=== PATIENT | female | born 1935 | race Caucasian/White ===

== ENCOUNTER 2016-03-16 13:30 | Inpatient (IN) | payer OTHER ==
[~2016-03-16] VITALS: Ht 160 cm; Wt 73.2 kg
[~2016-03-16 13:30] MED LIST: ACET-1256 PO; ASPI81TA28 PO; CMD2 PO; CRDCD240 PO; FLV1 PO; ISOS60TA25 PO; LPT/40 PO; LSN40 PO; METO25TA3 PO; NTRGSL/4 UT; POTA-327 PO; PRT40 PO
[2016-03-16] MEDS ORDERED: SODIUM CHLORIDE 0.9% 1000ML 1,000 ML IV STA (14:03)
--- NOTE | 2016-03-16 14:21 | EMERGENCY ROOM VISIT NOTE ---
History Report prepared by [place]: Balaji Pereyra Under the Supervision of: Dr. Tapan Licona M.D. First contact with patient: 14:02 Chief Complaint: SYNCOPE (NEAR SYNCOPE) Stated Complaint: SYNCOPE Nursing Triage Summary: Eating dinner and was getting out of chair and got very light headed. Family states she passed out was assisted to chair by family. Patient states she had a little bit of chest pain described as sharp but is getting better now. History of Present Illness The patient is a 80 year old female who presents to the Emergency Room with complaints of a sudden syncopal episode beginning just prior to arrival. She currently rates her discomfort as a 5/10 in severity. The patient states she was eating, and she became lightheaded while she was sitting at the dinner table. As per family, the patient passed out as they were helping her to a chair in the living room. The patient states she experienced sharp chest pain during the event, but it has resolved. As per daughter, the patient does not remember the family assisting her to the living room. The patient associates fatigue, dizziness, and a headache with today's symptoms. She states she recently had a cold with a cough and a runny nose. The patient notes an episode of diarrhea yesterday. As per daughter, the patient has been taking cold medicine that she usually does not use. The patient states she has a history of atrial fibrillation, but she has not had recent heart problems or stents placed. She notes her chest pain lasted 15-20 minutes, and it resolved on the way to the ED. Pt denies fevers, chills, diaphoresis, visual changes, neck pain , breathing difficulties, nausea, vomiting, abdominal pain, back pain, melena, hematochezia, urinary symptoms, numbness, weakness, lymphadenopathy, rash, or other complaints. Source of History: patient Onset: just prior to arrival Position: other (global) Quality: other (syncope) Timing: other (sudden) Associated Symptoms: + chest pain (resolved), + fatigue, + headache Note: Associated symptoms: dizziness. Review of Systems See HPI for pertinent positives and negatives. A total of ten systems were reviewed and were otherwise negative. Past Medical & Surgical Medical Problems: (1) Atrial fibrillation (2) Coronary artery disease (3) Dyslipidemia (4) Essential hypertension Surgical Problems: (1) H/O mastectomy (2) S/P cholecystectomy Family History Diabetes mellitus FH: cancer FH: coronary artery disease FATHER MOTHER FH: heart disease Hypertension Stroke MOTHER Social History Smoking Status: Never Smoker Alcohol Use: none Drug Use: none Marital Status: Housing Status: lives alone Occupation Status: retired Current/Historical Medications Scheduled Acetaminophen (Tylenol), 500-1,000 MG PO Q4-6HR PRN Aspirin (Aspirin Ec), 81 MG PO DAILY Atorvastatin (Lipitor), 40 MG PO Q2D Diltiazem Hcl Cd (Cardizem Cd *), 240 MG PO DAILY Folic Acid (Folvite *), 1 MG PO DAILY Isosorbide Mononitrate Ext Rel (Imdur Ext Rel), 60 MG PO QAM Lisinopril (Lisinopril), 40 MG PO DAILY Metoprolol Succ (Toprol Xl) (Toprol-Xl), 25 MG PO DAILY Nitroglycerin (Nitrostat), 0.4 MG UT PRN Sxahyhxunitiq-Atjoozmbie-Asvtg (Diane-[place] Plus Day/Nig), 1 TAB PO DAILY Potassium Ext Rel (Klor-Con), 10 MEQ PO BID Warfarin Sod (Jantoven), 2.5 MG PO DAILY Allergies Coded Allergies: No Known Allergies (Verified , 03/16/16) Physical Exam Vital Signs Date Time Temp Pulse Resp B/P Pulse Ox O2 Delivery O2 Flow Rate FiO2 03/16/16 17:27 77 18 124/70 99 03/16/16 15:40 85 16 154/84 98 Room Air 03/16/16 14:23 91 147/81 81 141/90 137 154/84 03/16/16 14:21 85 03/16/16 14:21 98 Room Air 03/16/16 14:21 98 Room Air 03/16/16 13:40 36.9 83 23 163/88 95 Room Air Physical Exam GENERAL: Awake, alert, tired-appearing, in no distress HENT: Normocephalic, atraumatic. Oropharynx unremarkable. EYES: Normal conjunctiva. Sclera non-icteric. NECK: Supple. No nuchal rigidity. FROM. No JVD. RESPIRATORY: Clear to auscultation. CARDIAC: Regular rate, normal rhythm. Extremities warm and well perfused. Pulses equal. ABDOMEN: Soft, non-distended. No tenderness to palpation. No rebound or guarding. No masses. RECTAL: Deferred. MUSCULOSKELETAL: Chest examination reveals no tenderness. The back is symmetrical on inspection without obvious abnormality. There is no CVA tenderness to palpation. No joint edema. LOWER EXTREMITIES: Calves are equal size bilaterally and non-tender. No edema. No discoloration. NEURO: Normal sensorium. No sensory or motor deficits noted. SKIN: No rash or jaundice noted. Medical Decision & Procedures ER Provider Diagnostic Interpretation: X ray results as stated below per my interpretation and radiologist interpretation. Other radiology results as stated below per my review and radiologist interpretation SINGLE VIEW CHEST CLINICAL HISTORY: Atypical chest pain. FINDINGS: An AP, portable, upright chest radiograph is compared to study dated 06/14/2015 and correlated with chest CT dated 06/15/2015. The examination is degraded by portable technique and apical lordotic positioning. The heart is top normal for projection. There is atherosclerotic calcification of the thoracic aorta. The pulmonary vasculature is noncongested. Bibasilar atelectasis is observed. The lungs and pleural spaces are otherwise clear. Tiny calcified granulomas at the left apex are unchanged. No pneumothorax is seen. The skeletal structures are osteopenic. The bony thorax is grossly intact. IMPRESSION: No acute cardiopulmonary abnormality. Electronically signed by: Junior Gonzalez M.D. 03/16/2016 2:[address] SCAN OF THE BRAIN WITHOUT IV CONTRAST CLINICAL HISTORY: Syncope. COMPARISON STUDY: CT of the brain dated 12/04/2009. TECHNIQUE: Unenhanced axial CT scan of the brain is performed from the vertex to the skull base. CT DOSE: 601.98 mGy.cm FINDINGS: Brain parenchyma: There are age-related involutional changes noting moderate confluent subcortical and periventricular microangiopathic change. There is no hemorrhage, mass effect, or evidence of acute territorial ischemia by CT criteria. Murphy-white matter is preserved. No extra-axial fluid collection is seen. Ventricles, sulci, cisterns: Prominent secondary to involutional change. Intracranial vasculature: There is atherosclerotic calcification of the cavernous carotid arteries. Calvarium: The skeletal structures are osteopenic. There is no depressed calvarial fracture. Sinuses and mastoids: Trace mucosal thickening is seen in the ethmoid sinuses. The remaining visualized paranasal sinuses are clear. The mastoid air cells are well pneumatized. Orbits: The bony orbits are grossly intact. There is a right ocular lens implant. IMPRESSION: Senescent changes as above with no hemorrhage, mass effect, or evidence of acute territorial ischemia by CT criteria. Electronically signed by: Junior Gonzalez M.D. 03/16/2016 3:16 PM Laboratory Results 03/16/16 14:43 Red Blood Count 5.19, Mean Corpuscular Volume 92.1, Mean Corpuscular Hemoglobin 32.2, Mean Corpuscular Hemoglobin Concent 34.9, Mean Platelet Volume 9.4, Neutrophils (%) (Auto) 70.9, Lymphocytes (%) (Auto) 18.8, Monocytes (%) (Auto) 9.5, Eosinophils (%) (Auto) 0.3, Basophils (%) (Auto) 0.2, Neutrophils # (Auto) 6.65, Lymphocytes # (Auto) 1.77, Monocytes # (Auto) 0.89, Eosinophils # (Auto) 0.03, Basophils # (Auto) 0.02 03/16/16 14:43 Test 03/16/16 14:43 White Blood Count 9.39 K/uL (4.8-10.8) Red Blood Count 5.19 M/uL (4.2-5.4) Hemoglobin 16.7 g/dL (12.0-16.0) Hematocrit 47.8 % (37-47) Mean Corpuscular Volume 92.1 fL (80-100) Mean Corpuscular Hemoglobin 32.2 pg (25-34) Mean Corpuscular Hemoglobin Concent 34.9 g/dl (32-36) Platelet Count 199 K/uL (130-400) Mean Platelet Volume 9.4 fL (7.4-10.4) Neutrophils (%) (Auto) 70.9 % Lymphocytes (%) (Auto) 18.8 % Monocytes (%) (Auto) 9.5 % Eosinophils (%) (Auto) 0.3 % Basophils (%) (Auto) 0.2 % Neutrophils # (Auto) 6.65 K/uL (1.4-6.5) Lymphocytes # (Auto) 1.77 K/uL (1.2-3.4) Monocytes # (Auto) 0.89 K/uL (0.11-0.59) Eosinophils # (Auto) 0.03 K/uL (0-0.5) Basophils # (Auto) 0.02 K/uL (0-0.2) RDW Standard Deviation 45.5 fL (36.4-46.3) RDW Coefficient of Variation 13.4 % (11.5-14.5) Immature Granulocyte % (Auto) 0.3 % Immature Granulocyte # (Auto) 0.03 K/uL (0.00-0.02) Prothrombin Time 25.2 SECONDS (9.0-12.0) Prothromb Time International Ratio 2.3 (0.9-1.1) Activated Partial Thromboplast Time 35.2 SECONDS (21.0-31.0) Partial Thromboplastin Ratio 1.4 Anion Gap 7.0 mmol/L (3-11) Est Creatinine Clear Calc Drug Dose 34.6 ml/min Estimated GFR () 45.2 Estimated GFR (Non- 39.0 BUN/Creatinine Ratio 12.2 (10-20) Calcium Level 8.8 mg/dl (8.5-10.1) Total Bilirubin 0.5 mg/dl (0.2-1) Direct Bilirubin 0.1 mg/dl (0-0.2) Aspartate Amino Transf (AST/SGOT) 23 U/L (15-37) Alanine Aminotransferase (ALT/SGPT) 41 U/L (12-78) Alkaline Phosphatase 91 U/L (45-117) Troponin I < 0.015 ng/ml (0-0.045) Total Protein 6.8 gm/dl (6.4-8.2) Albumin 3.6 gm/dl (3.4-5.0) Lipase 224 U/L (73-393) Laboratory results reviewed by me Medications Administered Medications (Trade) Dose Ordered Sig/Sakina Route Start Time Stop Time Status Last Admin Dose Admin Sodium Chloride 1,000 ml @ 125 mls/hr Q8H STAT IV 03/16/16 14:03 03/16/16 20:23 DC 03/16/16 14:31 125 MLS/HR Sodium Chloride (Nss 500ml) 500 ml @ 999 mls/hr Q31M STAT IV 03/16/16 16:17 03/16/16 16:50 DC 03/16/16 16:17 999 MLS/HR Acetaminophen (Tylenol Tab) 1,000 mg NOW STAT PO 03/16/16 16:17 03/16/16 16:18 DC 03/16/16 16:17 1,000 MG ECG Indication: syncope Rate (beats per minute): 79 Rhythm: normal sinus Findings: no acute ischemic change, no ectopy, other (low voltage QRS) ED Course 1406: The patient was evaluated in room B12B. A complete history and physical exam was performed. 1403: Ordered Sodium Chloride 1,000 ml @ 125 mls/hr IV. 1617: Ordered Tylenol Tab 1,000 mg PO, Sodium Chloride 500 ml @ 999 mls/hr IV. 1625: I spoke to RUY Jordan (Hospitalist) about the patient's case, and he will follow the patient for further evaluation. Medical Decision Triage Nursing notes reviewed. The patient's presentation and history were concerning for syncope. Etiologies such as vasovagal event, infection, hypoglycemia, electrolyte abnormalities, cardiac sources, intracerebral event, toxicologic, neurologic, as well as others were entertained. The patient was evaluated. Blood work, imaging, and ECG were obtained. The patient had an unremarkable CBC and chemistry panel. Orthostatic testing was done and the patient was very positive. Urinalysis was pending. The patient was hydrated with normal saline. Imaging was unremarkable. She was without complaints however there was concern by her orthostasis and the sudden onset of symptoms while she was seated. She does have a history of dysrhythmia. I discussed further evaluation and management in the hospital. The patient and family were in agreement. Consultation was made with internal medicine for further treatment. The chart was completed utilizing [employer] Speech voice recognition software. Grammatical errors, random word insertions, pronoun errors, and incomplete sentences are an occasional consequence of this system due to software limitations, ambient noise, and hardware issues. Any formal questions or concerns about the content, text, or information contained within the body of this dictation should be directly addressed to the physician for clarification. Consults Time Called: 1622 Consulting Physician: RUY Jordan (Hospitalist) Returned Call: 1625 I spoke to RUY Jordan (Hospitalist) about the patient's case, and he will follow the patient for further evaluation. Impression Primary Impression: Syncope Additional Impression: Orthostasis Scribe Attestation The scribe's documentation has been prepared under my direction and personally reviewed by me in its entirety. I confirm that the note above accurately reflects all work, treatment, procedures, and medical decision making performed by me. Departure Information Dispostion Being Evaluated By Hospitalist (Dr. Nugent, [facility] [place] Referrals No Doctor, Assigned (PCP)
[2016-03-16 14:50] LABS: BASO % 0.2 %; BASO ABS # 0.02 K/uL (0-0.2); COMPLETE YES; EOS % 0.3 %; HEMATOCRIT 47.8 % (37-47); IG% 0.3 %; LYMPH % 18.8 %; LYMPH ABS # 1.77 K/uL (1.2-3.4); MEAN CELL VOLUME 92.1 fL (80-100); MEAN CORPUSCULAR HEMOGLOBIN 32.2 pg (25-34); MEAN CORPUSCULAR HGB CONC 34.9 g/dl (32-36); MEAN PLATELET VOLUME 9.4 fL (7.4-10.4); MONO % 9.5 %; NEUT % 70.9 %; PLATELET COUNT 199 K/uL (130-400); RED BLOOD COUNT 5.19 M/uL (4.2-5.4); WHITE BLOOD COUNT 9.39 K/uL (4.8-10.8)
--- NOTE | 2016-03-16 14:53 | DIAGNOSTIC IMAGING REPORT ---
SINGLE VIEW CHEST CLINICAL HISTORY: Atypical chest pain. FINDINGS: An AP, portable, upright chest radiograph is compared to study dated 06/14/2015 and correlated with chest CT dated 06/15/2015. The examination is degraded by portable technique and apical lordotic positioning. The heart is top normal for projection. There is atherosclerotic calcification of the thoracic aorta. The pulmonary vasculature is noncongested. Bibasilar atelectasis is observed. The lungs and pleural spaces are otherwise clear. Tiny calcified granulomas at the left apex are unchanged. No pneumothorax is seen. The skeletal structures are osteopenic. The bony thorax is grossly intact. IMPRESSION: No acute cardiopulmonary abnormality. Electronically signed by: Junior Gonzalez M.D. 03/16/2016 2:51 PM
[2016-03-16 15:01] LABS: INR 2.3 (0.9-1.1); PARTIAL THROMBOPLASTIN RATIO 1.4; PROTHROMBIN TIME (PATIENT) 25.2 SECONDS (9.0-12.0)
[2016-03-16] MEDS ORDERED: PHEN1MIS PO (15:05)
[2016-03-16 15:07] LABS: ALT/SGPT 41 U/L (12-78); BLOOD UREA NITROGEN 16 mg/dl (7-18); BUN/CREATININE RATIO 12.2 (10-20); CALCIUM 8.8 mg/dl (8.5-10.1); CARBON DIOXIDE 26 mmol/L (21-32); CHLORIDE 109 mmol/L (98-107); GLUCOSE 142 mg/dl (70-99); POTASSIUM 4.7 mmol/L (3.5-5.1); SODIUM 142 mmol/L (136-145)
[2016-03-16] MEDS ORDERED: WARF5TAB7 PO (15:12)
[2016-03-16 15:16] LABS: ALKALINE PHOSPHATASE 91 U/L (45-117); AST/SGOT 23 U/L (15-37)
--- NOTE | 2016-03-16 15:17 | DIAGNOSTIC IMAGING REPORT ---
CT SCAN OF THE BRAIN WITHOUT IV CONTRAST CLINICAL HISTORY: Syncope. COMPARISON STUDY: CT of the brain dated 12/04/2009. TECHNIQUE: Unenhanced axial CT scan of the brain is performed from the vertex to the skull base. CT DOSE: 601.98 mGy.cm FINDINGS: Brain parenchyma: There are age-related involutional changes noting moderate confluent subcortical and periventricular microangiopathic change. There is no hemorrhage, mass effect, or evidence of acute territorial ischemia by CT criteria. Murphy-white matter is preserved. No extra-axial fluid collection is seen. Ventricles, sulci, cisterns: Prominent secondary to involutional change. Intracranial vasculature: There is atherosclerotic calcification of the cavernous carotid arteries. Calvarium: The skeletal structures are osteopenic. There is no depressed calvarial fracture. Sinuses and mastoids: Trace mucosal thickening is seen in the ethmoid sinuses. The remaining visualized paranasal sinuses are clear. The mastoid air cells are well pneumatized. Orbits: The bony orbits are grossly intact. There is a right ocular lens implant. IMPRESSION: Senescent changes as above with no hemorrhage, mass effect, or evidence of acute territorial ischemia by CT criteria. Electronically signed by: Junior Gonzalez M.D. 03/16/2016 3:16 PM
[2016-03-16] MEDS ORDERED: ACETAMINOPHEN 500 MG TAB PO STA (16:17)
[2016-03-16] MEDS ORDERED: SODIUM CHLORIDE 0.9% 500ML 500 ML IV STA (16:17)
[2016-03-16] MEDS ORDERED: NITROGLYCERIN 0.4 MG SL PER TAB CHARGE SL PRN (17:45)
[2016-03-16 18:54] LABS: URINE APPEARANCE CLOUDY (CLEAR); URINE BILIRUBIN NEG (NEG); URINE COLOR YELLOW; URINE EPITHELIAL CELL AUTO >30 /lpf (0-5); URINE NITRITE NEG (NEG); UROBILINOGEN NEG (NEG); ZZUR CULT IF INDIC CLEAN CATCH YES
[2016-03-16 18:55] LABS: MANUAL MICROSCOPIC REQUIRED? NO; REVIEW REQ? YES
[2016-03-16 19:48] VITALS: BP 124/75; PULSE 80; TEMP 36.7; O2SAT 95; Ht 160 cm; Wt 73.2 kg
[2016-03-16 20:00] VITALS: O2SAT 95
[2016-03-16] MEDS ORDERED: IV FLUIDS COMPLETED PRN (20:45)
[2016-03-16] MEDS ORDERED: POTASSIUM CHLORIDE 10 MEQ TABCR PO SCH (21:00)
[2016-03-16] MEDS ORDERED: WARFARIN SOD 2.5 MG TAB PO SCH (21:00)
[2016-03-16] MEDS: ACETAMINOPHEN 325 MG TAB PO PRN (21:55)
--- NOTE | 2016-03-16 22:38 | History and Physical ---
History & Physical H&P dictated. #[id number]. Added Ceftriaxone due to U/A signs of UTI. Urine culture is pending.
[2016-03-16] MEDS: CEFTRIAXONE SOD INJ 1 GM in DEXTROSE 5% ADD-VANTAGE 50ML 50 ML IV SCH (23:00)
[2016-03-16 23:24] VITALS: BP 130/76; PULSE 70; TEMP 36.7; O2SAT 94
--- NOTE | 2016-03-16 23:33 | HISTORY & PHYSICAL EXAMINATION ---
DATE OF ADMISSION: 03/16/2016 CHIEF COMPLAINT: Syncope. HISTORY OF PRESENT ILLNESS: This 80-year-old female patient was sitting in a chair at the dinner table with her family, when she suddenly described that she was feeling lightheaded and as though she was going to pass out. The family attempted to assist her and moving her into the living room, which the patient subsequently had a short episode of unconsciousness. The family witnessed this. There were no signs of seizure disorder. No shaking. She knew where she was and who she was when she came to, but then had a short episode of left-sided chest pain, it was nonradiating without diaphoresis or shortness of breath and resolved even prior to coming to the Emergency Department. She does have a history of atrial fibrillation, but does not recall ever losing consciousness in the past. PAST MEDICAL HISTORY: Significant for coronary artery disease, atrial fibrillation, dyslipidemia and hypertension. PAST SURGICAL HISTORY: Include; mastectomy and cholecystectomy. FAMILY HISTORY: Significant for diabetes, coronary artery disease in both her mother and father, cerebrovascular disease in her mother and hypertension. SOCIAL HISTORY: She is , lives alone and is retired. She never smoked. Does not use alcohol. No illicit substances. CURRENT HOME MEDICATIONS: Include; Tylenol on a p.r.n. basis, aspirin 81 mg daily, Lipitor 40 mg every other day, Cardizem-CD 240 mg daily, folic acid 1 mg daily, Imdur 60 mg in the morning, Toprol-XL 25 mg daily, nitroglycerin sublingual p.r.n., potassium 10 mEq b.i.d., warfarin 2.5 mg daily. She had been taking 2 days of [place] Plus for cold symptoms. ALLERGIES: She has no known drug allergies. REVIEW OF SYSTEMS: A complete 10-system review was performed and was negative other than those things I placed in the HPI. PHYSICAL EXAMINATION: VITAL SIGNS: Temperature 36.9; heart rate of 83; blood pressure 163/88; her orthostatic blood pressure was 147/81 lying, sitting 141/90 and standing 154/84; pulse ox 98% on room air. GENERAL: The patient is awake, alert and oriented x3, not in acute distress. HEENT: TMs intact. No inflammation. Extraocular muscles are intact. Pupils are equal, round, reactive to light and accommodation. Mucous membranes were moist. Throat was clear. NECK: No JVD or lymphadenopathy. LUNGS: Essentially clear bilaterally. No rales, rhonchi or wheezes. HEART: Regular, normal S1, S2, no murmur. ABDOMEN: Soft, nontender, nondistended, positive bowel sounds. EXTREMITIES: No clubbing, cyanosis or edema. NEUROLOGIC: Cranial nerves II-XII are grossly intact and nonfocal. SKIN: Warm and dry without rash. No diaphoresis. PSYCHIATRIC: The patient was pleasant and cooperative. No signs of significant anxiety. LABORATORY DATA: White count 9.39, hemoglobin 16.7, hematocrit 47.8, platelet count 199,000. Sodium 142, potassium 4.7, chloride 109, CO2 26, BUN 16, creatinine 1.3. AST of 23, ALT of 41, lipase of 224, troponin less than 0.015. Her INR was 2.3 which was therapeutic. Urinalysis showed large leukocyte esterase and 2+ bacteria. Culture is pending at this time. CT of the head; senescent changes as above with no hemorrhage, mass effect or evidence of acute territorial ischemia by CT criteria. Chest x-ray; no acute cardiopulmonary abnormalities. ASSESSMENT: 1. Brief syncopal episode. 2. Transient chest pain. 3. Appearance of urinary tract infection, culture is pending. 4. Paroxysmal atrial fibrillation, therapeutic, on warfarin. 5. History of costochondritis. PLAN: The patient will have serial cardiac isoenzymes. I see she had an echocardiogram in 06/2015. I will consult cardiology and defer further cardiac testing to their expertise. DVT prophylaxis will be covered by her therapeutic warfarin. She will be placed on telemetry and is made on observation. Appropriate home medications are continued and I will repeat the orthostatics in the morning.
[2016-03-17] VITALS (9 sets, daily range): BP systolic 110–149; BP diastolic 63–82; PULSE 69–81; TEMP 36.6–37.2; O2SAT 91–97
[2016-03-17] MEDS ORDERED: NURSING VERBAL MED ORDER ONE ×2 (00:45→06:00)
[2016-03-17 06:14] LABS: BASO % 0.5 %; BASO ABS # 0.04 K/uL (0-0.2); COMPLETE YES; EOS % 0.9 %; HEMATOCRIT 47.2 % (37-47); IG% 0.5 %; LYMPH ABS # 3.43 K/uL (1.2-3.4); MEAN CELL VOLUME 91.3 fL (80-100); MEAN CORPUSCULAR HEMOGLOBIN 31.5 pg (25-34); MEAN CORPUSCULAR HGB CONC 34.5 g/dl (32-36); MEAN PLATELET VOLUME 9.6 fL (7.4-10.4); MONO % 9.8 %; NEUT % 49.3 %; PLATELET COUNT 204 K/uL (130-400); RED BLOOD COUNT 5.17 M/uL (4.2-5.4); WHITE BLOOD COUNT 8.79 K/uL (4.8-10.8)
[2016-03-17] MEDS ORDERED: COUGH DROP (SUGAR FREE) LOZ 24 LOZ/1 BOX PO PRN (06:15)
[2016-03-17 06:24] LABS: INR 1.9 (0.9-1.1); PROTHROMBIN TIME (PATIENT) 21.3 SECONDS (9.0-12.0)
[2016-03-17 06:47] LABS: BLOOD UREA NITROGEN 16 mg/dl (7-18); BUN/CREATININE RATIO 17.3 (10-20); CALCIUM 8.5 mg/dl (8.5-10.1); CARBON DIOXIDE 23 mmol/L (21-32); CHLORIDE 110 mmol/L (98-107); CREATININE 0.92 mg/dl (0.60-1.20); GLUCOSE 100 mg/dl (70-99); POTASSIUM 4.1 mmol/L (3.5-5.1); SODIUM 144 mmol/L (136-145)
[2016-03-17] MEDS ORDERED: ATORVASTATIN 20 MG TAB PO SCH (09:00)
[2016-03-17] MEDS: ASPIRIN 81 MG ECTAB PO SCH (09:03)
[2016-03-17] MEDS: ISOSORBIDE MONONITRATE 60 MG TABCR PO SCH (09:04)
[2016-03-17] MEDS: DILTIAZEM HCL 240 MG CAPCR PO SCH (09:04)
[2016-03-17] MEDS: METOPROLOL SUCC 25MG EXT REL TAB PO SCH (09:05)
[2016-03-17] MEDS: LISINOPRIL 40 MG TAB PO SCH (09:05)
[2016-03-17] MEDS: ACETAMINOPHEN 325 MG TAB PO PRN (09:05)
--- NOTE | 2016-03-17 09:53 | CONSULTATION REPORT ---
DATE OF CONSULTATION: 03/17/2016 REASON FOR CONSULTATION: Syncope/near syncope. HISTORY OF PRESENT ILLNESS: Mrs. Godfrey is a pleasant 80-year-old white female with a history of nonocclusive/nonobstructive CAD (60% mid LAD stenosis on cardiac catheterization 2009), paroxysmal atrial fibrillation (initially diagnosed in 2008), hypertension, dyslipidemia, and who is on chronic anticoagulation who was admitted acutely to [facility] yesterday following a syncopal episode. She has had a recent cold and has been coughing, although she did not have any coughing spells at the time of her syncopal episode. She did take Diane-[place] Cold medication yesterday, but she did not note any side effects with it. She was sitting at her daughter's house eating lunch. She got up to walk to the other room, and noted that she had a headache and felt quite lightheaded. She apparently had a syncopal episode or a profound near syncopal episode, which she does not recall. She was assisted to a chair by her family members, and according to her son, she was only unresponsive for a second or two. Following her syncopal episode she developed a feeling of being "warm all over", and feeling "wiped out." She did note a sharp left-sided chest pain following the syncopal episode, which lasted for minutes and then resolved. She denies any post-syncopal nausea, vomiting, or diaphoresis. She was subsequently admitted to the telemetry unit for further evaluation. Thus far, her telemetry monitoring is negative for any dysrhythmias, bradyarrhythmias or tachyarrhythmias. Her cardiac enzymes are negative x 3. CT scan of the head showed no acute changes. Chest x-ray showed no acute processes. Orthostatic vital signs have been within normal limits. She has been lying in bed most of her hospital stay so far, but has sat up at the bedside a couple of times. She feels mildly lightheaded when she initially sits up, which is not normal for her. The patient offers no other complaints. She denies any recent fevers, chills, or change in dietary intake. She has not had any diarrhea or focal signs or symptoms of infection other than a "cold." MEDICATIONS: 1. Warfarin 2.5 mg daily. 2. Aspirin 81 mg daily. 3. Lipitor 40 mg every other day. 4. Diltiazem CD 240 mg daily. 5. Folic acid 1 mg daily. 6. Imdur 60 mg daily. 7. Lisinopril 40 mg daily. 8. Toprol-XL 25 mg daily. 9. Menthol lozenges as needed. 10. Ceftriaxone 1 gram IV q. 24 hours. 11. Sublingual nitroglycerin p.r.n. 12. Acetaminophen 650 mg p.o. q. 4 hours p.r.n. for pain or fever. ALLERGIES: NKDA. PAST MEDICAL HISTORY: 1. Nonocclusive/nonobstructive CAD on cardiac catheterization 2009. 2. Negative Lexiscan Cardiolite June 2013. 3. Negative dobutamine stress echo 06/02/2014. 4. Trace MR. 5. Trace TR. 6. Normal LV systolic function. 7. Paroxysmal atrial fibrillation, initially diagnosed 2008, on chronic Coumadin anticoagulation. 8. Hypertension. 9. Dyslipidemia. 10. History of dizziness. 11. Chronic kidney disease. 12. History of atypical chest pain. 13. Osteoarthritis. 14. History of benign polycythemia. 15. Status post mastectomy. 16. History of cholecystectomy. SOCIAL HISTORY: The patient is . She does not use alcohol or tobacco. She is here in the hospital with her son at bedside. FAMILY HISTORY: Significant for CAD in her father. PHYSICAL EXAMINATION: VITAL SIGNS: Temperature is 36.7 degrees Celsius, pulse 75 and regular, respiratory rate 16 and unlabored, blood pressure is 130/82. SPO2 is 93% on room air. I's and O's -110 mL total. Body weight 73.6 kilograms. GENERAL: The patient is in no acute distress. HEENT: Head is atraumatic, normocephalic. EOMs intact. Sclerae are anicteric. Facies symmetric. No perioral cyanosis. Mucous membranes moist. NECK: Without thyromegaly, adenopathy or JVD. Carotid upstrokes +2 bilaterally without bruits. CHEST AND LUNGS: Clear to auscultation throughout all lung sales, no wheezes, rales or rhonchi. CARDIOVASCULAR: S1 and S2 are regular with a grade 1/6 apical holosystolic murmur. No diastolic murmurs appreciated. No gallops or rubs. PMI is nondisplaced. No lifts, heaves, or thrills. No abdominal, aortic or renal bruits noted. ABDOMEN: Bowel sounds present. No masses, organomegaly or tenderness. EXTREMITIES: No clubbing, cyanosis, or edema. Some pigmentation changes of bilateral legs are consistent with chronic venous insufficiency. NEUROLOGIC: The patient is awake, alert and oriented. Pleasant and cooperative. Answers questions appropriately. Speech is clear. Normal movement in bilateral upper and lower extremities. LABORATORIES: White blood cell count is 8.79. Hemoglobin 16.3 grams, hematocrit 47.2%, platelet count 204,000. Sodium is 144 mmol/L, potassium 4.1 mmol/L. BUN 16 mg/dL, creatinine 0.92 mg/dL. Random glucose 100 mg per deciliter. Troponin I is less than 0.015 ng/mL x3. LFTs are unremarkable. INR is 1.9 today. Urinalysis shows a large amount of leukocyte esterase and urine white blood cells. Specimen appears contaminated as there are greater than 30 urinary epithelial cells present. +2 urine bacteria present. Urine culture is pending. Chest x-ray shows no acute processes. CT scan of the head shows age-related involutional changes, but no acute processes noted. Telemetry monitoring shows normal sinus rhythm to sinus tachycardia throughout. ASSESSMENT: 1. Syncope -- Uncertain etiology - ? cough syncope. She has never experienced this before. 2. Nonocclusive/nonobstructive CAD. 3. History of PAF (no recent recurrences per patient, although she is not always symptomatic). 4. Chronic Coumadin anticoagulation. 5. Hypertension. 6. Negative orthostatic vital signs. 7. Dyslipidemia. 8. Sharp left-sided chest pain, atypical and negative cardiac enzymes. 9. No angina pectoris or anginal equivalent symptoms. 10. No signs or symptoms of congestive heart failure. 11. No evidence of dysrhythmia. PLAN: 1. The patient had an echocardiogram performed on 06/15/2015 which showed normal biventricular systolic function, mild concentric LVH. Trace MR, trace TR. Aortic valve sclerosis without stenosis. LVEF 65-70%. Class I diastolic dysfunction. 2. Reassurance that her cardiac workup is negative thus far, including negative cardiac enzymes, normal telemetry monitoring, and she has not had any recurrent symptoms. 3. Consider echocardiogram. However, this will likely not yield any significant new findings. 4. Continue telemetry monitoring for now. As the patient has been stable since being hospitalized, it would be reasonable to send her home -- but would recommend at least a 48-hour Holter monitor versus 30-day event monitor to further evaluate for any dysrhythmias following discharge. 5. Avoid Diane-[place] Cold medication for the time being. 6. We will continue following along while hospitalized and we will follow up with her soon after she is discharged from the hospital. Thank you for asking us to see this patient in consultation. The patient was seen and examined by me today in conjunction with Mr. Lino. History as above. The patient had a brief syncopal event after sitting. This occurred approximately 5 hours after taking her antihypertensive medications. Cannot exclude low blood pressure from her medications causing the brief syncope. On monitoring thus far no arrhythmia is noted. She was not experiencing any of her typical symptoms of atrial fibrillation. Vague chest discomfort after regaining consciousness. Cardiac enzymes negative for myocardial injury. Physical exam as above. The patient was also examined by me. No additional findings noted by me. Is planned for the patient to remain in hospital until tomorrow. Continue monitoring in telemetry. Monitor for any significant arrhythmias. At this time would continue her usual cardiac medications. No additional cardiac workup at this time. Thank you. Yelena Sorensen MD [facility]
[2016-03-17] MEDS ORDERED: HYDROCODONE/ACETAMOPHEN 5/325MG TAB PO PRN (12:00)
[2016-03-17] MEDS ORDERED: ONDANSETRON INJ 2 MG/ML 2 ML VIAL IV PRN (12:00)
[2016-03-17] MEDS ORDERED: LORAZEPAM 2 MG/ML 1 ML VIAL IV PRN (12:15)
[2016-03-17] MEDS: HYDROCODONE/ACETAMOPHEN 5/325MG TAB PO PRN ×2 (12:46→20:41)
--- NOTE | 2016-03-17 14:32 | Hospitalist Progress Note ---
Hospitalist Progress Note Date of Service Mar 17, 2016. Subjective Pt evaluation today including: conversation w/ patient, physical exam, chart review, lab review, review of studies, review of inpatient medication list Patient appears anxious today. Apparently earlier in the day her roommate had coded. She also is complaining of a frontal headache that has not improved with the use of Tylenol. The CT scan of the head did reveal some inflammatory changes in the ethmoid sinuses (she thought she had a sinusitis). None the less , Rocephin should cover that. She does not feel that she is strong enough to go how today. Additional Comments: A 10 system review was performed and all were negative. Positives were placed in the subjective section. Objective Vital Signs Date Time Temp Pulse Resp B/P Pulse Ox O2 Delivery O2 Flow Rate FiO2 03/17/16 12:00 Room Air 03/17/16 11:57 37.2 81 16 149/80 94 Room Air 03/17/16 11:55 37.2 81 16 149/80 94 Room Air 03/17/16 08:00 Room Air 03/17/16 07:25 36.7 75 16 133/82 93 Room Air 03/17/16 04:44 36.6 69 20 121/69 97 Room Air 03/17/16 04:00 97 Room Air 03/17/16 00:01 94 Room Air 03/16/16 23:24 36.7 70 20 130/76 94 Room Air 03/16/16 20:00 95 Room Air 03/16/16 19:48 36.7 80 14 124/75 95 Room Air 03/16/16 19:18 72 16 135/67 96 Room Air 03/16/16 17:27 77 18 124/70 99 03/16/16 15:40 85 16 154/84 98 Room Air 03/16/16 14:23 91 147/81 81 141/90 137 154/84 03/16/16 14:21 85 03/16/16 14:21 98 Room Air 03/16/16 14:21 98 Room Air Physical Exam Notes: GEN: Awake, alert, and oriented x 3. Not in acute distress HEENT: Tm's intact, no inflammation, EOMI, PERRLA, MMM Neck: Soft, supple Lungs: CTA b/l, no r/r/w Heart: REG, nrl S1S2 without murmurs, rubs or gallops Abdomen: Soft, NT, ND, + BS EXT: No C/C/E NEURO: CN's II-XII grossly intact, non-focal Skin: warm, dry, no rashes PSYCH: pleasant, cooperative, but does appear anxious to me. Laboratory Results Last 24 Hours Test 03/16/16 14:43 03/16/16 18:15 03/16/16 23:10 03/17/16 05:40 White Blood Count 9.39 K/uL 8.79 K/uL Red Blood Count 5.19 M/uL 5.17 M/uL Hemoglobin 16.7 g/dL 16.3 g/dL Hematocrit 47.8 % 47.2 % Mean Corpuscular Volume 92.1 fL 91.3 fL Mean Corpuscular Hemoglobin 32.2 pg 31.5 pg Mean Corpuscular Hemoglobin Concent 34.9 g/dl 34.5 g/dl Platelet Count 199 K/uL 204 K/uL Mean Platelet Volume 9.4 fL 9.6 fL Neutrophils (%) (Auto) 70.9 % 49.3 % Lymphocytes (%) (Auto) 18.8 % 39.0 % Monocytes (%) (Auto) 9.5 % 9.8 % Eosinophils (%) (Auto) 0.3 % 0.9 % Basophils (%) (Auto) 0.2 % 0.5 % Neutrophils # (Auto) 6.65 K/uL 4.34 K/uL Lymphocytes # (Auto) 1.77 K/uL 3.43 K/uL Monocytes # (Auto) 0.89 K/uL 0.86 K/uL Eosinophils # (Auto) 0.03 K/uL 0.08 K/uL Basophils # (Auto) 0.02 K/uL 0.04 K/uL RDW Standard Deviation 45.5 fL 44.9 fL RDW Coefficient of Variation 13.4 % 13.4 % Immature Granulocyte % (Auto) 0.3 % 0.5 % Immature Granulocyte # (Auto) 0.03 K/uL 0.04 K/uL Prothrombin Time 25.2 SECONDS 21.3 SECONDS Prothromb Time International Ratio 2.3 1.9 Activated Partial Thromboplast Time 35.2 SECONDS Partial Thromboplastin Ratio 1.4 Sodium Level 142 mmol/L 144 mmol/L Potassium Level 4.7 mmol/L 4.1 mmol/L Chloride Level 109 mmol/L 110 mmol/L Carbon Dioxide Level 26 mmol/L 23 mmol/L Anion Gap 7.0 mmol/L 11.0 mmol/L Blood Urea Nitrogen 16 mg/dl 16 mg/dl Creatinine 1.30 mg/dl 0.92 mg/dl Est Creatinine Clear Calc Drug Dose 34.6 ml/min 48.8 ml/min Estimated GFR () 45.2 68.6 Estimated GFR (Non- 39.0 59.2 BUN/Creatinine Ratio 12.2 17.3 Random Glucose 142 mg/dl 100 mg/dl Calcium Level 8.8 mg/dl 8.5 mg/dl Total Bilirubin 0.5 mg/dl Direct Bilirubin 0.1 mg/dl Aspartate Amino Transf (AST/SGOT) 23 U/L Alanine Aminotransferase (ALT/SGPT) 41 U/L Alkaline Phosphatase 91 U/L Troponin I < 0.015 ng/ml < 0.015 ng/ml < 0.015 ng/ml Total Protein 6.8 gm/dl Albumin 3.6 gm/dl Lipase 224 U/L Urine Color YELLOW Urine Appearance CLOUDY Urine pH 5.0 Urine Specific [place] 1.020 Urine Protein NEG Urine Glucose (UA) NEG Urine Ketones NEG Urine Occult Blood NEG Urine Nitrite NEG Urine Bilirubin NEG Urine Urobilinogen NEG Urine Leukocyte Esterase LARGE Urine WBC (Auto) 10-30 /hpf Urine RBC (Auto) 0-4 /hpf Urine Hyaline Casts (Auto) 5-10 /lpf Urine Epithelial Cells (Auto) >30 /lpf Urine Bacteria (Auto) 2+ Assessment and Plan 1) Syncope - no further episodes. Remain on tele while in house. 2) Frontal Headache - will treat pain for aggressively than with Tylenol. 3) UTI - IV Rocephin 4) ? Ethmoid sinusitis - Rocephin should cover that 5) Chest pain - resolved no further symptoms, KS was ruled out. 6) Atrial fibrillation - therapeutic on warfarin and rate is controlled. 7) DVT prophylaxis - TEDS, SCDs, warfarin use already.
[2016-03-17] MEDS ORDERED: WARFARIN SOD 2.5 MG TAB PO SCH (16:00)
[2016-03-17] MEDS: CEFTRIAXONE SOD INJ 1 GM in DEXTROSE 5% ADD-VANTAGE 50ML 50 ML IV SCH (23:08)
[2016-03-18] VITALS: BP 121/75; PULSE 72; TEMP 36.7; O2SAT 93
[2016-03-18 00:01] VITALS: O2SAT 93
[2016-03-18 04:00] VITALS: BP 124/70; PULSE 64; TEMP 36.6; O2SAT 93
[2016-03-18 07:12] LABS: INR 2.2 (0.9-1.1); PROTHROMBIN TIME (PATIENT) 24.1 SECONDS (9.0-12.0)
[2016-03-18 07:34] LABS: BUN/CREATININE RATIO 20.2 (10-20); CALCIUM 8.7 mg/dl (8.5-10.1); CREATININE 0.88 mg/dl (0.60-1.20); POTASSIUM 4.6 mmol/L (3.5-5.1)
[2016-03-18 08:00] VITALS: O2SAT 94
[2016-03-18 08:02] VITALS: BP 143/82; PULSE 76; TEMP 36.8; O2SAT 94
--- NOTE | 2016-03-18 08:15 | Clinical Documentation Query ---
CLINICAL DOCUMENTATION QUERY Dr. ARNETT, In your clinical opinion is this patient being managed for: ( ) Acute kidney injury ( ) Other explanation of clinical findings (Please Explain) ( ) Unable to determine (Please Define) ( ) Need to Discuss ( ) Not Agree The medical record reflects the following clinical findings, treatment, and risk factors. Clinical Indicators: 80 yo female presenting with Cr of 1.30 which has trended down to 0.88. Baseline range in EMR 0.71-0.92. Treatment: ER provided 500 cc NSS bolus then 1L at 125 cc/hr, monitor PRP Risk Factors: age, HTN, A fib Please clarify and document your clinical opinion in the progress notes and discharge summary. Terms such as "probable", "suspected", "likely", "questionable", "possible", or "still to be ruled out" are acceptable. IF IN AGREEMENT, YOU MUST DOCUMENT ABOVE DIAGNOSTIC STATEMENT IN DAILY PROGRESS NOTES AND DISCHARGE SUMMARY. This document is not part of the patient's record. Thank You, Sonia Hopper RN [phone]
[2016-03-18] MEDS: ISOSORBIDE MONONITRATE 60 MG TABCR PO SCH (08:54)
[2016-03-18] MEDS: ASPIRIN 81 MG ECTAB PO SCH (08:54)
[2016-03-18] MEDS: METOPROLOL SUCC 25MG EXT REL TAB PO SCH (08:54)
[2016-03-18] MEDS: DILTIAZEM HCL 240 MG CAPCR PO SCH (08:55)
[2016-03-18] MEDS: LISINOPRIL 40 MG TAB PO SCH (08:55)
--- NOTE | 2016-03-18 09:08 | CARDIOLOGY PROGRESS NOTE ---
DATE: 03/18/2016 DATE: 03/18/2016. HISTORY OF PRESENT ILLNESS: Mrs. Godfrey is a 80-year-old white female with nonocclusive/nonobstructive CAD, paroxysmal atrial fibrillation, hypertension and dyslipidemia who was admitted acutely on 03/17/2015 following a syncopal episode. She was admitted for further evaluation on telemetry monitoring. Thus far her cardiac workup has been completely negative. Her cardiac enzymes are negative, and telemetry monitoring shows normal sinus rhythm throughout. She has not had any further syncope, nor has she had any lightheaded spells, dizzy spells, or weak spells. She further denies any chest pain, heaviness, tightness, or pressure. No neck, jaw, back, or arm pain. No shortness of breath, orthopnea or PND. No palpitations or tachypalpitations. PHYSICAL EXAMINATION: VITAL SIGNS: Temperature is 36.8?C, pulse is 72 and regular, respiratory rate is 16 and unlabored, blood pressure is 142/82. SPO2 is 94% on room air. GENERAL: The patient is in no acute distress. HEAD, EYES, EARS, NOSE, AND THROAT: Head is atraumatic, normocephalic. EOMs intact. Sclerae are anicteric. Face asymmetric. No perioral cyanosis. NECK: Without thyromegaly, adenopathy or JVD. Carotid upstrokes +2 bilaterally without bruits. CHEST AND LUNGS: Clear to auscultation throughout all lung sales, no wheezes, rales or rhonchi. CARDIOVASCULAR: S1 and S2 are regular with a grade 1/6 apical holosystolic murmur. No diastolic murmurs appreciated. No gallops or rubs. PMI is nondisplaced. No lifts, heaves, or thrills. ABDOMINAL EXAMINATION: Bowel sounds present. No masses, organomegaly or tenderness. EXTREMITIES: Are without clubbing, cyanosis or edema. NEUROLOGIC EXAMINATION: The patient is awake, alert and oriented. Pleasant and cooperative. Answers questions appropriately. Speech is clear. Normal movement of bilateral upper and lower extremities. Telemetry monitoring shows normal sinus rhythm throughout, occasional PVCs. There have been no pauses, bradyarrhythmias, nor have there been any tachyarrhythmias. LABORATORY DATA: Sodium is 142 mmol/L, potassium 4.6 mmol/L. BUN 18 mg/dL, creatinine 0.88 mg/dL. Random glucose 96 mg/dL. INR is 2.2. ASSESSMENT: 1. Syncope, uncertain etiology, possibly cough syncope. 2. Probable ethmoid sinusitis. 3. Nonocclusive coronary artery disease on cardiac catheterization in 2009. 4. Negative dobutamine stress echo is 06/02/2014. 5. Trace mitral regurgitation. 6. Trace tricuspid regurgitation. 7. Paroxysmal atrial fibrillation, on chronic Coumadin anticoagulation. 8. Hypertension, controlled. 9. Dyslipidemia. PLAN: 1. The patient remains stable from a cardiac standpoint. 2. Continue diet as tolerated. 3. Continue usual medications, avoid [id number] cold medications. 4. The patient is stable from a cardiac standpoint for discharge to home. Consider a 48-hour Holter monitor to further evaluate for any dysrhythmias if the patient has any recurrent symptoms. Patient seen and examined by me in conjunction with Mr. Lino. She feel's much better today. No cardiac complaints. Monitoring of rhythm unremarkable. Exam unchanged. Recommend no further cardiac work up at this time. Continue usual cardiac medications. Discharge home. Yelena Sorensen MD [facility]
[2016-03-18 09:40] VITALS: BP 124/70; PULSE 64; TEMP 36.6; O2SAT 93
[2016-03-18] MEDS ORDERED: POTA10CA28 PO (09:56)
--- NOTE | 2016-03-18 10:05 | Discharge Instructions ---
Discharge Instructions Admission Reason for Admission: Chest Pain, Syncope (passing out spell) Discharge Discharge Diagnosis / Problem: 1. chest pain - no evidence of heart attack. 2. passing out spell Discharge Goals Goal(s): Learn about illness, Diagnostic testing, Therapeutic intervention Activity Recommendations Activity Limitations: resume your previous activity Lifting Limitations: none Exercise/Sports Limitations: as tolerated Shower/Bathe: no limitations Driving or Machine Use: no limitations . Instructions / Follow-Up Instructions / Follow-Up From Dr. Jeffers - 1. Your passing out spell was likely a "vasovagal" episode. This is the most common cause of fainting. We did not find any evidence of abnormal heart rhythm on the heart monitor, heart attack, stroke, etc. You were mildly dehydrated when you arrived which often precipitates passing out spells. Drink some extra fluids over the next 2-3 days. If you ever feel faint the best thing to do is immediately lie down on the cough , bed, etc and put your feet up on pillows. This often wards off the spell. If you continue to have episodes like this Dr. Sorensen may recommend an outpatient heart monitor. 2. Please lower your potassium supplement to ONCE DAILY. At the time of your follow-up appointment please have your family doctor repeat your potassium level; you may not need the potassium supplement at all. 3. For your cold/cough - * discontinue any product containing decongestants (sudafed, etc) * may use mucinex for cough * may use suzan, claritin, or zyrtec for runny nose/congestion * saline spray works great, too 4. If you develop fever over 100.5, worsening cough/congestion, difficulty breathing, recurrent episodes of passing out, etc please return to [facility] for evaluation. 5. For many years your red cells (blood counts) have been running higher than normal. Please speak with your family doctor about this. Current Hospital Diet Patient's current hospital diet: AHA Diet (Heart Healthy) Discharge Diet Recommended Diet: AHA Diet (Heart Healthy) Procedures Procedures Performed: CAT scan of the brain - normal; no evidence of bleeding or stroke. Chest x-ray - no evidence of pneumonia. Pending Studies Studies pending at discharge: no Medical Emergencies . Who to Call and When: Medical Emergencies: If at any time you feel your situation is an emergency, please call 911 immediately. . Non-Emergent Contact Non-Emergency issues call your: Primary Care Provider, Hinging Machine Operator Call Non-Emergent contact if: temperature is above 100.5, you have any medication questions . . "Provider Documentation" section prepared by Emmanuel Jeffers. VTE Core Measure Inpt VTE Proph given/why not?: Warfarin (Coumadin)
--- NOTE | 2016-03-24 15:19 | Discharge Summary ---
Discharge Summary Admission Date: Mar 17, 2016 at 12:05 Discharge Date: Mar 18, 2016 Discharge Disposition: Home Principal Diagnosis: syncope, likely vasovagal etiology Problems/Secondary Diagnoses: 1. acute kidney injury likely 2nd to dehydration - resolved 2. CAD 3. atrial fibrillation - paroxysmal 4. HTN 5. hyperlipidemia 6. polycythemia - appears chronic for 10+ years Immunizations: Have You Had Influenza Vaccine: Unknown History of Tetanus Vaccine?: Unknown History of Pneumococcal: Unknown History of Hepatitis B Vaccine: Unknown Procedures: CT head negative for acute ICH/stroke Consultations: cardiology - CATRINA Masters PT, OT Medication Reconciliation New Medications: Potassium Chloride (Micro-K Ext Rel) 10 Meq Capcr 10 MEQ PO DAILY, #30 CAP 0 Refills Continued Medications: Acetaminophen (Tylenol) 500 Mg Tab 500-1000 MG PO Q4-6HR PRN, TAB Aspirin (Aspirin Ec) 81 Mg Tab 81 MG PO DAILY Atorvastatin (Lipitor) 40 Mg Tab 40 MG PO Q2D, TAB Diltiazem Hcl Cd (Cardizem Cd *) 240 Mg Capcr 240 MG PO DAILY, 0 Refills Folic Acid (Folvite *) 1 Mg Tab 1 MG PO DAILY, 0 Refills Isosorbide Mononitrate Ext Rel (Imdur Ext Rel) 60 Mg Ertab 60 MG PO QAM, TAB Lisinopril (Lisinopril) 40 Mg Tab 40 MG PO DAILY, #30 TAB Metoprolol Succ (Toprol Xl) (Toprol-Xl) 25 Mg Tabcr 25 MG PO DAILY, #30 TAB Nitroglycerin (Nitrostat) 0.4 Mg Tab 0.4 MG UT PRN, 0 Refills Warfarin Sod (Jantoven) 5 Mg Tab 2.5 MG PO DAILY, TAB Discontinued Medications: Soqsscjgfmlka-Nunkrbtbkw-Owtnk (Diane-[place] Plus Day/Nig) 1 Mis Mis 1 TAB PO DAILY Potassium Ext Rel (Klor-Con) 10 Meq Tabcr 10 MEQ PO BID, TAB Discharge Exam Physical Exam: General Appearance: no apparent distress ENT: pharynx normal Neck: no JVD Respiratory/Chest: lungs clear, no respiratory distress, no accessory muscle use Cardiovascular: regular rate, rhythm, no gallop, no murmur, normal peripheral pulses Abdomen / GI: normal bowel sounds, non tender, soft, no organomegaly Extremities: no pedal edema Neurologic/Psychiatric: no motor/sensory deficits, alert, oriented x 3 Hospital Course HISTORY OF PRESENT ILLNESS: This 80-year-old female patient was sitting in a chair at the dinner table with her family, when she suddenly described that she was feeling lightheaded and as though she was going to pass out. The family attempted to assist her and moving her into the living room, which the patient subsequently had a short episode of unconsciousness. The family witnessed this. There were no signs of seizure activity. No shaking. She knew where she was and who she was when she came to, but then had a short episode of left-sided chest pain, it was nonradiating without diaphoresis or shortness of breath and resolved even prior to coming to the Emergency Department. HOSPITAL COURSE: The patient's brief stay was marked by stability in her vital signs and no recurrence of near-syncope or syncope. She was noted to have mild acute kidney injury and received IV hydration with normalization of her creatinine from 1.3 to 0.8. Serial cardiac enzymes, chest x-ray, CT head, telemetry, and EKG were all within normal limits. She was seen by cardiology in consult and in light of her prodromal symptoms along with short-lived nature of the event it was felt that her syncopal episode was neurocardiogenic/vasovagal in etiology. I suspect that mild dehydration (as evidenced by her HANY) provoked this event. The patient's potassium level was top-normal during her stay and it was suggested she cut her potassium supplement back to once daily. She may not even need the supplement as she is no longer taking a diuretic on a regular basis. It was noted that she has mild polycythemia. A review of the EMR shows that this issue has been present for 10+ years. This would argue for a benign etiology but [id number] I suggested follow-up with her PCP and/or specialist for it. Lastly, INR at time of discharge was 2.2. No changes in her coumadin were recommended. Total Time Spent: Greater than 30 minutes This includes examination of the patient, discharge planning, medication reconciliation, and communication with other providers. Discharge Instructions Please refer to the electronic Patient Visit Report (Discharge Instructions) for additional information. Follow-Up see MATEO Pritchard, within 1 week Additional Copies To Rachael Menendez, C.R.N.P.; Yovani Sorensen M.D.
[2017-01-09] MEDS ORDERED: FOLIC ACID PO (11:41)
[2017-01-09] MEDS ORDERED: DILT-115 PO (11:41)
[2017-01-09] MEDS ORDERED: LISI40TA PO (11:41)
== END 2016-03-18 10:47 | disposition home or self-care (01) | DRG 312 ==
LOC: ENRESERVTM → ENRESERVDT → EDBD 13:30 → C.EDB 13:30 → C.2T 17:33 → OBSVTOIN 03-17 12:05
PROVIDERS: ADMIT Hospitalist; ATTEND Internal Medicine
DX: R55 Syncope and collapse (principal); N39.0 Urinary tract infection, site not specified; R07.9 Chest pain, unspecified; I48.0 Paroxysmal atrial fibrillation; E78.5 Hyperlipidemia, unspecified; D45 Polycythemia vera; I25.10 Atherosclerotic heart disease of native coronary artery without angina pectoris; N18.9 Chronic kidney disease, unspecified; I12.9 Hypertensive chronic kidney disease with stage 1 through stage 4 chronic kidney disease, or unspecified chronic kidney disease; J32.2 Chronic ethmoidal sinusitis; M19.90 Unspecified osteoarthritis, unspecified site; I08.1 Rheumatic disorders of both mitral and tricuspid valves; G44.89 Other headache syndrome; Z79.82 Long term (current) use of aspirin; Z79.01 Long term (current) use of anticoagulants; Z79.899 Other long term (current) drug therapy

== ENCOUNTER → 2016-04-14 | Outpatient (CLI) | payer OTHER ==
[~2016-04-14] MED LIST changes: -CMD2 PO; +HYDR-5688 PO; -POTA-327 PO; +POTA10CA28 PO; -PRT40 PO; +WARF5TAB7 PO
[2016-04-14 13:23] LABS: BLOOD UREA NITROGEN 14 mg/dl (7-18); BUN/CREATININE RATIO 14.1 (10-20); CALCIUM 9.1 mg/dl (8.5-10.1); CARBON DIOXIDE 20 mmol/L (21-32); CHLORIDE 110 mmol/L (98-107); CREATININE 0.99 mg/dl (0.60-1.20); GLUCOSE 104 mg/dl (70-99); POTASSIUM 4.8 mmol/L (3.5-5.1); SODIUM 141 mmol/L (136-145)
--- NOTE | 2016-04-17 12:15 | CODING QUERY NO DIAGNOSIS ---
TREATMENT RENDERED WITHOUT A DIAGNOSIS To promote full compliance with coding requirements relating to patient care, physician participation is requested in all cases of knowledge analyst uncertainty. Please assist us with providing a diagnosis/symptom for the test(s) below: A diagnosis/symptom was not documented on your Order. A valid diagnosis/symptom is required to bill all insurances. Please remember that we are unable to code a diagnosis of rule out, probable, possible, questionable, or suspected. Tests that require a diagnosis: * PAPRTIAL RENAL PROFILE DOS: 04/14/16 DIAGNOSIS: Provider Signature: Date: Thank you Nadine Mckeon [employer] Once completed, please kindly fax back to [phone] For questions please call [phone]
== END | disposition home or self-care (01) ==
LOC: C.LABBFT 09:56
PROVIDERS: ATTEND Nurse Practitioner
DX: N18.9 Chronic kidney disease, unspecified (principal); I10 Essential (primary) hypertension; R73.01 Impaired fasting glucose; I48.0 Paroxysmal atrial fibrillation

== ENCOUNTER → 2016-05-26 | Outpatient (CLI) | payer OTHER ==
[2016-05-26 12:52] LABS: HEMATOCRIT 48.2 % (37-47); MEAN CELL VOLUME 91.6 fL (80-100); MEAN CORPUSCULAR HEMOGLOBIN 31.4 pg (25-34); MEAN CORPUSCULAR HGB CONC 34.2 g/dl (32-36); MEAN PLATELET VOLUME 10.3 fL (7.4-10.4); PLATELET COUNT 234 K/uL (130-400); RED BLOOD COUNT 5.26 M/uL (4.2-5.4); WHITE BLOOD COUNT 8.16 K/uL (4.8-10.8)
[2016-05-26 13:20] LABS: ALT/SGPT 43 U/L (12-78); BLOOD UREA NITROGEN 14 mg/dl (7-18); BUN/CREATININE RATIO 14.4 (10-20); CALCIUM 8.9 mg/dl (8.5-10.1); CARBON DIOXIDE 23 mmol/L (21-32); CHLORIDE 111 mmol/L (98-107); GLUCOSE 107 mg/dl (70-99); POTASSIUM 4.4 mmol/L (3.5-5.1); SODIUM 143 mmol/L (136-145)
[2016-05-26 13:30] LABS: ESTIMATED AVERAGE GLUCOSE 114 mg/dl; HA1C FLAG Normal (Normal)
[2016-05-26 13:31] LABS: ALB/GLOB RATIO 1.3 (0.9-2); ALKALINE PHOSPHATASE 83 U/L (45-117); AST/SGOT 23 U/L (15-37); CHOLESTEROL 133 mg/dl (0-200); CHOLESTEROL/HDL RATIO 3.2; HDL CHOLESTEROL 42 mg/dl; LDL CHOLESTEROL CALCULATED 53 mg/dl; TRIGLYCERIDES 192 mg/dl (0-150); VERY LOW DENSITY LIPOPROT CALC 38 mg/dl
== END | disposition home or self-care (01) ==
LOC: C.LABBFT 09:37
PROVIDERS: ATTEND Nurse Practitioner
DX: R73.01 Impaired fasting glucose (principal); E78.5 Hyperlipidemia, unspecified; D75.1 Secondary polycythemia; I48.0 Paroxysmal atrial fibrillation

== ENCOUNTER → 2016-05-29 | Outpatient (CLI) | payer OTHER ==
[2016-05-29 18:43] LABS: RATIO 8.2 mcg/mg (0-30.0)
== END | disposition home or self-care (01) ==
LOC: C.LABSPEC 17:45
PROVIDERS: ATTEND Nurse Practitioner
DX: R73.01 Impaired fasting glucose (principal)

== ENCOUNTER 2016-08-12 14:38 | Emergency (ER) | payer OTHER ==
[~2016-08-12] VITALS: Ht 162.6 cm; Wt 73.0 kg
[~2016-08-12 14:38] MED LIST changes: -HYDR-5688 PO
[2016-08-12 14:50] VITALS: TEMP 36.4; Ht 162.6 cm; Wt 73.0 kg
[2016-08-12] MEDS ORDERED: HYDROCODONE/ACETAMOPHEN 5/325MG TAB PO ONE (15:45)
--- NOTE | 2016-08-12 16:23 | DIAGNOSTIC IMAGING REPORT ---
LEFT PELVIS/UNILATERAL HIP 2-3VIEWS CLINICAL HISTORY: Left leg pain. No recent trauma. COMPARISON: None FINDINGS: The sacroiliac joints and symphysis pubis are intact. There is no acute fracture within the pelvis or the hips. There is minimal arthritis of both hips. There is no evidence for avascular necrosis. IMPRESSION: 1. No acute fracture within the pelvis or hips. 2. Minimal left hip osteoarthritis. Electronically signed by: Dougie Vaughn M.D. 08/12/2016 4:22 PM Dictated Date/Time: 08/12/2016 4:21 PM
--- NOTE | 2016-08-12 16:31 | DIAGNOSTIC IMAGING REPORT ---
LEFT KNEE 3 VIEWS CLINICAL HISTORY: Left knee pain. No recent trauma. COMPARISON: Left tibia and fibula radiographs December 04, 2009. FINDINGS: Alignment of the left knee is in anatomic. There is chondrocalcinosis within the menisci. There is marked narrowing of the lateral patellofemoral joint space with osteophytosis. There is no joint effusion or suspicious lesion. IMPRESSION: 1. No acute fracture or joint effusion. 2. Severe osteoarthritis of the patellofemoral compartment. 3. Chondrocalcinosis within the menisci. Electronically signed by: Dougie Vaughn M.D. 08/12/2016 4:30 PM Dictated Date/Time: 08/12/2016 4:22 PM
--- NOTE | 2016-08-12 16:51 | DIAGNOSTIC IMAGING REPORT ---
ULTRASOUND LEFT LOWER EXTREMITY VENOUS CLINICAL HISTORY: Left leg pain. COMPARISON STUDY: No priors. TECHNIQUE: Real-time, grayscale, and color Doppler sonography of the deep veins of the left lower extremity was performed from the inguinal crease to the calf. Compression and augmentation were utilized. FINDINGS: There is no sonographic evidence of deep venous thrombosis identified in the left lower extremity. The common femoral, superficial femoral, and popliteal veins are patent and normally compressible. The greater saphenous vein and the profunda femoris vein at the junction with the common femoral vein are clear. The visualized calf veins are patent. IMPRESSION: There is no sonographic evidence of deep venous thrombosis identified in the left lower extremity. Electronically signed by: Junior Gonzalez M.D. 08/12/2016 4:49 PM Dictated Date/Time: 08/12/2016 4:49 PM
[2016-08-12] MEDS ORDERED: HYDR-5688 PO (17:20)
[2016-08-12 18:05] VITALS: BP 160/89; PULSE 82; O2SAT 95
--- NOTE | 2016-08-12 21:30 | EMERGENCY ROOM VISIT NOTE ---
History First contact with patient: 15:38 Chief Complaint: LEG PAIN,LEG INJURY Stated Complaint: CAN'T PUT WEIGHT ON LEFT LEG History of Present Illness The patient is a 81 year old female who presents to the Emergency Room with complaints of left knee pain for the past one day. The patient has been following with [facility], and evidently had cortisone injections performed 9 days ago in both knees. The patient had been doing well after the procedure, but states last night she had a worsening ache in the knee. Today she has pain with weightbearing. She does not report new injury or trauma. No fever or chills. She is not taking anything [id number]-gvvwydb. Her discomfort worsens with standing and flexion. She does not report alleviating symptoms other than rest. The patient has not had recent travel history. She is on warfarin for A. fib. She rates her discomfort a 7/10. Review of Systems More than 10 systems were reviewed and otherwise negative with the exception of history of present illness. Past Medical/Surgical History Medical Problems: (1) Atrial fibrillation (2) Coronary artery disease (3) Dyslipidemia (4) Essential hypertension (5) UTI (urinary tract infection) Surgical Problems: (1) H/O mastectomy (2) S/P cholecystectomy Family History Diabetes mellitus FH: cancer FH: coronary artery disease FATHER MOTHER FH: heart disease Hypertension Stroke MOTHER Social History Smoking Status: Never Smoker Alcohol Use: none Drug Use: none Marital Status: Housing Status: lives alone Occupation Status: retired Current/Historical Medications Scheduled Acetaminophen (Tylenol), 500-1,000 MG PO Q4-6HR PRN Aspirin (Aspirin Ec), 81 MG PO DAILY Atorvastatin (Lipitor), 40 MG PO DAILY Diltiazem Hcl Cd (Cardizem Cd *), 240 MG PO DAILY Isosorbide Mononitrate Ext Rel (Imdur Ext Rel), 60 MG PO QAM Lisinopril (Lisinopril), 40 MG PO DAILY Metoprolol Succ (Toprol Xl) (Toprol-Xl), 25 MG PO DAILY Nitroglycerin (Nitrostat), 0.4 MG UT PRN Warfarin Sod (Jantoven), 2.5 MG PO DAILY Scheduled PRN Hydrocodone/Acetaminophen 5MG/325MG ([place] 5MG/325MG), 1-2 TABLET PO Q6 PRN for Pain Allergies Coded Allergies: No Known Allergies (Verified , 08/12/16) Physical Exam Vital Signs Date Time Temp Pulse Resp B/P Pulse Ox O2 Delivery O2 Flow Rate FiO2 08/12/16 18:05 82 18 160/89 95 Room Air 08/12/16 17:11 91 16 154/93 92 08/12/16 14:50 36.4 90 18 154/86 97 Room Air Physical Exam VITALS: Vitals are noted on the nurse's note and reviewed by myself. Vital signs stable. GENERAL: Well-developed, well-nourished, white female, who is in no acute distress and resting comfortably. Patient is cooperative with the examination. HEAD: Normocephalic atraumatic. MUSCULOSKELETAL: There is tenderness diffusely along the left knee and into the left hip. No significant erythema or edema. The patient has tenderness with flexion and extension, but is able to perform these maneuvers. There is some tenderness of the posterior knee into the proximal calf without palpable cord. There is mild palpable tenderness of the left hip laterally. Patient is able to internally and externally rotate. Negative anterior/posterior drawer. No laxity with varus valgus maneuvers. NEURO: Patient was alert and oriented to person place and time. CN II through XII grossly intact. Medical Decision & Procedures ER Provider Diagnostic Interpretation: LEFT PELVIS/UNILATERAL HIP 2-3VIEWS CLINICAL HISTORY: Left leg pain. No recent trauma. COMPARISON: None FINDINGS: The sacroiliac joints and symphysis pubis are intact. There is no acute fracture within the pelvis or the hips. There is minimal arthritis of both hips. There is no evidence for avascular necrosis. IMPRESSION: 1. No acute fracture within the pelvis or hips. 2. Minimal left hip osteoarthritis. LEFT KNEE 3 VIEWS CLINICAL HISTORY: Left knee pain. No recent trauma. COMPARISON: Left tibia and fibula radiographs December 04, 2009. FINDINGS: Alignment of the left knee is in anatomic. There is chondrocalcinosis within the menisci. There is marked narrowing of the lateral patellofemoral joint space with osteophytosis. There is no joint effusion or suspicious lesion. IMPRESSION: 1. No acute fracture or joint effusion. 2. Severe osteoarthritis of the patellofemoral compartment. 3. Chondrocalcinosis within the menisci. ULTRASOUND LEFT LOWER EXTREMITY VENOUS CLINICAL HISTORY: Left leg pain. COMPARISON STUDY: No priors. TECHNIQUE: Real-time, grayscale, and color Doppler sonography of the deep veins of the left lower extremity was performed from the inguinal crease to the calf. Compression and augmentation were utilized. FINDINGS: There is no sonographic evidence of deep venous thrombosis identified in the left lower extremity. The common femoral, superficial femoral, and popliteal veins are patent and normally compressible. The greater saphenous vein and the profunda femoris vein at the junction with the common femoral vein are clear. The visualized calf veins are patent. IMPRESSION: There is no sonographic evidence of deep venous thrombosis identified in the left lower extremity. Medications Administered Medications (Trade) Dose Ordered Sig/Sakina Route Start Time Stop Time Status Last Admin Dose Admin Acetaminophen/ Hydrocodone Bitart ([place] 5/325 Tab) 1 tab NOW ONCE PO 08/12/16 15:45 08/12/16 15:46 DC 08/12/16 16:00 1 TAB ED Course Physical exam and history were performed. Nursing notes and EMR were reviewed. Patient appears to have pain of her left knee that started worsening over the past one day. She has a history of chronic knee pain and is following closely with orthopedics for this. On examination she does not have signs of infection or dislocation. X-rays of the left knee and left hip were performed, and are without significant acute findings. Ultrasound was also performed and does not show evidence of DVT. Clinically I suspect the patient's symptoms are acute on chronic. The patient will be given a short course of pain medication and placed in a knee immobilizer. She does have a walker at home that she is comfortable using. The patient should call her orthopedist in the morning to help arrange a short interval follow-up. The patient was pleased with this and voiced understanding. She was otherwise invited back to the ER with any new, worsening, or concerning symptoms. The chart was completed utilizing [employer] Speech Voice Recognition Software. Grammatical errors, random word insertions, pronoun errors, and incomplete sentences are an occasional consequence of this system due to software limitations, ambient noise, and hardware issues. Any formal questions or concerns about the content, text, or information contained within the body of this dictation should be directly addressed to the provider for clarification. . Medical Decision Differential diagnosis includes, but is not limited to: Sprain, strain, fracture , dislocation, subluxation, contusion, infection, and others Impression Primary Impression: Leg pain, left Departure Information Prescriptions Hydrocodone/Acetaminophen 5MG/325MG ([place] 5MG/325MG) Tab 1-2 TABLET PO Q6 Y for Pain, #15 TAB For Initial Treatment Prov: Orion Becerra PA-C 08/12/16 Referrals No Doctor, Assigned (PCP) Patient Instructions [facility]
[2017-01-09] MEDS ORDERED: LISI40TA PO (11:41)
[2017-01-09] MEDS ORDERED: FOLIC ACID PO (11:41)
[2017-01-09] MEDS ORDERED: DILT-115 PO (11:41)
== END 2016-08-12 18:00 | disposition home or self-care (01) ==
LOC: C.EDB 14:40 → C.EDD 18:00
DX: M25.562 Pain in left knee (principal); G89.29 Other chronic pain; I48.91 Unspecified atrial fibrillation; I25.10 Atherosclerotic heart disease of native coronary artery without angina pectoris; I10 Essential (primary) hypertension; E78.5 Hyperlipidemia, unspecified; Z87.440 Personal history of urinary (tract) infections; Z90.49 Acquired absence of other specified parts of digestive tract; Z90.10 Acquired absence of unspecified breast and nipple; Z79.82 Long term (current) use of aspirin; Z79.01 Long term (current) use of anticoagulants; Z79.899 Other long term (current) drug therapy; Z83.3 Family history of diabetes mellitus; Z80.9 Family history of malignant neoplasm, unspecified; Z82.49 Family history of ischemic heart disease and other diseases of the circulatory system; Z82.3 Family history of stroke

== ENCOUNTER → 2016-08-22 | Outpatient (CLI) | payer OTHER ==
[~2016-08-22] MED LIST changes: +ACET-24 PO; +CLB200 PO; +DILT-115 PO; -FLV1 PO; +FOLIC ACID PO; +HYDR-5688 PO; +LISI40TA PO; +ONDA8TAB12 PO; -POTA10CA28 PO; +RXC5 PO
[2016-08-22 12:11] LABS: INR 2.7 (0.9-1.1); PROTHROMBIN TIME (PATIENT) 30.1 SECONDS (9.0-12.0)
== END | disposition home or self-care (01) ==
LOC: C.LABBFT 08:25
PROVIDERS: ATTEND Internal Medicine Cardiovascular Disease
DX: I48.0 Paroxysmal atrial fibrillation (principal)

== ENCOUNTER → 2016-09-22 | Outpatient (CLI) | payer OTHER ==
[~2016-09-22] MED LIST changes: -ACET-24 PO; -CLB200 PO; -DILT-115 PO; -FOLIC ACID PO; -LISI40TA PO; -ONDA8TAB12 PO; -RXC5 PO
[2016-09-22 17:56] LABS: URINE APPEARANCE CLEAR (CLEAR); URINE BILIRUBIN NEG (NEG); URINE COLOR YELLOW; URINE NITRITE NEG (NEG); URINE PH 8.5 (4.5-7.5); URINE SPECIFIC GRAVITY 1.014 (1.000-1.030); UROBILINOGEN NEG (NEG)
[2016-09-22 18:00] LABS: MANUAL MICROSCOPIC REQUIRED? NO; REVIEW REQ? NO
== END | disposition home or self-care (01) ==
LOC: C.LABBFT 15:28
PROVIDERS: ATTEND Physician Assistant Medical
DX: R30.0 Dysuria (principal)

== ENCOUNTER → 2016-11-21 | Outpatient (CLI) | payer OTHER ==
[2016-11-21 12:15] LABS: HEMATOCRIT 52.8 % (37-47); MEAN CELL VOLUME 95.5 fL (80-100); MEAN CORPUSCULAR HEMOGLOBIN 31.5 pg (25-34); MEAN PLATELET VOLUME 10.5 fL (7.4-10.4); PLATELET COUNT 207 K/uL (130-400); RED BLOOD COUNT 5.53 M/uL (4.2-5.4); WHITE BLOOD COUNT 11.46 K/uL (4.8-10.8)
[2016-11-21 12:55] LABS: ALT/SGPT 61 U/L (12-78); BLOOD UREA NITROGEN 22 mg/dl (7-18); BUN/CREATININE RATIO 22.6 (10-20); CALCIUM 9.5 mg/dl (8.5-10.1); CARBON DIOXIDE 24 mmol/L (21-32); CHLORIDE 107 mmol/L (98-107); CHOLESTEROL 122 mg/dl (0-200); CREATININE 0.95 mg/dl (0.60-1.20); GLUCOSE 114 mg/dl (70-99); POTASSIUM 4.1 mmol/L (3.5-5.1); SODIUM 139 mmol/L (136-145)
[2016-11-21 12:58] LABS: ALB/GLOB RATIO 1.1 (0.9-2); ALKALINE PHOSPHATASE 91 U/L (45-117); AST/SGOT 31 U/L (15-37); HDL CHOLESTEROL 41 mg/dl; LDL CHOLESTEROL CALCULATED 47 mg/dl; TRIGLYCERIDES 168 mg/dl (0-150); VERY LOW DENSITY LIPOPROT CALC 34 mg/dl
== END | disposition home or self-care (01) ==
LOC: C.LABBFT 09:32
PROVIDERS: ATTEND Nurse Practitioner
DX: E78.5 Hyperlipidemia, unspecified (principal); D75.1 Secondary polycythemia

== ENCOUNTER 2017-01-26 05:43 | Inpatient (IN) | payer OTHER ==
--- NOTE | 2017-01-09 12:21 | PAT Medication Instructions ---
Service Date Jan 09, 2017. Current Home Medication List Aspirin (Aspirin Ec), 81 MG PO QAM Atorvastatin (Lipitor), 40 MG PO Q2D Diltiazem Hcl Ext Rel (Tiazac), 240 MG PO QAM Isosorbide Mononitrate Ext Rel (Imdur Ext Rel), 60 MG PO QAM Lisinopril (Zestril), 40 MG PO QAM Metoprolol Succ (Toprol Xl) (Toprol-Xl), 25 MG PO QAM Nitroglycerin (Nitrostat), 0.4 MG UT PRN Warfarin Sod (Jantoven), 2.5 MG PO HS [Folic Acid], Unknown Dose PO QAM Medication Instructions For Your Scheduled Surgery - Hold the following medications per your prescriber's instructions: Warfarin Sod (Jantoven), 2.5 MG PO HS - Continue as directed: Nitroglycerin (Nitrostat), 0.4 MG UT PRN - Hold the following medications the morning of surgery: [Folic Acid], Unknown Dose PO QAM Lisinopril (Zestril), 40 MG PO QAM - Take the following medications the morning of surgery with a sip of water: Aspirin (Aspirin Ec), 81 MG PO QAM Metoprolol Succ (Toprol Xl) (Toprol-Xl), 25 MG PO QAM Diltiazem Hcl Ext Rel (Tiazac), 240 MG PO QAM Isosorbide Mononitrate Ext Rel (Imdur Ext Rel), 60 MG PO QAM - Take the following medications as scheduled the night before surgery: Atorvastatin (Lipitor), 40 MG PO Q2D If you have any questions please call us at [phone] or [phone] or [phone]
[2017-01-09 13:05] LABS: BASO % 0.4 %; BASO ABS # 0.04 K/uL (0-0.2); COMPLETE YES; EOS % 0.6 %; HEMATOCRIT 51.4 % (37-47); IG% 0.5 %; LYMPH ABS # 2.88 K/uL (1.2-3.4); MEAN CELL VOLUME 93.5 fL (80-100); MEAN CORPUSCULAR HEMOGLOBIN 32.2 pg (25-34); MEAN CORPUSCULAR HGB CONC 34.4 g/dl (32-36); MEAN PLATELET VOLUME 9.8 fL (7.4-10.4); MONO % 8.4 %; NEUT % 60.1 %; PLATELET COUNT 201 K/uL (130-400); WHITE BLOOD COUNT 9.61 K/uL (4.8-10.8)
[2017-01-09 13:14] LABS: URINE APPEARANCE CLEAR (CLEAR); URINE BILIRUBIN NEG (NEG); URINE COLOR YELLOW; URINE NITRITE NEG (NEG); UROBILINOGEN NEG (NEG)
[2017-01-09 13:16] LABS: MANUAL MICROSCOPIC REQUIRED? NO; REVIEW REQ? NO
[2017-01-09 13:17] LABS: INR 2.9 (0.9-1.1); PARTIAL THROMBOPLASTIN RATIO 1.5; PROTHROMBIN TIME (PATIENT) 32.2 SECONDS (9.0-12.0)
[2017-01-09 13:24] LABS: BUN/CREATININE RATIO 15.6 (10-20); CALCIUM 9.4 mg/dl (8.5-10.1); CREATININE 0.88 mg/dl (0.60-1.20); POTASSIUM 4.5 mmol/L (3.5-5.1)
[2017-01-09 13:29] LABS: ESTIMATED AVERAGE GLUCOSE 117 mg/dl; HA1C FLAG Normal (Normal)
--- NOTE | 2017-01-14 13:33 | HISTORY & PHYSICAL EXAMINATION ---
DATE OF ADMISSION: 01/26/2017 CHIEF COMPLAINT: Left knee pain. HISTORY OF PRESENT ILLNESS: Ms. Godfrey is an 81-year-old female with a multiple year history of left knee pain. The patient rates her pain a 10/10. She has pain with her daily activities. She has limited standing and walking tolerance. Pain is worse with weightbearing. The patient has failed injections, home exercise program and bracing. She is unable to take NSAIDs. She does have chronic Coumadin use. She has failed conservative treatment and is scheduled for left knee replacement. PAST MEDICAL HISTORY: Hypertension, hypercholesterolemia, atrial fibrillation. She denies heart disease, diabetes or DVT. PAST SURGICAL HISTORY: Hysterectomy, cholecystectomy, mastectomy and appendectomy. SOCIAL HISTORY: The patient denies alcohol or tobacco use. She lives in a single story home. She lives alone and is retired. FAMILY HISTORY: Negative for DVT. MEDICATIONS: Diltiazem 240 mg daily, folic acid, isosorbide mononitrate 60 mg, Lipitor 40 mg, lisinopril 10 mg, metoprolol 25 mg, Nitrostat 0.4 mg, potassium chloride 10 mEq, acetaminophen 500 mg, aspirin 81 mg, and Coumadin 2.5 mg. ALLERGIES: None. REVIEW OF SYSTEMS: See HPI. Ten other systems reviewed, all negative. PHYSICAL EXAMINATION: VITAL SIGNS: Height 5 foot 2 inches, weight 166 pounds. BMI 30. GENERAL: This is a well-developed, well-nourished female who is alert and oriented x3. Mood and affect are appropriate. HEAD, EYES, EARS, NOSE, AND THROAT: Normocephalic, atraumatic. Mucous membranes are moist and intact. NECK: Supple without lymphadenopathy. HEART: Regular rate and rhythm without murmurs, rubs or gallops. LUNGS: Clear to auscultation without wheezes or rhonchi. ABDOMEN: Soft and nontender. Bowel sounds are equal and active. EXTREMITIES: No ecchymosis, redness or warmth. She has varus deformity. She has venous stasis changes distally with edema. She is neurovascularly intact. Range of motion is from 5-110 degrees. X-RAY EXAMINATION: AP and lateral views show joint space narrowing and osteophyte formation. IMPRESSION: Degenerative joint disease, left knee. PLAN: The patient will be admitted for a left total knee arthroplasty. We will resume her Coumadin postoperatively for DVT prophylaxis. This is managed by Dr. Sorensen at [facility]. [facility].
--- NOTE | 2017-01-23 10:17 | HISTORY & PHYSICAL EXAMINATION ---
DATE OF ADMISSION: 01/26/2017 CHIEF COMPLAINT: Left knee pain. HISTORY OF PRESENT ILLNESS: The patient is an 81-year-old female with known osteoarthritis about her bilateral knees. She has had previous corticosteroid as well as viscosupplementation injections. She is unable to take anti-inflammatory medications due to Coumadin use. Due to ongoing pain and disability, she now desires to proceed with left total knee arthroplasty. PAST MEDICAL HISTORY: Coronary artery disease, atrial fibrillation, hypertension, hyperlipidemia, and osteoarthritis. PAST SURGICAL HISTORY: Breast mastectomy, cholecystectomy, and hysterectomy. MEDICATIONS: Tylenol 500-1000 mg q. 4 hours p.r.n. pain, aspirin 81 mg daily, atorvastatin calcium 40 mg daily, diltiazem XR 240 mg daily, isosorbide mononitrate ER 60 mg daily, lisinopril 40 mg daily, metoprolol succinate ER 25 mg daily, Nitrostat 0.4 mg sublingual p.r.n. chest pain, and warfarin 2.5 mg daily. ALLERGIES: No known drug allergies. SOCIAL HISTORY AND REVIEW OF SYSTEMS: Noncontributory. PHYSICAL EXAMINATION: GENERAL: Well-nourished and well-developed elderly female, who appears her stated age. HEENT: Normocephalic and atraumatic. Extraocular movements intact. Oropharynx is pink and moist. NECK: Supple without adenopathy. LUNGS: Clear to auscultation bilaterally. HEART: Regular rate and rhythm. ABDOMEN: Soft, nontender, nondistended, and obese. EXTREMITIES: The upper extremities are within normal limits. The left knee is neutrally aligned. Her range of motion is approximately 0-120 degrees. X-RAYS: X-rays were reviewed. She has mild degenerative change about the tibiofemoral joint, but severe osteoarthritis about her patellofemoral joint with complete loss of the joint space. There is [id number] articulation of the patellofemoral joint. There is osteophyte formation about the patella. ASSESSMENT: Left knee degenerative joint disease. PLAN: Risks versus benefits were discussed. Consent was obtained. The patient has been seen and evaluated by [facility]. We will proceed with left total knee arthroplasty as indicated.
[~2017-01-26] VITALS: Ht 157.5 cm; Wt 79.6 kg
[2017-01-26] VITALS (10 sets, daily range): BP systolic 112–161; BP diastolic 71–97; PULSE 69–91; TEMP 36.5–37.3; O2SAT 96–98; Ht 157.5 cm; Wt 79.6 kg
[~2017-01-26 05:43] MED LIST changes: -ACET-1256 PO; -CRDCD240 PO; +DILT-115 PO; +FOLIC ACID PO; -HYDR-5688 PO; +LISI40TA PO; -LSN40 PO
[2017-01-26] MEDS ORDERED: GABAPENTIN 300 MG CAP PO SCH (06:00)
[2017-01-26] MEDS ORDERED: ROPIVACAINE 5MG/ML 30 ML 150 MG, BUPIVACAINE 0.5% MPF INJ 30 ML, EpINEphrine HCL INJ 0.... INFIL SCH ×8 (06:00)
[2017-01-26] MEDS ORDERED: CeleBREX 200 MG CAP PO SCH (06:00)
[2017-01-26] MEDS ORDERED: LACTATED RINGER'S 1000ML IV SCH (06:00)
[2017-01-26] MEDS ORDERED: FAMOTIDINE 20 MG TAB PO SCH (06:00)
[2017-01-26] MEDS ORDERED: CEFAZOLIN 1000MG IV PUSH 5 ML IV SCH (06:00)
[2017-01-26] MEDS ORDERED: ACETAMINOPHEN 500 MG TAB PO SCH (06:00)
[2017-01-26] MEDS ORDERED: LACTATED RINGER'S 1000ML 1,000 ML IV SCH (06:00)
[2017-01-26] MEDS ORDERED: LACTATED RINGER'S 1000ML 500 ML IV ONE (06:00)
[2017-01-26] MEDS ORDERED: METOCLOPRAMIDE HCL 10 MG TAB PO SCH (06:00)
[2017-01-26] MEDS ORDERED: DEXAMETHASONE 4 MG TAB PO SCH (06:00)
[2017-01-26] MEDS: TRANEXAMIC ACID INJ 1,000 MG in SYRINGE 0 ML IV SCH ×2 (06:30→07:40)
[2017-01-26] MEDS ORDERED: ACET-1256 PO (06:36)
[2017-01-26] MEDS ORDERED: MIDAZOLAM HCL 1 MG/ML 2ML VIAL ONE (06:54)
--- NOTE | 2017-01-26 07:02 | History & Physical Bridge Note ---
H&P Re-Evaluation Bridge Note: I have examined the patient, reviewed the History & Physical and in the interval since the performance of the History & Physical I have noted the following changes of clinical significance: No changes noted
[2017-01-26] MEDS ORDERED: ORTHO JOINT ANESTHETIC ONE (07:15)
[2017-01-26] MEDS ORDERED: BACITRACIN 50000 UNIT VIAL ONE (07:15)
[2017-01-26] MEDS ORDERED: POVIDONE-IODINE OP SOLN 30 ML BTL ONE (07:15)
[2017-01-26 07:23] LABS: INR 1.1 (0.9-1.1); PARTIAL THROMBOPLASTIN RATIO 1.1; PROTHROMBIN TIME (PATIENT) 12.3 SECONDS (9.0-12.0)
[2017-01-26] MEDS ORDERED: ONDANSETRON INJ 2 MG/ML 2 ML VIAL IV PRN (07:45)
[2017-01-26] MEDS ORDERED: EpHEDrine SULFATE INJ 50 MG/ML AMP IV PRN (07:45)
[2017-01-26] MEDS ORDERED: ATROPINE SULFATE 0.1 MG/ML 5ML SYR IV PRN (07:45)
[2017-01-26] MEDS ORDERED: BUPIVACAINE 0.5 % 5 MG/1 ML PF 10ML VIAL ONE (08:11)
[2017-01-26] MEDS ORDERED: BUPIVACAINE 0.25% 30 ML VIAL ONE (08:11)
[2017-01-26] MEDS ORDERED: EpINEphrine INJ 1MG/ML AMP 1 MG/ML AMP ONE (08:12)
[2017-01-26] MEDS ORDERED: DEXAMETHASONE SOD INJ 4 MG/ML VIAL ONE (08:12)
[2017-01-26] MEDS ORDERED: LIDOCAINE HCL 2% 2 ML VIAL (20MG/ML) ONE (08:24)
[2017-01-26] MEDS ORDERED: PROPOFOL IV EMULSION 10 MG/ML 20 ML VIAL IV ONE (08:24)
[2017-01-26] MEDS ORDERED: PHENYLEPHRINE 100MCG/ML 5ML SYR ONE (08:35)
--- NOTE | 2017-01-26 08:50 | [facility] Post Operative Brief Note ---
Immediate Operative Summary Operative Date Jan 26, 2017. Pre-Operative Diagnosis Left Knee Degenerative Joint Disease Post-Operative Diagnosis Left Knee Degenerative Joint Disease Procedure(s) Performed Left Total Knee Arthroplasty Surgeon Dr. Cardona Doctor Of Pharmacy Surgeon(s) CATRINA Núñez Estimated Blood Loss 10cc Findings pf oa Specimens A. Left Knee Bone and Tissue Complication(s) None Disposition Recovery Room / PACU
--- NOTE | 2017-01-26 09:07 | OPERATIVE REPORT ---
DATE OF OPERATION: 01/26/2017 PREOPERATIVE DIAGNOSIS: Osteoarthritis, left knee. POSTOPERATIVE DIAGNOSIS: Osteoarthritis, left knee. PROCEDURE: Left total knee arthroplasty. SURGEON: Dr. Cardona. PHOTOENGRAVING PROOFER APPRENTICE: CATRINA Núñez ANESTHESIA: Spinal. COMPLICATIONS: None. OPERATION AND FINDINGS: Following induction of spinal anesthesia, the patient's left leg was prepped and draped in the usual sterile manner. Limb was exsanguinated with an Esmarch bandage and tourniquet was inflated to 350 mmHg. A longitudinal incision was made anteriorly. Subcutaneous tissue was sharply dissected. Electrocautery was used for hemostasis. Prepatellar bursa was incised and median parapatellar incision was performed. Patella was everted and the knee was flexed. Fat pad was removed to aid in visualization and the anterior and posterior cruciate ligaments were removed. The medial face of the tibia was cleared of soft tissue first with a Bovie and a Fournier elevator. This tissue was retracted posteriorly using a blunt Hohmann. A Keen retractor was used to expose the synovium above on the anterior aspect of the femur and this was removed down to bone. The PSI guide was placed on the distal femur and two pins were placed anteriorly and kept in position and two additional pins were placed distally and removed. The distal femoral cutting block was placed in position and the distal femoral cut was used in the +0 setting. Next, the cutting block was removed and the size 2 femoral block was placed in the distal end of the femur. Care was taken to ensure appropriate external rotation and feeler gauge was used to ensure no notching would occur. The femoral block was centered on the distal femur and in the medial and lateral direction and was fixed using two bone screws. The gold pins were then removed. The oscillating saw was used to create the bone cuts and the distal femoral cutting block was removed and the reciprocating saw was used to further trim the femoral cuts as well as a deep in the area for the trochlear groove. Next, posterior condyle remnants were removed. Following this, a meniscal clamp and knife were utilized to remove the anterior portion of both medial and lateral meniscus. The proximal tibia PSI guide was placed into position and the proximal tibial cutting guide was screwed into position. The extra medullary alignment guide was utilized to ensure appropriate alignment. The proximal tibia was cut and the proximal tibial cutting block was removed and this bone fragment was removed. The appropriate guide was used to perform the notch cut on the distal femur and a lamina doctor of pharmacy and a cochlear knife were utilized to finish both medial and lateral meniscectomies to remove any remnants of the posterior or anterior cruciate ligaments. Following this, the distal femoral component was impacted into position and blunt Rodrigo was used to sublux the tibia anteriorly. The proximal tibia was sized and a size 2 tibial tray was chosen as the size to be used. This was put into position and appropriate external rotation and a double check with extramedullary alignment guide was performed. The canal for the tibial stem was prepared first with a 17 mm drill and then the punch and a mallet and the trial tibial poly was placed. A size 9 was chosen the size to be used. It was brought to extension and the patella was prepared with the patellar reamer. A size 31 component was chosen the size to be used. The trial component was placed and knee was taken through a full range of motion and there was found to be no lateral subluxation of the tibia. No lateral release was required. The trials were all removed. The final components were obtained and assembled. Cement was mixed. The knee was thoroughly irrigated and the ortho mix was injected about the knee joint. The final components were cemented into position. After thoroughly suctioning and drying the bone ends, all excess cement was removed. The knee was held in extension while the cement hardened. The wound was irrigated and closed over a Hemovac drain. A #1 Vicryl was used to close the extensor mechanism. Subcutaneous tissues closed using 0 Dexon. Skin was closed with kendra. Sterile dressing of Adaptic, 4 x 4's, sterile Webril, and Juan was applied. The patient tolerated the procedure well. Due to the complex nature of the procedure, the entire surgery was performed with the operational assistance of CATRINA Núñez. The bilingual legal assistant, under direct supervision, was involved in the actual performance of all aspects of the surgical procedure including hemostasis, tissue retraction and incision, instrument management, patient positioning, and wound closure. DISPOSITION: Recovery room, stable. I attest to the content of the Intraoperative Record and any orders documented therein. Any exception s are noted below.
[2017-01-26] MEDS ORDERED: SOD PHOSPHATE/SOD BIPHOSPHATE ENEMA 132 ML BTL PR PRN (09:45)
[2017-01-26] MEDS ORDERED: MoRPHine SULFATE 2 MG/ML CARP IV PRN (09:45)
[2017-01-26] MEDS ORDERED: BISACODYL 10 MG SUPP PR PRN (09:45)
[2017-01-26] MEDS ORDERED: ZOLPIDEM TARTRATE 5 MG TAB PO PRN (09:45)
[2017-01-26] MEDS ORDERED: NITROGLYCERIN 0.4 MG SL PER TAB CHARGE UT PRN (09:45)
[2017-01-26] MEDS ORDERED: ALUMINUM/MAGNESIUM/SIMETH (MAALOX MAX) 30 ML UDC PO PRN (09:45)
[2017-01-26] MEDS ORDERED: MAGNESIUM HYDROXIDE SUSP 30 ML UDC PO PRN (09:45)
--- NOTE | 2017-01-26 10:23 | DIAGNOSTIC IMAGING REPORT ---
LEFT KNEE 2 VIEWS CLINICAL HISTORY: Osteoarthritis. Postop study COMPARISON: 08/12/2016 DISCUSSION: There are postsurgical changes of a total left knee arthroplasty and patellar resurfacing. Screw tract lucencies are visualized within the proximal tibia. There are overlying surgical drains. There is air within the soft tissues consistent with recent surgery. IMPRESSION: Postsurgical changes of a total left knee arthroplasty. Electronically signed by: Orville Adams M.D. 01/26/2017 10:21 AM Dictated Date/Time: 01/26/2017 10:15 AM
--- NOTE | 2017-01-26 10:27 | Anesthesiology Progress Note ---
Anesthesia Post Op Note Date & Time Jan 26, 2017 at 10:27 Vital Signs Pain Intensity: 0 Vital Signs Past 12 Hours Date Time Temp Pulse Resp B/P (MAP) Pulse Ox O2 Delivery O2 Flow Rate FiO2 01/26/17 10:15 36.9 77 19 115/63 94 Nasal Cannula 2 01/26/17 10:05 79 19 123/62 93 Nasal Cannula 2 01/26/17 09:55 75 19 115/58 94 Nasal Cannula 2 01/26/17 09:45 80 17 121/60 94 Nasal Cannula 2 01/26/17 09:35 83 17 117/64 97 Oxymask 4 01/26/17 09:26 36.6 79 18 116/56 95 Oxymask 4 01/26/17 06:43 36.7 91 20 161/97 96 Room Air Notes Mental Status: alert / awake / arousable, participated in evaluation Pt Amnestic to Procedure: Yes Nausea / Vomiting: adequately controlled Pain: adequately controlled Airway Patency, RR, SpO2: stable & adequate BP & HR: stable & adequate Hydration State: stable & adequate Neuraxial Anesthesia: was administered, sensory block is resolving Anesthetic Complications: no major complications apparent
[2017-01-26] MEDS: D5W AND 1/2NSS + 20MEQ KCL 1,000 ML IV SCH ×2 (11:22→20:57)
[2017-01-26] MEDS: KETOROLAC TROMETHAMINE 15 MG/ML VIAL IV. SCH ×3 (12:02→23:46)
[2017-01-26] MEDS ORDERED: ACETAMINOPHEN 500 MG TAB PO ONE (14:20)
[2017-01-26] MEDS: ACETAMINOPHEN 500 MG TAB PO SCH ×2 (14:22→20:57)
[2017-01-26] MEDS: TRAMADOL HCL 50 MG TAB PO PRN ×2 (14:26→18:51)
[2017-01-26] MEDS: CEFAZOLIN IV 1,000 MG in SYRINGE 0 ML IV SCH ×2 (15:27→23:46)
[2017-01-26] MEDS: SENNA 8.6 MG TAB PO SCH (20:57)
[2017-01-27] VITALS (12 sets, daily range): BP systolic 104–171; BP diastolic 57–96; PULSE 61–102; TEMP 36.4–37; O2SAT 94–99
[2017-01-27] MEDS: TRAMADOL HCL 50 MG TAB PO PRN ×4 (01:57→17:56)
[2017-01-27] MEDS: KETOROLAC TROMETHAMINE 15 MG/ML VIAL IV. SCH (05:44)
[2017-01-27] MEDS: ACETAMINOPHEN 500 MG TAB PO SCH ×3 (05:44→21:40)
[2017-01-27] MEDS: D5W AND 1/2NSS + 20MEQ KCL 1,000 ML IV SCH (05:46)
[2017-01-27] MEDS ORDERED: DEXAMETHASONE 4 MG TAB PO SCH (07:30)
[2017-01-27 07:49] LABS: INR 1.1 (0.9-1.1); PROTHROMBIN TIME (PATIENT) 11.8 SECONDS (9.0-12.0)
[2017-01-27 07:53] LABS: HEMATOCRIT 43.4 % (37-47); MEAN CELL VOLUME 92.5 fL (80-100); MEAN CORPUSCULAR HGB CONC 34.6 g/dl (32-36); MEAN PLATELET VOLUME 9.5 fL (7.4-10.4); PLATELET COUNT 185 K/uL (130-400); RED BLOOD COUNT 4.69 M/uL (4.2-5.4); WHITE BLOOD COUNT 32.07 K/uL (4.8-10.8)
[2017-01-27 07:55] LABS: BUN/CREATININE RATIO 15.9 (10-20); CALCIUM 8.4 mg/dl (8.5-10.1); CREATININE 1.11 mg/dl (0.60-1.20); POTASSIUM 4.9 mmol/L (3.5-5.1)
--- NOTE | 2017-01-27 08:02 | Anesthesiology Progress Note ---
Anesthesia Post Op Note Date & Time Jan 27, 2017 at 08:02 Vital Signs Pain Intensity: 7.0 Vital Signs Past 12 Hours Date Time Temp Pulse Resp B/P (MAP) Pulse Ox O2 Delivery O2 Flow Rate FiO2 01/27/17 07:02 36.4 71 16 144/87 (106) 96 Room Air 01/27/17 03:06 37.0 76 16 157/89 (111) 98 Room Air 01/26/17 23:58 Room Air 01/26/17 22:54 36.6 73 18 118/72 (87) 98 Room Air Notes Mental Status: alert / awake / arousable, participated in evaluation Pt Amnestic to Procedure: Yes Nausea / Vomiting: adequately controlled Pain: adequately controlled Airway Patency, RR, SpO2: stable & adequate BP & HR: stable & adequate Hydration State: stable & adequate Neuraxial Anesthesia: sensory block resolved Anesthetic Complications: no major complications apparent
--- NOTE | 2017-01-27 08:41 | Clinical Documentation Query ---
CLINICAL DOCUMENTATION QUERY 81-year-old female with a multiple year history of left knee pain. In your clinical opinion is this patient being managed for: ( x) Urinary tract infection ( ) Not Agree ( ) Other explanation of clinical findings (Please Explain) ( ) Unable to determine (Please Define) ( ) Need to Discuss The medical record reflects the following clinical findings, treatment, and risk factors. Clinical Indicators: UA + e coli Treatment: IV hydration, urine culture Risk Factors: Age, female, limited mobility Please clarify and document your clinical opinion in the progress notes and discharge summary. Terms such as "probable", "suspected", "likely", "questionable", "possible", or "still to be ruled out" are acceptable. IF IN AGREEMENT, YOU MUST DOCUMENT ABOVE DIAGNOSTIC STATEMENT IN DAILY PROGRESS NOTES AND DISCHARGE SUMMARY. This document is not part of the patient's record. Thank You, Tania Valenzuela RN [phone]
[2017-01-27] MEDS: ASPIRIN 81 MG ECTAB PO SCH (08:58)
[2017-01-27] MEDS: MULTIVITAMIN TAB PO SCH (08:58)
[2017-01-27] MEDS: LISINOPRIL 40 MG TAB PO SCH (08:59)
[2017-01-27] MEDS: METOPROLOL SUCC 25MG EXT REL TAB PO SCH (08:59)
[2017-01-27] MEDS: ISOSORBIDE MONONITRATE 60 MG TABCR PO SCH (08:59)
[2017-01-27] MEDS: DILTIAZEM HCL 120 MG EXT REL CAP PO SCH (09:00)
[2017-01-27 11:30] LABS: CKMB/CK RATIO 1.4 (0-3.0)
--- NOTE | 2017-01-27 13:03 | Orthopedic Progress Note ---
Orthopedic Progress Note Date of Service Jan 27, 2017. Subjective Post OP Day: 1 Reports: feeling well, chest pain, Denies: SOB, nausea / vomiting, light headedness, calf pain Additional Notes: EPISODE OF CHEST PAIN AND LIGHT HEADEDNESS THIS AM. FEELING BETTER NOW, CURRENTLY SITTING IN BED EATING LUNCH. Objective calves soft nontender, N/V intact (+FOOT DROP LLE), capillary refill less than 2 sec., dressing C/D/I, A&O x3, toes mobile, hemovac drainage (130/150CC PER SHIFT) Date Time Temp Pulse Resp B/P (MAP) Pulse Ox O2 Delivery O2 Flow Rate FiO2 01/27/17 10:55 77 18 148/85 (106) 98 Room Air 01/27/17 10:10 102 154/96 (115) 96 Nasal Cannula 2.0 01/27/17 10:04 101 171/95 (120) 99 Nasal Cannula 2.0 01/27/17 09:47 95 18 164/92 (116) 97 Room Air 01/27/17 08:55 166/75 (105) 01/27/17 07:02 36.4 71 16 144/87 (106) 96 Room Air 01/27/17 03:06 37.0 76 16 157/89 (111) 98 Room Air 01/26/17 23:58 Room Air 01/26/17 22:54 36.6 73 18 118/72 (87) 98 Room Air 01/26/17 18:56 36.5 81 18 137/80 (99) 96 Room Air 01/26/17 15:30 97 Room Air 01/26/17 15:03 36.6 69 18 128/79 (95) 97 Nasal Cannula 2.0 01/26/17 13:35 36.7 72 14 137/80 (99) 97 Nasal Cannula 2.0 Laboratory Results 24 Hours: Test 01/27/17 07:11 Hematocrit 43.4 % Hemoglobin 15.0 g/dL Prothromb Time International Ratio 1.1 Prothrombin Time 11.8 SECONDS Assessment & Plan Assessment: POD#1 SP LEFT TKA LEFT FOOT DROP- LIKELY FROM LOCAL ANESTHESIA, WILL MONITOR CHEST PAIN- MEDICINE CONSULTED. TRANSFER TO TELE FOR MONITORING. Plan: PT/OT DVT PROPH- COUMADIN PAIN MANAGEMENT MEDICAL MANAGEMENT DC PLANNING- REQUESTING REFERRAL TO [place].
[2017-01-27 13:31] LABS: HEMATOCRIT 41.6 % (37-47); MEAN CELL VOLUME 91.8 fL (80-100); MEAN CORPUSCULAR HEMOGLOBIN 31.8 pg (25-34); MEAN CORPUSCULAR HGB CONC 34.6 g/dl (32-36); MEAN PLATELET VOLUME 9.6 fL (7.4-10.4); PLATELET COUNT 194 K/uL (130-400); RED BLOOD COUNT 4.53 M/uL (4.2-5.4); WHITE BLOOD COUNT 32.13 K/uL (4.8-10.8)
[2017-01-27 13:42] LABS: BASO % 0.1 %; BASO ABS # 0.02 K/uL (0-0.2); COMPLETE YES; IG% 0.5 %; LYMPH % 4.9 %; LYMPH ABS # 1.56 K/uL (1.2-3.4); MONO % 4.5 %
--- NOTE | 2017-01-27 13:56 | Medical Consult ---
Consultation Date of Consultation: Jan 27, 2017. Attending Physician: Jc Cardona M.D. Reason for Consultation: Chest Pain History of Present Illness Ms. Godfrey is an 81 y/o female with PMHx of CAD with LAD Stenosis, Paroxysmal Atrial Fibrillation, HTN, HLD, and Mild Polycythemia who is S/P L TKA on 01/26. Patient reports having chronic atypical chest pain due to her known CAD. She has had heart catheterization in 2009 without the need for stent placement or referral for CABG. She had a dobutamine stress test in 2014 that was negative for ischemic changes. She follows with Dr. Sorensen had was seen in office for pre- operative clearance. She reports that she commonly has exertional chest pain and pain that starts when she lifts her arms up above her head. She states the pain has not been an issue over the past few weeks due to decreased activity related to her knee. Today, she was sitting in the chair eating breakfast when she developed acute dizziness/lightheadedness. She states she did not have chest pain at that point. She then proceeded to participate in PT/OT and reports the chest pain was gradually intensifying. Chest pain in L-sided and radiated up into the L shoulder and down her L arm. She states this is the common pattern of her anginal pain. She denies lightheadedness/dizziness, N/V, or diaphoresis at that time. She was given NTG SL and reports resolving chest pain but not complete eradication but states she feels that she is just more fatigued. EKG was obtained that was NSR without findings of ischemia. Initial cardiac enzymes negative. She does have a history of paroxysmal atrial fibrillation and reports she doesn't know when she is in A Fib. Daughter states that the activity today was more than she has done in weeks and suspects this exertion triggered her anginal symptoms. Past Medical/Surgical History 1. CAD with LAD Stenosis 2. Atypical Chest Pain 3. Paroxysmal Atrial Fibrillation 4. HTN 5. HLD 6. Mild Polycythemia 7. 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 S/P Hysterectomy 9. S/P Cholecystectomy 10. S/P Appendectomy Family History Diabetes mellitus FH: cancer FH: coronary artery disease FATHER MOTHER FH: heart disease Hypertension Stroke MOTHER Social History Smoking Status: Never Smoker Smokeless Tobacco Use: No Alcohol Use: none Drug Use: none Marital Status: Housing Status: lives alone Occupation Status: retired Allergies Coded Allergies: Latex1 -Allergic Contact Dermititis (Verified Allergy, Unknown, ITCHINESS , 01/26/17) Current Inpatient Medications Current Inpatient Medications Medications (Trade) Dose Ordered Sig/Sakina Route Start Time Stop Time Status Last Admin Dose Admin Celecoxib (CeleBREX CAP) 200 mg BID PO 01/27/17 21:00 02/26/17 20:59 Oxycodone HCl (Roxicodone Immediate Rel Tab) 1 TABLET FOR PAIN RATING... Q4H PRN PO 01/26/17 09:45 02/09/17 09:44 Morphine Sulfate (MoRPHine SULFATE INJ) 2 mg Q4H PRN IV 01/26/17 09:45 02/09/17 09:44 Acetaminophen (Tylenol Tab) 1,000 mg Q8H PO 01/26/17 14:00 02/25/17 09:44 01/27/17 05:44 1,000 MG Magnesium Hydroxide (Milk Of Magnesia Susp) 30 ml Q6H PRN PO 01/26/17 09:45 02/25/17 09:44 Bisacodyl (Dulcolax Supp) 10 mg DAILY PRN AL 01/26/17 09:45 02/25/17 09:44 Sodium Biphosphate/ Sodium Phosphate (Fleet Enema) 132 ml DAILY PRN AL 01/26/17 09:45 02/25/17 09:44 Senna (Senokot Tab) 17.2 mg HS PO 01/26/17 21:00 02/25/17 20:59 01/26/17 20:57 17.2 MG Diphenhydramine HCl (Benadryl Cap) 25 mg Q8H PRN PO 01/26/17 09:45 02/25/17 09:44 Al Hydrox/Mg Hydrox/Simethicone (Maalox Max Susp) 15 ml Q4H PRN PO 01/26/17 09:45 02/25/17 09:44 Zolpidem Tartrate (Ambien Tab) 5 mg HSZ PRN PO 01/26/17 09:45 02/25/17 09:44 Multivitamins (Multivitamin Tab) 1 tab QAM PO 01/27/17 09:00 02/26/17 08:59 01/27/17 08:58 1 TAB Ondansetron HCl (Zofran Inj) 4 mg Q6H PRN IV 01/26/17 09:45 02/25/17 09:44 Tramadol HCl (Ultram Tab) 1 tablet for pain rating... Q4H PRN PO 01/26/17 09:45 02/25/17 09:44 01/27/17 07:24 50 MG Aspirin (Ecotrin Tab) 81 mg QAM PO 01/27/17 09:00 02/26/17 08:59 01/27/17 08:58 81 MG Atorvastatin Calcium (Lipitor Tab) 40 mg Q2D@2100 PO 01/27/17 21:00 02/26/17 20:59 Diltiazem HCl (TIAzac CAP) 240 mg QAM PO 01/27/17 09:00 02/26/17 08:59 01/27/17 09:00 240 MG Isosorbide Mononitrate (Imdur Ext Rel Tab) 60 mg QAM PO 01/27/17 09:00 02/26/17 08:59 01/27/17 08:59 60 MG Lisinopril (Zestril Tab) 40 mg QAM PO 01/27/17 09:00 02/26/17 08:59 01/27/17 08:59 40 MG Metoprolol Succinate (Toprol Xl Tab) 25 mg QAM PO 01/27/17 09:00 02/26/17 08:59 01/27/17 08:59 25 MG Nitroglycerin (Nitrostat Tab) 0.4 mg UD PRN UT 01/26/17 09:45 02/25/17 09:44 01/27/17 10:04 0.4 MG Warfarin Sodium (Coumadin Tab) 2.5 mg DAILY@1600 PO 01/27/17 16:00 02/26/17 15:59 Review of Systems Constitutional: + fatigue, No fever, No chills, No sweats ENT: No nasal symptoms, No sore throat, No trouble swallowing Respiratory: No cough, No wheezing, No dyspnea on exertion, No dyspnea at rest Cardiovascular: + chest pain (L-sided), No orthopnea, No edema, No palpitations Abdomen: No pain, No nausea, No vomiting, No diarrhea, No constipation Musculoskeletal: No joint pain, No swelling, No calf pain Genitourinary - Female: No dysuria Neurologic: + numbness/tingling (LLE with numbness - spinal anesthesia) Hematologic / Lymphatic: No abnormal bleeding/bruising, No clotting problems Integumentary: No rash Physical Exam Date Time Temp Pulse Resp B/P (MAP) Pulse Ox O2 Delivery O2 Flow Rate FiO2 01/27/17 13:30 36.7 75 16 134/69 (90) 95 Nasal Cannula 2.0 01/27/17 13:07 36.4 77 18 98 01/27/17 10:55 77 18 148/85 (106) 98 Room Air 01/27/17 10:10 102 154/96 (115) 96 Nasal Cannula 2.0 01/27/17 10:04 101 171/95 (120) 99 Nasal Cannula 2.0 01/27/17 09:47 95 18 164/92 (116) 97 Room Air 01/27/17 08:55 166/75 (105) 01/27/17 07:14 Room Air 01/27/17 07:02 36.4 71 16 144/87 (106) 96 Room Air 01/27/17 03:06 37.0 76 16 157/89 (111) 98 Room Air 01/26/17 23:58 Room Air 01/26/17 22:54 36.6 73 18 118/72 (87) 98 Room Air 01/26/17 18:56 36.5 81 18 137/80 (99) 96 Room Air 01/26/17 15:30 97 Room Air 01/26/17 15:03 36.6 69 18 128/79 (95) 97 Nasal Cannula 2.0 General Appearance: WD/WN, no apparent distress Head: normocephalic, atraumatic Eyes: sclerae normal ENT: hearing grossly normal Neck: supple, no JVD, trachea midline Respiratory/Chest: lungs clear, normal breath sounds, no respiratory distress, no accessory muscle use Cardiovascular: regular rate, rhythm, no gallop, no murmur Abdomen/GI: normal bowel sounds, non tender, soft Extremities/Musculoskelatal: no calf tenderness, no pedal edema, + pertinent finding (LLE with ISIAH wrap C/D/I with drain) Neurologic/Psych: alert, oriented x 3 Skin: normal color, warm/dry Laboratory Results Last 24 Hours Test 01/27/17 07:11 01/27/17 10:43 01/27/17 13:09 White Blood Count 32.07 K/uL 32.13 K/uL Red Blood Count 4.69 M/uL 4.53 M/uL Hemoglobin 15.0 g/dL 14.4 g/dL Hematocrit 43.4 % 41.6 % Mean Corpuscular Volume 92.5 fL 91.8 fL Mean Corpuscular Hemoglobin 32.0 pg 31.8 pg Mean Corpuscular Hemoglobin Concent 34.6 g/dl 34.6 g/dl RDW Standard Deviation 43.8 fL 43.2 fL RDW Coefficient of Variation 13.0 % 12.9 % Platelet Count 185 K/uL 194 K/uL Mean Platelet Volume 9.5 fL 9.6 fL Prothrombin Time 11.8 SECONDS Prothromb Time International Ratio 1.1 Sodium Level 136 mmol/L Potassium Level 4.9 mmol/L Chloride Level 106 mmol/L Carbon Dioxide Level 19 mmol/L Anion Gap 11.0 mmol/L Blood Urea Nitrogen 18 mg/dl Creatinine 1.11 mg/dl Est Creatinine Clear Calc Drug Dose 38.6 ml/min Estimated GFR () 54.3 Estimated GFR (Non- 46.9 BUN/Creatinine Ratio 15.9 Random Glucose 175 mg/dl Calcium Level 8.4 mg/dl Total Creatine Kinase 134 U/L Creatine Kinase MB 1.9 ng/ml Creatine Kinase MB Ratio 1.4 Troponin I < 0.015 ng/ml Neutrophils (%) (Auto) 90.0 % Lymphocytes (%) (Auto) 4.9 % Monocytes (%) (Auto) 4.5 % Eosinophils (%) (Auto) 0.0 % Basophils (%) (Auto) 0.1 % Neutrophils # (Auto) 28.93 K/uL Lymphocytes # (Auto) 1.56 K/uL Monocytes # (Auto) 1.45 K/uL Eosinophils # (Auto) 0.00 K/uL Basophils # (Auto) 0.02 K/uL Immature Granulocyte % (Auto) 0.5 % Immature Granulocyte # (Auto) 0.17 K/uL Assessment & Plan Ms. Godfrey is an 81 y/o female with PMHx of CAD with LAD Stenosis, Paroxysmal Atrial Fibrillation, HTN, HLD, and Mild Polycythemia who is S/P L TKA on 01/26 Chest Pain: Anginal vs ACS - Patient reporting chest pain reflects her common atypical chest pain but did report lightheadedness/dizziness preceding the chest pain - given her history and the fact that she does not know when she goes into atrial fibrillation, would be best to monitor overnight on tele -- Pending no events on monitor overnight can likely return to Med/Surg tomorrow - Continue rhythm monitoring and trend cardiac enzymes - Continue Imdur 60 mg daily and NTG SL PRN -- Can consider Imdur 30 mg x 1 dose if CP continues Lightheadedness/Dizziness: - Possibly multifactorial given pain medication/mild dehydration/A Fib? - Patient doesn't know when she goes into A Fib and will monitor for any rhythm conversions Leukocytosis: Suspect Reactive - Continue to trend. No chronic elevation and largely neutrophilic CAD with LAD Stenosis: - ASA 81 mg daily and Atorvastatin 40 mg every other day (today should be dosed with Atorvastatin) Paroxysmal Atrial Fibrillation: NSR Currently - Diltiazem 240 mg daily, Toprol XL 25 mg daily, and Warfarin - trend INR HTN: - Lisinopril 40 mg daily Mild Polycythemia: - Previously seen my business process expert - remains stable DVT Prophylaxis: Warfarin Disposition: Per primary team - patient stating she plans on rehab - If not events on monitor can move back to Med/Surg tomorrow Attending Consult Note & Attestation: Pt seen/examined, chart reviewed, care plan d/w CATRINA Waldrop. I agree w/ the sidhu components of her documentation. 81yo female with known CAD (50-60% mid-LAD lesion on cath in 2009 along with 20 % RCA/20% circumflex lesions) and PAF who underwent left TKR yesterday. This AM after participating with PT she developed substernal chest pain that radiated into the left arm and back. Symptoms lasted about 30 minutes but ultimately resolved after 1 SL nitro. She had no nausea/emesis/dyspnea/ diaphoresis. Symptoms similar to past episodes of angina. During my assessment she was feeling back to baseline. PMH, PSH, allergies, meds, sochx, famhx, ros - reviewed VSS BP/HR mildly high, however gen - nad neck - no JVD heart - RRR lungs - CTA b/l abd - soft chest - no reproducible chest wall tenderness ext - mild edema left ankle, none on right; left knee in large dressing A/P: chest pain in the setting of known CAD. pain was quite typical for angina and resolved with SL nitro. would recommend Tx to telemetry and serial cardiac enzymes. fortunately EKG does not show any ischemic changes. doubt PAF could have caused her symptoms this AM but it is possible; thus, I agree w/ Ms. Waldrop that transfer to tele is appropriate to monitor for PAF episodes. daughter at bedside and understands plan of care. Suzanne ARNETT MD
[2017-01-27] MEDS: WARFARIN SOD 2.5 MG TAB PO SCH (16:16)
[2017-01-27] MEDS ORDERED: ATORVASTATIN 20 MG TAB PO SCH (21:00)
[2017-01-27] MEDS: CeleBREX 200 MG CAP PO SCH (21:42)
[2017-01-27] MEDS: SENNA 8.6 MG TAB PO SCH (21:42)
[2017-01-27 23:00] LABS: CKMB/CK RATIO 1.9 (0-3.0)
[2017-01-28 00:35] VITALS: BP 145/71; PULSE 78; TEMP 36.5; O2SAT 95
[2017-01-28 04:25] VITALS: BP 131/65; PULSE 67; TEMP 36.8; O2SAT 97
[2017-01-28] MEDS: ACETAMINOPHEN 500 MG TAB PO SCH ×3 (06:25→21:58)
[2017-01-28 06:51] LABS: HEMATOCRIT 38.9 % (37-47); MEAN CELL VOLUME 92.8 fL (80-100); MEAN CORPUSCULAR HEMOGLOBIN 31.7 pg (25-34); MEAN CORPUSCULAR HGB CONC 34.2 g/dl (32-36); PLATELET COUNT 195 K/uL (130-400); RED BLOOD COUNT 4.19 M/uL (4.2-5.4); WHITE BLOOD COUNT 27.42 K/uL (4.8-10.8)
[2017-01-28 06:56] LABS: INR 1.1 (0.9-1.1); PROTHROMBIN TIME (PATIENT) 11.8 SECONDS (9.0-12.0)
[2017-01-28 07:29] VITALS: BP 147/90; PULSE 71; TEMP 36.6; O2SAT 95
[2017-01-28 07:32] LABS: BLOOD UREA NITROGEN 27 mg/dl (7-18); BUN/CREATININE RATIO 24.8 (10-20); CALCIUM 8.4 mg/dl (8.5-10.1); CARBON DIOXIDE 20 mmol/L (21-32); CHLORIDE 106 mmol/L (98-107); CREATININE 1.08 mg/dl (0.60-1.20); GLUCOSE 165 mg/dl (70-99); POTASSIUM 4.9 mmol/L (3.5-5.1); SODIUM 135 mmol/L (136-145)
[2017-01-28 07:37] LABS: CKMB/CK RATIO 1.8 (0-3.0)
[2017-01-28] MEDS: ONDANSETRON INJ 2 MG/ML 2 ML VIAL IV PRN ×3 (07:39→20:36)
[2017-01-28] MEDS: CeleBREX 200 MG CAP PO SCH ×2 (08:24→21:58)
[2017-01-28] MEDS: ISOSORBIDE MONONITRATE 60 MG TABCR PO SCH (08:24)
[2017-01-28] MEDS: METOPROLOL SUCC 25MG EXT REL TAB PO SCH (08:25)
[2017-01-28] MEDS: MULTIVITAMIN TAB PO SCH (08:25)
[2017-01-28] MEDS: ASPIRIN 81 MG ECTAB PO SCH (08:25)
[2017-01-28] MEDS: DILTIAZEM HCL 120 MG EXT REL CAP PO SCH (08:25)
[2017-01-28] MEDS: LISINOPRIL 40 MG TAB PO SCH (08:28)
[2017-01-28] MEDS ORDERED: PANTOprazole SOD 40 MG TAB PO ONE (09:08)
[2017-01-28] MEDS ORDERED: ALUMINUM/MAGNESIUM SUSP 30 ML UDC PO STA (09:08)
--- NOTE | 2017-01-28 09:21 | Hospitalist Progress Note ---
Hospitalist Progress Note Date of Service Jan 28, 2017. (Ya Waldrop PA-C) Subjective Pt evaluation today including: conversation w/ patient, physical exam, chart review, lab review, review of studies, review of inpatient medication list Patient seen and evaluated. No acute events overnight. Remained in NSR in 60- 70s overnight without issue. Reporting pain is well controlled in L knee and numbness in L leg improvement and movement of lower extremity improving. She reports some nausea this morning that is relieved with Zofran. She states she does have some chest discomfort that is minimal in the L chest that was not like her anginal pain. She also associated burping with the onset of this discomfort. She doesn't think she has issues with GERD but reports this may have a slight burning quality. Will treat with Maalox and start Protonix. However, will obtain EKG given pain is current to evaluate any ischemic changes. Constitutional: No fever, No chills Respiratory: No cough, No shortness of breath Cardiovascular: + chest pain (L sided - lower chest), No palpitations Abdomen: + nausea, + problem reported (burping), No pain, No vomiting, No diarrhea, No constipation Musculoskeletal: No joint pain Female : No dysuria Neurologic: + numbness/tingling (resolving) Heme: No abnormal bleeding/bruising (Ya Waldrop, KENNETHC) Medications Current Inpatient Medications Medications (Trade) Dose Ordered Sig/Sakina Route Start Time Stop Time Status Last Admin Dose Admin Celecoxib (CeleBREX CAP) 200 mg BID PO 01/27/17 21:00 02/26/17 20:59 01/28/17 08:24 200 MG Oxycodone HCl (Roxicodone Immediate Rel Tab) 1 TABLET FOR PAIN RATING... Q4H PRN PO 01/26/17 09:45 02/09/17 09:44 Morphine Sulfate (MoRPHine SULFATE INJ) 2 mg Q4H PRN IV 01/26/17 09:45 02/09/17 09:44 Acetaminophen (Tylenol Tab) 1,000 mg Q8H PO 01/26/17 14:00 02/25/17 09:44 01/28/17 06:25 1,000 MG Magnesium Hydroxide (Milk Of Magnesia Susp) 30 ml Q6H PRN PO 01/26/17 09:45 02/25/17 09:44 Bisacodyl (Dulcolax Supp) 10 mg DAILY PRN CA 01/26/17 09:45 02/25/17 09:44 Sodium Biphosphate/ Sodium Phosphate (Fleet Enema) 132 ml DAILY PRN CA 01/26/17 09:45 02/25/17 09:44 Senna (Senokot Tab) 17.2 mg HS PO 01/26/17 21:00 02/25/17 20:59 01/27/17 21:42 17.2 MG Diphenhydramine HCl (Benadryl Cap) 25 mg Q8H PRN PO 01/26/17 09:45 02/25/17 09:44 Al Hydrox/Mg Hydrox/Simethicone (Maalox Max Susp) 15 ml Q4H PRN PO 01/26/17 09:45 02/25/17 09:44 Zolpidem Tartrate (Ambien Tab) 5 mg HSZ PRN PO 01/26/17 09:45 02/25/17 09:44 Multivitamins (Multivitamin Tab) 1 tab QAM PO 01/27/17 09:00 02/26/17 08:59 01/28/17 08:25 1 TAB Ondansetron HCl (Zofran Inj) 4 mg Q6H PRN IV 01/26/17 09:45 02/25/17 09:44 01/28/17 07:39 4 MG Tramadol HCl (Ultram Tab) 1 tablet for pain rating... Q4H PRN PO 01/26/17 09:45 02/25/17 09:44 01/27/17 17:56 50 MG Aspirin (Ecotrin Tab) 81 mg QAM PO 01/27/17 09:00 02/26/17 08:59 01/28/17 08:25 81 MG Atorvastatin Calcium (Lipitor Tab) 40 mg Q2D@2100 PO 01/27/17 21:00 02/26/17 20:59 01/27/17 21:41 40 MG Diltiazem HCl (TIAzac CAP) 240 mg QAM PO 01/27/17 09:00 02/26/17 08:59 01/28/17 08:25 240 MG Isosorbide Mononitrate (Imdur Ext Rel Tab) 60 mg QAM PO 01/27/17 09:00 02/26/17 08:59 01/28/17 08:24 60 MG Lisinopril (Zestril Tab) 40 mg QAM PO 01/27/17 09:00 02/26/17 08:59 01/28/17 08:28 40 MG Metoprolol Succinate (Toprol Xl Tab) 25 mg QAM PO 01/27/17 09:00 02/26/17 08:59 01/28/17 08:25 25 MG Nitroglycerin (Nitrostat Tab) 0.4 mg UD PRN UT 01/26/17 09:45 02/25/17 09:44 01/27/17 10:04 0.4 MG Warfarin Sodium (Coumadin Tab) 2.5 mg DAILY@1600 PO 01/27/17 16:00 02/26/17 15:59 01/27/17 16:16 2.5 MG (Ya Waldrop, VIANEY) Objective Vital Signs Date Time Temp Pulse Resp B/P (MAP) Pulse Ox O2 Delivery O2 Flow Rate FiO2 01/28/17 07:29 36.6 71 20 147/90 (109) 95 Room Air 01/28/17 04:25 36.8 67 18 131/65 (87) 97 Room Air 01/28/17 04:00 Room Air 01/28/17 00:35 36.5 78 19 145/71 (95) 95 Room Air 01/27/17 23:59 Room Air 01/27/17 19:56 36.4 61 18 104/57 (73) 95 Room Air 01/27/17 16:03 36.5 73 16 126/71 (89) 94 Room Air 01/27/17 16:00 94 Room Air 01/27/17 15:27 83 94 01/27/17 13:30 36.7 75 16 134/69 (90) 95 Nasal Cannula 2.0 01/27/17 13:07 36.4 77 18 98 01/27/17 10:55 77 18 148/85 (106) 98 Room Air 01/27/17 10:10 102 154/96 (115) 96 Nasal Cannula 2.0 01/27/17 10:04 101 171/95 (120) 99 Nasal Cannula 2.0 01/27/17 09:47 95 18 164/92 (116) 97 Room Air (Ya Waldrop PA-C) Physical Exam General Appearance: WD/WN, no apparent distress ENT: hearing grossly normal Neck: supple, no JVD, trachea midline Respiratory/Chest: lungs clear, normal breath sounds, no respiratory distress, no accessory muscle use Cardiovascular: regular rate, rhythm, no gallop, no murmur Abdomen: normal bowel sounds, non tender, soft Extremities: no calf tenderness, normal capillary refill, + pertinent finding ( L dressing C/D/I without evidence of erythema or drainage around site) Neurologic/Psychiatric: alert, oriented x 3 Skin: normal color, warm/dry (Ya Waldrop PA-C) Laboratory Results Last 24 Hours Test 01/27/17 10:43 01/27/17 13:09 01/27/17 21:56 01/28/17 06:13 Total Creatine Kinase 134 U/L 139 U/L 106 U/L Creatine Kinase MB 1.9 ng/ml 2.6 ng/ml 1.9 ng/ml Creatine Kinase MB Ratio 1.4 1.9 1.8 Troponin I < 0.015 ng/ml < 0.015 ng/ml < 0.015 ng/ml White Blood Count 32.13 K/uL 27.42 K/uL Red Blood Count 4.53 M/uL 4.19 M/uL Hemoglobin 14.4 g/dL 13.3 g/dL Hematocrit 41.6 % 38.9 % Mean Corpuscular Volume 91.8 fL 92.8 fL Mean Corpuscular Hemoglobin 31.8 pg 31.7 pg Mean Corpuscular Hemoglobin Concent 34.6 g/dl 34.2 g/dl Platelet Count 194 K/uL 195 K/uL Mean Platelet Volume 9.6 fL 10.0 fL Neutrophils (%) (Auto) 90.0 % Lymphocytes (%) (Auto) 4.9 % Monocytes (%) (Auto) 4.5 % Eosinophils (%) (Auto) 0.0 % Basophils (%) (Auto) 0.1 % Neutrophils # (Auto) 28.93 K/uL Lymphocytes # (Auto) 1.56 K/uL Monocytes # (Auto) 1.45 K/uL Eosinophils # (Auto) 0.00 K/uL Basophils # (Auto) 0.02 K/uL RDW Standard Deviation 43.2 fL 44.7 fL RDW Coefficient of Variation 12.9 % 13.2 % Immature Granulocyte % (Auto) 0.5 % Immature Granulocyte # (Auto) 0.17 K/uL Prothrombin Time 11.8 SECONDS Prothromb Time International Ratio 1.1 Sodium Level 135 mmol/L Potassium Level 4.9 mmol/L Chloride Level 106 mmol/L Carbon Dioxide Level 20 mmol/L Anion Gap 9.0 mmol/L Blood Urea Nitrogen 27 mg/dl Creatinine 1.08 mg/dl Est Creatinine Clear Calc Drug Dose 40.6 ml/min Estimated GFR () 56.1 Estimated GFR (Non- 48.4 BUN/Creatinine Ratio 24.8 Random Glucose 165 mg/dl Calcium Level 8.4 mg/dl (Ya Waldrop PA-C) Assessment and Plan Ms. Godfrey is an 81 y/o female with PMHx of CAD with LAD Stenosis, Paroxysmal Atrial Fibrillation, HTN, HLD, and Mild Polycythemia who is S/P L TKA on 01/26 Chest Pain: Anginal vs ACS - Initial chest pain on 01/27 reflected her normal atypical chest pain and was brought on after activity and subsided with NTG. Troponins are negative and telemetry unremarkable overnight. - Reporting CP this AM that followed nausea this AM- pain is in the L lower chest and notices she is belching more. Possible GI component as she says it is not like her anginal pain - Will obtain EKG now as pain currently present and assess for ischemic changes - Maalox x 1 dose and start PPI - Continue Imdur 60 mg daily and NTG SL PRN Lightheadedness/Dizziness: RESOLVED - Possibly multifactorial given pain medication/mild dehydration - no further issue Leukocytosis: Suspect Reactive: IMPROVING CAD with LAD Stenosis: - ASA 81 mg daily and Atorvastatin 40 mg every other day Paroxysmal Atrial Fibrillation: NSR Currently - Diltiazem 240 mg daily, Toprol XL 25 mg daily, and Warfarin - trend INR HTN: - Lisinopril 40 mg daily Mild Polycythemia: - Previously seen my manager study - remains stable DVT Prophylaxis: Warfarin Disposition: Per primary team - patient stating she plans on rehab - Medically suitable for D/C to [facility] when approved Continued [facility] stay due to: ambulation difficulties Discharge planning: rehab hospital (Ya Waldrop PA-C) i personally examined pt and verified all sidhu points w A Benjie PAC feeling better vitals noted nad breathign unlabored EKG NSR no ischemia suspect chest pain was GI related. medically stable for rehab (Shiva Wong D.O.)
[2017-01-28] MEDS: TRAMADOL HCL 50 MG TAB PO PRN (09:49)
[2017-01-28 12:15] VITALS: BP 159/85; PULSE 78; TEMP 36.9; O2SAT 95
--- NOTE | 2017-01-28 14:13 | Orthopedic Progress Note ---
Orthopedic Progress Note Date of Service Jan 28, 2017. Subjective Post OP Day: 2 Additional Notes: Feeling better after having an enema. Not having the bowel discomfort since. Very tired today due to increased activity and bowel issues. Would like to go to [facility] tomorrow if possible. No new complaints. Objective calves soft nontender, N/V intact, dressing C/D/I (silverlon intact), A&O x3, toes mobile Date Time Temp Pulse Resp B/P (MAP) Pulse Ox O2 Delivery O2 Flow Rate FiO2 01/28/17 12:15 36.9 78 18 159/85 (109) 95 Room Air 01/28/17 12:00 Room Air 01/28/17 08:00 Room Air 01/28/17 07:29 36.6 71 20 147/90 (109) 95 Room Air 01/28/17 04:25 36.8 67 18 131/65 (87) 97 Room Air 01/28/17 04:00 Room Air 01/28/17 00:35 36.5 78 19 145/71 (95) 95 Room Air 01/27/17 23:59 Room Air 01/27/17 19:56 36.4 61 18 104/57 (73) 95 Room Air 01/27/17 16:03 36.5 73 16 126/71 (89) 94 Room Air 01/27/17 16:00 94 Room Air 01/27/17 15:27 83 94 Laboratory Results 24 Hours: Test 01/28/17 06:13 Hematocrit 38.9 % Hemoglobin 13.3 g/dL Prothromb Time International Ratio 1.1 Prothrombin Time 11.8 SECONDS Assessment & Plan Assessment: POD#2 SP LEFT TKA LEFT FOOT DROP- Resolved CHEST PAIN Plan: PT/OT DVT PROPH- COUMADIN PAIN MANAGEMENT MEDICAL MANAGEMENT DC PLANNING - APPROVED FOR [facility]; PLAN FOR DC TOMORROW IF OK WITH MED SERVICE Inhouse Planning Pain Management: Celebrex, Morphine, PO Tylenol, Oxy IR DVT Prophylaxis: TEDs, SCDs, ASA Discharge Planning Discharge Planning: rehab hospital (N)
[2017-01-28] MEDS ORDERED: NURSING VERBAL MED ORDER ONE (16:15)
[2017-01-28 16:30] VITALS: O2SAT 95
[2017-01-28] MEDS: PROMETHAZINE HCL INJ 12.5 MG in SODIUM CHLORIDE 0.9% 50ML 50 ML IV PRN (16:39)
[2017-01-28] MEDS: SENNA 8.6 MG TAB PO SCH (21:00)
[2017-01-28] MEDS: SODIUM CHLORIDE 0.9% 1000ML 1,000 ML IV SCH (21:53)
[2017-01-28] MEDS: WARFARIN SOD 2.5 MG TAB PO SCH (21:57)
[2017-01-28 22:53] VITALS: BP 150/84; PULSE 70; TEMP 37; O2SAT 96
[2017-01-29] MEDS: PROMETHAZINE HCL INJ 12.5 MG in SODIUM CHLORIDE 0.9% 50ML 50 ML IV PRN (00:25)
[2017-01-29] MEDS: ONDANSETRON INJ 2 MG/ML 2 ML VIAL IV PRN (02:33)
[2017-01-29] MEDS: SODIUM CHLORIDE 0.9% 1000ML 1,000 ML IV SCH (05:25)
[2017-01-29] MEDS: ACETAMINOPHEN 500 MG TAB PO SCH ×2 (05:26→13:32)
[2017-01-29 07:31] VITALS: BP 128/78; PULSE 65; TEMP 36.8; O2SAT 94
[2017-01-29 07:53] LABS: INR 1.1 (0.9-1.1); PROTHROMBIN TIME (PATIENT) 12.3 SECONDS (9.0-12.0)
--- NOTE | 2017-01-29 08:54 | Orthopedic Progress Note ---
Orthopedic Progress Note Date of Service Jan 29, 2017. Subjective Post OP Day: 3 Reports: feeling well Objective calves soft nontender, N/V intact, dressing C/D/I, toes mobile Date Time Temp Pulse Resp B/P (MAP) Pulse Ox O2 Delivery O2 Flow Rate FiO2 01/29/17 07:31 36.8 65 18 128/78 (95) 94 Room Air 01/29/17 07:30 Room Air 01/28/17 23:55 Room Air 01/28/17 22:53 37.0 70 16 150/84 (106) 96 Room Air 01/28/17 16:30 95 Room Air 01/28/17 16:12 36.9 78 18 95 2.0 01/28/17 12:15 36.9 78 18 159/85 (109) 95 Room Air 01/28/17 12:00 Room Air Laboratory Results 24 Hours: Test 01/29/17 07:29 01/29/17 08:49 Prothromb Time International Ratio 1.1 Prothrombin Time 12.3 SECONDS Assessment & Plan Assessment: POD#3 SP LEFT TKA, pt feeling better overall Plan: PT/OT DVT PROPH- COUMADIN PAIN MANAGEMENT MEDICAL MANAGEMENT DC PLANNING - APPROVED FOR [facility]; PLAN FOR DC Inhouse Planning Pain Management: Celebrex, Morphine, PO Tylenol, Oxy IR DVT Prophylaxis: TEDs, SCDs, ASA Discharge Planning Discharge Planning: rehab hospital ([facility])
[2017-01-29] MEDS ORDERED: CLB200 PO (08:57)
[2017-01-29] MEDS ORDERED: RXC5 PO (08:57)
[2017-01-29] MEDS ORDERED: ACET-24 PO (08:57)
[2017-01-29] MEDS ORDERED: ONDA8TAB12 PO (08:57)
--- NOTE | 2017-01-29 08:59 | Discharge Instructions ---
Discharge Instructions Date of Service Jan 29, 2017. Admission Reason for Admission: Left Knee Osteoarthritis Discharge Discharge Diagnosis / Problem: Left knee arthritis Discharge Goals Goal(s): Decrease discomfort, Improve function Activity Recommendations Activity Limitations: as noted below Weightbearing Status: Left weightbearing (as tolerated) . Instructions / Follow-Up Instructions / Follow-Up ACTIVITY RECOMMENDATIONS: SELF CARE INSTRUCTIONS AFTER TOTAL KNEE REPLACEMENT A. You may need to continue a physical therapy program after discharge from the hospital. There are several options available to you. Your doctor will assist you in selecting the best one for you. 1. An out-patient facility 2 to 3 times a week for therapy or home therapy. 2. Continue working on all exercises taught to you in the hospital. Your goals should be to increase bending of your knee to 90 degrees and beyond and to fully straighten your knee. B. You may progress at your own pace from walking with a walker or crutches to a cane; then to no assistive devices. C. Make walking a part of your daily routine. Be up as much as comfortable with rest periods throughout the day. Rest with leg elevation is very important. Use the ice wrap frequently for the first 3-4 weeks. D. There are no restrictions on activities. You may ride in a car, shop, participate in sports book board attendant and all social activities. E. Wear the long elastic stockings (ANA hose) 20 hours a day for 2 weeks after surgery. They can be removed several times a day for laundering and for a bath. F. You may shower, no tub baths until cleared by your doctor. SPECIAL CARE INSTRUCTIONS: VERY IMPORTANT TO READ AND REVIEW A. There are a few signs you need to watch for after you are home. Call [facility] if you notice any of the followin. Increased severe knee pain. Some pain is expected especially when you exercise. 2. Increased swelling in your leg or knee; pain or swelling of the calf muscle in either lower leg. 3. Any fluid drainage from the incision. 4. Shortness of breath or chest pain. B. Please call [facility] at if you have any concerns or questions about your operation or recovery. The doctor or his nurse will return your call promptly. C. You must take antibiotics before dental work, bladder, bowel or other surgery. Your doctor will provide you with a permanent care to carry describing this precaution. IMPORTANT: * REMEMBER TO TAKE ASPIRIN, 81 MG, TWICE DAILY FOR 4 WEEKS UNLESS OTHERWISE DIRECTED. THIS IS YOUR BLOOD THINNER. * HIGH RISK PATIENTS MAY BE PRESCRIBED A STRONGER BLOOD THINNER. THIS WILL BE PROVIDED AT DISCHARGE. * CALL IF INCREASED PAIN, REDNESS, DRAINAGE OR FEVER GREATER THAT 101. * WEAR ANA HOSE 20 HOURS PER DAY FOR 2 WEEKS. Silverlon- This is a large adhesive bandage that contains silver ions. This helps your incision heal by fighting off bacteria and protecting it from the outside environment. You are permitted to shower with this dressing. This will remain on your incision for 7 days and then should be removed. Some visible blood or drainage through the dressing window is normal. If there is significant drainage or leaking noted before the 7 days notify your doctor's office immediately. Once removed, keep incision clean and dry. If there is any drainage or redness noted, please call your surgeon. Leave underlying zipline closure in place until follow-up with MD FOLLOW UP VISIT: If appointment is not already scheduled: Please call [facility] to make a follow-up appointment for 2 weeks after your surgery at . Current Hospital Diet Patient's current hospital diet: Regular Diet Discharge Diet Recommended Diet: Regular Diet Procedures Procedures Performed: Left Total Knee Arthroplasty Pending Studies Studies pending at discharge: no Laboratory Results Hemoglobin A1c Test 01/09/17 12:40 Range/Units Estimated Average Glucose 117 mg/dl Hemoglobin A1c 5.7 H 4.5-5.6 % Lipid Panel Test 11/21/16 10:05 Range/Units Triglycerides Level 168 H 0-150 mg/dl Cholesterol Level 122 0-200 mg/dl HDL Cholesterol 41 mg/dl Cholesterol/HDL Ratio 3.0 LDL Cholesterol, Calculated 47 mg/dl Medical Emergencies . Who to Call and When: Medical Emergencies: If at any time you feel your situation is an emergency, please call 911 immediately. . Non-Emergent Contact Non-Emergency issues call your: Surgeon Call Non-Emergent contact if: temperature is above 101.5, your pain is not controlled, wound has increased drainage, wound has increased redness . "Provider Documentation" section prepared by Keenan Leyva PA-C. . VTE Core Measure Inpt VTE Proph given/why not?: Warfarin (Coumadin), T.E.D. Stockings, SCD's [place] Drug Monitoring Program Search Results: patient reviewed within database, no issues identified
[2017-01-29] MEDS ORDERED: PANTOprazole SOD 40 MG TAB PO SCH (09:00)
[2017-01-29 09:11] LABS: HEMATOCRIT 38.9 % (37-47); MEAN CELL VOLUME 92.2 fL (80-100); MEAN CORPUSCULAR HGB CONC 33.7 g/dl (32-36); MEAN PLATELET VOLUME 9.7 fL (7.4-10.4); PLATELET COUNT 181 K/uL (130-400); RED BLOOD COUNT 4.22 M/uL (4.2-5.4); WHITE BLOOD COUNT 22.76 K/uL (4.8-10.8)
[2017-01-29] MEDS: DILTIAZEM HCL 120 MG EXT REL CAP PO SCH (09:16)
[2017-01-29] MEDS: LISINOPRIL 40 MG TAB PO SCH (09:17)
[2017-01-29] MEDS: CeleBREX 200 MG CAP PO SCH (09:17)
[2017-01-29] MEDS: ISOSORBIDE MONONITRATE 60 MG TABCR PO SCH (09:17)
[2017-01-29] MEDS: METOPROLOL SUCC 25MG EXT REL TAB PO SCH (09:17)
[2017-01-29] MEDS: MULTIVITAMIN TAB PO SCH (09:17)
[2017-01-29] MEDS: ASPIRIN 81 MG ECTAB PO SCH (09:17)
[2017-01-29 09:36] LABS: BUN/CREATININE RATIO 22.6 (10-20); CALCIUM 7.9 mg/dl (8.5-10.1); CREATININE 0.99 mg/dl (0.60-1.20); POTASSIUM 4.6 mmol/L (3.5-5.1)
[2017-01-29] MEDS: OXYCODONE HCL IR 5 MG TAB (IMMEDIATE RELEASE) PO PRN ×2 (09:38→13:31)
[2017-01-29 11:02] VITALS: BP 128/78; PULSE 65; TEMP 36.8; O2SAT 94
--- NOTE | 2017-01-29 15:08 | Hospitalist Progress Note ---
Hospitalist Progress Note Date of Service Jan 29, 2017. (Ya Waldrop PA-C) Subjective Pt evaluation today including: conversation w/ patient, physical exam, chart review, lab review, review of studies, review of inpatient medication list Patient seen and evaluated. Nausea and abdominal cramping resolved. Reporting feeling at baseline. No chest pain or lightheadedness. No verbalized issues. Constitutional: No fever, No chills Respiratory: No cough, No shortness of breath Cardiovascular: No chest pain Abdomen: No pain, No nausea, No vomiting, No diarrhea, No constipation Female : No dysuria Neurologic: No numbness/tingling Heme: No abnormal bleeding/bruising Skin: No rash (Ya Waldrop PA-C) Objective Vital Signs Date Time Temp Pulse Resp B/P (MAP) Pulse Ox O2 Delivery O2 Flow Rate FiO2 01/29/17 11:02 36.8 65 18 94 Room Air 01/29/17 07:31 36.8 65 18 128/78 (95) 94 Room Air 01/29/17 07:30 Room Air 01/28/17 23:55 Room Air 01/28/17 22:53 37.0 70 16 150/84 (106) 96 Room Air 01/28/17 16:30 95 Room Air 01/28/17 16:12 36.9 78 18 95 2.0 (Ya Waldrop PA-C) Physical Exam General Appearance: WD/WN, no apparent distress Respiratory/Chest: lungs clear, normal breath sounds, no respiratory distress, no accessory muscle use Cardiovascular: regular rate, rhythm, no gallop, no murmur Abdomen: normal bowel sounds, non tender, soft Neurologic/Psychiatric: alert, oriented x 3 Skin: normal color, warm/dry (Ya Waldrpo PA-C) Laboratory Results Last 24 Hours Test 01/29/17 07:29 White Blood Count 22.76 K/uL Red Blood Count 4.22 M/uL Hemoglobin 13.1 g/dL Hematocrit 38.9 % Mean Corpuscular Volume 92.2 fL Mean Corpuscular Hemoglobin 31.0 pg Mean Corpuscular Hemoglobin Concent 33.7 g/dl RDW Standard Deviation 44.7 fL RDW Coefficient of Variation 13.4 % Platelet Count 181 K/uL Mean Platelet Volume 9.7 fL Prothrombin Time 12.3 SECONDS Prothromb Time International Ratio 1.1 Sodium Level 138 mmol/L Potassium Level 4.6 mmol/L Chloride Level 108 mmol/L Carbon Dioxide Level 24 mmol/L Anion Gap 6.0 mmol/L Blood Urea Nitrogen 22 mg/dl Creatinine 0.99 mg/dl Est Creatinine Clear Calc Drug Dose 44.3 ml/min Estimated GFR () 62.4 Estimated GFR (Non- 53.8 BUN/Creatinine Ratio 22.6 Random Glucose 120 mg/dl Calcium Level 7.9 mg/dl (Ya Waldrop PA-C) Assessment and Plan Ms. Godfrey is an 81 y/o female with PMHx of CAD with LAD Stenosis, Paroxysmal Atrial Fibrillation, HTN, HLD, and Mild Polycythemia who is S/P L TKA on 01/26 Chest Pain: RESOLVED - Initial chest pain on 01/27 reflected her normal atypical chest pain and was brought on after activity and subsided with NTG. Troponins are negative and telemetry unremarkable. - Reporting CP yesterday that followed nausea this AM- pain is in the L lower chest and notices she is belching more. Possible GI component as she says it is not like her anginal pain - Resolved with adequate bowel movements - Continue Imdur 60 mg daily and NTG SL PRN Lightheadedness/Dizziness: RESOLVED - Possibly multifactorial given pain medication/mild dehydration - no further issue Leukocytosis: Suspect Reactive: IMPROVING CAD with LAD Stenosis: - ASA 81 mg daily and Atorvastatin 40 mg every other day Paroxysmal Atrial Fibrillation: NSR Currently - Diltiazem 240 mg daily, Toprol XL 25 mg daily, and Warfarin - trend INR HTN: - Lisinopril 40 mg daily Mild Polycythemia: - Previously seen my supervisor [employer] - remains stable DVT Prophylaxis: Warfarin Disposition: Going to [facility] today (Ya Waldrop PA-C) pt seen, case dw A Benjie WINTERS pt feeling much better and ready to go to rehab no new issues chest pain - gi related, improved, stable for rehab, otherwise as abov (Shiva Wong D.O.)
== END 2017-01-29 14:08 | DRG 470 ==
LOC: C.ACU 05:43 → C.3E 06:50 → ENRESERV 10:11 → C.2E 01-27 13:18 → ENRESERV 01-28 15:22 → C.MSN 01-28 16:10
PROC: 0SRU0J9 Replacement of Left Knee Joint, Femoral Surface with Synthetic Substitute, Cemented, Open Approach (ICD-10-PCS; principal; 2017-01-26 08:00)
DX: M17.12 Unilateral primary osteoarthritis, left knee (principal); I10 Essential (primary) hypertension; E78.00 Pure hypercholesterolemia, unspecified; I48.0 Paroxysmal atrial fibrillation; Z90.710 Acquired absence of both cervix and uterus; Z90.49 Acquired absence of other specified parts of digestive tract

== ENCOUNTER 2017-02-23 12:25 | Observation (INO) | payer OTHER ==
[2017-02-23] VITALS (16 sets, daily range): BP systolic 105–172; BP diastolic 63–107; PULSE 67–87; TEMP 36.7–37.1; O2SAT 94–99; Ht 157.5 cm; Wt 74.3 kg
[~2017-02-23] VITALS: Ht 157.5 cm; Wt 74.3 kg
[~2017-02-23 12:25] MED LIST changes: +ACET-24 PO; +CLB200 PO; +RXC5 PO
--- NOTE | 2017-02-23 12:59 | EMERGENCY ROOM VISIT NOTE ---
History Report prepared by [place]: Valencia Baxter Under the Supervision of: Dr. Terry Alberto M.D. First contact with patient: 12:40 Chief Complaint: WEAKNESS Stated Complaint: AFIB Nursing Triage Summary: also c/o left sided chest pain History of Present Illness The patient is a 81 year old female who presents to the Emergency Room with complaints of worsening weakness beginning about a week ago. The patient had her left knee replaced by Dr. Cardona- Orthopedics on February 10 and was kept in the hospital. While in the hospital the patient went into atrial fibrillation and was sent home. Since being released from the hospital the patient has had increasing nausea. The patient followed up with Dr. Sierra- Cardiology who doubled Cardizem. The patient is on Coumadin for atrial fibrillation.The patient reports she doesn't usually stay in atrial fibrillations. She denies missing any doses of her Coumadin. The patient notes nausea, decreased appetite, and intermittent chest pain. She also notes some diarrhea which resided a couple days ago. Source of History: patient Onset: a week ago Position: other (global) Quality: other (weakness) Timing: worsening Associated Symptoms: + chest pain, + nausea, + diarrhea Review of Systems See HPI for pertinent positives & negatives. A total of 10 systems reviewed and were otherwise negative. Past Medical & Surgical Medical Problems: (1) Atrial fibrillation (2) Coronary artery disease (3) Dyslipidemia (4) Essential hypertension (5) Left knee DJD (6) UTI (urinary tract infection) Surgical Problems: (1) H/O mastectomy (2) S/P cholecystectomy Family History Diabetes mellitus FH: cancer FH: coronary artery disease FATHER MOTHER FH: heart disease Hypertension Stroke MOTHER Social History Smoking Status: Never Smoker Alcohol Use: none Drug Use: none Marital Status: Housing Status: lives alone Occupation Status: retired Current/Historical Medications Scheduled Acetaminophen (Sb Non-Aspirin Extra Stre), 1,000 MG PO Q8H Aspirin (Aspirin Ec), 81 MG PO QAM Atorvastatin (Lipitor), 40 MG PO Q2D Celecoxib (Celebrex), 200 MG PO BID Diltiazem Hcl Ext Rel (Tiazac), 240 MG PO QAM Isosorbide Mononitrate Ext Rel (Imdur Ext Rel), 60 MG PO QAM Lisinopril (Zestril), 40 MG PO QAM Metoprolol Succ (Toprol Xl) (Toprol-Xl), 25 MG PO QAM Nitroglycerin (Nitrostat), 0.4 MG UT PRN Warfarin Sod (Jantoven), 2.5 MG PO HS [Folic Acid], Unknown Dose PO QAM Scheduled PRN Oxycodone HCl (Oxycodone HCl), 5-10 MG PO Q4-6 PRN for Pain Allergies Coded Allergies: Latex1 -Allergic Contact Dermititis (Verified Allergy, Unknown, ITCHINESS , 01/26/17) Physical Exam Vital Signs Date Time Temp Pulse Resp B/P (MAP) Pulse Ox O2 Delivery O2 Flow Rate FiO2 02/23/17 16:10 72 9 142/74 93 02/23/17 16:10 72 16 142/74 95 Room Air 02/23/17 16:06 120/71 02/23/17 16:05 72 10 97 02/23/17 16:05 67 16 120/71 97 Room Air 02/23/17 16:01 133/77 02/23/17 16:00 82 17 98 02/23/17 16:00 73 16 133/77 98 Room Air 02/23/17 15:56 145/71 02/23/17 15:55 79 14 145/71 99 Room Air 02/23/17 15:55 82 23 99 02/23/17 15:50 82 22 145/80 100 02/23/17 15:50 78 16 145/80 99 Room Air 02/23/17 15:46 166/106 02/23/17 15:45 80 12 99 02/23/17 15:45 78 16 166/106 99 Nasal Cannula 2.0 02/23/17 15:43 82 02/23/17 15:41 172/96 02/23/17 15:40 86 9 99 02/23/17 15:40 87 20 172/96 99 Nasal Cannula 2.0 02/23/17 15:36 168/107 02/23/17 15:35 84 5 98 02/23/17 15:35 87 14 168/107 99 Nasal Cannula 2.0 02/23/17 15:32 80 16 159/79 99 Nasal Cannula 4.0 02/23/17 15:32 159/79 02/23/17 15:30 80 4 96 02/23/17 15:28 144/71 02/23/17 15:28 74 10 144/71 97 Room Air 02/23/17 15:25 82 21 96 02/23/17 15:20 77 13 97 02/23/17 15:19 36.8 79 16 138/78 96 Room Air 02/23/17 15:16 138/78 02/23/17 15:15 75 27 95 02/23/17 15:10 81 21 97 02/23/17 15:09 79 20 136/76 97 Room Air 02/23/17 15:08 136/76 02/23/17 15:05 73 22 02/23/17 15:00 70 23 96 02/23/17 14:55 66 21 95 02/23/17 14:50 64 18 89 02/23/17 14:45 68 19 95 02/23/17 14:40 64 17 94 02/23/17 14:35 67 20 94 02/23/17 14:30 62 21 94 02/23/17 14:25 61 18 94 02/23/17 14:20 66 19 93 02/23/17 14:15 64 20 93 02/23/17 14:10 62 21 95 02/23/17 14:05 59 18 93 02/23/17 14:00 63 16 93 02/23/17 13:55 71 16 96 02/23/17 13:50 64 28 94 02/23/17 13:49 94 Room Air 02/23/17 13:49 94 Room Air 02/23/17 13:49 59 20 128/66 94 Room Air 02/23/17 13:49 128/66 02/23/17 13:45 68 20 94 02/23/17 13:40 72 23 94 02/23/17 13:35 70 23 94 02/23/17 13:30 70 14 93 02/23/17 13:25 65 27 94 02/23/17 13:20 73 24 95 02/23/17 13:15 71 18 94 02/23/17 13:10 68 27 94 02/23/17 13:05 71 17 94 02/23/17 13:00 62 23 95 02/23/17 12:55 70 29 95 02/23/17 12:50 72 19 95 02/23/17 12:46 76 02/23/17 12:41 138/75 12/11/17 12:30 36.6 72 20 142/81 95 Room Air Physical Exam GENERAL: Patient is a healthy-appearing well-nourished female HEAD: Normocephalic atraumatic EYES: Ocular movements intact pupils equal and react to light OROPHARYNX mucous membranes are moist no exudates present no erythema or edema present NECK: Supple no nuchal rigidity CHEST: Good equal expansion LUNGS: Clear and equal to auscultation CARDIAC: Normal S1 and S2 ABDOMEN: Soft nontender no guarding BACK: No CVA tenderness EXTREMITIES: No pain upon palpation normal muscle strength in all groups no clubbing cyanosis or edema NEURO: Patient is following commands and answering questions appropriately. Alert and oriented x3 Cranial Nerves 2-12 grossly intact Medical Decision & Procedures ER Provider Diagnostic Interpretation: Radiology results as stated below per my review and radiologist interpretation: CHEST ONE VIEW PORTABLE FINDINGS: The bones soft tissues and hemidiaphragms are normal. The cardiomediastinal silhouette is normal. The lungs are clear. The pulmonary vasculature is normal. IMPRESSION: Negative chest. The above report was generated using voice recognition software. It may contain grammatical, syntax or spelling errors. Electronically signed by: Fred Rooney M.D. Laboratory Results 02/23/17 12:55 Red Blood Count 4.54, Mean Corpuscular Volume 96.5, Mean Corpuscular Hemoglobin 32.6, Mean Corpuscular Hemoglobin Concent 33.8, Mean Platelet Volume 9.1, Neutrophils (%) (Auto) 56.3, Lymphocytes (%) (Auto) 32.0, Monocytes (%) (Auto) 9.7, Eosinophils (%) (Auto) 1.3, Basophils (%) (Auto) 0.3, Neutrophils # (Auto) 5.01, Lymphocytes # (Auto) 2.85, Monocytes # (Auto) 0.86, Eosinophils # (Auto) 0.12, Basophils # (Auto) 0.03 02/23/17 12:55 Test 02/23/17 12:55 02/23/17 13:06 White Blood Count 8.91 K/uL (4.8-10.8) Red Blood Count 4.54 M/uL (4.2-5.4) Hemoglobin 14.8 g/dL (12.0-16.0) Hematocrit 43.8 % (37-47) Mean Corpuscular Volume 96.5 fL (80-100) Mean Corpuscular Hemoglobin 32.6 pg (25-34) Mean Corpuscular Hemoglobin Concent 33.8 g/dl (32-36) Platelet Count 330 K/uL (130-400) Mean Platelet Volume 9.1 fL (7.4-10.4) Neutrophils (%) (Auto) 56.3 % Lymphocytes (%) (Auto) 32.0 % Monocytes (%) (Auto) 9.7 % Eosinophils (%) (Auto) 1.3 % Basophils (%) (Auto) 0.3 % Neutrophils # (Auto) 5.01 K/uL (1.4-6.5) Lymphocytes # (Auto) 2.85 K/uL (1.2-3.4) Monocytes # (Auto) 0.86 K/uL (0.11-0.59) Eosinophils # (Auto) 0.12 K/uL (0-0.5) Basophils # (Auto) 0.03 K/uL (0-0.2) RDW Standard Deviation 49.9 fL (36.4-46.3) RDW Coefficient of Variation 14.1 % (11.5-14.5) Immature Granulocyte % (Auto) 0.4 % Immature Granulocyte # (Auto) 0.04 K/uL (0.00-0.02) Prothrombin Time 32.8 SECONDS (9.0-12.0) Prothromb Time International Ratio 3.2 (0.9-1.1) Activated Partial Thromboplast Time 35.6 SECONDS (21.0-31.0) Partial Thromboplastin Ratio 1.4 Estimated GFR () 70.9 Estimated GFR (Non- 61.2 BUN/Creatinine Ratio 17.6 (10-20) Calcium Level 9.1 mg/dl (8.5-10.1) Total Bilirubin 0.6 mg/dl (0.2-1) Direct Bilirubin mg/dl (0-0.2) Aspartate Amino Transf (AST/SGOT) 25 U/L (15-37) Alanine Aminotransferase (ALT/SGPT) 24 U/L (12-78) Alkaline Phosphatase 83 U/L (45-117) Total Creatine Kinase 45 U/L (26-192) Creatine Kinase MB 0.6 ng/ml (0.5-3.6) Creatine Kinase MB Ratio 1.3 (0-3.0) Troponin I < 0.015 ng/ml (0-0.045) Total Protein 6.6 gm/dl (6.4-8.2) Albumin 3.5 gm/dl (3.4-5.0) Lipase 78 U/L (73-393) Bedside Hemoglobin 14.6 g/dl (12.0-16.0) Bedside Hematocrit 43 % (37-47) Bedside Sodium 141 mEq/L (135-144) Bedside Potassium 4.0 mEq/L (3.3-5.0) Bedside Chloride 107 mEq/L (101-112) Bedside Total CO2 23 mEq/l (24-31) Anion Gap 16.0 mmol/L (16-25) Bedside Blood Urea Nitrogen 19 mg/dl (7-18) Bedside Creatinine 0.8 mg/dl (0.6-1.3) Bedside Glucose (other) 124 mg/dl (70-99) Bedside Ionized Calcium (Hema) 1.16 mmol/l (1.12-1.32) Labs reviewed by ED physician. Medications Administered Medications (Trade) Dose Ordered Sig/Sakina Route Start Time Stop Time Status Last Admin Dose Admin Sodium Chloride 500 ml @ 999 mls/hr Q31M STAT IV 02/23/17 13:39 02/23/17 14:09 DC 02/23/17 13:49 999 MLS/HR Ketamine HCl (Ketalar Steri-Vial Inj) 20 mg NOW STAT IV 02/23/17 14:52 02/23/17 14:54 DC 02/23/17 15:50 35 MG Propofol (Diprivan Iv Emulsion 20ml Vial) 20 mg NOW STAT IV 02/23/17 14:52 02/23/17 14:54 DC 02/23/17 15:51 20 MG Ondansetron HCl (Zofran Inj) 4 mg NOW STAT IV 02/23/17 14:52 02/23/17 14:54 DC 02/23/17 15:49 4 MG Procedure Indication: A fib Written consent was obtained after the risks and benefits were explained, including but not limited to pain, thermal burn, allergic reaction, aspiration, airway obstruction, laryngospasm, infection, hypotension, and cardiorespiratory arrest. At this time, the risks of the procedure are less than the risks of NOT performing the procedure. A time out was taken and the correct patient and procedure identified. The patient was on 100% via NRB and end tidal CO2 monitoring prior to the procedure. Suction, airway equipment, medications, respiratory equipment, ACLS cart, and appropriate personnel were prepared prior to the initiation of the procedure. Sedation was achieved utilizing 35 mg Ketamine and 35 mg Propofol. The biphasic defibrillator was set to 200 joules of energy and synched. After confirmation of sedation and "all clear" safety check the synchronized shock was delivered. This resulted in successful conversion of the dysrhythmia back into sinus rhythm. See nursing notes for dosages and times. There were no complications and the patient recovered uneventfully from the procedure. Procedural Sedation Indication afib. Total time: 20 minutes. Written consent was obtained after the risks and benefits were explained to the patient and daughter, including, but not limited to aspiration, allergic reaction, breathing difficulties, cardiac complications, vomiting, pain, event recall, bleeding, and/or infection. Pre-sedation examination and paperwork completed. The patient was on 100% oxygen via NRB prior to the procedure. Continous end tidal CO2 monitoring, pulse oximetry, and cardiac monitoring were utilized. Suction, airway equipment, medications, respiratory equipment, and appropriate personnel were prepared prior to the initiation of the procedure. A time out was taken. Sedation was achieved utilizing 35 mg of Propofol and Ketamine. After I observed the patient had reached the appropriate level of sedation the main procedure was performed without complication. Sedation was discontinued and the monitoring continued. The patient recovered quickly from the effects of the medication without complication or adverse event. ECG Indication: weakness Rate (beats per minute): 71 Rhythm: atrial fibrillation Findings: no acute ischemic change Comparison ECG Date: 01/27/17 Change: A fib has replaced normal sinus Repeat EKG: Normal sinus 86 bpm, no ectopy, no ischemia, Prolonged QT ED Course 1244: Past medical records reviewed. The patient was evaluated in room B4B. A complete history and physical examination was performed. 1339: Ordered Sodium Chloride 500 ml @ 999 mls/hr. 1445: I discussed the patient's case with Dr. Yu-Cardiology, He recommended cardioconverting the patient in the ED. 1452: Ordered Zofran Inj 4 mg IV, Propofol 20 mg IV, Ketamine HCl 20 mg IV. 1456: The patient is now in normal sinus rhythm. 1548: I discussed the patient's case with Dr. Cannon, he has agreed to evaluate the patient for further management and care. 1635: The patient is resting comfortably. Medical Decision Differential diagnosis: Etiologies such as metabolic, infection, hypo/hyperglycemia, electrolyte abnormalities, cardiac sources, intracerebral event, toxicologic, neurologic, as well as others were entertained. This is an 81-year-old feel who presents emergency department over generalized weakness at home. The patient and family are convinced that her atrial fibrillation are causing the patient's weakness. She has a normal white blood cell count normal red blood cell count normal renal profile normal liver profile. The patient's INR is 3.0. She last ate proximally 8 hours ago. Based on these findings I felt that the patient could be cardioverted. This was performed as above. I did discuss the case with the hospitalist to have the patient observed overnight. Patient family were in agreement with the treatment plan. Medication Reconcilliation Current Medication List: was personally reviewed by me Blood Pressure Screening Patient's blood pressure: Elevated blood pressure Blood pressure disposition: Referred to PCP (evaluated by hospitalist) Consults Time Called: 1443 Consulting Physician: Dr. Galarza Returned Call: 1440 I discussed the patient's case with Dr. Galarza, He recommended cardioconverting the patient in the ED. Additional Consults: Time Called: 1548 Consulted Physician: Dr. Cannon Returned Call: 1545 Additional Comments: I discussed the patient's case with Dr. Cannon, he has agreed to evaluate the patient for further management and care. Impression Primary Impression: Atrial fibrillation Additional Impression: Weakness Scribe Attestation The scribe's documentation has been prepared under my direction and personally reviewed by me in its entirety. I confirm that the note above accurately reflects all work, treatment, procedures, and medical decision making performed by me. Departure Information Dispostion Being Evaluated By Hospitalist Referrals Rachael Menendez, C.R.N.P. (PCP) Patient Instructions My [facility] Problem Qualifiers
[2017-02-23 13:18] LABS: BASO % 0.3 %; BASO ABS # 0.03 K/uL (0-0.2); COMPLETE YES; EOS % 1.3 %; HEMATOCRIT 43.8 % (37-47); IG% 0.4 %; LYMPH ABS # 2.85 K/uL (1.2-3.4); MEAN CELL VOLUME 96.5 fL (80-100); MEAN CORPUSCULAR HEMOGLOBIN 32.6 pg (25-34); MEAN CORPUSCULAR HGB CONC 33.8 g/dl (32-36); MEAN PLATELET VOLUME 9.1 fL (7.4-10.4); MONO % 9.7 %; NEUT % 56.3 %; PLATELET COUNT 330 K/uL (130-400); RED BLOOD COUNT 4.54 M/uL (4.2-5.4); WHITE BLOOD COUNT 8.91 K/uL (4.8-10.8)
[2017-02-23 13:21] LABS: ISTAT CREATININE 0.8 mg/dl (0.6-1.3); ISTAT HEMOGLOBIN 14.6 g/dl (12.0-16.0); ISTAT IONIZED CALCIUM 1.16 mmol/l (1.12-1.32)
[2017-02-23 13:27] LABS: INR 3.2 (0.9-1.1); PARTIAL THROMBOPLASTIN RATIO 1.4; PROTHROMBIN TIME (PATIENT) 32.8 SECONDS (9.0-12.0)
[2017-02-23] MEDS ORDERED: SODIUM CHLORIDE 0.9% 500ML 500 ML IV STA (13:39)
[2017-02-23 13:42] LABS: ALT/SGPT 24 U/L (12-78); BLOOD UREA NITROGEN 16 mg/dl (7-18); BUN/CREATININE RATIO 17.6 (10-20); CALCIUM 9.1 mg/dl (8.5-10.1); CARBON DIOXIDE 21 mmol/L (21-32); CHLORIDE 107 mmol/L (98-107); CREATININE 0.89 mg/dl (0.60-1.20); GLUCOSE 118 mg/dl (70-99); POTASSIUM 3.8 mmol/L (3.5-5.1); SODIUM 139 mmol/L (136-145)
[2017-02-23 13:47] LABS: ALKALINE PHOSPHATASE 83 U/L (45-117); AST/SGOT 25 U/L (15-37); CKMB/CK RATIO 1.3 (0-3.0)
--- NOTE | 2017-02-23 14:06 | DIAGNOSTIC IMAGING REPORT ---
CHEST ONE VIEW PORTABLE CLINICAL HISTORY: CHEST PAIN dyspnea COMPARISON STUDY: 03/16/2016 FINDINGS: The bones soft tissues and hemidiaphragms are normal. The cardiomediastinal silhouette is normal. The lungs are clear. The pulmonary vasculature is normal. IMPRESSION: Negative chest. The above report was generated using voice recognition software. It may contain grammatical, syntax or spelling errors. Electronically signed by: Fred Rooney M.D. 02/23/2017 2:05 PM Dictated Date/Time: 02/23/2017 2:05 PM
[2017-02-23] MEDS ORDERED: PROPOFOL IV EMULSION 10 MG/ML 20 ML VIAL IV STA (14:52)
[2017-02-23] MEDS ORDERED: KETAMINE HCL INJ 50 MG/ML 10 ML VIAL IV STA (14:52)
[2017-02-23] MEDS ORDERED: ONDANSETRON INJ 2 MG/ML 2 ML VIAL IV STA (14:52)
[2017-02-23] MEDS ORDERED: ONDANSETRON INJ 2 MG/ML 2 ML VIAL IV PRN (16:15)
[2017-02-23] MEDS ORDERED: OXYCODONE HCL IR 5 MG TAB (IMMEDIATE RELEASE) PO PRN (16:15)
[2017-02-23] MEDS ORDERED: NITROGLYCERIN 0.4 MG SL PER TAB CHARGE UT PRN (16:15)
[2017-02-23] MEDS ORDERED: IV FLUIDS COMPLETED PRN (16:30)
--- NOTE | 2017-02-23 16:36 | EMERGENCY ROOM VISIT NOTE ---
Post-Moderate Sedation Plan General Date of Moderate Sedation Feb 23, 2017. Vital Signs: Vital Signs Past 12 Hours Date Time Temp Pulse Resp B/P (MAP) Pulse Ox O2 Delivery O2 Flow Rate FiO2 02/23/17 16:18 36.8 67 16 136/67 95 Room Air 02/23/17 16:15 69 16 136/67 94 Room Air 02/23/17 16:10 72 16 142/74 95 Room Air 02/23/17 16:05 67 16 120/71 97 Room Air 02/23/17 16:00 73 16 133/77 98 Room Air 02/23/17 15:55 79 14 145/71 99 Room Air 02/23/17 15:50 78 16 145/80 99 Room Air 02/23/17 15:45 78 16 166/106 99 Nasal Cannula 2.0 02/23/17 15:43 82 02/23/17 15:40 87 20 172/96 99 Nasal Cannula 2.0 02/23/17 15:35 87 14 168/107 99 Nasal Cannula 2.0 02/23/17 15:32 80 16 159/79 99 Nasal Cannula 4.0 02/23/17 15:28 74 10 144/71 97 Room Air 02/23/17 15:19 36.8 79 16 138/78 96 Room Air 02/23/17 15:09 79 20 136/76 97 Room Air 02/23/17 13:49 94 Room Air 02/23/17 13:49 94 Room Air 02/23/17 13:49 59 20 128/66 94 Room Air 02/23/17 12:46 76 02/23/17 12:30 36.6 72 20 142/81 95 Room Air Review - Discharge Plan Post Moderate Sedation Plan: On clinical assessment, the patient appears to have tolerated the conscious sedation without complications. Patient is recovering as anticipated. Patient will continue to be monitored by nursing and may be discharged when conscious sedation discharge criteria are met.
--- NOTE | 2017-02-23 16:36 | EMERGENCY ROOM VISIT NOTE ---
Pre-Mod Sedation Assessment General Date of Moderate Sedation: Feb 23, 2017. Vital Signs: Vital Signs Past 12 Hours Date Time Temp Pulse Resp B/P (MAP) Pulse Ox O2 Delivery O2 Flow Rate FiO2 02/23/17 16:18 36.8 67 16 136/67 95 Room Air 02/23/17 16:15 69 16 136/67 94 Room Air 02/23/17 16:10 72 16 142/74 95 Room Air 02/23/17 16:05 67 16 120/71 97 Room Air 02/23/17 16:00 73 16 133/77 98 Room Air 02/23/17 15:55 79 14 145/71 99 Room Air 02/23/17 15:50 78 16 145/80 99 Room Air 02/23/17 15:45 78 16 166/106 99 Nasal Cannula 2.0 02/23/17 15:43 82 02/23/17 15:40 87 20 172/96 99 Nasal Cannula 2.0 02/23/17 15:35 87 14 168/107 99 Nasal Cannula 2.0 02/23/17 15:32 80 16 159/79 99 Nasal Cannula 4.0 02/23/17 15:28 74 10 144/71 97 Room Air 02/23/17 15:19 36.8 79 16 138/78 96 Room Air 02/23/17 15:09 79 20 136/76 97 Room Air 02/23/17 13:49 94 Room Air 02/23/17 13:49 94 Room Air 02/23/17 13:49 59 20 128/66 94 Room Air 02/23/17 12:46 76 02/23/17 12:30 36.6 72 20 142/81 95 Room Air Review Cardiovascular: regular rate, rhythm, no edema, no gallop, no JVD, no murmur, normal peripheral pulses Abdomen: normal bowel sounds, non tender, soft, no organomegaly, no pulsatile mass, normal rectal exam, occult blood negative Lungs: chest non-tender, lungs clear, normal breath sounds, no respiratory distress, no accessory muscle use Airway Class: I Pre-Sedation Airway Assessment Oral Cavity: WNL Short Thick Neck: Yes Hx of Sleep Apnea: No Smoking Status: Never Smoker Mallampati Classification: Class I (Sft palate,uvula,fauces,pillar) ASA Classification: Class I Procedure Planning Contraindications-for Mod Sed: None Yes Notes The planned sedation has been discussed with the patient and consent obtained. I have identified the patient, determined the appropriateness of sedation and have assessed the patient immediately prior to the procedure. All medicine(s) and interventions are by my order.
--- NOTE | 2017-02-23 17:00 | History and Physical ---
History & Physical Date & Time of Service: Feb 23, 2017 at 16:40 Chief Complaint: AFIB Primary Care Physician: Rachael Menendez, [employer] History of Present Illness Source: patient, family, hospital records 81 yo female with a h/o atrial fibrillation who underwent L TKA on 01/26/[address] Cardona and was subsequently sent to [facility] for acute rehab. While at rehab she did well and her strength was intact. She was eating and drinking well. However, she was found to be back in atrial fibrillation, she had a known history of this although it was always paroxysmal and her family said it would go back to sinus spontaneously. She followed up with Dr. Sorensen as well as Mathew Lino PAC with cardiology. The atrial fibrillation was management with Cardizem and Toprol and her HR was controlled. She was anticoagulated on Coumadin and her INR was therapeutic. Despite being rate controlled, she started to decline physically. She describes a general overall weakness and difficulty ambulating, she uses a rolling walker since the TKA. No dizziness or reported falls per both the patient and her daughter. Her appetite has been poor, sleeping is difficult and very fatigued. She has had some chills but no fevers, no night sweats. Weight has been stable. The patient and her family were thinking that the atrial fibrillation was the cause of her slow functional decline. Per notes from cardiology, they had plans to perform cardioversion if she did not feel better this week. She presented today to the ED with HR in the 80's, BP preserved. CBC and BMP were normal. Troponin and CK normal. She was cardioverted by the ED physician since that was the plan per cardiology. She returned to [facility] in the 70's. He discussed going home but family concerned she would not do well and the patient agreed. She lives alone in a shelter community in [place]. She has missed the last three physical therapy appointments due to weakness. Past Medical/Surgical History Medical Problems: (1) Atrial fibrillation Status: Chronic (2) Coronary artery disease Status: Chronic (3) Dyslipidemia Status: Chronic (4) Essential hypertension Status: Chronic Surgical Problems: (1) H/O mastectomy Status: Resolved (2) S/P cholecystectomy Status: Resolved Family History Diabetes mellitus FH: cancer FH: coronary artery disease FATHER MOTHER FH: heart disease Hypertension Stroke MOTHER Social History Smoking Status: Never Smoker Drug Use: none Marital Status: Housing status: lives with family Occupational Status: retired Immunizations History of Influenza Vaccine: Unknown History of Tetanus Vaccine?: Unknown History of Pneumococcal: Unknown History of Hepatitis B Vaccine: Unknown Multi-Drug Resistant Organisms History of MDRO: No Allergies Coded Allergies: Latex1 -Allergic Contact Dermititis (Verified Allergy, Unknown, ITCHINESS , 01/26/17) Home Medications Scheduled Acetaminophen (Sb Non-Aspirin Extra Stre), 1,000 MG PO Q8H Aspirin (Aspirin Ec), 81 MG PO QAM Atorvastatin (Lipitor), 40 MG PO Q2D Celecoxib (Celebrex), 200 MG PO BID Diltiazem Hcl Ext Rel (Tiazac), 240 MG PO QAM Isosorbide Mononitrate Ext Rel (Imdur Ext Rel), 60 MG PO QAM Lisinopril (Zestril), 40 MG PO QAM Metoprolol Succ (Toprol Xl) (Toprol-Xl), 25 MG PO QAM Nitroglycerin (Nitrostat), 0.4 MG UT PRN Warfarin Sod (Jantoven), 2.5 MG PO HS [Folic Acid], Unknown Dose PO QAM Scheduled PRN Oxycodone HCl (Oxycodone HCl), 5-10 MG PO Q4-6 PRN for Pain Review of Systems Constitutional: + chills, + weakness, + fatigue, No fever, No sweats, No weight loss, No problem reported Eyes: No worsening of vision, No eye pain, No redness, No discharge, No diplopia, No problem reported ENT: No hearing loss, No unusual epistaxis, No nasal symptoms, No sore throat, No tinnitus, No dental problems, No trouble swallowing, No problem reported Respiratory: No cough, No sputum, No wheezing, No shortness of breath, No dyspnea on exertion, No dyspnea at rest, No hemoptysis, No problem reported Cardiovascular: + palpitations, No chest pain, No orthopnea, No PND, No edema, No claudication, No problem reported Abdomen: + constipation (has some constipation after surgery but resolved), + problem reported (poor appetite), No pain, No nausea, No vomiting, No diarrhea, No GI bleeding Musculoskeletal: + swelling (mild left knee swelling), No joint pain, No muscle pain, No calf pain, No problem reported Genitourinary - Female: No dysuria, No urinary frequency, No urinary urgency, No urinary incontinence, No urinary retention, No hematuria Neurologic: No memory loss, No paralysis, No weakness, No numbness/tingling, No vertigo, No balance problems, No problem reported Psychiatric: No depression symptoms, No anhedonism, No anxiety, No insomnia, No substance abuse, No problem reported Endocrine: + fatigue, No excessive thirst, No excessive urination, No problem reported Hematologic / Lymphatic: No abnormal bleeding/bruising, No clotting problems, No swollen lymph nodes, No night sweats, No problem reported Integumentary: No rash, No itch, No new/changing skin lesions, No color change , No bleeding, No problem reported Allergic / Immunologic: No environmental allergies, No seasonal allergies, No pet sensitivities, No food allergies, No hives, No frequent infections, No poor healing, No prolonged convalescence, No problem reported Physical Exam Vital Signs Date Time Temp Pulse Resp B/P (MAP) Pulse Ox O2 Delivery O2 Flow Rate FiO2 02/23/17 16:18 36.8 67 16 136/67 95 Room Air 02/23/17 16:15 69 16 136/67 94 Room Air 02/23/17 16:10 72 16 142/74 95 Room Air 02/23/17 16:05 67 16 120/71 97 Room Air 02/23/17 16:00 73 16 133/77 98 Room Air 02/23/17 15:55 79 14 145/71 99 Room Air 02/23/17 15:50 78 16 145/80 99 Room Air 02/23/17 15:45 78 16 166/106 99 Nasal Cannula 2.0 02/23/17 15:43 82 02/23/17 15:40 87 20 172/96 99 Nasal Cannula 2.0 02/23/17 15:35 87 14 168/107 99 Nasal Cannula 2.0 02/23/17 15:32 80 16 159/79 99 Nasal Cannula 4.0 02/23/17 15:28 74 10 144/71 97 Room Air 02/23/17 15:19 36.8 79 16 138/78 96 Room Air 02/23/17 15:09 79 20 136/76 97 Room Air 02/23/17 13:49 94 Room Air 02/23/17 13:49 94 Room Air 02/23/17 13:49 59 20 128/66 94 Room Air 02/23/17 12:46 76 02/23/17 12:30 36.6 72 20 142/81 95 Room Air General Appearance: WD/WN, no apparent distress Head: normocephalic, atraumatic Eyes: normal inspection, EOMI, sclerae normal ENT: normal ENT inspection, hearing grossly normal, pharynx normal Neck: supple, no adenopathy, no JVD, trachea midline Respiratory/Chest: chest non-tender, lungs clear, normal breath sounds, no respiratory distress, no accessory muscle use Cardiovascular: regular rate, rhythm, no edema, no gallop, no JVD, no murmur, normal peripheral pulses Abdomen/GI: normal bowel sounds, non tender, soft, no organomegaly Back: normal inspection, no CVA tenderness, no muscle spasm, normal range of motion Extremities/Musculoskelatal: normal inspection, no calf tenderness, normal capillary refill, no pedal edema, normal range of motion, non-tender, pelvis stable 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, no motor/sensory deficits, alert, normal mood/affect, normal reflexes, oriented x 3 Skin: normal color, warm/dry, no rash Diagnostics Laboratory Results Results Past 24 Hours Test 02/23/17 12:55 02/23/17 13:06 Range/Units White Blood Count 8.91 4.8-10.8 K/uL Red Blood Count 4.54 4.2-5.4 M/uL Hemoglobin 14.8 12.0-16.0 g/dL Hematocrit 43.8 37-47 % Mean Corpuscular Volume 96.5 80-100 fL Mean Corpuscular Hemoglobin 32.6 25-34 pg Mean Corpuscular Hemoglobin Concent 33.8 32-36 g/dl Platelet Count 330 130-400 K/uL Mean Platelet Volume 9.1 7.4-10.4 fL Neutrophils (%) (Auto) 56.3 % Lymphocytes (%) (Auto) 32.0 % Monocytes (%) (Auto) 9.7 % Eosinophils (%) (Auto) 1.3 % Basophils (%) (Auto) 0.3 % Neutrophils # (Auto) 5.01 1.4-6.5 K/uL Lymphocytes # (Auto) 2.85 1.2-3.4 K/uL Monocytes # (Auto) 0.86 0.11-0.59 K/uL Eosinophils # (Auto) 0.12 0-0.5 K/uL Basophils # (Auto) 0.03 0-0.2 K/uL RDW Standard Deviation 49.9 36.4-46.3 fL RDW Coefficient of Variation 14.1 11.5-14.5 % Immature Granulocyte % (Auto) 0.4 % Immature Granulocyte # (Auto) 0.04 0.00-0.02 K/uL Prothrombin Time 32.8 9.0-12.0 SECONDS Prothromb Time International Ratio 3.2 0.9-1.1 Activated Partial Thromboplast Time 35.6 21.0-31.0 SECONDS Partial Thromboplastin Ratio 1.4 Sodium Level 139 136-145 mmol/L Potassium Level 3.8 3.5-5.1 mmol/L Chloride Level 107 98-107 mmol/L Carbon Dioxide Level 21 21-32 mmol/L Anion Gap 10.0 16.0 16-25 mmol/L Blood Urea Nitrogen 16 7-18 mg/dl Creatinine 0.89 0.60-1.20 mg/dl Estimated GFR () 70.9 Estimated GFR (Non- 61.2 BUN/Creatinine Ratio 17.6 10-20 Random Glucose 118 70-99 mg/dl Calcium Level 9.1 8.5-10.1 mg/dl Total Bilirubin 0.6 0.2-1 mg/dl Direct Bilirubin 0-0.2 mg/dl Aspartate Amino Transf (AST/SGOT) 25 15-37 U/L Alanine Aminotransferase (ALT/SGPT) 24 12-78 U/L Alkaline Phosphatase 83 45-117 U/L Total Creatine Kinase 45 26-192 U/L Creatine Kinase MB 0.6 0.5-3.6 ng/ml Creatine Kinase MB Ratio 1.3 0-3.0 Troponin I < 0.015 0-0.045 ng/ml Total Protein 6.6 6.4-8.2 gm/dl Albumin 3.5 3.4-5.0 gm/dl Lipase 78 73-393 U/L Bedside Hemoglobin 14.6 12.0-16.0 g/dl Bedside Hematocrit 43 37-47 % Bedside Sodium 141 135-144 mEq/L Bedside Potassium 4.0 3.3-5.0 mEq/L Bedside Chloride 107 101-112 mEq/L Bedside Total CO2 23 24-31 mEq/l Bedside Blood Urea Nitrogen 19 7-18 mg/dl Bedside Creatinine 0.8 0.6-1.3 mg/dl Bedside Glucose (other) 124 70-99 mg/dl Bedside Ionized Calcium (Hema) 1.16 1.12-1.32 mmol/l CXR normal EKG atrial fibrillation rates in the 70's Impression Assessment and Plan 81 yo female with atrial fibrillation and progressive weakness ever since left TKA in mid January (one month ago) - Weakness, deconditioning not sure this was due to atrial fibrillation since HR was controlled and no signs of heart failure now that she is in NSR we will see if her strength improves on exam, she really did not have a strength deficit will check TSH, Vitamin B12, Vitamin D check UA to rule out signs of UTI and send for culture Hb 14, normal WBC, normal renal function consult PT/OT discussed with patient and family that she may need to consider another rehab stay - Atrial fibrillation, was paroxysmal in the past but has been more persistent recently cardioverted in the ED, now in NSR continue Cardizem 360mg and Toprol 50mg continue Coumadin consult cardiology for their input going forward now that she is converted - CAD: no chest pain, troponin negative continue aspirin, Toprol - HTN: stable, continue Toprol, Imdur, Lisinopril DVT prophylaxis: on Coumadin Level of Care Telemetry Resuscitation Status FULL RESUSCITATION VTE Prophylaxis VTE Risk Assessment Done? Y/N: Yes Risk Level: High Given or contraindicated: Warfarin (Coumadin) Additional Copies To Mathew Lino,P.A.; Rachael Menendez, C.R.N.PTravis
[2017-02-23 17:11] LABS: URINE APPEARANCE CLEAR (CLEAR); URINE BILIRUBIN NEG (NEG); URINE COLOR YELLOW; URINE EPITHELIAL CELL AUTO 20-30 /lpf (0-5); URINE NITRITE POS (NEG); UROBILINOGEN NEG (NEG); ZZUR CULT IF INDIC CLEAN CATCH YES
[2017-02-23 17:12] LABS: MANUAL MICROSCOPIC REQUIRED? NO; REVIEW REQ? NO
[2017-02-23] MEDS: ACETAMINOPHEN 325 MG TAB PO PRN ×2 (18:12→23:57)
[2017-02-23] MEDS: WARFARIN SOD 2.5 MG TAB PO SCH (21:17)
[2017-02-23] MEDS: CeleBREX 200 MG CAP PO SCH (21:18)
[2017-02-24 03:55] VITALS: BP 116/72; PULSE 70; TEMP 37; O2SAT 94
[2017-02-24 07:11] LABS: BASO % 0.7 %; BASO ABS # 0.04 K/uL (0-0.2); COMPLETE YES; EOS % 2.2 %; IG% 0.3 %; LYMPH % 37.2 %; LYMPH ABS # 2.22 K/uL (1.2-3.4); MEAN CELL VOLUME 96.6 fL (80-100); MEAN CORPUSCULAR HEMOGLOBIN 31.9 pg (25-34); MEAN PLATELET VOLUME 9.1 fL (7.4-10.4); MONO % 10.2 %; NEUT % 49.4 %; PLATELET COUNT 254 K/uL (130-400); RED BLOOD COUNT 4.14 M/uL (4.2-5.4); WHITE BLOOD COUNT 5.96 K/uL (4.8-10.8)
[2017-02-24 07:16] LABS: INR 2.9 (0.9-1.1); PROTHROMBIN TIME (PATIENT) 30.3 SECONDS (9.0-12.0)
[2017-02-24 07:32] VITALS: BP 130/78; PULSE 78; TEMP 37.1; O2SAT 93
[2017-02-24 07:41] LABS: BUN/CREATININE RATIO 15.3 (10-20); CALCIUM 8.2 mg/dl (8.5-10.1); CREATININE 0.93 mg/dl (0.60-1.20); MAGNESIUM 1.9 mg/dl (1.8-2.4); POTASSIUM 3.8 mmol/L (3.5-5.1)
[2017-02-24 07:52] LABS: THYROID STIMULATING HORMONE 0.968 uIu/ml (0.300-4.500)
[2017-02-24] MEDS: CeleBREX 200 MG CAP PO SCH ×2 (08:19→20:27)
[2017-02-24] MEDS: ISOSORBIDE MONONITRATE 60 MG TABCR PO SCH (08:20)
[2017-02-24] MEDS: METOPROLOL SUCC 50MG EXT REL TAB PO SCH (08:20)
[2017-02-24] MEDS: DILTIAZEM HCL 120 MG EXT REL CAP PO SCH (08:20)
[2017-02-24] MEDS: ERGOCALCIFEROL 50,000 INTER.UNIT CAP PO SCH ×2 (08:21→14:35)
[2017-02-24] MEDS: LISINOPRIL 40 MG TAB PO SCH (08:21)
[2017-02-24] MEDS: ASPIRIN 81 MG ECTAB PO SCH (08:21)
[2017-02-24] MEDS: CEFTRIAXONE SOD INJ 1 GM in DEXTROSE 5% ADD-VANTAGE 50ML 50 ML IV SCH (09:00)
[2017-02-24] MEDS ORDERED: ATORVASTATIN 40 MG TAB PO SCH (09:00)
--- NOTE | 2017-02-24 09:22 | Cardiology Follow-Up ---
Subjective Date of Service: Feb 24, 2017. Pt evaluation today including: conversation w/ patient, physical exam, chart review, lab review, review of studies, conversation w/ attending History of Present Illness Mrs. Godfrey is an 81 year old female with a medical history significant for paroxysmal atrial fibrillation, nonobstructive CAD, hypertension and hyperlipidemia who was admitted to [facility] on 02/23/17. She underwent left knee arthroplasty in January. She was briefly in [facility] for rehabilitation and since has been participating in outpatient therapy. She complains of weakness since her knee replacement and was recently noted to be in atrial fibrillation. She was seen in our office by Mathew Lino PA-C who increased her diltiazem 360 mg daily in addition to her metoprolol succinate 50 mg daily. She was scheduled for elective electrical cardioversion this week. However, she presented to the emergency department yesterday with worsening weakness. She was noted to be in atrial fibrillation and underwent successful electrical cardioversion in the emergency department. She reports feeling significantly better today, her energy level has improved. She reports that she was having episodic chest discomfort, typically at rest, over the past several weeks but denies any chest pain since admission. She denies dyspnea, orthopnea, PND, peripheral edema, lightheadedness, presyncope or syncope. No abnormal bleeding including melena, hematochezia or hematuria. She is chronically anticoagulated with Coumadin. The remainder of her review of systems is unremarkable. Social History Smoking Status: Never Smoker History of Alcohol Use: No Objective Vital Signs Past 12 Hours Date Time Temp Pulse Resp B/P (MAP) Pulse Ox O2 Delivery O2 Flow Rate FiO2 02/24/17 08:00 Room Air 02/24/17 07:32 37.1 78 18 130/78 (95) 93 Room Air 02/24/17 04:00 Room Air 02/24/17 03:55 37.0 70 18 116/72 (87) 94 Room Air 02/23/17 23:59 Room Air 02/23/17 23:22 37.1 69 18 111/65 (80) 94 Room Air Last Recorded Weight-Kilograms: 75.700 Physical Exam General: No acute distress. Alert and oriented. HEENT: Head is normal. PERRLA. EOMI. Sclera anicteric. Ears, nose and throat unremarkable. Mucous membranes moist. Neck: No carotid bruit or thyromegaly. Lungs: Clear to auscultation bilaterally without rales, rhonchi or wheezes. Cardiac: Regular rate and rhythm. S1-S2 normal. Grade 1/6 systolic murmur left sternal border. No diastolic murmur, gallop or rub. Abdomen: Soft and nontender. Bowel sounds normal. No mass or organomegaly. No abdominal bruit. Extremities: Without cyanosis, clubbing or peripheral edema. Left knee with healing incision from recent TKA. Skin: No rash or abnormal lesions. Normal turgor. Neurologic: No lateralizing changes. Psychiatric: Affect appropriate. Data Laboratory Results: Last 24 Hours Test 02/23/17 12:55 02/23/17 13:06 02/23/17 16:58 02/24/17 06:48 White Blood Count 8.91 K/uL 5.96 K/uL Red Blood Count 4.54 M/uL 4.14 M/uL Hemoglobin 14.8 g/dL 13.2 g/dL Hematocrit 43.8 % 40.0 % Mean Corpuscular Volume 96.5 fL 96.6 fL Mean Corpuscular Hemoglobin 32.6 pg 31.9 pg Mean Corpuscular Hemoglobin Concent 33.8 g/dl 33.0 g/dl Platelet Count 330 K/uL 254 K/uL Mean Platelet Volume 9.1 fL 9.1 fL Neutrophils (%) (Auto) 56.3 % 49.4 % Lymphocytes (%) (Auto) 32.0 % 37.2 % Monocytes (%) (Auto) 9.7 % 10.2 % Eosinophils (%) (Auto) 1.3 % 2.2 % Basophils (%) (Auto) 0.3 % 0.7 % Neutrophils # (Auto) 5.01 K/uL 2.94 K/uL Lymphocytes # (Auto) 2.85 K/uL 2.22 K/uL Monocytes # (Auto) 0.86 K/uL 0.61 K/uL Eosinophils # (Auto) 0.12 K/uL 0.13 K/uL Basophils # (Auto) 0.03 K/uL 0.04 K/uL RDW Standard Deviation 49.9 fL 50.0 fL RDW Coefficient of Variation 14.1 % 14.0 % Immature Granulocyte % (Auto) 0.4 % 0.3 % Immature Granulocyte # (Auto) 0.04 K/uL 0.02 K/uL Prothrombin Time 32.8 SECONDS 30.3 SECONDS Prothromb Time International Ratio 3.2 2.9 Activated Partial Thromboplast Time 35.6 SECONDS Partial Thromboplastin Ratio 1.4 Sodium Level 139 mmol/L 138 mmol/L Potassium Level 3.8 mmol/L 3.8 mmol/L Chloride Level 107 mmol/L 108 mmol/L Carbon Dioxide Level 21 mmol/L 23 mmol/L Anion Gap 10.0 mmol/L 16.0 mmol/L 7.0 mmol/L Blood Urea Nitrogen 16 mg/dl 14 mg/dl Creatinine 0.89 mg/dl 0.93 mg/dl Estimated GFR () 70.9 67.3 Estimated GFR (Non- 61.2 58.0 BUN/Creatinine Ratio 17.6 15.3 Random Glucose 118 mg/dl 83 mg/dl Calcium Level 9.1 mg/dl 8.2 mg/dl Total Bilirubin 0.6 mg/dl Direct Bilirubin mg/dl Aspartate Amino Transf (AST/SGOT) 25 U/L Alanine Aminotransferase (ALT/SGPT) 24 U/L Alkaline Phosphatase 83 U/L Total Creatine Kinase 45 U/L Creatine Kinase MB 0.6 ng/ml Creatine Kinase MB Ratio 1.3 Troponin I < 0.015 ng/ml Total Protein 6.6 gm/dl Albumin 3.5 gm/dl Lipase 78 U/L Bedside Hemoglobin 14.6 g/dl Bedside Hematocrit 43 % Bedside Sodium 141 mEq/L Bedside Potassium 4.0 mEq/L Bedside Chloride 107 mEq/L Bedside Total CO2 23 mEq/l Bedside Blood Urea Nitrogen 19 mg/dl Bedside Creatinine 0.8 mg/dl Bedside Glucose (other) 124 mg/dl Bedside Ionized Calcium (Hema) 1.16 mmol/l Urine Color YELLOW Urine Appearance CLEAR Urine pH 5.0 Urine Specific [place] 1.020 Urine Protein NEG Urine Glucose (UA) NEG Urine Ketones 1+ Urine Occult Blood TRACE Urine Nitrite POS Urine Bilirubin NEG Urine Urobilinogen NEG Urine Leukocyte Esterase SMALL Urine WBC (Auto) 5-10 /hpf Urine RBC (Auto) 0-4 /hpf Urine Hyaline Casts (Auto) 0 /lpf Urine Epithelial Cells (Auto) 20-30 /lpf Urine Bacteria (Auto) 4+ Est Creatinine Clear Calc Drug Dose 46.0 ml/min Magnesium Level 1.9 mg/dl Vitamin B12 Level 1513 pg/mL 25-Hydroxy Vitamin D Total 11.0 ng/ml Thyroid Stimulating Hormone (TSH) 0.968 uIu/ml Electrocardiogram 02/23/17: Atrial fibrillation at 71 bpm Telemetry reviewed: Sinus rhythm with PACs since cardioversion. Assessment and Plan Discussed with Dr. Yu. 1. Paroxysmal atrial fibrillation: She remains in sinus rhythm since cardioversion in the emergency department on 02/23/17. Difficult to say if her vague symptoms of weakness were related to atrial fibrillation as her heart rate was well controlled but she reports feeling better today. Continue current doses of metoprolol succinate and diltiazem for rate control. Continue Coumadin for stroke risk reduction. She can be discharged from a cardiology standpoint. 2. Hypertension: Blood pressure adequately controlled on current regimen. 3. Nonobstructive CAD: No anginal type symptoms. Troponin negative upon admission and no ischemic changes on electrocardiogram. Continue medical management. 4. Hyperlipidemia: Continue statin therapy.
[2017-02-24 11:27] VITALS: BP 114/70; PULSE 71; TEMP 36.4; O2SAT 94
[2017-02-24] MEDS: ACETAMINOPHEN 325 MG TAB PO PRN ×2 (12:06→19:36)
[2017-02-24] MEDS: LACTOBACILLUS ACIDOPHILUS (FLORANEX) TAB PO SCH ×2 (12:33→17:24)
--- NOTE | 2017-02-24 15:08 | Hospitalist Progress Note ---
Hospitalist Progress Note Date of Service Feb 24, 2017. (Korin Worley ., PA-C) Subjective Pt evaluation today including: conversation w/ patient, physical exam, chart review, lab review, review of inpatient medication list Pain: none PO Intake: Tolerating PO diet Voiding: no voiding problems Patient reports feeling better. She still has some general weakness and fatigue but feels better overall. She denies any palpitations, chest pain, or SOB. She also denies any urinary symptoms. The patient denies fevers, chills, sweats, chest pain, palpitations, claudication, cough, wheezing, shortness of breath, nausea, vomiting, abdominal pain, dysuria, hematuria, urinary retention , urinary frequency, foul smelling urine, paralysis, motor weakness, numbness and tingling. Additional Comments: See HPI for pertinent positives and negatives. All other systems reviewed and negative. (Korin Worley ., PA-C) Objective Vital Signs Date Time Temp Pulse Resp B/P (MAP) Pulse Ox O2 Delivery O2 Flow Rate FiO2 02/24/17 12:00 Room Air 02/24/17 11:27 36.4 71 18 114/70 (85) 94 Room Air 02/24/17 08:00 Room Air 02/24/17 07:32 37.1 78 18 130/78 (95) 93 Room Air 02/24/17 04:00 Room Air 02/24/17 03:55 37.0 70 18 116/72 (87) 94 Room Air 02/23/17 23:59 Room Air 02/23/17 23:22 37.1 69 18 111/65 (80) 94 Room Air 02/23/17 20:32 36.7 67 18 105/63 (77) 96 Room Air 02/23/17 20:00 Room Air 02/23/17 18:17 36.7 70 18 126/70 97 Room Air 02/23/17 16:59 75 16 148/76 97 02/23/17 16:55 72 148/76 97 02/23/17 16:45 73 96 02/23/17 16:40 69 93 02/23/17 16:35 68 97 02/23/17 16:31 133/78 02/23/17 16:30 75 96 02/23/17 16:25 73 94 02/23/17 16:20 69 15 94 02/23/17 16:18 36.8 67 16 136/67 95 Room Air 02/23/17 16:16 136/67 02/23/17 16:15 72 7 93 02/23/17 16:15 69 16 136/67 94 Room Air 02/23/17 16:10 72 9 142/74 93 02/23/17 16:10 72 16 142/74 95 Room Air 02/23/17 16:06 120/71 02/23/17 16:05 72 10 97 02/23/17 16:05 67 16 120/71 97 Room Air 02/23/17 16:01 133/77 02/23/17 16:00 82 17 98 02/23/17 16:00 73 16 133/77 98 Room Air 02/23/17 15:56 145/71 02/23/17 15:55 79 14 145/71 99 Room Air 02/23/17 15:55 82 23 99 02/23/17 15:50 82 22 145/80 100 02/23/17 15:50 78 16 145/80 99 Room Air 02/23/17 15:46 166/106 02/23/17 15:45 80 12 99 02/23/17 15:45 78 16 166/106 99 Nasal Cannula 2.0 02/23/17 15:43 82 02/23/17 15:41 172/96 02/23/17 15:40 86 9 99 02/23/17 15:40 87 20 172/96 99 Nasal Cannula 2.0 02/23/17 15:36 168/107 02/23/17 15:35 84 5 98 02/23/17 15:35 87 14 168/107 99 Nasal Cannula 2.0 02/23/17 15:32 80 16 159/79 99 Nasal Cannula 4.0 02/23/17 15:32 159/79 02/23/17 15:30 80 4 96 02/23/17 15:28 144/71 02/23/17 15:28 74 10 144/71 97 Room Air 02/23/17 15:25 82 21 96 02/23/17 15:20 77 13 97 02/23/17 15:19 36.8 79 16 138/78 96 Room Air 02/23/17 15:16 138/78 02/23/17 15:15 75 27 95 02/23/17 15:10 81 21 97 02/23/17 15:09 79 20 136/76 97 Room Air 02/23/17 15:08 136/76 02/23/17 15:05 73 22 02/23/17 15:00 70 23 96 02/23/17 14:55 66 21 95 02/23/17 14:50 64 18 89 (Korin Worley ., PA-C) Physical Exam Notes: General appearance: +Obese. Well-developed, well-nourished, no apparent distress Head: Normocephalic, atraumatic Eyes: Normal inspection, PERRL, EOMI ENT: Normal ENT inspection, hearing grossly normal, pharynx normal Neck: Supple, no JVD, trachea midline Respiratory/Chest: Lungs clear to auscultation, normal breath sounds, no respiratory distress Cardiovascular: Regular rate & rhythm, no gallop, no murmur Abdomen/GI: Normal bowel sounds, non-tender, soft Extremities/Musculoskeletal: +Left knee s/p TKA. Incision healing. Chronic venous stasis changes. No calf tenderness, no pedal edema Neurological/Psych: Alert, normal mood/affect, oriented x 3 Skin: Normal color, warm/dry, no rash (Korin Worley ., PA-C) Laboratory Results Last 24 Hours Test 02/23/17 16:58 02/24/17 06:48 Urine Color YELLOW Urine Appearance CLEAR Urine pH 5.0 Urine Specific [place] 1.020 Urine Protein NEG Urine Glucose (UA) NEG Urine Ketones 1+ Urine Occult Blood TRACE Urine Nitrite POS Urine Bilirubin NEG Urine Urobilinogen NEG Urine Leukocyte Esterase SMALL Urine WBC (Auto) 5-10 /hpf Urine RBC (Auto) 0-4 /hpf Urine Hyaline Casts (Auto) 0 /lpf Urine Epithelial Cells (Auto) 20-30 /lpf Urine Bacteria (Auto) 4+ White Blood Count 5.96 K/uL Red Blood Count 4.14 M/uL Hemoglobin 13.2 g/dL Hematocrit 40.0 % Mean Corpuscular Volume 96.6 fL Mean Corpuscular Hemoglobin 31.9 pg Mean Corpuscular Hemoglobin Concent 33.0 g/dl Platelet Count 254 K/uL Mean Platelet Volume 9.1 fL Neutrophils (%) (Auto) 49.4 % Lymphocytes (%) (Auto) 37.2 % Monocytes (%) (Auto) 10.2 % Eosinophils (%) (Auto) 2.2 % Basophils (%) (Auto) 0.7 % Neutrophils # (Auto) 2.94 K/uL Lymphocytes # (Auto) 2.22 K/uL Monocytes # (Auto) 0.61 K/uL Eosinophils # (Auto) 0.13 K/uL Basophils # (Auto) 0.04 K/uL RDW Standard Deviation 50.0 fL RDW Coefficient of Variation 14.0 % Immature Granulocyte % (Auto) 0.3 % Immature Granulocyte # (Auto) 0.02 K/uL Prothrombin Time 30.3 SECONDS Prothromb Time International Ratio 2.9 Sodium Level 138 mmol/L Potassium Level 3.8 mmol/L Chloride Level 108 mmol/L Carbon Dioxide Level 23 mmol/L Anion Gap 7.0 mmol/L Blood Urea Nitrogen 14 mg/dl Creatinine 0.93 mg/dl Est Creatinine Clear Calc Drug Dose 46.0 ml/min Estimated GFR () 67.3 Estimated GFR (Non- 58.0 BUN/Creatinine Ratio 15.3 Random Glucose 83 mg/dl Calcium Level 8.2 mg/dl Magnesium Level 1.9 mg/dl Vitamin B12 Level 1513 pg/mL 25-Hydroxy Vitamin D Total 11.0 ng/ml Thyroid Stimulating Hormone (TSH) 0.968 uIu/ml (Korin Worley ., PA-C) Assessment and Plan 81 y/o female with a history of paroxysmal a-fib, CAD, angina, HTN, HLD, and CKD stage III who presents with weakness and fatigue. The patient has been in rate controlled a-fib following a recent left TKA one month ago. Pt cardioverted in ED. A-fib--stable, NSR, rate controlled -Admit to tele for obs. Pt in SR with HR 60s-80s -Cardiology consulted, appreciate recs: Continue Cardizem and Toprol for rate control as well as Coumadin. Stable for d/c from cardio standpoint. -Continue diltiazem 360 mg PO qd, metoprolol succinate 50 mg PO qd, and warfarin 2.5 mg PO qd -INR 2.9 on 02/24 UTI -UA positive -Urine culture positive for 2 different GNR, sensitivities pending -Rocephin 1 gm IV qd -Likely main cause of pt's recent weakness/fatigue Weakness, deconditioning -Unlikely due to a-fib as was rate controlled, although states she feels better after cardioversion -Likely due to UTI as above -Vitamin D low at 11 -Start ergocalciferol 50,000 IU PO 2x/week -TSH and B12 WNL -PT/OT evaluate and treat, return home with outpatient PT/OT CAD, HTN, HLD--stable -Continue ASA, Toprol as above, Imdur 60 mg PO qd, lisinopril 40 mg PO qd, and Lipitor 40 mg PO q2d CKD stage III--stable -Creatinine at baseline DVT prophylaxis -Warfarin therapeutic Code Status -Level I, FULL RESUSCITATION STATUS Dispo -Likely d/c home with services tomorrow (Korin Worley ., PA-C) Attending Attestation: Pt seen/examined, chart reviewed, care plan d/w CATRINA Worley. I agree w/ the sidhu components of her documentation. Pt feeling better today. Reports fatigue & anorexia were main complaints over last 3-4 days. Tele - NSR. VSS no fever gen - NAD heart - RRR lungs - CTA b/l abd - soft ext - no edema; left knee incision - well-healed, no effusion, no redness A/P: 1. a fib s/p cardioversion last pm (basically elective as she was rate- controlled) 2. fatigue, anorexia - suspect due to UTI - rocephin, follow cx anticipate d/c tomorrow once final cx results have returned daughter updated INR in ida ARNETT MD (Emmanuel Arnett MD)
[2017-02-24 15:29] VITALS: BP 105/64; PULSE 69; TEMP 37.1; O2SAT 91
[2017-02-24] MEDS: WARFARIN SOD 2.5 MG TAB PO SCH (17:24)
[2017-02-24 19:20] VITALS: BP 107/66; PULSE 78; TEMP 36.9; O2SAT 94
[2017-02-24 23:10] VITALS: BP 114/72; PULSE 75; TEMP 36.7; O2SAT 96
[2017-02-25 03:35] VITALS: BP 117/75; PULSE 74; TEMP 36.7; O2SAT 95
[2017-02-25] MEDS: ACETAMINOPHEN 325 MG TAB PO PRN (03:37)
[2017-02-25 07:28] LABS: INR 3.3 (0.9-1.1)
[2017-02-25 07:43] VITALS: BP 129/80; PULSE 76; TEMP 36.7; O2SAT 95
[2017-02-25 07:48] LABS: CALCIUM 8.2 mg/dl (8.5-10.1); CREATININE 0.98 mg/dl (0.60-1.20); POTASSIUM 4.1 mmol/L (3.5-5.1)
[2017-02-25] MEDS: LACTOBACILLUS ACIDOPHILUS (FLORANEX) TAB PO SCH (08:00)
[2017-02-25] MEDS: CEFTRIAXONE SOD INJ 1 GM in DEXTROSE 5% ADD-VANTAGE 50ML 50 ML IV SCH (08:00)
[2017-02-25] MEDS: LISINOPRIL 40 MG TAB PO SCH (08:01)
[2017-02-25] MEDS: ISOSORBIDE MONONITRATE 60 MG TABCR PO SCH (08:01)
[2017-02-25] MEDS: DILTIAZEM HCL 120 MG EXT REL CAP PO SCH (08:01)
[2017-02-25] MEDS: ASPIRIN 81 MG ECTAB PO SCH (08:01)
[2017-02-25] MEDS: CeleBREX 200 MG CAP PO SCH (08:02)
[2017-02-25] MEDS: METOPROLOL SUCC 50MG EXT REL TAB PO SCH (08:02)
[2017-02-25] MEDS ORDERED: ERGO500011 PO (10:01)
[2017-02-25] MEDS ORDERED: CEPH500C2 PO (10:01)
[2017-02-25] MEDS ORDERED: LCTX PO (10:01)
--- NOTE | 2017-02-25 10:14 | Discharge Instructions ---
Discharge Instructions Date of Service Feb 25, 2017. Admission Reason for Admission: Atrial Fibrillation, Weakness Discharge Discharge Diagnosis / Problem: Urinary tract infection, weakness, atrial fibrillation Discharge Goals Goal(s): Decrease discomfort, Improve function, Diagnostic testing, Therapeutic intervention Activity Recommendations Activity Limitations: resume your previous activity (as tolerated, per outpatient physical therapy) . Instructions / Follow-Up Instructions / Follow-Up You were admitted to the hospital after presenting with weakness, fatigue, and decreased appetite. You had converted back to atrial fibrillation prior to arrival, and although this was rate controlled, you were cardioverted back to sinus rhythm. You were found to have a urinary tract infection which was treated with antibiotics. Your infection is likely what was causing your recent weakness, fatigue and decrease in appetite. As the infection resolves, you should feel better. You still have several days of antibiotics left but you are medically stable for discharge. Medications: *Please take cephalexin (Keflex) 500 mg by mouth twice a day for 5 more days. This is an antibiotic for your urine infection. *You may also take a probiotic (lactobacillus acidophilus) with your meals for the next 5 days. This may help prevent GI upset/diarrhea from the antibiotic. *Please take ergocalciferol (vitamin D) 50,000 interunits by mouth twice a week for the next few weeks, as your vitamin D levels were low in the hospital which may also contribute to fatigue. You can follow up with your primary care provider to determine how long you should remain on this course. *Your INR was high at 3.3 at discharge. Please hold your warfarin dose tonight . It will be rechecked in a few days. *Continue your other home medications as prescribed. Follow up: *You will be scheduled to follow up with your primary care provider. *You will be given a lab order to have your INR checked in a few days. Antibiotics can affect your warfarin. These results will be forwarded to your primary care provider who can follow up and adjust your dose as necessary. Please seek medical attention if you experience fevers, chills, sweats, dizziness/lightheadedness, loss of consciousness, chest pain, shortness of breath, nausea, vomiting, numbness or tingling. Current Hospital Diet Patient's current hospital diet: AHA Diet (Heart Healthy) Discharge Diet Recommended Diet: AHA Diet (Heart Healthy) Procedures Procedures Performed: Cardioversion Pending Studies Studies pending at discharge: no Laboratory Results Hemoglobin A1c Test 01/09/17 12:40 Range/Units Estimated Average Glucose 117 mg/dl Hemoglobin A1c 5.7 H 4.5-5.6 % Medical Emergencies . Who to Call and When: Medical Emergencies: If at any time you feel your situation is an emergency, please call 911 immediately. . Non-Emergent Contact Non-Emergency issues call your: Primary Care Provider Call Non-Emergent contact if: you have a fever, your pain is not controlled, your pain is worsening, your pain is unusual for you, your pain is concerning you, wound has increased drainage, wound has increased redness, wound has increased pain, you have any medication questions . Past History Medical & Surgical History: (1) UTI (urinary tract infection) (2) Weakness (3) Atrial fibrillation . "Provider Documentation" section prepared by Korin Worley. . VTE Core Measure Inpt VTE Proph given/why not?: Warfarin (Coumadin)
--- NOTE | 2017-02-25 10:23 | Discharge Summary ---
Discharge Summary Date of Service Feb 25, 2017. Discharge Summary Admission Date: Feb 23, 2017 at 16:10 Discharge Date: Feb 25, 2017 Discharge Disposition: Home with services Principal Diagnosis: Urinary tract infection, weakness, atrial fibrillation Problems/Secondary Diagnoses: CAD Angina HTN HLD CKD stage III Immunizations: Have You Had Influenza Vaccine: Unknown History of Tetanus Vaccine?: Unknown History of Pneumococcal: Unknown History of Hepatitis B Vaccine: Unknown Procedures: Cardioversion: Procedure Indication: A fib Written consent was obtained after the risks and benefits were explained, including but not limited to pain, thermal burn, allergic reaction, aspiration, airway obstruction, laryngospasm, infection, hypotension, and cardiorespiratory arrest. At this time, the risks of the procedure are less than the risks of NOT performing the procedure. A time out was taken and the correct patient and procedure identified. The patient was on 100% via NRB and end tidal CO2 monitoring prior to the procedure. Suction, airway equipment, medications, respiratory equipment, ACLS cart, and appropriate personnel were prepared prior to the initiation of the procedure. Sedation was achieved utilizing 35 mg Ketamine and 35 mg Propofol. The biphasic defibrillator was set to 200 joules of energy and synched. After confirmation of sedation and "all clear" safety check the synchronized shock was delivered. This resulted in successful conversion of the dysrhythmia back into sinus rhythm. See nursing notes for dosages and times. There were no complications and the patient recovered uneventfully from the procedure. Procedural Sedation Indication afib. Total time: 20 minutes. Written consent was obtained after the risks and benefits were explained to the patient and daughter, including, but not limited to aspiration, allergic reaction, breathing difficulties, cardiac complications, vomiting, pain, event recall, bleeding, and/or infection. Pre-sedation examination and paperwork completed. The patient was on 100% oxygen via NRB prior to the procedure. Continuous end tidal CO2 monitoring, pulse oximetry, and cardiac monitoring were utilized. Suction, airway equipment, medications, respiratory equipment, and appropriate personnel were prepared prior to the initiation of the procedure. A time out was taken. Sedation was achieved utilizing 35 mg of Propofol and Ketamine. After I observed the patient had reached the appropriate level of sedation the main procedure was performed without complication. Sedation was discontinued and the monitoring continued. The patient recovered quickly from the effects of the medication without complication or adverse event. Consultations: Cardiology Medication Reconciliation New Medications: Cephalexin Monohydrate (Keflex) 500 Mg Cap 500 MG PO BID for 5 Days, #10 CAP Ergocalciferol (Vitamin D 25260 Unit) 50,000 Unit Cap 70577 INTERUNIT PO TuTh@0900 for 28 Days, #8 CAP Lactobacillus Acidophilus (Floranex) 1 Tab Tab 4 TAB PO TIDM for 5 Days, #60 TAB Continued Medications: Acetaminophen (Sb Non-Aspirin Extra Stre) 500 Mg Tab 1000 MG PO Q8H for 14 Days, TAB Aspirin (Aspirin Ec) 81 Mg Tab 81 MG PO QAM Atorvastatin (Lipitor) 40 Mg Tab 40 MG PO Q2D, TAB TAKES IN THE PM Celecoxib (Celebrex) 200 Mg Cap 200 MG PO BID, #60 CAP Diltiazem Hcl Ext Rel (Tiazac) 240 Mg Capcr 240 MG PO QAM, CAP Isosorbide Mononitrate Ext Rel (Imdur Ext Rel) 60 Mg Ertab 60 MG PO QAM, TAB Lisinopril (Zestril) 40 Mg Tab 40 MG PO QAM, TAB Metoprolol Succ (Toprol Xl) (Toprol-Xl) 25 Mg Tabcr 25 MG PO QAM, #30 TAB Nitroglycerin (Nitrostat) 0.4 Mg Tab 0.4 MG UT PRN, 0 Refills Oxycodone HCl (Oxycodone HCl) 5 Mg Tab 5-10 MG PO Q4-6 PRN for Pain, #60 TAB Warfarin Sod (Jantoven) 5 Mg Tab 2.5 MG PO HS, TAB [Folic Acid] () Unknown Strength Unknown Dose PO QAM PT MED LIST READS 2.2 PLU Discharge Exam The patient reports feeling well and states she is ready to go home. She states that her weakness and fatigue continue to improve. She denies any fevers , chills, sweats, or urinary symptoms. She reports eating well. The patient denies fevers, chills, sweats, chest pain, palpitations, claudication, cough, wheezing, shortness of breath, nausea, vomiting, abdominal pain, dysuria, hematuria, urinary retention, paralysis, weakness, numbness and tingling. Constitutional: No fever, No chills, No sweats Eyes: No worsening of vision, No eye pain, No diplopia ENT: No hearing loss, No nasal symptoms, No trouble swallowing Respiratory: No cough, No wheezing, No shortness of breath Cardiovascular: No chest pain, No claudication, No palpitations Abdomen: No pain, No nausea, No vomiting Musculoskeletal: No joint pain, No muscle pain, No swelling Genitourinary - Female: No dysuria, No urinary retention, No hematuria Neurologic: No paralysis, No weakness, No numbness/tingling Integumentary: No rash, No itch, No color change General appearance: +Obese. Well-developed, well-nourished, no apparent distress Head: Normocephalic, atraumatic Eyes: Normal inspection, PERRL, EOMI ENT: Normal ENT inspection, hearing grossly normal, pharynx normal Neck: Supple, no JVD, trachea midline Respiratory/Chest: Lungs clear to auscultation, normal breath sounds, no respiratory distress Cardiovascular: Regular rate & rhythm, no gallop, no murmur Abdomen/GI: Normal bowel sounds, non-tender, soft Extremities/Musculoskeletal: +Left knee s/p TKA. Incision healing. Chronic venous stasis changes. No calf tenderness, no pedal edema Neurological/Psych: Alert, normal mood/affect, oriented x 3 Skin: Normal color, warm/dry, no rash Hospital Course 81 y/o female with a history of paroxysmal a-fib, CAD, angina, HTN, HLD, and CKD stage III who presents with weakness and fatigue. The patient has been in rate controlled a-fib following a recent left TKA one month ago. Pt cardioverted in ED. A-fib--stable, NSR, rate controlled -Admit to tele for obs. Pt in SR with HR 60s-70s -S/p cardioversion in ED -Cardiology consulted, appreciate recs: Continue Cardizem and Toprol for rate control as well as Coumadin. Stable for d/c from cardio standpoint. -Continue diltiazem 360 mg PO qd, metoprolol succinate 50 mg PO qd, and warfarin 2.5 mg PO qd -INR 3.3 on 02/25. Pt will hold warfarin tonight. Recheck INR in 3 days, results will be forwarded to PCP UTI -UA positive -Urine culture positive for 2 pansensitive E. coli -Rocephin 1 gm IV qd. Receive 2 doses while inpt. D/C with Keflex x 5 days and probiotic -Likely main cause of pt's recent weakness/fatigue Weakness, deconditioning -Unlikely due to a-fib as was rate controlled, although states she feels better after cardioversion -Likely due to UTI as above -Vitamin D low at 11 -Start ergocalciferol 50,000 IU PO 2x/week -TSH and B12 WNL -PT/OT evaluate and treat, return home with outpatient PT CAD, HTN, HLD--stable -Continue ASA, Toprol as above, Imdur 60 mg PO qd, lisinopril 40 mg PO qd, and Lipitor 40 mg PO q2d CKD stage III--stable -Creatinine at baseline DVT prophylaxis -Warfarin therapeutic Code Status -Level I, FULL RESUSCITATION STATUS Attending Attestation: Pt seen/examined, chart reviewed, discharge care plan d/w CATRINA Worley. I agree w/ the sidhu components of her documentation. 81yo female with h/o a. fib and recent left TKR who presented with poor oral intake and extreme fatigue. This had worsened in the 3-4 days prior to presentation. She had seen [facility] recently and elective outpatient cardioversion for her a. fib was planned. She had attributed her symptoms to the a. fib; however, upon ER presentation, her ventricular rates were excellent. [id number] she underwent successful electrical cardioversion while awaiting admission in the ER. Ultimately it was discovered she had a UTI; this was the likely culprit for her anorexia/fatigue. Urine culture showed pansensitive e. coli. Received 2 doses of IV rocephin while here; will complete 5 more days of Rx after d/c. She will have repeat INR 48 hours after d/c due to INR of 3.3 on day of discharge (and concomitant antibiotic usage). All other medical problems remained stable while here. Following cardioversion she remained in NSR for the entire stay. Discharge exam - gen - nad neck - no JVD heart - RRR lungs - CTA b/l abd - soft ext - left knee incision from TKR clean, no erythema, no drainage, well-healed; no peripheral edema either leg Suzanne ARNETT MD Total Time Spent: Greater than 30 minutes This includes examination of the patient, discharge planning, medication reconciliation, and communication with other providers. Discharge Instructions Please refer to the electronic Patient Visit Report (Discharge Instructions) for additional information. Additional Copies To Rachael Menendez, Tiana
[2017-02-25 11:26] VITALS: BP 115/74; PULSE 71; TEMP 36.7; O2SAT 93
--- NOTE | 2017-02-25 12:05 | CARDIOLOGY PROGRESS NOTE ---
DATE: 02/25/2017 SUBJECTIVE: Mrs. Godfrey is resting comfortably in bed without complaints of chest pain, dyspnea, or palpitations. She is anxious for hospital discharge. OBJECTIVE: VITAL SIGNS: Blood pressure is 115/74 with a regular pulse of 70. Respiratory rate is 18. The patient is afebrile at 36.7 degrees Celsius. Saturation is 93% on room air. NECK: Supple with full carotid artery upstrokes. There are no carotid bruits. Jugular venous pressure is flat at 90 degrees. There is no thyromegaly. CARDIOVASCULAR: Exam reveals a regular rhythm with normal S1 and S2. A 1/6 basal systolic ejection murmur is noted. No S3. LUNGS: Clear without rales, rhonchi, or wheezes. ABDOMEN: Soft without bruits. EXTREMITIES: Reveal intact radial artery pulses bilaterally. Left knee incision is intact. There is no peripheral edema. DATA: Electrolytes note sodium of 138, potassium 4.1, chloride 108, bicarb 22, BUN 16, creatinine 0.98, and glucose 88. INR is 3.3. heater room helper showed sinus rhythm. IMPRESSION AND PLAN: 1. Paroxysmal atrial fibrillation - patient remains in sinus rhythm since cardioversion in the Emergency Room on February 23. Continue metoprolol and diltiazem for rate control. Coumadin now supratherapeutic. 2. Hypertension - controlled. 3. Nonobstructive coronary artery disease - medical management. 4. Hypercholesterolemia - continue statin. 5. Status post left total knee replacement - per Dr. Cardona.
== END 2017-02-25 11:49 | disposition home or self-care (01) ==
LOC: C.EDB 12:26 → C.2T 16:10 → ENRESERV 16:51 → CMPBEDREQ 18:09
PROVIDERS: ADMIT Internal Medicine; ATTEND Internal Medicine
DX: N39.0 Urinary tract infection, site not specified (principal); I48.91 Unspecified atrial fibrillation; I25.119 Atherosclerotic heart disease of native coronary artery with unspecified angina pectoris; I12.9 Hypertensive chronic kidney disease with stage 1 through stage 4 chronic kidney disease, or unspecified chronic kidney disease; E78.5 Hyperlipidemia, unspecified; N18.3 Chronic kidney disease, stage 3 (moderate); Z96.652 Presence of left artificial knee joint; Z79.01 Long term (current) use of anticoagulants; Z79.82 Long term (current) use of aspirin; Z79.899 Other long term (current) drug therapy

== ENCOUNTER → 2017-03-06 | Outpatient (CLI) | payer OTHER ==
[~2017-03-06] MED LIST changes: +DILT360C22 PO; +ERGO500011 PO; +FOLITAB2 PO; +LCTX PO; +TPRSR/50 PO; +TRAM-10 PO
--- NOTE | 2017-03-06 14:48 | DIAGNOSTIC IMAGING REPORT ---
LEFT LOWER EXTREMITY VENOUS DOPPLER HISTORY: LEFT LEG, PAIN/SWELLING, R/O DVT COMPARISON STUDY: None. FINDINGS: There is normal compressibility, flow, and augmentation within the left lower extremity deep venous system. IMPRESSION: No DVT within the left lower extremity. Electronically signed by: Fran Ruth M.D. 03/06/2017 2:47 PM Dictated Date/Time: 03/06/2017 2:46 PM
== END | disposition home or self-care (01) ==
LOC: C.ULTRBC 14:01
DX: Z96.652 Presence of left artificial knee joint (principal); M79.605 Pain in left leg; M79.89 Other specified soft tissue disorders

== ENCOUNTER 2017-03-07 15:22 | Emergency (ER) | payer OTHER ==
[~2017-03-07] VITALS: Ht 157.5 cm; Wt 73.0 kg
[~2017-03-07 15:22] MED LIST changes: -DILT360C22 PO; -FOLITAB2 PO; -TPRSR/50 PO; -TRAM-10 PO
[2017-03-07 15:31] VITALS: TEMP 36.4; Ht 157.5 cm; Wt 73.0 kg
[2017-03-07] MEDS ORDERED: TPRSR/50 PO (15:41)
[2017-03-07] MEDS ORDERED: DILT360C22 PO (15:41)
[2017-03-07] MEDS ORDERED: FOLITAB2 PO (15:41)
[2017-03-07] MEDS ORDERED: TRAMADOL HCL 50 MG TAB PO STA (17:06)
[2017-03-07] MEDS ORDERED: TRAM-10 PO (17:20)
[2017-03-07 17:24] LABS: BASO % 0.3 %; BASO ABS # 0.03 K/uL (0-0.2); COMPLETE YES; EOS % 0.4 %; HEMATOCRIT 44.7 % (37-47); IG% 0.5 %; LYMPH % 21.7 %; LYMPH ABS # 2.52 K/uL (1.2-3.4); MEAN CELL VOLUME 95.5 fL (80-100); MEAN CORPUSCULAR HEMOGLOBIN 32.3 pg (25-34); MEAN CORPUSCULAR HGB CONC 33.8 g/dl (32-36); MONO % 10.8 %; NEUT % 66.3 %; PLATELET COUNT 230 K/uL (130-400); RED BLOOD COUNT 4.68 M/uL (4.2-5.4); WHITE BLOOD COUNT 11.62 K/uL (4.8-10.8)
--- NOTE | 2017-03-07 17:25 | DIAGNOSTIC IMAGING REPORT ---
LEFT KNEE 3 VIEWS HISTORY: Left knee pain COMPARISON: Left knee 08/12/2016. FINDINGS: There is no fracture or dislocation. There is a left total knee arthroplasty. The hardware appears intact. Small to moderate joint effusion. Mild anterior soft tissue swelling. No abnormal periprosthetic lucency. IMPRESSION: 1. Small to moderate knee effusion and mild anterior soft tissue swelling. 2. Left total knee arthroplasty. The hardware appears intact. Electronically signed by: Fran Ruth M.D. 03/07/2017 5:24 PM Dictated Date/Time: 03/07/2017 5:22 PM
[2017-03-07 17:45] VITALS: BP 114/65; PULSE 80; O2SAT 95
--- NOTE | 2017-03-07 21:08 | EMERGENCY ROOM VISIT NOTE ---
History First contact with patient: 15:38 Chief Complaint: LEG PAIN,LEG INJURY Stated Complaint: CANT STAND ON LEG History of Present Illness The patient is a 81 year old white female who presents to the Emergency Room with complaints of left knee pain that has been worsening over the last 3-4 days. She has a history of previous left knee total knee arthroplasty [address] Cardona[address] She was at [facility] for a week and is now at home. She is attending outpatient PT at [facility]. She notes increasing pain in her knee both anterior and posterior. She points to the biceps femoris, the gastroc heads, and the lateral aspect of the knee as her areas of discomfort. She describes pain in the "whole leg". She did speak with her surgeon's office yesterday and had an ultrasound ordered to rule out DVT. It was negative. She is currently anticoagulated on Coumadin and states her INR is therapeutic. Her daughter accompanies her today. The patient did not do well with narcotic pain medication in the hospital and has only been using Tylenol since she has been home. Today she was unable to ambulate using her walker, secondary to pain. She was brought here for further management. Review of Systems REVIEW OF SYSTEM: HEENT: No dizziness, visual problems, hearing loss, or tinnitus. There is no difficulty swallowing and no oral lesions are present. PULMONARY: No cough, shortness of breath, sputum production or hemoptysis. CARDIOVASCULAR: No shortness of breath or peripheral edema. GASTROINTESTINAL: No diarrhea, constipation, nausea, vomiting, or abdominal pain. GENITOURINARY: No dysuria, frequency, urgency or nocturia. NEUROLOGIC: No weakness, muscle tenderness, epilepsy or history of neurological problems. MUSCULOSKELETAL: No history of joint tenderness/swelling. Positive history of arthritis and arthralgias. SKIN: No rashes or lesions. PSYCHIATRIC: No history of depression or mental illness. ENDOCRINE: No history of diabetes, thyroid disorders, or abnormal hair growth. Past Medical/Surgical History Medical Problems: (1) Atrial fibrillation (2) Coronary artery disease (3) Dyslipidemia (4) Essential hypertension (5) Left knee DJD (6) UTI (urinary tract infection) Surgical Problems: (1) H/O mastectomy (2) S/P cholecystectomy Family History Diabetes mellitus FH: cancer FH: coronary artery disease FATHER MOTHER FH: heart disease Hypertension Stroke MOTHER Social History Smoking Status: Never Smoker Smokeless Tobacco Use: No Alcohol Use: none Drug Use: none Marital Status: Housing Status: lives alone Occupation Status: retired Current/Historical Medications Scheduled Aspirin (Aspirin Ec), 81 MG PO QAM Atorvastatin (Lipitor), 40 MG PO Q2D Celecoxib (Celebrex), 200 MG PO BID Diltiazem Hcl Extended Release (Tiazac 360 Mg), 360 MG PO DAILY Ergocalciferol (Vitamin D 62383 Unit), 50,000 INTERUNIT PO TuTh@0900 Folic Acid-Vitamin B6-Vitamin (Folic Acid/Vitamin B-6/Vi), 1 TAB PO DAILY Isosorbide Mononitrate Ext Rel (Imdur Ext Rel), 60 MG PO QAM Lactobacillus Acidophilus (Floranex), 4 TAB PO TIDM Lisinopril (Zestril), 40 MG PO QAM Metoprolol Succinate (Metoprolol Succinate ER), 50 MG PO DAILY Nitroglycerin (Nitrostat), 0.4 MG UT PRN Warfarin Sod (Jantoven), 2.5 MG PO HS Scheduled PRN Tramadol (Ultram), 1-2 TAB PO Q6H PRN for Pain Physical Exam Vital Signs Date Time Temp Pulse Resp B/P (MAP) Pulse Ox O2 Delivery O2 Flow Rate FiO2 03/07/17 17:45 80 18 114/65 95 Room Air 03/07/17 15:31 36.4 62 18 104/66 94 Room Air Physical Exam Gen.: Well-developed, well-nourished, elderly white female, in no acute distress. Obvious discomfort. Laying on a bed. Alert and oriented. Skin:Warm and dry with good turgor. No rashes or lesions. No ecchymosis or erythema. Knee is warm with an intra-articular effusion. The patient is not diaphoretic. No abrasions. Venous stasis changes are present. Musculoskeletal: Expected postoperative intra-articular effusion. Mild warmth. No redness. Well-healed surgical scar. Full terminal extension. She is able to perform a straight leg raise. Flexion to around 90. Stable collateral ligaments. She has discomfort with palpation over the proximal gastroc heads both medially and laterally. There is also discomfort with palpation along her IT band, distal biceps femoris tendon, and tibialis anterior. No pain with palpation over her foot or ankle. Intact motor function to her ankle and toes. Neurologic: Gross sensation is intact across the left leg by soft touch. She describes decreased subjective sensation across the fourth and fifth toes, though sensation is clearly intact. Peripheral pulses are 2+. Medical Decision & Procedures ER Provider Diagnostic Interpretation: Radiographic imaging obtained today of the knee was read by radiology and reviewed by me. Normal-appearing total knee implants. No evidence for loosening or displacement. Laboratory Results 03/07/17 16:20 Red Blood Count 4.68, Mean Corpuscular Volume 95.5, Mean Corpuscular Hemoglobin 32.3, Mean Corpuscular Hemoglobin Concent 33.8, Neutrophils (%) (Auto) 66.3, Lymphocytes (%) (Auto) 21.7, Monocytes (%) (Auto) 10.8, Eosinophils (%) (Auto) 0.4, Basophils (%) (Auto) 0.3, Neutrophils # (Auto) 7.70, Lymphocytes # (Auto) 2.52, Monocytes # (Auto) 1.26, Eosinophils # (Auto) 0.05, Basophils # (Auto) 0.03 Test 03/07/17 16:20 White Blood Count 11.62 K/uL (4.8-10.8) Red Blood Count 4.68 M/uL (4.2-5.4) Hemoglobin 15.1 g/dL (12.0-16.0) Hematocrit 44.7 % (37-47) Mean Corpuscular Volume 95.5 fL (80-100) Mean Corpuscular Hemoglobin 32.3 pg (25-34) Mean Corpuscular Hemoglobin Concent 33.8 g/dl (32-36) Platelet Count 230 K/uL (130-400) Neutrophils (%) (Auto) 66.3 % Lymphocytes (%) (Auto) 21.7 % Monocytes (%) (Auto) 10.8 % Eosinophils (%) (Auto) 0.4 % Basophils (%) (Auto) 0.3 % Neutrophils # (Auto) 7.70 K/uL (1.4-6.5) Lymphocytes # (Auto) 2.52 K/uL (1.2-3.4) Monocytes # (Auto) 1.26 K/uL (0.11-0.59) Eosinophils # (Auto) 0.05 K/uL (0-0.5) Basophils # (Auto) 0.03 K/uL (0-0.2) Immature Granulocyte % (Auto) 0.5 % Immature Granulocyte # (Auto) 0.06 K/uL (0.00-0.02) CBC obtained today is unremarkable. Medications Administered Medications (Trade) Dose Ordered Sig/Sakina Route Start Time Stop Time Status Last Admin Dose Admin Tramadol HCl (Ultram Tab) 50 mg NOW STAT PO 03/07/17 17:06 03/07/17 17:07 DC 03/07/17 17:39 50 MG Ultram 50 mg by mouth ED Course Patient and her family were educated regarding today's findings. Conservative care measures were discussed. IV was established. CBC was obtained. Imaging studies were obtained. She was reassured that I find nothing wrong with her implant. Her knee does not appear to be infectious at this point. Warmth and discomfort are likely related to her inflammation. I did notice that she tends to sit with her hip externally rotated and her knee flexed. Her pain is worst when the knee is extended. I think she is fighting a flexion contracture due to her hip positioning. She was encouraged to avoid the external rotation and encouraged to keep her toes pointed towards the ceiling. Importance of rehabilitation was discussed. She may need a few days off to allow the leg to recover. Follow-up with Dr. Cardona as scheduled next week. I did speak with the on-call orthopedist for [facility] and he was in agreement with the treatment plan. Patient has only been using Tylenol home. She did not tolerate stronger narcotics. I would like her to try Ultram 50 mg every 6 hours as needed for discomfort. She may supplement with Tylenol. Hopefully this will improve her comfort and allow better function at home. Her family members are aware. She would need to have her INR checked more frequently due to the potential interaction with her Coumadin. Medical Decision Possibility of joint infection, inflammation, tendon rupture, ligament disruption, DVT, muscle tear, hemarthrosis, and implant disruption were considered among others. Impression Primary Impression: Knee effusion, left Additional Impression: Left knee pain Departure Information Dispostion Home / Self-Care Condition GOOD Prescriptions Tramadol (Ultram) 50 Mg Tab 1-2 TAB PO Q6H Y for Pain, #24 TAB For Initial Treatment Prov: Krystian Carrington,P.A. 03/07/17 Referrals Jc Cardona M.D. Forms HOME CARE DOCUMENTATION FORM, TYLENOL USE, IMPORTANT VISIT INFORMATION Patient Instructions My [facility] Additional Instructions Ice and elevate the knee frequently to reduce pain/swelling Ultram 1-2 pills every 6 hours as needed for pain control follow up with Dr. Cardona this week as scheduled return to the ED for any fevers/redness/streaking continue your range of motion exercises, and work on keeping your leg straight several times per day. Problem Qualifiers
== END 2017-03-07 17:57 | disposition home or self-care (01) ==
LOC: C.EDB 15:23
DX: M25.462 Effusion, left knee (principal); Z96.652 Presence of left artificial knee joint; M17.12 Unilateral primary osteoarthritis, left knee; I10 Essential (primary) hypertension; E78.5 Hyperlipidemia, unspecified; I48.91 Unspecified atrial fibrillation; Z79.01 Long term (current) use of anticoagulants; Z79.82 Long term (current) use of aspirin; Z83.3 Family history of diabetes mellitus; Z82.49 Family history of ischemic heart disease and other diseases of the circulatory system; Z82.3 Family history of stroke

== ENCOUNTER → 2017-03-23 | Outpatient (CLI) | payer OTHER ==
[~2017-03-23] MED LIST changes: -ACET-24 PO; -DILT-115 PO; +DILT360C22 PO; -FOLIC ACID PO; +FOLITAB2 PO; -METO25TA3 PO; -RXC5 PO; +TPRSR/50 PO; +TRAM-10 PO
== END | disposition home or self-care (01) ==
LOC: C.LABBFT 12:30
PROVIDERS: ATTEND Nurse Practitioner
DX: N39.0 Urinary tract infection, site not specified (principal); E55.9 Vitamin D deficiency, unspecified

== ENCOUNTER → 2017-05-01 | Outpatient (CLI) | payer OTHER ==
[2017-05-01 12:50] LABS: HEMATOCRIT 48.2 % (37-47); HEMOGLOBIN 16.1 g/dL (12.0-16.0); MEAN CORPUSCULAR HEMOGLOBIN 30.7 pg (25-34); MEAN CORPUSCULAR HGB CONC 33.4 g/dl (32-36); MEAN PLATELET VOLUME 9.7 fL (7.4-10.4); PLATELET COUNT 245 K/uL (130-400); RED CELL DISTRIBUTION WIDTH SD 46.8 fL (36.4-46.3); WHITE BLOOD COUNT 8.99 K/uL (4.8-10.8)
[2017-05-01 13:11] LABS: HEMOGLOBIN A1C 5.9 % (4.5-5.6)
[2017-05-01 13:13] LABS: ALBUMIN 3.5 gm/dl (3.4-5.0); ALT/SGPT 25 U/L (12-78); BLOOD UREA NITROGEN 15 mg/dl (7-18); CALCIUM 9.1 mg/dl (8.5-10.1); CARBON DIOXIDE 22 mmol/L (21-32); CHOLESTEROL 110 mg/dl (0-200); GLUCOSE 117 mg/dl (70-99); POTASSIUM 4.4 mmol/L (3.5-5.1); SODIUM 138 mmol/L (136-145)
[2017-05-01 13:16] LABS: ALKALINE PHOSPHATASE 79 U/L (45-117); AST/SGOT 20 U/L (15-37); LDL CHOLESTEROL CALCULATED 25 mg/dl; TOTAL PROTEIN 6.7 gm/dl (6.4-8.2)
== END | disposition home or self-care (01) ==
LOC: C.LABBFT 10:35
PROVIDERS: ATTEND Nurse Practitioner
DX: I25.10 Atherosclerotic heart disease of native coronary artery without angina pectoris (principal); D75.1 Secondary polycythemia; R73.01 Impaired fasting glucose

== ENCOUNTER 2017-06-18 16:52 | Inpatient (IN) | payer OTHER ==
[~2017-06-18] VITALS: Ht 157.5 cm; Wt 74.6 kg
[2017-06-18] MEDS ORDERED: SODIUM CHLORIDE 0.9% 1000ML 1,000 ML IV ONE (17:08)
[2017-06-18] MEDS ORDERED: ONDANSETRON INJ 2 MG/ML 2 ML VIAL IV STA ×2 (17:12→19:07)
--- NOTE | 2017-06-18 17:15 | EMERGENCY ROOM VISIT NOTE ---
History Report prepared by [place]: Saloni Estrella Under the Supervision of: Dr. Peter Valdes D.O. First contact with patient: 17:05 Chief Complaint: FLU LIKE SX Stated Complaint: FLU History of Present Illness The patient is a 82 year old female who presents to the Emergency Room with complaints of intermittent flu-like symptoms beginning 3 days ago. Per daughter , the patient had the stomach flu and was vomiting and had diarrhea 3 days ago but that it resolved. Per daughter, the patient started to vomit and have diarrhea again this afternoon. The patient reports having chest pain from throwing up so much. Per daughter, the patient is on Warfarin. Her daughter states that the patient has a history of atrial fibrillation, hypertension, hyperlipidemia, an appendectomy, a cholecystectomy, and a hysterectomy. The patient states that she has not been on antibiotics recently. Per daughter, the patient did not take her medications for 2 days because she was throwing up so much and could not drink water. The patient denies alcohol and tobacco use. The patient also denies ever having bleeding in her stomach. Source of History: patient, family Onset: 3 days ago Position: other (global) Quality: other (flu-like symptoms ) Timing: intermittent Associated Symptoms: + chest pain (from vomiting so much ), + vomiting, + diarrhea Review of Systems See HPI for pertinent positives & negatives. A total of 10 systems reviewed and were otherwise negative. Past Medical & Surgical Medical Problems: (1) Atrial fibrillation (2) Coronary artery disease (3) Dyslipidemia (4) Essential hypertension (5) Left knee DJD (6) UTI (urinary tract infection) Surgical Problems: (1) H/O mastectomy (2) H/O: hysterectomy (3) History of appendectomy (4) S/P cholecystectomy Family History Diabetes mellitus FH: cancer FH: coronary artery disease FATHER MOTHER FH: heart disease Hypertension Stroke MOTHER Social History Smoking Status: Never Smoker Alcohol Use: none Drug Use: none Marital Status: Housing Status: lives alone Occupation Status: retired Current/Historical Medications Scheduled Aspirin (Aspirin Ec), 81 MG PO QAM Atorvastatin (Lipitor), 40 MG PO Q2D Diltiazem Hcl Extended Release (Tiazac 360 Mg), 360 MG PO QAM Isosorbide Mononitrate (Isosorbide Mononitrate ER), 60 MG PO QAM Lisinopril (Lisinopril), 40 MG PO QAM Metoprolol Succinate (Metoprolol Succinate ER), 50 MG PO QAM Potassium (Potassium), 1 DOSE PO UD Warfarin Sodium (Warfarin Sodium), 2.5 MG PO HS Scheduled PRN Nitroglycerin (Nitrostat), 0.4 MG UT UD PRN for Chest Pain Allergies Coded Allergies: Latex1 -Allergic Contact Dermititis (Verified Allergy, Unknown, ITCHINESS , 03/07/17) Physical Exam Vital Signs Date Time Temp Pulse Resp B/P (MAP) Pulse Ox O2 Delivery O2 Flow Rate FiO2 06/18/17 20:00 52 18 100/50 94 Room Air 06/18/17 19:45 94 Room Air 06/18/17 19:31 36.5 37 18 92/50 94 Room Air 06/18/17 19:00 47 18 119/74 96 Room Air 06/18/17 18:26 45 20 102/58 97 Room Air 06/18/17 17:58 46 06/18/17 17:24 95 Room Air 06/18/17 17:00 36.3 47 20 83/52 94 Room Air Physical Exam GENERAL: Patient is awake, alert, and in no acute distress. Patient is resting comfortably and mildly anxious. EYES: The conjunctivae are clear. The pupils are round and reactive. EARS, NOSE, MOUTH AND THROAT: The nose is without any evidence of any deformity. Mucous membranes are dry. Tongue is midline NECK: The neck is nontender and supple. RESPIRATORY: Diminished in the right lung field, there is no evidence of wheezing rhonchi or rales CARDIOVASCULAR: Bradycardic, regular rhythm noted there no murmurs rubs or gallops normal S1 normal S2 GASTROINTESTINAL: The abdomen is soft. Bowel sounds are present in all quadrants. Abdomen is mildly distended and diffusely tender. No guarding or rigidity. MUSCULOSKELETAL/EXTREMITIES: There is no evidence of gross deformity full range of motion is noted in the hips and shoulders SKIN: There is no obvious evidence of any rash. There are no petechiae, pallor or cyanosis noted. Trace pedal edema bilaterally. Skin turgor was poor. NEUROLOGIC: Patient is awake alert and oriented x3 Medical Decision & Procedures ER Provider Diagnostic Interpretation: Radiology results as stated below per my review and radiologist interpretation: CHEST ONE VIEW PORTABLE CLINICAL HISTORY: 82 years-old Female presenting with Sepsis. TECHNIQUE: Portable upright AP view of the chest was obtained. COMPARISON: 02/23/2017. FINDINGS: Atherosclerosis of the aortic arch. Cardiac silhouette top normal in size. No focal opacity. No large effusion or pneumothorax. Osseous structures normal. Upper abdomen normal. IMPRESSION: 1. No acute cardiopulmonary disease. Electronically signed by: Ming Arthur M.D. 06/18/2017 5:45 PM Dictated Date/Time: 06/18/2017 5:45 PM KUB CLINICAL HISTORY: 82 years-old Female presenting with vomiting. TECHNIQUE: Single supine view of the abdomen was obtained. COMPARISON: None. FINDINGS: Mild gaseous distention of large bowel. No abnormal gaseous distention of bowel. Multiple radiopaque sutures project over the right abdomen. No gross pneumoperitoneum allowing for supine technique. Allowing for bowel gas and stool, punctate calcification noted in the left upper abdomen and projecting over the right mid abdomen. Few pelvic phleboliths noted. Degenerative changes of the spine. Bone island may be present in the right ilium subjacent to the right sacroiliac joint. IMPRESSION: 1. No evidence of bowel obstruction or gross free air. 2. Postsurgical changes of the right abdomen. 3. Possible bilateral nephrolithiasis. Electronically signed by: Ming Arthur M.D. 06/18/2017 5:44 PM Dictated Date/Time: 06/18/2017 5:43 PM Laboratory Results Test 06/18/17 17:15 06/18/17 17:23 06/18/17 17:35 06/18/17 18:10 Erythrocyte Sedimentation Rate 17 mm/hr (0-21) C-Reactive Protein 0.41 mg/dl (0-0.29) Pro-B-Type Natriuretic Peptide 728 pg/ml (0-1800) Globulin 3.8 gm/dl (2.5-4.0) Albumin/Globulin Ratio 1.0 (0.9-2) Free Thyroxine 1.73 ng/dl (0.80-1.60) Random Cortisol 42.03 mcg/dl Bedside Lactic Acid Venous 1.81 mmol/L (0.90-1.70) Urine Hyaline Casts 10-30 /lpf (0-5) Venous Blood pH 7.30 (7.36-7.41) Venous Blood Partial Pressure CO2 36 mmHg (38.0-50.0) Venous Blood Partial Pressure O2 33 mmHg Venous Blood HCO3 17 mmol/L Venous Blood Oxygen Saturation 60.6 % Venous Blood Base Excess -8.3 mEq/L Date/Time Source Procedure Growth Status 06/18/17 17:35 Urine,Catheterized Urine Culture - Final NO GROWTH - LESS THAN 1,000 COLONIES/ML Complete Laboratory results per my review. Medications Administered Medications (Trade) Dose Ordered Sig/Sakina Route Start Time Stop Time Status Last Admin Dose Admin Sodium Chloride 1,000 ml @ 999 mls/hr Q1H1M ONCE IV 06/18/17 17:08 06/18/17 18:08 DC 06/18/17 17:15 999 MLS/HR Ondansetron HCl (Zofran Inj) 4 mg NOW STAT IV 06/18/17 17:12 06/18/17 17:13 DC 06/18/17 17:40 4 MG Sodium Chloride 1,000 ml @ 999 mls/hr Q1H1M STAT IV 06/18/17 18:28 06/18/17 19:28 DC 06/18/17 18:34 999 MLS/HR Ondansetron HCl (Zofran Inj) 4 mg NOW STAT IV 06/18/17 19:07 06/18/17 19:09 DC 06/18/17 19:09 4 MG ECG Per My Interpretation Indication: weakness Rate (beats per minute): 48 Rhythm: atrial fibrillation Findings: other (no PVCs, no acute ST segments, low voltage ) Comparison ECG Date: afib has replaced normal sinus rhythm compared from ED Course 1707: The patient was evaluated in room A11B. A complete history and physical examination were performed. 1708: Ordered Sodium Chloride 1,000 ml @ 999 mls/hr IV. 171: Ordered Zofran Inj 4 mg IV. 1827: I checked on the patient. 1828: Ordered Sodium Chloride 1,000 ml @ 999 mls/hr IV. 1837: Upon reevaluation, the patient is resting. I discussed results and treatment plan with her. She verbalizes agreement and understanding. I spoke with Dr. Nguyen of the [facility]. The patient will be evaluated for further management and care. Medical Decision Differential diagnosis: Etiologies such as gastroenteritis, food borne illness, infections, appendicitis , diverticulitis, inflammatory bowel disease, obstruction, GI bleed, biliary pathology, as well as others were entertained. Nursing notes reviewed. Additional history is obtained from the patient's family. The patient is an 82-year-old female who presented to the emergency department for an evaluation of nausea vomiting. The patient had very significant nausea and vomiting it was found to be hypotensive initially. Her vital signs improved with IV fluids and IV antiemetics. I discussed the patient's laboratory and radiographic studies with her. The patient's x-rays did not reveal any acute abnormality. Because of her symptoms and abnormal vital signs I discussed her case with the on-call [facility] hospitalist group. They have agreed to evaluate the patient in the emergency department for further management and disposition. The patient did have a CT of the abdomen and pelvis once she was admitted. She was found to have some portal venous gas and this was felt to be possibly consistent with ischemic colitis or some other process. The [facility] group did consult the general surgeon. The patient maintained a nonsurgical examination on my reevaluation. Medication Reconcilliation Current Medication List: was personally reviewed by me Blood Pressure Screening Patient's blood pressure: Low blood pressure will be monitored by hospitalist Consults Time Called: 1829 Consulting Physician: Dr. Nguyen- NmTravis Hollis Returned Call: [phone] I discussed the patient's case with Dr. Cano. The patient will be evaluated for further management. Impression Primary Impression: Nausea vomiting and diarrhea Additional Impressions: Dehydration Acute kidney injury Hypotension Bradycardia Scribe Attestation The scribe's documentation has been prepared under my direction and personally reviewed by me in its entirety. I confirm that the note above accurately reflects all work, treatment, procedures, and medical decision making performed by me. Departure Information Dispostion Being Evaluated By Hospitalist Referrals No Doctor, Assigned (PCP) Patient Instructions My [facility] Problem Qualifiers Additional Impressions: Hypotension Hypotension type: unspecified hypotension type Qualified Codes: I95.9 - Hypotension, unspecified
[2017-06-18 17:31] LABS: BASO % 0.2 %; BASO ABS # 0.02 K/uL (0-0.2); EOS % 0.1 %; EOS ABS # 0.01 K/uL (0-0.5); HEMATOCRIT 51.7 % (37-47); HEMOGLOBIN 17.8 g/dL (12.0-16.0); IG# 0.03 K/uL (0.00-0.02); LYMPH % 26.5 %; LYMPH ABS # 2.13 K/uL (1.2-3.4); MEAN CELL VOLUME 88.2 fL (80-100); MEAN CORPUSCULAR HEMOGLOBIN 30.4 pg (25-34); MEAN CORPUSCULAR HGB CONC 34.4 g/dl (32-36); MEAN PLATELET VOLUME 9.6 fL (7.4-10.4); MONO % 15.9 %; MONO ABS # 1.28 K/uL (0.11-0.59); NEUT % 56.9 %; NEUT ABS # 4.56 K/uL (1.4-6.5); PLATELET COUNT 178 K/uL (130-400); RED CELL DISTRIBUTION WIDTH CV 14.6 % (11.5-14.5); RED CELL DISTRIBUTION WIDTH SD 46.9 fL (36.4-46.3); WHITE BLOOD COUNT 8.03 K/uL (4.8-10.8)
[2017-06-18 17:42] LABS: INR 1.9 (0.9-1.1); PTT PATIENT 37.4 SECONDS (21.0-31.0)
--- NOTE | 2017-06-18 17:46 | DIAGNOSTIC IMAGING REPORT ---
KUB CLINICAL HISTORY: 82 years-old Female presenting with vomiting. TECHNIQUE: Single supine view of the abdomen was obtained. COMPARISON: None. FINDINGS: Mild gaseous distention of large bowel. No abnormal gaseous distention of bowel. Multiple radiopaque sutures project over the right abdomen. No gross pneumoperitoneum allowing for supine technique. Allowing for bowel gas and stool, punctate calcification noted in the left upper abdomen and projecting over the right mid abdomen. Few pelvic phleboliths noted. Degenerative changes of the spine. Bone island may be present in the right ilium subjacent to the right sacroiliac joint. IMPRESSION: 1. No evidence of bowel obstruction or gross free air. 2. Postsurgical changes of the right abdomen. 3. Possible bilateral nephrolithiasis. Electronically signed by: Ming Arthur M.D. 06/18/2017 5:44 PM Dictated Date/Time: 06/18/2017 5:43 PM
--- NOTE | 2017-06-18 17:47 | DIAGNOSTIC IMAGING REPORT ---
CHEST ONE VIEW PORTABLE CLINICAL HISTORY: 82 years-old Female presenting with Sepsis. TECHNIQUE: Portable upright AP view of the chest was obtained. COMPARISON: 02/23/2017. FINDINGS: Atherosclerosis of the aortic arch. Cardiac silhouette top normal in size. No focal opacity. No large effusion or pneumothorax. Osseous structures normal. Upper abdomen normal. IMPRESSION: 1. No acute cardiopulmonary disease. Electronically signed by: Ming Arthur M.D. 06/18/2017 5:45 PM Dictated Date/Time: 06/18/2017 5:45 PM
[2017-06-18 17:49] LABS: ALBUMIN 3.9 gm/dl (3.4-5.0); ALT/SGPT 50 U/L (12-78); AST/SGOT 61 U/L (15-37); BLOOD UREA NITROGEN 38 mg/dl (7-18); CALCIUM 9.1 mg/dl (8.5-10.1); CARBON DIOXIDE 17 mmol/L (21-32); CREATININE 1.95 mg/dl (0.60-1.20); GLUCOSE 156 mg/dl (70-99); LIPASE 344 U/L (73-393); POTASSIUM 3.9 mmol/L (3.5-5.1); SODIUM 133 mmol/L (136-145)
[2017-06-18 17:52] LABS: ALKALINE PHOSPHATASE 104 U/L (45-117); CKMB 0.5 ng/ml (0.5-3.6); PHOSPHORUS 5.2 mg/dl (2.5-4.9); TOTAL PROTEIN 7.7 gm/dl (6.4-8.2)
[2017-06-18] MEDS ORDERED: SODIUM CHLORIDE 0.9% 1000ML 1,000 ML IV STA (18:28)
[2017-06-18] MEDS ORDERED: ISOS-10 PO (19:11)
[2017-06-18] MEDS ORDERED: LSN40 PO (19:11)
[2017-06-18] MEDS ORDERED: WARF-280 PO (19:11)
[2017-06-18] MEDS ORDERED: LPT40 PO (19:11)
[2017-06-18] MEDS ORDERED: POTA99TA PO (19:14)
[2017-06-18 19:45] VITALS: O2SAT 94; Ht 157.5 cm; Wt 74.6 kg
[2017-06-18] MEDS: HYOSCYAMINE SULFATE 0.125 MG SL TAB SL PRN (20:13)
[2017-06-18] MEDS ORDERED: ICU PROTOCOL FOR HYPERGLYCEMIA PRN (20:45)
[2017-06-18] MEDS ORDERED: VANCOMYCIN HCL 250 MG/5 ML SOLN PO SCH (21:00)
[2017-06-18] MEDS ORDERED: RASPBERRY SYRUP 5 ML UDP PO SCH (21:00)
--- NOTE | 2017-06-18 21:22 | DIAGNOSTIC IMAGING REPORT ---
ABD/PELVIS NO IV OR ORAL CONT CLINICAL HISTORY: 82 years-old Female presenting with acute renal failure. TECHNIQUE: Multidetector CT of the abdomen and pelvis was performed without the use of intravenous contrast. IV contrast: None. A dose lowering technique was used consistent with the principles of ALARA (as low as reasonably achievable). COMPARISON: None. CT DOSE (mGy.cm): The estimated cumulative dose is 1260.50 mGy.cm. FINDINGS: Cna Caregiver topogram: Unremarkable. Lung bases: Minimal basilar opacities, likely atelectasis. Top normal heart size. No pericardial or pleural effusion. Liver: Macronodular contour of the liver. Density consistent with hepatic steatosis. Focal linear and branching gas noted within the medial segment of the left hepatic lobe in a distribution most characteristic of portal venous gas. Biliary: Mild biliary ductal prominence likely a reservoir effect in the post cholecystectomy state. Gallbladder surgically absent. Pancreas: Moderate parenchymal atrophy. Spleen: Normal noncontrast appearance. Adrenal glands: Normal noncontrast appearance. Kidneys and ureters: Normal noncontrast appearance. No nephrolithiasis. No hydronephrosis. Normal ureters. Bladder: Normal. Pelvic organs: Uterus surgically absent. Normal noncontrast appearance of the ovaries. Bowel: Diverticulosis of the sigmoid colon. No pericolonic fat infiltration. Fluid noted in the colon suggesting a diarrheal state. No bowel obstruction. Peritoneal cavity: Evidence of mesenteric gas in the right lower quadrant in the mesentery of the cecum as well as in the small bowel mesentery. No pneumatosis. No free fluid. Lymph nodes: No gross lymphadenopathy allowing for noncontrast technique. Vasculature: Atherosclerosis of the normal caliber abdominal aorta. Abdominal wall: Normal. Musculoskeletal: Degenerative changes of the spine. IMPRESSION: 1. Mesenteric and intrahepatic portal venous gas. This is most suspicious for ischemic bowel, however, no pneumatosis or other evidence to suggest bowel pathology. Mesenteric gas is noted prominently in the right lower quadrant, which could suggest a cecal origin, though portal venous gas is also noted in the small bowel mesentery. Surgical consultation recommended. 2. Fluid in the colon suggests a diarrheal state. 3. No pneumoperitoneum. 4. Hepatic steatosis. The report will be called/faxed according to standard departmental protocol. Electronically signed by: Ming Arthur M.D. 06/18/2017 9:20 PM Dictated Date/Time: 06/18/2017 9:15 PM
--- NOTE | 2017-06-18 21:28 | DIAGNOSTIC IMAGING REPORT ---
HEAD WITHOUT CONTRAST (CT) CLINICAL HISTORY: 82 years-old Female presenting with carrillo, weak. TECHNIQUE: Multidetector CT imaging of the head was performed without the use of intravenous contrast. IV contrast: None. A dose lowering technique was used consistent with the principles of ALARA (as low as reasonably achievable). COMPARISON: 03/16/2016. CT DOSE (mGy.cm): The estimated cumulative dose is 1260.[address] abdomen and pelvis. 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 Proportional ventricular and sulcal prominence, likely age-related parenchymal volume loss. Periventricular and subcortical white matter hypoattenuation, nonspecific but likely indicative of chronic small vessel ischemic change. No mass effect or midline shift. No hemorrhage or acute territorial infarct. No extra-axial fluid collection. Paranasal sinuses and mastoid air cells clear. Calvarium intact. IMPRESSION: 1. Chronic small vessel ischemic change. No acute intracranial abnormality. Electronically signed by: Ming Arthur M.D. 06/18/2017 9:27 PM Dictated Date/Time: 06/18/2017 9:25 PM
[2017-06-18 21:30] VITALS: BP 101/55; PULSE 63; TEMP 36.5; O2SAT 98
[2017-06-18] MEDS ORDERED: VANCOMYCIN IV 1,500 MG in SODIUM CHLORIDE 0.9% 500ML 500 ML IV STA (21:39)
[2017-06-18] MEDS ORDERED: PIPERACILL/TAZOBAC IV 4.5 GM in DEXTROSE 5% 100ML 100 ML IV STA (21:40)
[2017-06-18] MEDS: SODIUM CHLORIDE 0.9% 1000ML 1,000 ML IV SCH (21:41)
[2017-06-18 21:45] VITALS: O2SAT 98
[2017-06-18] MEDS ORDERED: PIPERACILL/TAZOBAC CONSULT ACTIVE PRN (21:45)
[2017-06-18] MEDS ORDERED: VANCOMYCIN CONSULT ACTIVE PRN (21:45)
--- NOTE | 2017-06-18 21:45 | Critical Care Consultation ---
Critical Care Consultation Date of Consultation: Jun 18, 2017. Attending Physician: Jason Nguyen M.D. Reason for Consultation: 82-year-old female with a significant past medical history of A. fib, coronary artery disease, hyperlipidemia, and hypertension presenting with hypotension and bradycardia in the setting of possible sepsis versus hypovolemia from gastroenteritis versus HANY with beta lou/calcium channel lou administration. History of Present Illness Patient is an 82-year-old female with a significant past medical history of atrial fibrillation requiring metoprolol as well as Cardizem daily. She reports that she had been feeling well up until Thursday. She began to develop nausea, vomiting, and diarrhea. In addition, she described abdominal cramping which would wax and wane depending on need to have a bowel movement. She describes generalized weakness and fatigue. She was unable to tolerate p.o. food or fluids. She was unable to take her daily medications for the past 2 days. She did feel as though her symptoms have been somewhat improving on Thursday, however morning she had return of symptoms of nausea, vomiting, and diarrhea. At this point, she describes increasing lower abdominal discomfort described as a "cramping" pain which seems to resolve after bowel movement. She denies any blood in her vomit or stool. She does have a remote history of C. difficile infection, however she is uncertain if this feels similar. The patient had not taken her morning medications for the past few days secondary to inability to keep her medications down. This morning , however, she did report taking all of her medications as previously prescribed and she was able to keep all of them down. Throughout the day, she describes progressive generalized weakness and fatigue. She admittedly had a headache for the past several days which she describes as a total headache with diffuse discomfort. This is not the worst headache of her life. On evaluation, the patient is awake, alert, and oriented. She does appear ill and pale. At this point, her main complaint is some lower abdominal cramping which she does admit has improved with the administration of Levsin per hospitalist. She does describe some episodes of substernal chest discomfort which was only reported after multiple episodes of vomiting. She denies any radiation of the pain. She currently denies any fevers, chills, neck stiffness , palpitations, shortness of breath, pleuritic pain, hematemesis, hematochezia, melena, hematuria, or dysuria. She denies any recent long distance travel. No recent antibiotic use. No recent sick contacts. No consumption of raw/ undercooked foods. No drinking from poor water sources. Past Medical/Surgical History Medical Problems: (1) Atrial fibrillation (2) Coronary artery disease (3) Dyslipidemia (4) Essential hypertension (5) Left knee DJD (6) UTI (urinary tract infection) Surgical Problems: (1) H/O mastectomy (2) H/O: hysterectomy (3) History of appendectomy (4) S/P cholecystectomy Family History Diabetes mellitus FH: cancer FH: coronary artery disease FATHER MOTHER FH: heart disease Hypertension Stroke MOTHER noncontributory Social History Smoking Status: Never Smoker Smokeless Tobacco Use: No Alcohol Use: none Drug Use: none Marital Status: Housing Status: lives alone Occupation Status: retired Allergies Coded Allergies: Latex1 -Allergic Contact Dermititis (Verified Allergy, Unknown, ITCHINESS , 03/07/17) Home Medications Scheduled Aspirin (Aspirin Ec), 81 MG PO QAM Atorvastatin (Lipitor), 40 MG PO Q2D Diltiazem Hcl Extended Release (Tiazac 360 Mg), 360 MG PO QAM Isosorbide Mononitrate (Isosorbide Mononitrate ER), 60 MG PO QAM Lisinopril (Lisinopril), 40 MG PO QAM Metoprolol Succinate (Metoprolol Succinate ER), 50 MG PO QAM Potassium (Potassium), 1 DOSE PO UD Warfarin Sodium (Warfarin Sodium), 2.5 MG PO HS Scheduled PRN Nitroglycerin (Nitrostat), 0.4 MG UT UD PRN for Chest Pain Current Inpatient Medications Current Inpatient Medications Medications (Trade) Dose Ordered Sig/Sakina Route Start Time Stop Time Status Last Admin Dose Admin Sodium Chloride 1,000 ml @ 150 mls/hr Q6H40M IV 06/18/17 21:00 07/18/17 20:59 06/18/17 21:41 150 MLS/HR Hyoscyamine Sulfate (Levsin Tab) 0.125 mg Q4H PRN SL 06/18/17 20:15 07/18/17 20:14 06/18/17 20:13 0.125 MG Vancomycin HCl (Vancomycin Oral Soln) 250 mg QID PO 06/18/17 21:00 07/02/17 20:59 06/18/17 20:52 250 MG Raspberry (Raspberry Syrup 5ml Cup) 5 ml QID PO 06/18/17 21:00 07/02/17 20:59 06/18/17 20:52 5 ML Ondansetron HCl (Zofran Inj) 4 mg Q6H PRN IV 06/18/17 20:45 07/18/17 20:44 Pantoprazole Sodium 40 mg/ Syringe 10 ml @ 5 mls/min DAILY@1100 IV 06/19/17 11:00 07/19/17 10:59 Miscellaneous Information (Icu Protocol For Hyperglycemia) 1 ea PRN PRN N/A 06/18/17 20:45 06/20/17 20:44 Aspirin (Ecotrin Tab) 81 mg QAM PO 06/19/17 09:00 07/19/17 08:59 Atorvastatin Calcium (Lipitor Tab) 40 mg Q2D PO 06/19/17 09:00 07/19/17 08:59 Piperacillin Sod/ Tazobactam Sod 4.5 gm/Dextrose 120 ml @ 200 mls/hr NOW STAT IV 06/18/17 21:40 06/18/17 22:15 Miscellaneous Information (Consult) 1 ea UD PRN N/A 06/18/17 21:45 07/18/17 21:44 Miscellaneous Information (Consult) 1 ea UD PRN N/A 06/18/17 21:45 07/18/17 21:44 Vancomycin HCl 1500 mg/Sodium Chloride 530 ml @ 200 mls/hr NOW STAT IV 06/18/17 21:39 06/19/17 00:17 Review of Systems A complete 10-point Review of Systems was discussed with the patient, with pertinent positives and negatives listed in the History of Present Illness. All remaining Review of Systems questions can be considered negative unless otherwise specified. Physical Exam Date Time Temp Pulse Resp B/P (MAP) Pulse Ox O2 Delivery O2 Flow Rate FiO2 06/18/17 20:55 56 18 116/61 94 06/18/17 20:00 52 18 100/50 94 Room Air 06/18/17 19:45 94 Room Air 06/18/17 19:31 36.5 37 18 92/50 94 Room Air 06/18/17 19:00 47 18 119/74 96 Room Air 06/18/17 18:26 45 20 102/58 97 Room Air 06/18/17 17:58 46 06/18/17 17:24 95 Room Air 06/18/17 17:00 36.3 47 20 83/52 94 Room Air VITAL SIGNS - Vital signs and nursing notes were reviewed. GENERAL - 82-year-old female appearing her stated age who is in no acute distress, but does appear ill. Communicates well with provider and answers questions appropriately. HEAD - NC/AT. EYES - PERRL with EOMI bilaterally. Sclera anicteric. Palpebral conjunctiva pink and moist with no injection noted. EARS - No deformities of external structures noted on gross examination bilaterally. No pain elicited with palpation of the tragus bilaterally. External auditory canals without discharge or otorrhea. Tympanic membranes pearly camarena without retraction or bulging. NOSE - Midline and without cyanosis. No epistaxis or purulent drainage noted. Septum midline without deviation or septal hematoma noted. MOUTH/OROPHARYNX - Without perioral cyanosis. Buccal mucosa pink and moist and without leukoplakia. NECK - Neck with FROM. Supple to palpation. No nuchal rigidity. LUNGS - Chest wall symmetric without accessory muscle use, intercostals retractions, or central cyanosis. Normal vesicular breath sounds CTA B/L. No wheezes, rales, or rhonchi appreciated. CARDIAC - RRR with S1/S2. No murmur, rubs, or gallops appreciated. ABDOMEN - Abdominal contour flat and without pulsations or visible masses. Negative Victor M's or Tran Tello's Signs. BS hyperactive all four quadrants. Moderate tenderness to palpation appreciated in the BILATERAL lower quadrats. No guarding. No Rebound Tenderness. Negative Rovsing's. Negative Card's. No palpable masses, hepatosplenomegaly, or ascites noted. EXTREMITIES - No clubbing or peripheral cyanosis. No pretibial edema present. Hemosiderin staining of the lower extremities bilaterally. +3/5 radial and dorsalis pedis pulses palpated throughout. PSYCH - A&Ox3 and cooperates fully with examiner. Pt is very pleasant and interacts well with examiner. Laboratory Results Last 24 Hours Test 06/18/17 17:15 06/18/17 17:23 06/18/17 17:35 06/18/17 18:10 White Blood Count 8.03 K/uL Red Blood Count 5.86 M/uL Hemoglobin 17.8 g/dL Hematocrit 51.7 % Mean Corpuscular Volume 88.2 fL Mean Corpuscular Hemoglobin 30.4 pg Mean Corpuscular Hemoglobin Concent 34.4 g/dl Platelet Count 178 K/uL Mean Platelet Volume 9.6 fL Neutrophils (%) (Auto) 56.9 % Lymphocytes (%) (Auto) 26.5 % Monocytes (%) (Auto) 15.9 % Eosinophils (%) (Auto) 0.1 % Basophils (%) (Auto) 0.2 % Neutrophils # (Auto) 4.56 K/uL Lymphocytes # (Auto) 2.13 K/uL Monocytes # (Auto) 1.28 K/uL Eosinophils # (Auto) 0.01 K/uL Basophils # (Auto) 0.02 K/uL RDW Standard Deviation 46.9 fL RDW Coefficient of Variation 14.6 % Immature Granulocyte % (Auto) 0.4 % Immature Granulocyte # (Auto) 0.03 K/uL Erythrocyte Sedimentation Rate 17 mm/hr Prothrombin Time 20.0 SECONDS Prothromb Time International Ratio 1.9 Activated Partial Thromboplast Time 37.4 SECONDS Partial Thromboplastin Ratio 1.4 Sodium Level 133 mmol/L Potassium Level 3.9 mmol/L Chloride Level 106 mmol/L Carbon Dioxide Level 17 mmol/L Anion Gap 10.0 mmol/L Blood Urea Nitrogen 38 mg/dl Creatinine 1.95 mg/dl Est Creatinine Clear Calc Drug Dose 21.2 ml/min Estimated GFR () 27.3 Estimated GFR (Non- 23.5 BUN/Creatinine Ratio 19.7 Random Glucose 156 mg/dl Calcium Level 9.1 mg/dl Phosphorus Level 5.2 mg/dl Magnesium Level 2.0 mg/dl Total Bilirubin 0.7 mg/dl Aspartate Amino Transf (AST/SGOT) 61 U/L Alanine Aminotransferase (ALT/SGPT) 50 U/L Alkaline Phosphatase 104 U/L Total Creatine Kinase 69 U/L Creatine Kinase MB 0.5 ng/ml Creatine Kinase MB Ratio 0.7 Troponin I < 0.015 ng/ml C-Reactive Protein 0.41 mg/dl Pro-B-Type Natriuretic Peptide 728 pg/ml Total Protein 7.7 gm/dl Albumin 3.9 gm/dl Globulin 3.8 gm/dl Albumin/Globulin Ratio 1.0 Lipase 344 U/L Free Thyroxine 1.73 ng/dl Random Cortisol 42.03 mcg/dl Bedside Lactic Acid Venous 1.81 mmol/L Urine Color JOSE Urine Appearance SL CLOUDY Urine pH 5.0 Urine Specific [place] >= 1.030 Urine Protein TRACE Urine Glucose (UA) TRACE Urine Ketones TRACE Urine Occult Blood NEG Urine Nitrite NEG Urine Bilirubin NEG Urine Urobilinogen NEG Urine Leukocyte Esterase NEG Urine RBC 0-4 /hpf Urine WBC 1-5 /hpf Urine Epithelial Cells 10-20 /lpf Urine Bacteria 1+ Urine Hyaline Casts 10-30 /lpf Venous Blood pH 7.30 Venous Blood Partial Pressure CO2 36 mmHg Venous Blood Partial Pressure O2 33 mmHg Venous Blood HCO3 17 mmol/L Venous Blood Oxygen Saturation 60.6 % Venous Blood Base Excess -8.3 mEq/L Test 06/18/17 21:02 Diagnostic Results Radiological imaging and reports were reviewed by myself. Radiologist's Interpretation as follows: CHEST ONE VIEW PORTABLE CLINICAL HISTORY: 82 years-old Female presenting with Sepsis. TECHNIQUE: Portable upright AP view of the chest was obtained. COMPARISON: 02/23/2017. FINDINGS: Atherosclerosis of the aortic arch. Cardiac silhouette top normal in size. No focal opacity. No large effusion or pneumothorax. Osseous structures normal. Upper abdomen normal. IMPRESSION: 1. No acute cardiopulmonary disease. KUB CLINICAL HISTORY: 82 years-old Female presenting with vomiting. TECHNIQUE: Single supine view of the abdomen was obtained. COMPARISON: None. FINDINGS: Mild gaseous distention of large bowel. No abnormal gaseous distention of bowel. Multiple radiopaque sutures project over the right abdomen. No gross pneumoperitoneum allowing for supine technique. Allowing for bowel gas and stool, punctate calcification noted in the left upper abdomen and projecting over the right mid abdomen. Few pelvic phleboliths noted. Degenerative changes of the spine. Bone island may be present in the right ilium subjacent to the right sacroiliac joint. IMPRESSION: 1. No evidence of bowel obstruction or gross free air. 2. Postsurgical changes of the right abdomen. 3. Possible bilateral nephrolithiasis. ABD/PELVIS NO IV OR ORAL CONT CLINICAL HISTORY: 82 years-old Female presenting with acute renal failure. TECHNIQUE: Multidetector CT of the abdomen and pelvis was performed without the use of intravenous contrast. IV contrast: None. A dose lowering technique was used consistent with the principles of ALARA (as low as reasonably achievable). COMPARISON: None. CT DOSE (mGy.cm): The estimated cumulative dose is 1260.50 mGy.cm. 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 Lung bases: Minimal basilar opacities, likely atelectasis. Top normal heart size. No pericardial or pleural effusion. Liver: Macronodular contour of the liver. Density consistent with hepatic steatosis. Focal linear and branching gas noted within the medial segment of the left hepatic lobe in a distribution most characteristic of portal venous gas. Biliary: Mild biliary ductal prominence likely a reservoir effect in the post cholecystectomy state. Gallbladder surgically absent. Pancreas: Moderate parenchymal atrophy. Spleen: Normal noncontrast appearance. Adrenal glands: Normal noncontrast appearance. Kidneys and ureters: Normal noncontrast appearance. No nephrolithiasis. No hydronephrosis. Normal ureters. Bladder: Normal. Pelvic organs: Uterus surgically absent. Normal noncontrast appearance of the ovaries. Bowel: Diverticulosis of the sigmoid colon. No pericolonic fat infiltration. Fluid noted in the colon suggesting a diarrheal state. No bowel obstruction. Peritoneal cavity: Evidence of mesenteric gas in the right lower quadrant in the mesentery of the cecum as well as in the small bowel mesentery. No pneumatosis. No free fluid. Lymph nodes: No gross lymphadenopathy allowing for noncontrast technique. Vasculature: Atherosclerosis of the normal caliber abdominal aorta. Abdominal wall: Normal. Musculoskeletal: Degenerative changes of the spine. IMPRESSION: 1. Mesenteric and intrahepatic portal venous gas. This is most suspicious for ischemic bowel, however, no pneumatosis or other evidence to suggest bowel pathology. Mesenteric gas is noted prominently in the right lower quadrant, which could suggest a cecal origin, though portal venous gas is also noted in the small bowel mesentery. Surgical consultation recommended. 2. Fluid in the colon suggests a diarrheal state. 3. No pneumoperitoneum. 4. Hepatic steatosis. The report will be called/faxed according to standard departmental protocol. HEAD WITHOUT CONTRAST (CT) CLINICAL HISTORY: 82 years-old Female presenting with carrillo, weak. TECHNIQUE: Multidetector CT imaging of the head was performed without the use of intravenous contrast. IV contrast: None. A dose lowering technique was used consistent with the principles of ALARA (as low as reasonably achievable). COMPARISON: 03/16/2016. CT DOSE (mGy.cm): The estimated cumulative dose is 1260.[address] abdomen and pelvis. 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 Proportional ventricular and sulcal prominence, likely age-related parenchymal volume loss. Periventricular and subcortical white matter hypoattenuation, nonspecific but likely indicative of chronic small vessel ischemic change. No mass effect or midline shift. No hemorrhage or acute territorial infarct. No extra-axial fluid collection. Paranasal sinuses and mastoid air cells clear. Calvarium intact. IMPRESSION: 1. Chronic small vessel ischemic change. No acute intracranial abnormality. Assessment & Plan (1) Dehydration (2) Acute kidney injury (3) Nausea vomiting and diarrhea (4) Bradycardia (5) Hypotension (6) Coronary artery disease (7) Dyslipidemia (8) Essential hypertension Reason Critically Ill: 82-year-old female with a significant past medical history of A. fib, coronary artery disease, hyperlipidemia, and hypertension presenting with hypotension and bradycardia in the setting of possible sepsis versus hypovolemia from gastroenteritis versus HANY with beta lou/calcium channel lou administration. Neuro - * CAM ICU: NEGATIVE * Headaches: * Will obtain head CT to r/o hemorrhage in the anticoagulated patient with multiple recent episodes of emesis. * Neuro checks per protocol. Cardiac - * Bradycardia/Hypotension: * Uncertain as to complete etiology at this point. * Patient is significantly volume depleted at this point - has been responsive to IV fluids alone. * New HANY with a substantial change in her BUN/Cr as well as CrCl. Question relative hypotension/bradycardia 2/2 patient's current state of hypovolemia. * Will consider need for more aggressive treatment of possible BB toxicity in the event that she does not respond to current treatment. * EKG: A. Fib w/ bradycardia. QTc 405ms * Continue to monitor on telemetry as she has fluctuated in the 30's. * BP has continued to improve w/ IVF alone. * AM EKG for reevaluation. * Will hold on Echo at this point. Respiratory - * No h/o pulmonary disease. * CXR unremarkable. * Supplemental O2 PRN. * Watch for s/s of volume overload in the setting of aggressive IVF resuscitation. GI - * Gastroenteritis: * Support w/ IVF. * Will add stool cultures. * Agree with checking C. diff given patient's history. * CT Abd/Pelvis concerning for Mesenteric/Hepatic Portal Venous Gas. Her abdominal exam is without any joseph peritonitis. Lactic acid minimally elevated. * Appreciate General Surgery consultation. * Will add Vanc/Zosyn. * Guaiac all stools. RENAL/LYTES - * HANY: * Prerenal in the setting of N/V/D. * Receive 3L NSS in the ED. * Agree with NSS@150mL/hr overnight. Reassess as patient improves. - * Kuhn Placed. * Strict I&Os ENDO - * No h/o DM or Thyroid Disease * BSGs w/ ISS/gtt per protocol. HEME - * Hemoconcentration noted initially. * Will monitor w/ IVF replacement. ID - * Possible Sepsis from likely GI source: * Will cover with Vanc/Zosyn given c/o mesenteric ischemia. Particularly in the acutely ill setting. * Will d/c Oral Vanc 2/2 negative C. diff culture. * Stool cultures pending. * Will add Blood Cultures as well. LINES/IV ACCESS - * PIVs x2 intact. * Kuhn Catheter DVT PROPHYLAXIS - * Coumadin - will hold currently overnight. I have personally spent 40 minutes of critical care time in the direct management of this patient. This is a life/limb threatening event. This includes time spent evaluating patient, direct bedside care, chart review, placing orders, interpretation of diagnostic studies, discussion with consultants, patient, and family members, as well as other required patient management activities. This time is exclusive of all separately billable procedures, and teaching time and separate from and in addition to any other critical care service time. Thank you for this consultation allow us to be part of this patient's care. Please refer to my attending physician's documentation for any further recommendations. case discussed with me , agree with the plan , see my other note.
[2017-06-18 22:00] VITALS: BP 102/53; PULSE 62; O2SAT 99
[2017-06-18 22:30] VITALS: BP 107/50; PULSE 55; O2SAT 96
--- NOTE | 2017-06-18 22:42 | HISTORY & PHYSICAL EXAMINATION ---
DATE OF ADMISSION: 06/18/2017 REASON FOR CONSULTATION: Portal venous gas, possible bowel ischemia. HISTORY OF PRESENT ILLNESS: The patient essentially is an 82-year-old female presenting to the Emergency Room with severe dehydration, bradycardia, acute renal insufficiency with 4-5 day history of initial chills then nausea, vomiting and diarrhea. She apparently does have history of AFib with coronary disease did, takes Coumadin. During her workup, she did have a CAT scan which showed some evidence of portal venous gas as well as mesenteric gas. Her white blood cell count is normal. Her lactic acid is 1.8. Her BUN and creatinine are elevated, protime is 20. Her H&H is elevated secondary to dehydration. The patient did respond to some fluids and was given IV antibiotics including Zosyn and vancomycin. She has had initial hypotension in the 80s with bradycardia in the high 30s and 40s, which has improved with resuscitation. REVIEW OF SYSTEMS: Other than the HPI, 10 systems are negative. PAST MEDICAL HISTORY: Includes AFib, coronary artery disease, hyperlipidemia, hypertension. PAST SURGICAL HISTORY: She has had mastectomy, hysterectomy, appendectomy and cholecystectomy. FAMILY AND SOCIAL HISTORY: Noncontributory. ALLERGIES: SHE HAS ALLERGIES TO LATEX. MEDICATIONS: Takes medications including aspirin, atorvastatin, isosorbide mononitrate, metoprolol, warfarin and potassium. PHYSICAL EXAMINATION: GENERAL: At the present time, she is awake and alert. She is in no distress. She has normal affect. HEENT: Eyes show normal sclerae. Head is atraumatic NECK: Supple. LUNGS: Clear without respiratory distress. HEART: She has some mild AFib with bradycardia. ABDOMEN: Shows normal bowel sounds, is soft. She does have some mild tenderness to deep palpation, although no peritoneal irritation to percussion. EXTREMITIES: Warm, well perfused. SKIN: Normal color. I did review her CAT scan. She has no evidence of any perienteric inflammation or edema. ASSESSMENT AND PLAN: An 82-year-old female admitted with severe dehydration, acute renal insufficiency, bradycardia, probably an element of hypotensive hypoperfusion. Currently, she seems to be improved. I do not think she has acute intra-abdominal process requiring emergent surgery. She does not appear to have any peritoneal signs. I do feel she will improve with fluids and IV antibiotics. I do not think she needs to have her anticoagulation reversed. We will follow closely.
--- NOTE | 2017-06-18 23:47 | History and Physical ---
History & Physical Date & Time of Service: Jun 18, 2017 at 23:31 Chief Complaint: Bradycardia, Hypotension Primary Care Physician: Rachael Menendez C.R.NTravisPTravis History of Present Illness Source: patient, family The patient there is an 82-year-old female who presents to the emergency room with symptoms of nausea, vomiting and diarrhea of patient also reports 3 days ago that had resolved, with recurrence of symptoms beginning this afternoon prior to arrival. The patient also reports developing substernal chest discomfort secondary to vomiting. She has not taken her medication for 2 days not had much to eat or drink during that time due to symptoms. 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 (14) Left knee pain (15) Left knee pain (16) Left knee pain (17) Leg pain, left (18) Orthostasis (19) Precordial chest pain (20) Syncope (21) Unstable angina (22) UTI (urinary tract infection) (23) Weakness Surgical Problems: (1) H/O mastectomy (2) H/O: hysterectomy (3) History of appendectomy (4) S/P cholecystectomy Family History Diabetes mellitus FH: cancer FH: coronary artery disease FATHER MOTHER FH: heart disease Hypertension Stroke MOTHER Social History Smoking Status: Never Smoker Smokeless Tobacco Use: No Alcohol Use: none Drug Use: none Marital Status: Housing status: lives with family Occupational Status: retired Immunizations History of Influenza Vaccine: Unknown History of Tetanus Vaccine?: Unknown History of Pneumococcal: Unknown History of Hepatitis B Vaccine: Unknown Allergies Coded Allergies: Latex1 -Allergic Contact Dermititis (Verified Allergy, Unknown, ITCHINESS , 03/07/17) Home Medications Scheduled Aspirin (Aspirin Ec), 81 MG PO QAM Atorvastatin (Lipitor), 40 MG PO Q2D Diltiazem Hcl Extended Release (Tiazac 360 Mg), 360 MG PO QAM Isosorbide Mononitrate (Isosorbide Mononitrate ER), 60 MG PO QAM Lisinopril (Lisinopril), 40 MG PO QAM Metoprolol Succinate (Metoprolol Succinate ER), 50 MG PO QAM Potassium (Potassium), 1 DOSE PO UD Warfarin Sodium (Warfarin Sodium), 2.5 MG PO HS Scheduled PRN Nitroglycerin (Nitrostat), 0.4 MG UT UD PRN for Chest Pain Review of Systems The patient denies palpitations, shortness of breath, dyspnea on exertion, cough , lower extremity swelling, sore throat, blood in urine or stool, dysuria, urinary frequency or urgency, memory loss, loss of consciousness, rash, abnormal bruising or bleeding, imbalance, focal weakness, numbness or tingling in arms or legs, generalized arthralgias or myalgias, back or neck pain, or night sweats. The review of systems is otherwise negative other than for that already noted above, and at least 10 systems have been reviewed. Physical Exam Vital Signs Date Time Temp Pulse Resp B/P (MAP) Pulse Ox O2 Delivery O2 Flow Rate FiO2 06/18/17 22:30 55 18 107/50 (69) 96 Room Air 06/18/17 22:00 62 18 102/53 (69) 99 Room Air 06/18/17 21:45 98 Room Air 06/18/17 21:30 36.5 63 18 101/55 (70) 98 Room Air 06/18/17 20:55 56 18 116/61 94 06/18/17 20:00 52 18 100/50 94 Room Air 06/18/17 19:45 94 Room Air 06/18/17 19:31 36.5 37 18 92/50 94 Room Air 06/18/17 19:00 47 18 119/74 96 Room Air 06/18/17 18:26 45 20 102/58 97 Room Air 06/18/17 17:58 46 06/18/17 17:24 95 Room Air 06/18/17 17:00 36.3 47 20 83/52 94 Room Air The patient is awake, alert and oriented 3, looks pale and fatigued, normocephalic and atraumatic, lying in bed and in no acute distress. HEENT--PERRL, EOMI, mucous membranes and oropharynx dry. Neck--supple. No JVD. No bruits. Thyroid normal, trachea midline, no adenopathy. Heart--normal S1 and S2. No murmurs, rubs or gallops. Lungs--clear bilaterally, no respiratory distress, no accessory muscle use. Abdomen--normal bowel sounds and soft. Mild tenderness epigastric area. Nondistended, no hernias or masses. Extremities--no cyanosis or clubbing. No edema. There are good distal pulses b/ l. Dermatologic--normal skin turgor, mild pallor, no abnormal lymph nodes, no rash. Neurologic--cranial nerves II through XII grossly intact. Rheumatologic--normal range of motion. Psychiatric--normal affect. Diagnostics Laboratory Results Results Past 24 Hours Test 06/18/17 17:15 06/18/17 17:23 06/18/17 17:35 06/18/17 18:10 Range/Units White Blood Count 8.03 4.8-10.8 K/uL Red Blood Count 5.86 4.2-5.4 M/uL Hemoglobin 17.8 12.0-16.0 g/dL Hematocrit 51.7 37-47 % Mean Corpuscular Volume 88.2 80-100 fL Mean Corpuscular Hemoglobin 30.4 25-34 pg Mean Corpuscular Hemoglobin Concent 34.4 32-36 g/dl Platelet Count 178 130-400 K/uL Mean Platelet Volume 9.6 7.4-10.4 fL Neutrophils (%) (Auto) 56.9 % Lymphocytes (%) (Auto) 26.5 % Monocytes (%) (Auto) 15.9 % Eosinophils (%) (Auto) 0.1 % Basophils (%) (Auto) 0.2 % Neutrophils # (Auto) 4.56 1.4-6.5 K/uL Lymphocytes # (Auto) 2.13 1.2-3.4 K/uL Monocytes # (Auto) 1.28 0.11-0.59 K/uL Eosinophils # (Auto) 0.01 0-0.5 K/uL Basophils # (Auto) 0.02 0-0.2 K/uL RDW Standard Deviation 46.9 36.4-46.3 fL RDW Coefficient of Variation 14.6 11.5-14.5 % Immature Granulocyte % (Auto) 0.4 % Immature Granulocyte # (Auto) 0.03 0.00-0.02 K/uL Erythrocyte Sedimentation Rate 17 0-21 mm/hr Prothrombin Time 20.0 9.0-12.0 SECONDS Prothromb Time International Ratio 1.9 0.9-1.1 Activated Partial Thromboplast Time 37.4 21.0-31.0 SECONDS Partial Thromboplastin Ratio 1.4 Sodium Level 133 136-145 mmol/L Potassium Level 3.9 3.5-5.1 mmol/L Chloride Level 106 98-107 mmol/L Carbon Dioxide Level 17 21-32 mmol/L Anion Gap 10.0 3-11 mmol/L Blood Urea Nitrogen 38 7-18 mg/dl Creatinine 1.95 0.60-1.20 mg/dl Est Creatinine Clear Calc Drug Dose 21.2 ml/min Estimated GFR () 27.3 Estimated GFR (Non- 23.5 BUN/Creatinine Ratio 19.7 10-20 Random Glucose 156 70-99 mg/dl Calcium Level 9.1 8.5-10.1 mg/dl Phosphorus Level 5.2 2.5-4.9 mg/dl Magnesium Level 2.0 1.8-2.4 mg/dl Total Bilirubin 0.7 0.2-1 mg/dl Aspartate Amino Transf (AST/SGOT) 61 15-37 U/L Alanine Aminotransferase (ALT/SGPT) 50 12-78 U/L Alkaline Phosphatase 104 45-117 U/L Total Creatine Kinase 69 26-192 U/L Creatine Kinase MB 0.5 0.5-3.6 ng/ml Creatine Kinase MB Ratio 0.7 0-3.0 Troponin I < 0.015 0-0.045 ng/ml C-Reactive Protein 0.41 0-0.29 mg/dl Pro-B-Type Natriuretic Peptide 728 0-1800 pg/ml Total Protein 7.7 6.4-8.2 gm/dl Albumin 3.9 3.4-5.0 gm/dl Globulin 3.8 2.5-4.0 gm/dl Albumin/Globulin Ratio 1.0 0.9-2 Lipase 344 73-393 U/L Free Thyroxine 1.73 0.80-1.60 ng/dl Random Cortisol 42.03 mcg/dl Bedside Lactic Acid Venous 1.81 0.90-1.70 mmol/L Urine Color JOSE Urine Appearance SL CLOUDY CLEAR Urine pH 5.0 4.5-7.5 Urine Specific [facility] >= 1.030 1.000-1.030 Urine Protein TRACE NEG Urine Glucose (UA) TRACE NEG Urine Ketones TRACE NEG Urine Occult Blood NEG NEG Urine Nitrite NEG NEG Urine Bilirubin NEG NEG Urine Urobilinogen NEG NEG Urine Leukocyte Esterase NEG NEG Urine RBC 0-4 0-4 /hpf Urine WBC 1-5 0-5 /hpf Urine Epithelial Cells 10-20 0-5 /lpf Urine Bacteria 1+ NEG Urine Hyaline Casts 10-30 0-5 /lpf Venous Blood pH 7.30 7.36-7.41 Venous Blood Partial Pressure CO2 36 38.0-50.0 mmHg Venous Blood Partial Pressure O2 33 mmHg Venous Blood HCO3 17 mmol/L Venous Blood Oxygen Saturation 60.6 % Venous Blood Base Excess -8.3 mEq/L Test 06/18/17 21:27 06/18/17 21:46 Range/Units Bedside Glucose 112 70-90 mg/dl Lactic Acid Level 1.6 0.4-2.0 mmol/L Ionized Calcium 1.05 1.12-1.32 mmol/l Thyroid Stimulating Hormone (TSH) 1.090 0.300-4.500 uIu/ml Microbiology Results 06/18/17 Blood Culture, Received Pending 06/18/17 Blood Culture, Received Pending 06/18/17 MRSA DNA Surveillance Screen - Final, Complete Specimen Negative for MRSA by DNA Probe 06/18/17 C.difficile Toxin B Gene (PCR) - Final, Complete No C. difficile toxin B gene detected 06/18/17 Urine Culture, Received Pending Diagnostic Radiology [~ rep ct add3]] CHEST ONE VIEW PORTABLE CLINICAL HISTORY: 82 years-old Female presenting with Sepsis. TECHNIQUE: Portable upright AP view of the chest was obtained. COMPARISON: 02/23/2017. FINDINGS: Atherosclerosis of the aortic arch. Cardiac silhouette top normal in size. No focal opacity. No large effusion or pneumothorax. Osseous structures normal. Upper abdomen normal. IMPRESSION: 1. No acute cardiopulmonary disease. Electronically signed by: Ming Arthur M.D. 06/18/2017 5:45 PM Dictated Date/Time: 06/18/2017 5:45 PM The status of this report is Signed. Draft = Not yet reviewed or approved by Radiologist. Signed = Reviewed and approved by Radiologist. <AttendingPhy></AttendingPhy> <FamilyPhy>Rachael Menendez CTravisRTravisN.P.</FamilyPhy> <PrimaryPhy>Shon,Rachael L., C.R.N.P.</PrimaryPhy> <UnitNumber>[id number]</ UnitNumber> <VisitNumber>[id number]</VisitNumber> <PatientName>JASON BECK</PatientName> <DateOfBirth>1935</D Patient Name: JASON BECK Unit Number: [id number] Dictated: 06/18/171742 Transcribed: 06/18/171742 PBS Printed Date/Time: [~ rep prt dt]/[~ rep prt tm] [~ rep ct labl] - [~ rep ct ivnm] [facility] Radiology Department [place], [place] [id number] Dictated: 06/18/171742 Transcribed: 06/18/171742 PBS Printed Date/Time: [~ rep prt dt]/[~ rep prt tm] [~ rep ct labl] - [~ rep ct ivnm] [facility] CLINICAL HISTORY: 82 years-old Female presenting with vomiting. TECHNIQUE: Single supine view of the abdomen was obtained. COMPARISON: None. FINDINGS: Mild gaseous distention of large bowel. No abnormal gaseous distention of bowel. Multiple radiopaque sutures project over the right abdomen. No gross pneumoperitoneum allowing for supine technique. Allowing for bowel gas and stool, punctate calcification noted in the left upper abdomen and projecting over the right mid abdomen. Few pelvic phleboliths noted. Degenerative changes of the spine. Bone island may be present in the right ilium subjacent to the right sacroiliac joint. IMPRESSION: 1. No evidence of bowel obstruction or gross free air. 2. Postsurgical changes of the right abdomen. 3. Possible bilateral nephrolithiasis. Electronically signed by: Ming Arthur M.D. 06/18/2017 5:44 PM Dictated Date/Time: 06/18/2017 5:43 PM The status of this report is Signed. Draft = Not yet reviewed or approved by Radiologist. Signed = Reviewed and approved by Radiologist. <AttendingPhy></AttendingPhy> <FamilyPhy>Rachael Menendez, Talia.R.N.P.</FamilyPhy> <PrimaryPhy>Rachael Menendez, C.R.N.P.</PrimaryPhy> <UnitNumber>[id number]</ UnitNumber> <VisitNumber>[id number]</VisitNumber> <PatientName>JASON BECK</PatientName> <DateOfBirth>1935</DateOfBirth> <Location>[facility]</Location > <ServiceDate>06/18/17</ServiceDate> <MNE>ESINDI</MNE> <OrderingPhy>Peter Valdes D.O.</OrderingPhy> <OrderingPhyMNE>f rep ord dr chen</OrderingPhyMNE> <DictatingPhyMNE>f rep dict dr chen</DictatingPhyMNE> <CCListMNE>f rep ct mne</ CCListMNE> <AdmittingPhyMNE>f pt admit dr chen</AdmittingPhyMNE> <AttendingPhyMNE >f pt attend dr chen</AttendingPhyMNE> <ConsultingPhyMNE>f pt consult dr chen</ConsultingPhyMNE> <FamilyPhyMNE>f pt fam dr chen</FamilyPhyMNE> <OtherPhyMNE>f pt other dr chen</OtherPhyMNE> < PrimaryPhyMNE>f pt prim care dr chen</PrimaryPhyMNE> <ReferringPhyMNE>f pt referring dr chen</ReferringPhyMNE> Patient Name: JASON BECK Unit Number: [id number] Dictated: 06/18/172114 Transcribed: 06/18/172114 PBS Printed Date/Time: [~ rep prt dt]/[~ rep prt tm] [~ rep ct labl] - [~ rep ct ivnm] [facility] [place] [address] Dictated: 06/18/172114 Transcribed: 06/18/172114 PBS Printed Date/Time: [~ rep prt dt]/[~ rep prt tm] [~ rep ct labl] - [~ rep ct ivnm] ABD/PELVIS NO IV OR ORAL CONT CLINICAL HISTORY: 82 years-old Female presenting with acute renal failure. TECHNIQUE: Multidetector CT of the abdomen and pelvis was performed without the use of intravenous contrast. IV contrast: None. A dose lowering technique was used consistent with the principles of ALARA (as low as reasonably achievable). COMPARISON: None. CT DOSE (mGy.cm): The estimated cumulative dose is 1260.50 mGy.cm. FINDINGS: Wire Tinner topogram: Unremarkable. Lung bases: Minimal basilar opacities, likely atelectasis. Top normal heart size. No pericardial or pleural effusion. Liver: Macronodular contour of the liver. Density consistent with hepatic steatosis. Focal linear and branching gas noted within the medial segment of the left hepatic lobe in a distribution most characteristic of portal venous gas. Biliary: Mild biliary ductal prominence likely a reservoir effect in the post cholecystectomy state. Gallbladder surgically absent. Pancreas: Moderate parenchymal atrophy. Spleen: Normal noncontrast appearance. Adrenal glands: Normal noncontrast appearance. Kidneys and ureters: Normal noncontrast appearance. No nephrolithiasis. No hydronephrosis. Normal ureters. Bladder: Normal. Pelvic organs: Uterus surgically absent. Normal noncontrast appearance of the ovaries. Bowel: Diverticulosis of the sigmoid colon. No pericolonic fat infiltration. Fluid noted in the colon suggesting a diarrheal state. No bowel obstruction. Peritoneal cavity: Evidence of mesenteric gas in the right lower quadrant in the mesentery of the cecum as well as in the small bowel mesentery. No pneumatosis. No free fluid. Lymph nodes: No gross lymphadenopathy allowing for noncontrast technique. Vasculature: Atherosclerosis of the normal caliber abdominal aorta. Abdominal wall: Normal. Musculoskeletal: Degenerative changes of the spine. IMPRESSION: 1. Mesenteric and intrahepatic portal venous gas. This is most suspicious for ischemic bowel, however, no pneumatosis or other evidence to suggest bowel pathology. Mesenteric gas is noted prominently in the right lower quadrant, which could suggest a cecal origin, though portal venous gas is also noted in the small bowel mesentery. Surgical consultation recommended. 2. Fluid in the colon suggests a diarrheal state. 3. No pneumoperitoneum. 4. Hepatic steatosis. The report will be called/faxed according to standard departmental protocol. Electronically signed by: Ming Arthur M.D. 06/18/2017 9:20 PM Dictated Date/Time: 06/18/2017 9:15 PM The status of this report is Signed. Draft = Not yet reviewed or approved by Radiologist. Signed = Reviewed and approved by Radiologist. <AttendingPhy>Jason Nguyen M.D.</AttendingPhy> <FamilyPhy>Rachael Menendez C.R.N.P.</FamilyPhy> <PrimaryPhy>Rachael Menendez C.R.N.P.</PrimaryPhy> < UnitNumber>[id number]</UnitNumber> <VisitNumber>[id number]</VisitNumber> < PatientName>KIRANJASON Harris</PatientName> <DateOfBirth>1935</DateOfBirth > <Location>[facility]</Location> <ServiceDate>06/18/17</ServiceDate> <MNE>ESINDI</ MNE> <OrderingPhy>Jason Nguyen M.D.</OrderingPhy> <OrderingPhyMNE>f rep ord dr chen</OrderingPhyMNE> <DictatingPhyMNE>f rep dict dr chen</DictatingPhyMNE > <CCListMNE>f rep ct april</CCListMNE> <AdmittingPhyMNE>f pt admit dr chen</ AdmittingPhyMNE> <AttendingPhyMNE>f pt attend dr chen</AttendingPhyMNE> <ConsultingPhyMNE>f pt consult dr chen</ConsultingPhyMNE> <FamilyPhyMNE>f pt fam dr chen</FamilyPhyMNE> <OtherPhyMNE>f pt other dr chen</OtherPhyMNE> < PrimaryPhyMNE>f pt prim care dr chen</PrimaryPhyMNE> <ReferringPhyMNE>f pt referring dr chen</ReferringPhyMNE> EKG EKG shows atrial fibrillation with slow ventricular response at 48 bpm, nonspecific ST-T changes. Impression Assessment and Plan Acute kidney injury/dehydration secondary to nausea, vomiting and diarrhea-- Place on normal saline at 150 mL's per hour. Serial BMP and magnesium levels. Urine does not look infected. I ordered a CT of abdomen and pelvis without contrast, which was significant for mesenteric and intrahepatic portal venous gas, with concern for ischemic bowel. On CT there was no suggestion of direct kidney injury. Zofran 4 mg IV every 6 hours as needed Pantoprazole 40 mg IV daily. Vancomycin IV per pharmacokinetic monitoring. Zosyn 3.375 mg IV every [address] Rafita Swenson from general surgery. Bradycardia/hypotension-- Likely secondary to sepsis. Hold Cardizem CD and metoprolol. Continue IV fluid resuscitation. Admit to the ICU, as heart rate periodically drops into the 30s, and blood pressure has reduced a systolic of upper 80s to low 90s. It is possible that by night's end patient may require pressors. CAD/atrial fibrillation/hypertension history/bradycardia and hypotension now-- Hold warfarin, diltiazem extended release 360 mg every morning, isosorbide mononitrate ER 60 mg every morning, aspirin 81 mg every morning, lisinopril 40 mg every morning and metoprolol succinate ER 50 mg every morning. Hyperlipidemia-- Hold atorvastatin while patient is n.p.o. Advanced Directives Existing Living Will: Yes Existing Power of Rn Anesthetist: Yes Resuscitation Status VTE Prophylaxis Will order VTE Prophylaxis: Yes Reason for no VTE drug order: Contraindicated Reason no Mechanical VTE Order: Contraindicated
[2017-06-19] VITALS (34 sets, daily range): BP systolic 115–179; BP diastolic 56–107; PULSE 66–94; TEMP 36.5–36.8; O2SAT 94–98
[2017-06-19 00:49] LABS: CKMB 0.5 ng/ml (0.5-3.6)
[2017-06-19] MEDS: PIPERACILL/TAZOBAC IV 3.375 GM in NSS 100ML IV SCH ×3 (03:47→19:52)
[2017-06-19 04:54] LABS: BASO % 0.6 %; BASO ABS # 0.04 K/uL (0-0.2); EOS % 0.3 %; EOS ABS # 0.02 K/uL (0-0.5); HEMATOCRIT 45.2 % (37-47); HEMOGLOBIN 15.6 g/dL (12.0-16.0); IG# 0.02 K/uL (0.00-0.02); LYMPH % 26.3 %; LYMPH ABS # 1.81 K/uL (1.2-3.4); MEAN CELL VOLUME 87.8 fL (80-100); MEAN CORPUSCULAR HEMOGLOBIN 30.3 pg (25-34); MEAN CORPUSCULAR HGB CONC 34.5 g/dl (32-36); MEAN PLATELET VOLUME 9.6 fL (7.4-10.4); MONO % 14.7 %; MONO ABS # 1.01 K/uL (0.11-0.59); NEUT % 57.8 %; NEUT ABS # 3.97 K/uL (1.4-6.5); PLATELET COUNT 149 K/uL (130-400); RED CELL DISTRIBUTION WIDTH CV 14.5 % (11.5-14.5); WHITE BLOOD COUNT 6.87 K/uL (4.8-10.8)
[2017-06-19 05:16] LABS: INR 2.1 (0.9-1.1); PTT PATIENT 38.3 SECONDS (21.0-31.0)
[2017-06-19 05:17] LABS: ALBUMIN 2.9 gm/dl (3.4-5.0); CALCIUM 7.8 mg/dl (8.5-10.1); CREATININE 1.08 mg/dl (0.60-1.20); PHOSPHORUS 3.6 mg/dl (2.5-4.9); POTASSIUM 3.7 mmol/L (3.5-5.1); TOTAL PROTEIN 5.5 gm/dl (6.4-8.2)
--- NOTE | 2017-06-19 06:15 | Surgery Progress Note ---
Surgery Progress Note Date of Service Jun 19, 2017. Subjective vital signs much improved overnight some abd discomfort with loose bm- otherwise resting comfortably wbc and lactate normal Objective Vital Signs: Date Time Temp Pulse Resp B/P (MAP) Pulse Ox O2 Delivery O2 Flow Rate FiO2 06/19/17 04:01 36.8 66 18 125/69 (87) 96 Room Air 06/19/17 04:01 Room Air 06/19/17 02:08 36.7 68 18 138/76 (96) 97 Room Air 06/19/17 00:00 Room Air 06/19/17 00:00 36.5 66 19 115/56 (75) 96 Room Air 06/18/17 22:30 55 18 107/50 (69) 96 Room Air 06/18/17 22:00 62 18 102/53 (69) 99 Room Air 06/18/17 21:45 98 Room Air 06/18/17 21:30 36.5 63 18 101/55 (70) 98 Room Air 06/18/17 20:55 56 18 116/61 94 06/18/17 20:00 52 18 100/50 94 Room Air 06/18/17 19:45 94 Room Air 06/18/17 19:31 36.5 37 18 92/50 94 Room Air 06/18/17 19:00 47 18 119/74 96 Room Air 06/18/17 18:26 45 20 102/58 97 Room Air 06/18/17 17:58 46 06/18/17 17:24 95 Room Air 06/18/17 17:00 36.3 47 20 83/52 94 Room Air General Appearance: no apparent distress Respiratory/Chest: no respiratory distress Abdomen: normal bowel sounds, soft, + pertinent finding (no peritoneal signs, some lower abd pain to deep palpation) Laboratory Results: Results Past 24 Hours Test 06/18/17 17:15 06/18/17 17:23 06/18/17 17:35 06/18/17 18:10 Range/Units White Blood Count 8.03 4.8-10.8 K/uL Red Blood Count 5.86 4.2-5.4 M/uL Hemoglobin 17.8 12.0-16.0 g/dL Hematocrit 51.7 37-47 % Mean Corpuscular Volume 88.2 80-100 fL Mean Corpuscular Hemoglobin 30.4 25-34 pg Mean Corpuscular Hemoglobin Concent 34.4 32-36 g/dl Platelet Count 178 130-400 K/uL Mean Platelet Volume 9.6 7.4-10.4 fL Neutrophils (%) (Auto) 56.9 % Lymphocytes (%) (Auto) 26.5 % Monocytes (%) (Auto) 15.9 % Eosinophils (%) (Auto) 0.1 % Basophils (%) (Auto) 0.2 % Neutrophils # (Auto) 4.56 1.4-6.5 K/uL Lymphocytes # (Auto) 2.13 1.2-3.4 K/uL Monocytes # (Auto) 1.28 0.11-0.59 K/uL Eosinophils # (Auto) 0.01 0-0.5 K/uL Basophils # (Auto) 0.02 0-0.2 K/uL RDW Standard Deviation 46.9 36.4-46.3 fL RDW Coefficient of Variation 14.6 11.5-14.5 % Immature Granulocyte % (Auto) 0.4 % Immature Granulocyte # (Auto) 0.03 0.00-0.02 K/uL Erythrocyte Sedimentation Rate 17 0-21 mm/hr Prothrombin Time 20.0 9.0-12.0 SECONDS Prothromb Time International Ratio 1.9 0.9-1.1 Activated Partial Thromboplast Time 37.4 21.0-31.0 SECONDS Partial Thromboplastin Ratio 1.4 Sodium Level 133 136-145 mmol/L Potassium Level 3.9 3.5-5.1 mmol/L Chloride Level 106 98-107 mmol/L Carbon Dioxide Level 17 21-32 mmol/L Anion Gap 10.0 3-11 mmol/L Blood Urea Nitrogen 38 7-18 mg/dl Creatinine 1.95 0.60-1.20 mg/dl Est Creatinine Clear Calc Drug Dose 21.2 ml/min Estimated GFR () 27.3 Estimated GFR (Non- 23.5 BUN/Creatinine Ratio 19.7 10-20 Random Glucose 156 70-99 mg/dl Calcium Level 9.1 8.5-10.1 mg/dl Phosphorus Level 5.2 2.5-4.9 mg/dl Magnesium Level 2.0 1.8-2.4 mg/dl Total Bilirubin 0.7 0.2-1 mg/dl Aspartate Amino Transf (AST/SGOT) 61 15-37 U/L Alanine Aminotransferase (ALT/SGPT) 50 12-78 U/L Alkaline Phosphatase 104 45-117 U/L Total Creatine Kinase 69 26-192 U/L Creatine Kinase MB 0.5 0.5-3.6 ng/ml Creatine Kinase MB Ratio 0.7 0-3.0 Troponin I < 0.015 0-0.045 ng/ml C-Reactive Protein 0.41 0-0.29 mg/dl Pro-B-Type Natriuretic Peptide 728 0-1800 pg/ml Total Protein 7.7 6.4-8.2 gm/dl Albumin 3.9 3.4-5.0 gm/dl Globulin 3.8 2.5-4.0 gm/dl Albumin/Globulin Ratio 1.0 0.9-2 Lipase 344 73-393 U/L Free Thyroxine 1.73 0.80-1.60 ng/dl Random Cortisol 42.03 mcg/dl Bedside Lactic Acid Venous 1.81 0.90-1.70 mmol/L Urine Color JOSE Urine Appearance SL CLOUDY CLEAR Urine pH 5.0 4.5-7.5 Urine Specific [place] >= 1.030 1.000-1.030 Urine Protein TRACE NEG Urine Glucose (UA) TRACE NEG Urine Ketones TRACE NEG Urine Occult Blood NEG NEG Urine Nitrite NEG NEG Urine Bilirubin NEG NEG Urine Urobilinogen NEG NEG Urine Leukocyte Esterase NEG NEG Urine RBC 0-4 0-4 /hpf Urine WBC 1-5 0-5 /hpf Urine Epithelial Cells 10-20 0-5 /lpf Urine Bacteria 1+ NEG Urine Hyaline Casts 10-30 0-5 /lpf Venous Blood pH 7.30 7.36-7.41 Venous Blood Partial Pressure CO2 36 38.0-50.0 mmHg Venous Blood Partial Pressure O2 33 mmHg Venous Blood HCO3 17 mmol/L Venous Blood Oxygen Saturation 60.6 % Venous Blood Base Excess -8.3 mEq/L Test 06/18/17 21:27 06/18/17 21:46 06/18/17 23:30 06/19/17 00:13 Range/Units Bedside Glucose 112 94 70-90 mg/dl Lactic Acid Level 1.6 0.4-2.0 mmol/L Ionized Calcium 1.05 1.12-1.32 mmol/l Thyroid Stimulating Hormone (TSH) 1.090 0.300-4.500 uIu/ml Total Creatine Kinase 58 26-192 U/L Creatine Kinase MB 0.5 0.5-3.6 ng/ml Creatine Kinase MB Ratio 0.9 0-3.0 Troponin I < 0.015 0-0.045 ng/ml Test 06/19/17 02:10 06/19/17 04:41 Range/Units Stool Occult Blood POSITIVE NEGATIVE White Blood Count 6.87 4.8-10.8 K/uL Red Blood Count 5.15 4.2-5.4 M/uL Hemoglobin 15.6 12.0-16.0 g/dL Hematocrit 45.2 37-47 % Mean Corpuscular Volume 87.8 80-100 fL Mean Corpuscular Hemoglobin 30.3 25-34 pg Mean Corpuscular Hemoglobin Concent 34.5 32-36 g/dl Platelet Count 149 130-400 K/uL Mean Platelet Volume 9.6 7.4-10.4 fL Neutrophils (%) (Auto) 57.8 % Lymphocytes (%) (Auto) 26.3 % Monocytes (%) (Auto) 14.7 % Eosinophils (%) (Auto) 0.3 % Basophils (%) (Auto) 0.6 % Neutrophils # (Auto) 3.97 1.4-6.5 K/uL Lymphocytes # (Auto) 1.81 1.2-3.4 K/uL Monocytes # (Auto) 1.01 0.11-0.59 K/uL Eosinophils # (Auto) 0.02 0-0.5 K/uL Basophils # (Auto) 0.04 0-0.2 K/uL RDW Standard Deviation 47.0 36.4-46.3 fL RDW Coefficient of Variation 14.5 11.5-14.5 % Immature Granulocyte % (Auto) 0.3 % Immature Granulocyte # (Auto) 0.02 0.00-0.02 K/uL Prothrombin Time 22.0 9.0-12.0 SECONDS Prothromb Time International Ratio 2.1 0.9-1.1 Activated Partial Thromboplast Time 38.3 21.0-31.0 SECONDS Partial Thromboplastin Ratio 1.5 Sodium Level 140 136-145 mmol/L Potassium Level 3.7 3.5-5.1 mmol/L Chloride Level 115 98-107 mmol/L Carbon Dioxide Level 16 21-32 mmol/L Anion Gap 9.0 3-11 mmol/L Blood Urea Nitrogen 27 7-18 mg/dl Creatinine 1.08 0.60-1.20 mg/dl Est Creatinine Clear Calc Drug Dose 38.2 ml/min Estimated GFR () 55.8 Estimated GFR (Non- 48.1 BUN/Creatinine Ratio 25.3 10-20 Random Glucose 79 70-99 mg/dl Lactic Acid Level 0.9 0.4-2.0 mmol/L Calcium Level 7.8 8.5-10.1 mg/dl Phosphorus Level 3.6 2.5-4.9 mg/dl Magnesium Level 1.7 1.8-2.4 mg/dl Total Bilirubin 0.6 0.2-1 mg/dl Direct Bilirubin 0.2 0-0.2 mg/dl Aspartate Amino Transf (AST/SGOT) 45 15-37 U/L Alanine Aminotransferase (ALT/SGPT) 42 12-78 U/L Alkaline Phosphatase 80 45-117 U/L Total Protein 5.5 6.4-8.2 gm/dl Albumin 2.9 3.4-5.0 gm/dl Lipase 183 73-393 U/L Random Vancomycin Level 20.3 mcg/ml Microbiology Results 06/18/17 Blood Culture, Received Pending 06/18/17 Blood Culture, Received Pending 06/18/17 MRSA DNA Surveillance Screen - Final, Complete Specimen Negative for MRSA by DNA Probe 06/19/17 WBC Smear, Received Pending 06/19/17 Shiga Toxin Test, Received Pending 06/19/17 Stool Culture, Received Pending 06/18/17 C.difficile Toxin B Gene (PCR) - Final, Complete No C. difficile toxin B gene detected 06/18/17 Urine Culture, Received Pending Assessment & Plan 06/19/17- Small amt of mesenteric and portal gas on CT, no pneumotosis wbc and lactate normal- could have had mild ischemic insult from low flow state/hypotension- would cont IV atbx and fluids. May have clear liquids from my standpoint. This could also be from Gastroenteritis. Dr Brdashaw covering over weekend.
[2017-06-19] MEDS: SODIUM CHLORIDE 0.9% 1000ML 1,000 ML IV SCH (06:16)
--- NOTE | 2017-06-19 07:37 | DIAGNOSTIC IMAGING REPORT ---
CHEST ONE VIEW PORTABLE HISTORY: Bradycardia. COMPARISON: Chest 06/18/2017. FINDINGS: A few punctate calcified granulomas within the upper lobes. Otherwise, the lungs are clear. No pleural effusions. No pneumothorax. The heart is normal in size. IMPRESSION: No acute process. Electronically signed by: Fran Ruth M.D. 06/19/2017 7:36 AM Dictated Date/Time: 06/19/2017 7:35 AM
--- NOTE | 2017-06-19 08:12 | Clinical Documentation Query ---
FRANSISCO Evans : CLINICAL DOCUMENTATION QUERY Patient is an 82 year old female admitted for evaluation and treatment of sepsis, HANY in the setting of N/V/D and "concern for ischemic bowel". She has been evaluated with abdominal CT, stool studies, and has been seen in consultation by general surgery. Treatment has included antibiotics, IVF, reversal of hypotension/bradycardia (holding cardizem, metoprolol), and ICU admission with wholesale [employer] consultation. As appropriate, consider explicit documentation of acuity as suggested below as this impacts accurate DRG assignment. Thank you. In your clinical opinion is this patient being managed for: ( x ) (Possible/Suspected) Acute ischemic bowel ( ) Not Agree ( ) Other explanation of clinical findings (Please Explain) ( ) Unable to determine (Please Define) ( ) Need to Discuss The medical record reflects the following clinical findings, treatment, and risk factors. Clinical Indicators: As above, CT scan results Treatment: She has been evaluated with abdominal CT, stool studies, and has been seen in consultation by general surgery. 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 Terms such as "probable", "suspected", "likely", "questionable", "possible", or "still to be ruled out" are acceptable. IF IN AGREEMENT, YOU MUST DOCUMENT ABOVE DIAGNOSTIC STATEMENT IN DAILY PROGRESS NOTES AND DISCHARGE SUMMARY. This document is not part of the patient's record. Thank You, Jagdeep Serra, RN [phone]
[2017-06-19] MEDS: ATORVASTATIN 40 MG TAB PO SCH (08:15)
[2017-06-19] MEDS: ASPIRIN 81 MG ECTAB PO SCH (08:15)
[2017-06-19] MEDS ORDERED: MAGNESIUM SULFATE 1GM / D5W 1 GM BAG IV STA (08:31)
[2017-06-19 08:42] LABS: CKMB 0.6 ng/ml (0.5-3.6)
[2017-06-19] MEDS ORDERED: VANCOMYCIN IV 1,000 MG in SODIUM CHLORIDE 0.9% 250ML 250 ML IV SCH (09:00)
[2017-06-19] MEDS: MAGNESIUM SULFATE 1GM / D5W 1 GM in PREMIXED IN D5W 100 ML IV SCH ×2 (09:13→10:42)
[2017-06-19] MEDS: NORMOSOL R 1,000 ML IV SCH ×2 (09:14→23:32)
--- NOTE | 2017-06-19 09:28 | Pharmacy Progress Note ---
Pharmacy Abx Initial Consult Date of Service Jun 19, 2017. Pharmacy Dosing Scope Date of Consult: 06/18/17 Consultation requested by: Casper Alvarez PAC Pharmacy is consulted to initiate IV VANCOMYCIN and ZOSYN therapy, order appropriate labs and adjust drug dose/frequency. Subjective The patient is a 82 year old female admitted on Jun 18, 2017 at 20:12 for NVD, hypotension, bradycardia and HANY - concern for sepsis from GI source. Objective Height (Feet): 5 Height (Inches): 2.00 Weight (Kilograms): 73.400 Vital Signs (Past 12Hrs) Vital Signs Past 12 Hours Date Time Temp Pulse Resp B/P (MAP) Pulse Ox O2 Delivery O2 Flow Rate FiO2 06/19/17 07:50 Room Air 06/19/17 06:01 36.8 70 19 126/65 (85) 95 Room Air 06/19/17 04:01 36.8 66 18 125/69 (87) 96 Room Air 06/19/17 04:01 Room Air 06/19/17 02:08 36.7 68 18 138/76 (96) 97 Room Air 06/19/17 00:00 Room Air 06/19/17 00:00 36.5 66 19 115/56 (75) 96 Room Air 06/18/17 22:30 55 18 107/50 (69) 96 Room Air 06/18/17 22:00 62 18 102/53 (69) 99 Room Air 06/18/17 21:45 98 Room Air 06/18/17 21:30 36.5 63 18 101/55 (70) 98 Room Air Lab Results (24Hrs) Laboratory Tests (24 Hours) Test 06/18/17 17:15 06/19/17 04:41 06/19/17 08:01 C-Reactive Protein 0.41 mg/dl (0-0.29) H Erythrocyte Sedimentation Rate 17 mm/hr (0-21) Lactic Acid Level 0.9 mmol/L (0.4-2.0) White Blood Count 6.87 K/uL (4.8-10.8) Red Blood Count 5.15 M/uL (4.2-5.4) Hemoglobin 15.6 g/dL (12.0-16.0) Hematocrit 45.2 % (37-47) Mean Corpuscular Volume 87.8 fL (80-100) Mean Corpuscular Hemoglobin 30.3 pg (25-34) Mean Corpuscular Hemoglobin Concent 34.5 g/dl (32-36) Platelet Count 149 K/uL (130-400) Mean Platelet Volume 9.6 fL (7.4-10.4) Neutrophils (%) (Auto) 57.8 % Lymphocytes (%) (Auto) 26.3 % Monocytes (%) (Auto) 14.7 % Eosinophils (%) (Auto) 0.3 % Basophils (%) (Auto) 0.6 % Neutrophils # (Auto) 3.97 K/uL (1.4-6.5) Lymphocytes # (Auto) 1.81 K/uL (1.2-3.4) Monocytes # (Auto) 1.01 K/uL (0.11-0.59) H Eosinophils # (Auto) 0.02 K/uL (0-0.5) Basophils # (Auto) 0.04 K/uL (0-0.2) Total Creatine Kinase 55 U/L (26-192) Micro Results Date/Time Source Procedure Growth Status 06/18/17 18:10 Blood Blood Culture Pending Received 06/18/17 17:20 Blood Blood Culture Pending Received 06/18/17 21:30 Nasal MRSA DNA Surveillance Screen - Final Specimen Negative for MRSA by DNA Probe Complete 06/19/17 02:10 Stool WBC Smear - Final Resulted 06/19/17 02:10 Stool Shiga Toxin Test Pending Resulted 06/19/17 02:10 Stool Stool Culture Pending Resulted 06/18/17 20:00 Stool C.difficile Toxin B Gene (PCR) - Final No C. difficile toxin B gene detected Complete 06/18/17 17:35 Urine,Catheterized Urine Culture Pending Received Assessment & Plan Assessment * 82 year old female admitted to ICU overnight secondary to hypotension and bradycardia - concern for sepsis from GI source * CT abd/pelvis showed mesenteric and intrahepatic venous gas, possible ischemic bowel? * Patient had c/o NVD prior to admission and had taken beta-lou and calcium channel lou yesterday AM after missing doses for a few days * Lactate 1.81 initial POC and has since trended down, no leukocytosis noted on labs, currently afebrile * c diff negative * blood, urine, and stool cx's ordered * BP and HR improved - hemodynamically stable this AM * Renal fxn improved w/ hydration since admission: SCr 1.95 -->1.08 Plan Vancomycin IV * Loading dose: 1500 mg (20.4 mg/kg) x 1 given last evening at 2150 * Random vanco level this AM = 20.3; may redose vancomycin this AM * Maintenance dose: 1250 mg IV (17 mg/kg) every 24 hours * Goal trough level for sepsis : 15 to 20 mcg/mL * Trough level ordered for 06/21/17 w/ maint dose * P'kinetic estimates: half-life 19-20 hours; Vd 0.7L/kg Piperacillin/tazobactam * 4.5 g bolus administered over 30 minutes, then 3.375 g IV extended infusion every 8 hours for CrCl greater than 20 mL/min Pharmacy will continue to follow and will adjust dose/frequency as necessary. Thank you.
--- NOTE | 2017-06-19 11:14 | Critical Care Progress Note ---
Critical Care Progress Note Date of Service Jun 19, 2017. Attending Dr. Shrestha Subjective The patient was admitted overnight due to ischemic bowel, the patient did not have events overnight, she was also bradycardic and hypotensive requiring aggressive fluid management, she did not have lactic acidosis or leukocytosis. The patient symptoms has improved significantly. The patient initially presented with significant dehydration, nausea vomiting, right upper quadrant pain. Her workup revealed pneumobilia, no other abnormalities intra- abdominally. The patient is known to have a history of A. fib and has been maintained on Coumadin and rate control. She did have multiple ablation procedures in the past without success. She took her escalated dose of Cardizem 360 mg prior to her presentation, which resulted probably in her bradycardia and hypotension in addition to the dehydration. I have reviewed her data with her and her son who was at the bedside as well. Currently the patient is asymptomatic, she had episodes of chest pain lasted for 10 minutes where she was taken nitroglycerin, no EKG changes, she did not have positive troponin, apparently she has been having the symptoms in the past and she has been followed by Dr. Sorensen. She was not in rapid ventricular rate. No shortness of breath, minimal right upper quadrant pain, abdomen is soft, tolerating clear liquids, no nausea or vomiting. No diarrhea. The rest of her review of system was unremarkable. Objective As above, her physical exam revealed on June 19, 2017, elderly female, does not appear to be in any distress, her vital signs remained stable, she is still in A. fib with a rate of 74, blood pressure 146/76, O2 sat 96%. No JVP, S1-S2 A. fib, systolic ejection murmur, distant breath sounds bilaterally, abdomen is soft but minimal tenderness in the right upper quadrant, no rebound and positive bowel sounds. No edema. Neurologically she is intact. I have reviewed her CAT scan myself which showed pneumobilia but no other bowel wall thickening or abnormality. No free air. Nondistended bowel. Her chest x- ray did not reveal any pulmonary vascular congestion or infiltrate. And her labs were consistent with normal leukocyte count and normal lactic acid. Assessment & Plan 1. Ischemic bowel resulted in pneumobilia, I agree with Dr. Swenson and appreciate his input. The patient likely has submucosal ischemia resulted in contrast to getting air into the biliary tract. No evidence of sepsis or hypoperfusion at this point. 2. A. fib, difficult to control, patient is on Coumadin and Cardizem, currently Cardizem is on hold due to bradycardia. 3. Bradycardia, iatrogenic due to diltiazem. 4. Sepsis, resolved. Plan: 1. I would keep Cardizem on hold. 2. Continue with IV fluid. 3. I will decrease the rate of the IV fluid as the patient developed hyperchloremic metabolic acidosis. 4. Replete her electrolytes. 5. Continue Vanco and Zosyn, I will stop vancomycin if there is no evidence of MRSA. 6. DVT prophylaxis, the patient was already on Coumadin. Expect INR to be elevated. 7. Appreciate surgical input with Dr. Swenson. 8. Discussed with the staff on rounds and details, appreciate pharmacy input assisting in antibiotic management. For further details refer to the previous note. Critical care time spent with the patient was 35 minutes Data Medications: Current Inpatient Medications Medications (Trade) Dose Ordered Sig/Sakina Route Start Time Stop Time Status Last Admin Dose Admin Hyoscyamine Sulfate (Levsin Tab) 0.125 mg Q4H PRN SL 06/18/17 20:15 07/18/17 20:14 06/18/17 20:13 0.125 MG Ondansetron HCl (Zofran Inj) 4 mg Q6H PRN IV 06/18/17 20:45 07/18/17 20:44 Pantoprazole Sodium 40 mg/ Syringe 10 ml @ 5 mls/min DAILY@1100 IV 06/19/17 11:00 07/19/17 10:59 Miscellaneous Information (Icu Protocol For Hyperglycemia) 1 ea PRN PRN N/A 06/18/17 20:45 06/20/17 20:44 Aspirin (Ecotrin Tab) 81 mg QAM PO 06/19/17 09:00 07/19/17 08:59 06/19/17 08:15 81 MG Atorvastatin Calcium (Lipitor Tab) 40 mg Q2D PO 06/19/17 09:00 07/19/17 08:59 06/19/17 08:15 40 MG Miscellaneous Information (Consult) 1 ea UD PRN N/A 06/18/17 21:45 07/18/17 21:44 Miscellaneous Information (Consult) 1 UD PRN N/A 06/18/17 21:45 07/18/17 21:44 Piperacillin Sod/ Tazobactam Sod 3.375 gm/Sodium Chloride 115 ml @ 28.75 mls/ hr Q8H IV 06/19/17 04:00 06/29/17 03:59 06/19/17 03:47 28.75 MLS/HR Parenteral Electrolyte Solution 1,000 ml @ 75 mls/hr [id number] IV 06/19/17 08:45 07/19/17 08:44 06/19/17 09:14 75 MLS/HR Vancomycin HCl 1250 mg/Sodium Chloride 275 ml @ 125 mls/hr Q24H IV 06/19/17 10:00 06/29/17 09:59 Vital Signs: Date Time Temp Pulse Resp B/P (MAP) Pulse Ox O2 Delivery O2 Flow Rate FiO2 06/19/17 09:01 82 18 151/81 (104) 96 Room Air 06/19/17 09:00 81 96 06/19/17 08:31 76 135/65 (88) 96 Room Air 06/19/17 08:00 76 97 06/19/17 07:50 Room Air 06/19/17 07:31 36.7 80 18 125/60 (81) 97 Room Air 06/19/17 07:01 69 136/69 (91) 97 06/19/17 07:00 74 96 06/19/17 06:01 36.8 70 19 126/65 (85) 95 Room Air 06/19/17 04:01 36.8 66 18 125/69 (87) 96 Room Air 06/19/17 04:01 Room Air 06/19/17 02:08 36.7 68 18 138/76 (96) 97 Room Air 06/19/17 00:00 Room Air 06/19/17 00:00 36.5 66 19 115/56 (75) 96 Room Air 06/18/17 22:30 55 18 107/50 (69) 96 Room Air 06/18/17 22:00 62 18 102/53 (69) 99 Room Air 06/18/17 21:45 98 Room Air 06/18/17 21:30 36.5 63 18 101/55 (70) 98 Room Air 06/18/17 20:55 56 18 116/61 94 06/18/17 20:00 52 18 100/50 94 Room Air 06/18/17 19:45 94 Room Air 06/18/17 19:31 36.5 37 18 92/50 94 Room Air 06/18/17 19:00 47 18 119/74 96 Room Air 06/18/17 18:26 45 20 102/58 97 Room Air 06/18/17 17:58 46 06/18/17 17:24 95 Room Air 06/18/17 17:00 36.3 47 20 83/52 94 Room Air Laboratory Results: Last 24 Hours Test 06/18/17 17:15 06/18/17 17:23 06/18/17 17:35 06/18/17 18:10 White Blood Count 8.03 K/uL Red Blood Count 5.86 M/uL Hemoglobin 17.8 g/dL Hematocrit 51.7 % Mean Corpuscular Volume 88.2 fL Mean Corpuscular Hemoglobin 30.4 pg Mean Corpuscular Hemoglobin Concent 34.4 g/dl Platelet Count 178 K/uL Mean Platelet Volume 9.6 fL Neutrophils (%) (Auto) 56.9 % Lymphocytes (%) (Auto) 26.5 % Monocytes (%) (Auto) 15.9 % Eosinophils (%) (Auto) 0.1 % Basophils (%) (Auto) 0.2 % Neutrophils # (Auto) 4.56 K/uL Lymphocytes # (Auto) 2.13 K/uL Monocytes # (Auto) 1.28 K/uL Eosinophils # (Auto) 0.01 K/uL Basophils # (Auto) 0.02 K/uL RDW Standard Deviation 46.9 fL RDW Coefficient of Variation 14.6 % Immature Granulocyte % (Auto) 0.4 % Immature Granulocyte # (Auto) 0.03 K/uL Erythrocyte Sedimentation Rate 17 mm/hr Prothrombin Time 20.0 SECONDS Prothromb Time International Ratio 1.9 Activated Partial Thromboplast Time 37.4 SECONDS Partial Thromboplastin Ratio 1.4 Sodium Level 133 mmol/L Potassium Level 3.9 mmol/L Chloride Level 106 mmol/L Carbon Dioxide Level 17 mmol/L Anion Gap 10.0 mmol/L Blood Urea Nitrogen 38 mg/dl Creatinine 1.95 mg/dl Est Creatinine Clear Calc Drug Dose 21.2 ml/min Estimated GFR () 27.3 Estimated GFR (Non- 23.5 BUN/Creatinine Ratio 19.7 Random Glucose 156 mg/dl Calcium Level 9.1 mg/dl Phosphorus Level 5.2 mg/dl Magnesium Level 2.0 mg/dl Total Bilirubin 0.7 mg/dl Aspartate Amino Transf (AST/SGOT) 61 U/L Alanine Aminotransferase (ALT/SGPT) 50 U/L Alkaline Phosphatase 104 U/L Total Creatine Kinase 69 U/L Creatine Kinase MB 0.5 ng/ml Creatine Kinase MB Ratio 0.7 Troponin I < 0.015 ng/ml C-Reactive Protein 0.41 mg/dl Pro-B-Type Natriuretic Peptide 728 pg/ml Total Protein 7.7 gm/dl Albumin 3.9 gm/dl Globulin 3.8 gm/dl Albumin/Globulin Ratio 1.0 Lipase 344 U/L Free Thyroxine 1.73 ng/dl Random Cortisol 42.03 mcg/dl Bedside Lactic Acid Venous 1.81 mmol/L Urine Color JOSE Urine Appearance SL CLOUDY Urine pH 5.0 Urine Specific [place] >= 1.030 Urine Protein TRACE Urine Glucose (UA) TRACE Urine Ketones TRACE Urine Occult Blood NEG Urine Nitrite NEG Urine Bilirubin NEG Urine Urobilinogen NEG Urine Leukocyte Esterase NEG Urine RBC 0-4 /hpf Urine WBC 1-5 /hpf Urine Epithelial Cells 10-20 /lpf Urine Bacteria 1+ Urine Hyaline Casts 10-30 /lpf Venous Blood pH 7.30 Venous Blood Partial Pressure CO2 36 mmHg Venous Blood Partial Pressure O2 33 mmHg Venous Blood HCO3 17 mmol/L Venous Blood Oxygen Saturation 60.6 % Venous Blood Base Excess -8.3 mEq/L Test 06/18/17 21:27 06/18/17 21:46 06/18/17 23:30 06/19/17 00:13 Bedside Glucose 112 mg/dl 94 mg/dl Lactic Acid Level 1.6 mmol/L Ionized Calcium 1.05 mmol/l Thyroid Stimulating Hormone (TSH) 1.090 uIu/ml Total Creatine Kinase 58 U/L Creatine Kinase MB 0.5 ng/ml Creatine Kinase MB Ratio 0.9 Troponin I < 0.015 ng/ml Test 06/19/17 02:10 06/19/17 04:41 06/19/17 08:01 06/19/17 10:14 Stool Occult Blood POSITIVE White Blood Count 6.87 K/uL Red Blood Count 5.15 M/uL Hemoglobin 15.6 g/dL Hematocrit 45.2 % Mean Corpuscular Volume 87.8 fL Mean Corpuscular Hemoglobin 30.3 pg Mean Corpuscular Hemoglobin Concent 34.5 g/dl Platelet Count 149 K/uL Mean Platelet Volume 9.6 fL Neutrophils (%) (Auto) 57.8 % Lymphocytes (%) (Auto) 26.3 % Monocytes (%) (Auto) 14.7 % Eosinophils (%) (Auto) 0.3 % Basophils (%) (Auto) 0.6 % Neutrophils # (Auto) 3.97 K/uL Lymphocytes # (Auto) 1.81 K/uL Monocytes # (Auto) 1.01 K/uL Eosinophils # (Auto) 0.02 K/uL Basophils # (Auto) 0.04 K/uL RDW Standard Deviation 47.0 fL RDW Coefficient of Variation 14.5 % Immature Granulocyte % (Auto) 0.3 % Immature Granulocyte # (Auto) 0.02 K/uL Prothrombin Time 22.0 SECONDS Prothromb Time International Ratio 2.1 Activated Partial Thromboplast Time 38.3 SECONDS Partial Thromboplastin Ratio 1.5 Sodium Level 140 mmol/L Potassium Level 3.7 mmol/L Chloride Level 115 mmol/L Carbon Dioxide Level 16 mmol/L Anion Gap 9.0 mmol/L Blood Urea Nitrogen 27 mg/dl Creatinine 1.08 mg/dl Est Creatinine Clear Calc Drug Dose 38.2 ml/min Estimated GFR () 55.8 Estimated GFR (Non- 48.1 BUN/Creatinine Ratio 25.3 Random Glucose 79 mg/dl Lactic Acid Level 0.9 mmol/L 1.7 mmol/L Calcium Level 7.8 mg/dl Phosphorus Level 3.6 mg/dl Magnesium Level 1.7 mg/dl Total Bilirubin 0.6 mg/dl Direct Bilirubin 0.2 mg/dl Aspartate Amino Transf (AST/SGOT) 45 U/L Alanine Aminotransferase (ALT/SGPT) 42 U/L Alkaline Phosphatase 80 U/L Total Protein 5.5 gm/dl Albumin 2.9 gm/dl Lipase 183 U/L Random Vancomycin Level 20.3 mcg/ml Total Creatine Kinase 55 U/L Creatine Kinase MB 0.6 ng/ml Creatine Kinase MB Ratio 1.1 Troponin I < 0.015 ng/ml
[2017-06-19] MEDS: VANCOMYCIN IV 1,250 MG in SODIUM CHLORIDE 0.9% 250ML 250 ML IV SCH (11:31)
[2017-06-19] MEDS: PANTOprazole INJ 40 MG in SYRINGE 0 ML IV SCH (11:33)
[2017-06-19] MEDS: ONDANSETRON INJ 2 MG/ML 2 ML VIAL IV PRN (16:28)
[2017-06-19] MEDS: HYOSCYAMINE SULFATE 0.125 MG SL TAB SL PRN (18:18)
--- NOTE | 2017-06-19 20:42 | Critical Care Progress Note ---
Critical Care Progress Note Date of Service Jun 19, 2017. Critical Care Progress Note 1999 - Patient with c/o increasing pain to the suprapubic area. I did assess the patient and attempts to perform bedside ultrasound, however there is no significant findings in the pelvic region, particularly no substantial amount of fluid within the bladder itself. Her catheter was not draining. It was flushed by nursing staff and clamped. Her urine output appears to have multiple clots. She has discomfort with any movement of the catheter itself. She declines removal of the catheter. While awaiting a urine sample, the patient had a bowel movement which had transparent bright red blood. She reports increasing discomfort. The patient was reevaluated and she has no significant tenderness to palpation to the upper abdomen itself, however she continues with suprapubic pain. Repeat labs were obtained and reviewed. She was treated with 1 mg morphine which she has had previously. Patient much more comfortable at this time. Repeat labs show actual improvement from earlier today. At this point, will continue with current treatment course and add as needed morphine for discomfort. Continue to monitor for any drop in her H&H with new development of BRBPR.
[2017-06-19] MEDS ORDERED: MoRPHine SULFATE 2 MG/ML CARP IV STA ×2 (21:17→21:19)
[2017-06-19] MEDS ORDERED: MoRPHine SULFATE 2 MG/ML CARP ONE (21:24)
[2017-06-19 21:34] LABS: BASO % 0.4 %; BASO ABS # 0.03 K/uL (0-0.2); EOS % 0.3 %; EOS ABS # 0.02 K/uL (0-0.5); HEMATOCRIT 47.9 % (37-47); HEMOGLOBIN 16.8 g/dL (12.0-16.0); IG# 0.01 K/uL (0.00-0.02); LYMPH % 29.3 %; LYMPH ABS # 2.13 K/uL (1.2-3.4); MEAN CELL VOLUME 87.1 fL (80-100); MEAN CORPUSCULAR HEMOGLOBIN 30.5 pg (25-34); MEAN CORPUSCULAR HGB CONC 35.1 g/dl (32-36); MEAN PLATELET VOLUME 9.7 fL (7.4-10.4); MONO % 12.4 %; NEUT % 57.5 %; NEUT ABS # 4.18 K/uL (1.4-6.5); PLATELET COUNT 133 K/uL (130-400); RED CELL DISTRIBUTION WIDTH CV 14.3 % (11.5-14.5); RED CELL DISTRIBUTION WIDTH SD 45.7 fL (36.4-46.3); WHITE BLOOD COUNT 7.27 K/uL (4.8-10.8)
[2017-06-19 21:59] LABS: ALBUMIN 2.8 gm/dl (3.4-5.0); CALCIUM 7.9 mg/dl (8.5-10.1); CREATININE 0.96 mg/dl (0.60-1.20); POTASSIUM 3.4 mmol/L (3.5-5.1); TOTAL PROTEIN 5.8 gm/dl (6.4-8.2)
[2017-06-19 22:10] LABS: PHOSPHORUS 1.7 mg/dl (2.5-4.9)
[2017-06-19] MEDS ORDERED: POTASSIUM PHOS 3 MMOL/1 ML INFUSION IV STA (22:51)
[2017-06-19] MEDS ORDERED: POTASSIUM PHOSPHATE INJ 15 MMOL in SODIUM CHLORIDE 0.9% 250ML 250 ML IV ONE (23:00)
[2017-06-20] VITALS (25 sets, daily range): BP systolic 131–176; BP diastolic 80–110; PULSE 74–94; TEMP 36.7–37.3; O2SAT 94–98
--- NOTE | 2017-06-20 01:59 | Progress Note ---
Subjective Date of Service: late entry for visit Jun 19, 2017. Subjective Pt evaluation today including: conversation w/ patient, conversation w/ family (daughter at bedside), physical exam, chart review, lab review, review of studies (CT abd/pelvis, etc), review of inpatient medication list Pain: suprapubic pain and lower abd pain PO Intake: clears Voiding: mcghee catheter in place during the visit, the patient c/o suprapubic pain/spasm she had just ambulated/transferred from the bed to the chair and shortly after the pain started I looked in her mcghee catheter tubing and there was gross blood she also reported 2 stools today w/ small amount of gross blood denied any cp, dyspnea Problem List Medical Problems: (1) Acute kidney injury Status: Acute (2) Bradycardia Status: Acute (3) Coronary artery disease Status: Chronic (4) Dehydration Status: Acute (5) Dyslipidemia Status: Chronic (6) Essential hypertension Status: Chronic (7) Hypotension Status: Acute (8) Knee effusion, left Status: Acute (9) Left knee pain Status: Acute (10) Left knee pain Status: Acute (11) Nausea vomiting and diarrhea Status: Acute (12) Orthostasis Status: Acute (13) Precordial chest pain Status: Acute (14) Syncope Status: Acute (15) Weakness Status: Acute Review of Systems Constitutional: No fever Respiratory: No shortness of breath Cardiac: No chest pain Abdomen: + diarrhea, + GI bleeding, No vomiting Objective Vital Signs Date Time Temp Pulse Resp B/P (MAP) Pulse Ox O2 Delivery O2 Flow Rate FiO2 06/20/17 00:26 84 17 165/96 (119) 95 Room Air 06/20/17 00:17 96 Room Air 06/20/17 00:01 36.7 84 14 165/96 (119) 95 Room Air 06/19/17 23:01 83 17 172/98 (122) 94 Room Air 06/19/17 22:01 84 15 166/94 (118) 96 Room Air 06/19/17 21:01 94 19 179/107 (131) 97 Room Air 06/19/17 20:06 Room Air 06/19/17 20:01 36.5 81 17 174/94 (120) 96 Room Air 06/19/17 19:01 86 21 159/89 (112) 96 Room Air 4/6/18 18:01 85 18 165/97 (119) 97 Room Air 06/19/17 18:00 84 23 98 06/19/17 17:01 83 20 164/82 (109) 96 06/19/17 17:00 83 20 94 06/19/17 16:01 84 15 154/79 (104) 96 Room Air 06/19/17 16:00 83 21 94 06/19/17 15:12 Room Air 06/19/17 15:01 36.7 88 17 143/91 (108) 97 06/19/17 15:00 73 22 95 06/19/17 14:01 83 21 154/84 (107) 98 Room Air 06/19/17 14:00 82 23 98 06/19/17 13:01 76 19 144/77 (99) 97 06/19/17 13:00 79 21 96 06/19/17 12:01 36.8 69 21 134/77 (96) 95 Room Air 06/19/17 12:00 75 21 95 06/19/17 11:40 Room Air 06/19/17 11:01 70 146/76 (99) 95 06/19/17 11:00 70 95 06/19/17 10:01 75 148/69 (95) 97 06/19/17 10:00 71 97 06/19/17 09:01 82 18 151/81 (104) 96 Room Air 06/19/17 09:00 81 96 06/19/17 08:31 76 135/65 (88) 96 Room Air 06/19/17 08:00 76 97 06/19/17 07:50 Room Air 06/19/17 07:31 36.7 80 18 125/60 (81) 97 Room Air 06/19/17 07:01 69 136/69 (91) 97 06/19/17 07:00 74 96 06/19/17 06:01 36.8 70 19 126/65 (85) 95 Room Air 06/19/17 04:01 36.8 66 18 125/69 (87) 96 Room Air 06/19/17 04:01 Room Air 06/19/17 02:08 36.7 68 18 138/76 (96) 97 Room Air Physical Exam General Appearance: no apparent distress, + pertinent finding (looks ill) ENT: pharynx normal Neck: no JVD Respiratory/Chest: lungs clear, no respiratory distress, no accessory muscle use Cardiovascular: no gallop, no murmur, + irregularly irregular Abdomen: normal bowel sounds, soft, no organomegaly, + tenderness (RLQ and suprapubic region) Extremities: no pedal edema Laboratory Results Last 24 Hours Test 06/19/17 02:10 06/19/17 04:41 06/19/17 06:01 06/19/17 08:01 Stool Occult Blood POSITIVE White Blood Count 6.87 K/uL Red Blood Count 5.15 M/uL Hemoglobin 15.6 g/dL Hematocrit 45.2 % Mean Corpuscular Volume 87.8 fL Mean Corpuscular Hemoglobin 30.3 pg Mean Corpuscular Hemoglobin Concent 34.5 g/dl Platelet Count 149 K/uL Mean Platelet Volume 9.6 fL Neutrophils (%) (Auto) 57.8 % Lymphocytes (%) (Auto) 26.3 % Monocytes (%) (Auto) 14.7 % Eosinophils (%) (Auto) 0.3 % Basophils (%) (Auto) 0.6 % Neutrophils # (Auto) 3.97 K/uL Lymphocytes # (Auto) 1.81 K/uL Monocytes # (Auto) 1.01 K/uL Eosinophils # (Auto) 0.02 K/uL Basophils # (Auto) 0.04 K/uL RDW Standard Deviation 47.0 fL RDW Coefficient of Variation 14.5 % Immature Granulocyte % (Auto) 0.3 % Immature Granulocyte # (Auto) 0.02 K/uL Prothrombin Time 22.0 SECONDS Prothromb Time International Ratio 2.1 Activated Partial Thromboplast Time 38.3 SECONDS Partial Thromboplastin Ratio 1.5 Sodium Level 140 mmol/L Potassium Level 3.7 mmol/L Chloride Level 115 mmol/L Carbon Dioxide Level 16 mmol/L Anion Gap 9.0 mmol/L Blood Urea Nitrogen 27 mg/dl Creatinine 1.08 mg/dl Est Creatinine Clear Calc Drug Dose 38.2 ml/min Estimated GFR () 55.8 Estimated GFR (Non- 48.1 BUN/Creatinine Ratio 25.3 Random Glucose 79 mg/dl Lactic Acid Level 0.9 mmol/L Calcium Level 7.8 mg/dl Phosphorus Level 3.6 mg/dl Magnesium Level 1.7 mg/dl Total Bilirubin 0.6 mg/dl Direct Bilirubin 0.2 mg/dl Aspartate Amino Transf (AST/SGOT) 45 U/L Alanine Aminotransferase (ALT/SGPT) 42 U/L Alkaline Phosphatase 80 U/L Total Protein 5.5 gm/dl Albumin 2.9 gm/dl Lipase 183 U/L Random Vancomycin Level 20.3 mcg/ml Bedside Glucose 76 mg/dl Total Creatine Kinase 55 U/L Creatine Kinase MB 0.6 ng/ml Creatine Kinase MB Ratio 1.1 Troponin I < 0.015 ng/ml Test 06/19/17 10:14 06/19/17 20:55 06/19/17 21:10 06/19/17 21:26 Lactic Acid Level 1.7 mmol/L 1.2 mmol/L Stool Occult Blood POSITIVE Urine Color RED Urine Appearance TURBID Urine pH 6.0 Urine Specific [place] >= 1.030 Urine Protein 1+ Urine Glucose (UA) NEG Urine Ketones NEG Urine Occult Blood 3+ Urine Nitrite NEG Urine Bilirubin NEG Urine Urobilinogen NEG Urine Leukocyte Esterase NEG Urine RBC >30 /hpf Urine WBC 1-5 /hpf Urine Epithelial Cells 5-10 /lpf Urine Bacteria NEG White Blood Count 7.27 K/uL Red Blood Count 5.50 M/uL Hemoglobin 16.8 g/dL Hematocrit 47.9 % Mean Corpuscular Volume 87.1 fL Mean Corpuscular Hemoglobin 30.5 pg Mean Corpuscular Hemoglobin Concent 35.1 g/dl Platelet Count 133 K/uL Mean Platelet Volume 9.7 fL Neutrophils (%) (Auto) 57.5 % Lymphocytes (%) (Auto) 29.3 % Monocytes (%) (Auto) 12.4 % Eosinophils (%) (Auto) 0.3 % Basophils (%) (Auto) 0.4 % Neutrophils # (Auto) 4.18 K/uL Lymphocytes # (Auto) 2.13 K/uL Monocytes # (Auto) 0.90 K/uL Eosinophils # (Auto) 0.02 K/uL Basophils # (Auto) 0.03 K/uL RDW Standard Deviation 45.7 fL RDW Coefficient of Variation 14.3 % Immature Granulocyte % (Auto) 0.1 % Immature Granulocyte # (Auto) 0.01 K/uL Sodium Level 140 mmol/L Potassium Level 3.4 mmol/L Chloride Level 114 mmol/L Carbon Dioxide Level 18 mmol/L Anion Gap 8.0 mmol/L Blood Urea Nitrogen 15 mg/dl Creatinine 0.96 mg/dl Est Creatinine Clear Calc Drug Dose 43.1 ml/min Estimated GFR () 64.3 Estimated GFR (Non- 55.5 BUN/Creatinine Ratio 15.2 Random Glucose 87 mg/dl Calcium Level 7.9 mg/dl Phosphorus Level 1.7 mg/dl Magnesium Level 2.1 mg/dl Total Bilirubin 0.9 mg/dl Direct Bilirubin 0.3 mg/dl Aspartate Amino Transf (AST/SGOT) 34 U/L Alanine Aminotransferase (ALT/SGPT) 35 U/L Alkaline Phosphatase 82 U/L Total Protein 5.8 gm/dl Albumin 2.8 gm/dl Assessment and Plan 82yo female - 1. acute mesenteric ischemia with ischemic colitis - defer management to gen surg and critical care. At this time conservative management including restricted diet, fluids, pain control, and IV antibiotics. serial labs/exams. 2. acute kidney injury 2nd to severe dehydration & #1 - resolving. 3. CKD stage 3- creatinine has improved nicely w/ fluid resuscitation. 4. a. fib on chronic coumadin - latter being held. 5. gross hematuria - suspect due to mcghee trauma - should clear with time. Observe. 6. hypotension - due to volume depletion - resolved, now hypertensive. Slowly reintroduce BP meds. 7. lactic acidosis 2nd to #1 - resolved. 8. hyponatremic dehydration - resolved. 9. DVT proph - INR still up, but coumadin being held due to #1. SCDs. 10. recent GI illness - likely led to dehydration which may have precipitated # 1. 11. CAD - by history - noted. daughter updated Continued [facility] stay due to: inadequate po fluid intake, inadequate oral pain control, multiple IV medications needed Discharge planning: uncertain
[2017-06-20] MEDS: PIPERACILL/TAZOBAC IV 3.375 GM in NSS 100ML IV SCH ×3 (04:13→20:24)
[2017-06-20 05:47] LABS: BASO % 1.1 %; BASO ABS # 0.09 K/uL (0-0.2); EOS % 0.2 %; EOS ABS # 0.02 K/uL (0-0.5); HEMOGLOBIN 17.1 g/dL (12.0-16.0); IG# 0.02 K/uL (0.00-0.02); LYMPH % 23.1 %; LYMPH ABS # 1.87 K/uL (1.2-3.4); MEAN CELL VOLUME 87.3 fL (80-100); MEAN CORPUSCULAR HEMOGLOBIN 29.8 pg (25-34); MEAN CORPUSCULAR HGB CONC 34.2 g/dl (32-36); MEAN PLATELET VOLUME 9.4 fL (7.4-10.4); MONO % 13.1 %; MONO ABS # 1.06 K/uL (0.11-0.59); NEUT % 62.3 %; NEUT ABS # 5.05 K/uL (1.4-6.5); PLATELET COUNT 132 K/uL (130-400); RED CELL DISTRIBUTION WIDTH CV 14.2 % (11.5-14.5); RED CELL DISTRIBUTION WIDTH SD 45.5 fL (36.4-46.3); WHITE BLOOD COUNT 8.11 K/uL (4.8-10.8)
[2017-06-20 06:00] LABS: PTT PATIENT 39.9 SECONDS (21.0-31.0)
[2017-06-20 06:21] LABS: ALBUMIN 2.7 gm/dl (3.4-5.0); CALCIUM 8.1 mg/dl (8.5-10.1); CREATININE 0.82 mg/dl (0.60-1.20); POTASSIUM 3.5 mmol/L (3.5-5.1)
[2017-06-20 06:31] LABS: PHOSPHORUS 2.7 mg/dl (2.5-4.9); TOTAL PROTEIN 5.5 gm/dl (6.4-8.2)
[2017-06-20] MEDS: ASPIRIN 81 MG ECTAB PO SCH (07:32)
--- NOTE | 2017-06-20 07:42 | DIAGNOSTIC IMAGING REPORT ---
CHEST ONE VIEW PORTABLE CLINICAL HISTORY: 82 years-old Female presenting with bradycardia. TECHNIQUE: Portable upright AP view of the chest was obtained. COMPARISON: 06/19/2017. FINDINGS: Atherosclerosis of the aortic arch. Cardiac silhouette top normal in size. Lungs and pleural spaces clear. Osseous structures normal. Upper abdomen normal. IMPRESSION: 1. No acute cardiopulmonary disease. Electronically signed by: Ming Arthur M.D. 06/20/2017 7:41 AM Dictated Date/Time: 06/20/2017 7:40 AM
[2017-06-20] MEDS: VANCOMYCIN IV 1,250 MG in SODIUM CHLORIDE 0.9% 250ML 250 ML IV SCH (10:01)
[2017-06-20] MEDS: PANTOprazole INJ 40 MG in SYRINGE 0 ML IV SCH (10:04)
--- NOTE | 2017-06-20 10:17 | Critical Care Progress Note ---
Critical Care Progress Note Date of Service Jun 20, 2017. Attending Dr. Shrestha Subjective Overnight, the patient did have bloody bowel movement however this does not seem to be related to new bleeding likely old blood intralumenal. The patient did not have a drop in her blood pressure nor tachypnea. She is not tachycardic. And her hematocrit was 51. She continued to have abdominal pain in the right upper quadrant has not changed. Tolerating clear liquid diet. Objective As above, her physical exam revealed on June 19, 2017, elderly female, does not appear to be in any distress, her vital signs remained stable, she is still in A. fib with a rate of 74, blood pressure 146/76, O2 sat 96%. No JVP, S1-S2 A. fib, systolic ejection murmur, distant breath sounds bilaterally, abdomen is soft but minimal tenderness in the right upper quadrant, no rebound and positive bowel sounds. No edema. Neurologically she is intact. I have reviewed her CAT scan myself which showed pneumobilia but no other bowel wall thickening or abnormality. No free air. Nondistended bowel. Her chest x- ray did not reveal any pulmonary vascular congestion or infiltrate. And her labs were consistent with normal leukocyte count and normal lactic acid. Physical exam on June 20, 2017, the patient vital signs remained stable, blood pressure slightly elevated at 151 systolic, no JVP, S1-S2 A. fib, rate controlled. Distant breath sounds bilaterally. Abdomen with tenderness in the right upper quadrant, tympanic but soft, bowel sounds are positive, no edema. Her labs were reviewed and the patient remains without leukocytosis, no left shift or bandemia. No new imaging. Assessment & Plan 1. Ischemic bowel resulted in pneumobilia, remain so far stable, no evidence of ongoing sepsis. Normal white count as well as normal lactic acid. 2. A. fib, difficult to control, patient is on Coumadin and Cardizem, currently Cardizem is on hold due to bradycardia. Her INR has been 2 despite stopping Coumadin likely antibiotic related. 3. Bradycardia, iatrogenic due to diltiazem. Resolved. 4. Sepsis, resolved. Plan: 1. I would keep Cardizem on hold. 2. Continue with IV fluid. 3. I will decrease the rate of the IV fluid as the patient developed hyperchloremic metabolic acidosis. 4. Replete her electrolytes. 5. Continue piperacillin and tazobactam. 6. DVT prophylaxis, her INR already 2.0. 7. Appreciate surgical input with Dr. Swenson. 8. Discussed with the staff on rounds and details, appreciate pharmacy input assisting in antibiotic management. 9. Patient can be dispositioned to regular floor. For further details refer to the previous note. Critical care time spent with the patient was 35 minutes Data Medications: Current Inpatient Medications Medications (Trade) Dose Ordered Sig/Sakina Route Start Time Stop Time Status Last Admin Dose Admin Hyoscyamine Sulfate (Levsin Tab) 0.125 mg Q4H PRN SL 06/18/17 20:15 07/18/17 20:14 06/19/17 18:18 0.125 MG Ondansetron HCl (Zofran Inj) 4 mg Q6H PRN IV 06/18/17 20:45 07/18/17 20:44 06/19/17 16:28 4 MG Pantoprazole Sodium 40 mg/ Syringe 10 ml @ 5 mls/min DAILY@1100 IV 06/19/17 11:00 07/19/17 10:59 06/20/17 10:04 5 MLS/MIN Miscellaneous Information (Icu Protocol For Hyperglycemia) 1 ea PRN PRN N/A 06/18/17 20:45 06/20/17 20:44 Aspirin (Ecotrin Tab) 81 mg QAM PO 06/19/17 09:00 07/19/17 08:59 06/20/17 07:32 81 MG Atorvastatin Calcium (Lipitor Tab) 40 mg Q2D PO 06/19/17 09:00 07/19/17 08:59 06/19/17 08:15 40 MG Miscellaneous Information (Consult) 1 ea UD PRN N/A 06/18/17 21:45 07/18/17 21:44 Miscellaneous Information (Consult) 1 ea UD PRN N/A 06/18/17 21:45 07/18/17 21:44 Piperacillin Sod/ Tazobactam Sod 3.375 gm/Sodium Chloride 115 ml @ 28.75 mls/ hr Q8H IV 06/19/17 04:00 06/29/17 03:59 06/20/17 04:13 28.75 MLS/HR Parenteral Electrolyte Solution 1,000 ml @ 100 mls/hr Q10H IV 06/19/17 08:45 07/19/17 08:44 06/19/17 23:32 100 MLS/HR Vancomycin HCl 1250 mg/Sodium Chloride 275 ml @ 125 mls/hr Q24H IV 06/19/17 10:00 06/29/17 09:59 06/20/17 10:01 125 MLS/HR Morphine Sulfate (MoRPHine SULFATE INJ) 1 mg Q4H PRN IV 06/19/17 22:15 07/03/17 22:14 Vital Signs: Date Time Temp Pulse Resp B/P (MAP) Pulse Ox O2 Delivery O2 Flow Rate FiO2 06/20/17 08:01 36.8 87 27 166/94 (118) 96 Room Air 06/20/17 08:00 85 19 95 06/20/17 07:30 96 Room Air 06/20/17 07:01 84 14 163/85 (111) 97 06/20/17 07:00 83 18 95 06/20/17 06:01 87 19 173/100 (124) 96 Room Air 06/20/17 05:01 81 21 171/97 (121) 95 Room Air 06/20/17 04:19 96 Room Air 06/20/17 04:02 36.7 87 20 156/97 (116) 96 Room Air 06/20/17 03:01 92 20 168/104 (125) 95 Room Air 06/20/17 02:01 83 14 176/97 (123) 95 Room Air 06/20/17 01:10 91 20 159/102 (121) 96 Room Air 06/20/17 00:26 84 17 165/96 (119) 95 Room Air 06/20/17 00:17 96 Room Air 06/20/17 00:01 36.7 84 14 165/96 (119) 95 Room Air 06/19/17 23:01 83 17 172/98 (122) 94 Room Air 06/19/17 22:01 84 15 166/94 (118) 96 Room Air 06/19/17 21:01 94 19 179/107 (131) 97 Room Air 06/19/17 20:06 Room Air 06/19/17 20:01 36.5 81 17 174/94 (120) 96 Room Air 06/19/17 19:01 86 21 159/89 (112) 96 Room Air 06/19/17 18:01 85 18 165/97 (119) 97 Room Air 06/19/17 18:00 84 23 98 06/19/17 17:01 83 20 164/82 (109) 96 06/19/17 17:00 83 20 94 06/19/17 16:01 84 15 154/79 (104) 96 Room Air 06/19/17 16:00 83 21 94 06/19/17 15:12 Room Air 06/19/17 15:01 36.7 88 17 143/91 (108) 97 06/19/17 15:00 73 22 95 06/19/17 14:01 83 21 154/84 (107) 98 Room Air 06/19/17 14:00 82 23 98 06/19/17 13:01 76 19 144/77 (99) 97 06/19/17 13:00 79 21 96 06/19/17 12:01 36.8 69 21 134/77 (96) 95 Room Air 06/19/17 12:00 75 21 95 06/19/17 11:40 Room Air 06/19/17 11:01 70 146/76 (99) 95 06/19/17 11:00 70 95 Laboratory Results: Last 24 Hours Test 06/19/17 20:55 06/19/17 21:10 06/19/17 21:26 06/20/17 05:27 Stool Occult Blood POSITIVE Urine Color RED Urine Appearance TURBID Urine pH 6.0 Urine Specific [place] >= 1.030 Urine Protein 1+ Urine Glucose (UA) NEG Urine Ketones NEG Urine Occult Blood 3+ Urine Nitrite NEG Urine Bilirubin NEG Urine Urobilinogen NEG Urine Leukocyte Esterase NEG Urine RBC >30 /hpf Urine WBC 1-5 /hpf Urine Epithelial Cells 5-10 /lpf Urine Bacteria NEG White Blood Count 7.27 K/uL 8.11 K/uL Red Blood Count 5.50 M/uL 5.73 M/uL Hemoglobin 16.8 g/dL 17.1 g/dL Hematocrit 47.9 % 50.0 % Mean Corpuscular Volume 87.1 fL 87.3 fL Mean Corpuscular Hemoglobin 30.5 pg 29.8 pg Mean Corpuscular Hemoglobin Concent 35.1 g/dl 34.2 g/dl Platelet Count 133 K/uL 132 K/uL Mean Platelet Volume 9.7 fL 9.4 fL Neutrophils (%) (Auto) 57.5 % 62.3 % Lymphocytes (%) (Auto) 29.3 % 23.1 % Monocytes (%) (Auto) 12.4 % 13.1 % Eosinophils (%) (Auto) 0.3 % 0.2 % Basophils (%) (Auto) 0.4 % 1.1 % Neutrophils # (Auto) 4.18 K/uL 5.05 K/uL Lymphocytes # (Auto) 2.13 K/uL 1.87 K/uL Monocytes # (Auto) 0.90 K/uL 1.06 K/uL Eosinophils # (Auto) 0.02 K/uL 0.02 K/uL Basophils # (Auto) 0.03 K/uL 0.09 K/uL RDW Standard Deviation 45.7 fL 45.5 fL RDW Coefficient of Variation 14.3 % 14.2 % Immature Granulocyte % (Auto) 0.1 % 0.2 % Immature Granulocyte # (Auto) 0.01 K/uL 0.02 K/uL Sodium Level 140 mmol/L 139 mmol/L Potassium Level 3.4 mmol/L 3.5 mmol/L Chloride Level 114 mmol/L 112 mmol/L Carbon Dioxide Level 18 mmol/L 20 mmol/L Anion Gap 8.0 mmol/L 7.0 mmol/L Blood Urea Nitrogen 15 mg/dl 13 mg/dl Creatinine 0.96 mg/dl 0.82 mg/dl Est Creatinine Clear Calc Drug Dose 43.1 ml/min 50.5 ml/min Estimated GFR () 64.3 77.8 Estimated GFR (Non- 55.5 67.1 BUN/Creatinine Ratio 15.2 15.9 Random Glucose 87 mg/dl 82 mg/dl Lactic Acid Level 1.2 mmol/L Calcium Level 7.9 mg/dl 8.1 mg/dl Phosphorus Level 1.7 mg/dl 2.7 mg/dl Magnesium Level 2.1 mg/dl 1.9 mg/dl Total Bilirubin 0.9 mg/dl 0.8 mg/dl Direct Bilirubin 0.3 mg/dl 0.2 mg/dl Aspartate Amino Transf (AST/SGOT) 34 U/L 30 U/L Alanine Aminotransferase (ALT/SGPT) 35 U/L 32 U/L Alkaline Phosphatase 82 U/L 79 U/L Total Protein 5.8 gm/dl 5.5 gm/dl Albumin 2.8 gm/dl 2.7 gm/dl Prothrombin Time 20.4 SECONDS Prothromb Time International Ratio 2.0 Activated Partial Thromboplast Time 39.9 SECONDS Partial Thromboplastin Ratio 1.5 Lipase 169 U/L
[2017-06-20] MEDS: MoRPHine SULFATE 2 MG/ML CARP IV PRN ×2 (11:18→16:18)
--- NOTE | 2017-06-20 12:44 | Surgery Progress Note ---
Surgery Progress Note Date of Service Jun 20, 2017. Subjective + bowel movement (had 2 small ones with dark blood over last 2 shifts), + nausea (unchanged), No vomiting Crampy discomfort in the lower abdomen prior to BM's but resolves after bm Objective Vital Signs: Date Time Temp Pulse Resp B/P (MAP) Pulse Ox O2 Delivery O2 Flow Rate FiO2 06/20/17 11:15 96 Room Air 06/20/17 10:00 82 20 170/97 (121) 96 Room Air 06/20/17 08:01 36.8 87 27 166/94 (118) 96 Room Air 06/20/17 08:00 85 19 95 06/20/17 07:30 96 Room Air 06/20/17 07:01 84 14 163/85 (111) 97 06/20/17 07:00 83 18 95 06/20/17 06:01 87 19 173/100 (124) 96 Room Air 06/20/17 05:01 81 21 171/97 (121) 95 Room Air 06/20/17 04:19 96 Room Air 06/20/17 04:02 36.7 87 20 156/97 (116) 96 Room Air 06/20/17 03:01 92 20 168/104 (125) 95 Room Air 06/20/17 02:01 83 14 176/97 (123) 95 Room Air 06/20/17 01:10 91 20 159/102 (121) 96 Room Air 06/20/17 00:26 84 17 165/96 (119) 95 Room Air 06/20/17 00:17 96 Room Air 06/20/17 00:01 36.7 84 14 165/96 (119) 95 Room Air 06/19/17 23:01 83 17 172/98 (122) 94 Room Air 06/19/17 22:01 84 15 166/94 (118) 96 Room Air 06/19/17 21:01 94 19 179/107 (131) 97 Room Air 06/19/17 20:06 Room Air 06/19/17 20:01 36.5 81 17 174/94 (120) 96 Room Air 06/19/17 19:01 86 21 159/89 (112) 96 Room Air 06/19/17 18:01 85 18 165/97 (119) 97 Room Air 06/19/17 18:00 84 23 98 06/19/17 17:01 83 20 164/82 (109) 96 06/19/17 17:00 83 20 94 06/19/17 16:01 84 15 154/79 (104) 96 Room Air 06/19/17 16:00 83 21 94 06/19/17 15:12 Room Air 06/19/17 15:01 36.7 88 17 143/91 (108) 97 06/19/17 15:00 73 22 95 06/19/17 14:01 83 21 154/84 (107) 98 Room Air 06/19/17 14:00 82 23 98 06/19/17 13:01 76 19 144/77 (99) 97 06/19/17 13:00 79 21 96 Abdomen: normal bowel sounds, non distended, soft, + tenderness (mild RUQ) Laboratory Results: Results Past 24 Hours Test 06/19/17 20:55 06/19/17 21:10 06/19/17 21:26 06/20/17 05:27 Range/Units Stool Occult Blood POSITIVE NEGATIVE Urine Color RED Urine Appearance TURBID CLEAR Urine pH 6.0 4.5-7.5 Urine Specific [place] >= 1.030 1.000-1.030 Urine Protein 1+ NEG Urine Glucose (UA) NEG NEG Urine Ketones NEG NEG Urine Occult Blood 3+ NEG Urine Nitrite NEG NEG Urine Bilirubin NEG NEG Urine Urobilinogen NEG NEG Urine Leukocyte Esterase NEG NEG Urine RBC >30 0-4 /hpf Urine WBC 1-5 0-5 /hpf Urine Epithelial Cells 5-10 0-5 /lpf Urine Bacteria NEG NEG White Blood Count 7.27 8.11 4.8-10.8 K/uL Red Blood Count 5.50 5.73 4.2-5.4 M/uL Hemoglobin 16.8 17.1 12.0-16.0 g/dL Hematocrit 47.9 50.0 37-47 % Mean Corpuscular Volume 87.1 87.3 80-100 fL Mean Corpuscular Hemoglobin 30.5 29.8 25-34 pg Mean Corpuscular Hemoglobin Concent 35.1 34.2 32-36 g/dl Platelet Count 133 132 130-400 K/uL Mean Platelet Volume 9.7 9.4 7.4-10.4 fL Neutrophils (%) (Auto) 57.5 62.3 % Lymphocytes (%) (Auto) 29.3 23.1 % Monocytes (%) (Auto) 12.4 13.1 % Eosinophils (%) (Auto) 0.3 0.2 % Basophils (%) (Auto) 0.4 1.1 % Neutrophils # (Auto) 4.18 5.05 1.4-6.5 K/uL Lymphocytes # (Auto) 2.13 1.87 1.2-3.4 K/uL Monocytes # (Auto) 0.90 1.06 0.11-0.59 K/uL Eosinophils # (Auto) 0.02 0.02 0-0.5 K/uL Basophils # (Auto) 0.03 0.09 0-0.2 K/uL RDW Standard Deviation 45.7 45.5 36.4-46.3 fL RDW Coefficient of Variation 14.3 14.2 11.5-14.5 % Immature Granulocyte % (Auto) 0.1 0.2 % Immature Granulocyte # (Auto) 0.01 0.02 0.00-0.02 K/uL Sodium Level 140 139 136-145 mmol/L Potassium Level 3.4 3.5 3.5-5.1 mmol/L Chloride Level 114 112 98-107 mmol/L Carbon Dioxide Level 18 20 21-32 mmol/L Anion Gap 8.0 7.0 3-11 mmol/L Blood Urea Nitrogen 15 13 7-18 mg/dl Creatinine 0.96 0.82 0.60-1.20 mg/dl Est Creatinine Clear Calc Drug Dose 43.1 50.5 ml/min Estimated GFR () 64.3 77.8 Estimated GFR (Non- 55.5 67.1 BUN/Creatinine Ratio 15.2 15.9 10-20 Random Glucose 87 82 70-99 mg/dl Lactic Acid Level 1.2 0.4-2.0 mmol/L Calcium Level 7.9 8.1 8.5-10.1 mg/dl Phosphorus Level 1.7 2.7 2.5-4.9 mg/dl Magnesium Level 2.1 1.9 1.8-2.4 mg/dl Total Bilirubin 0.9 0.8 0.2-1 mg/dl Direct Bilirubin 0.3 0.2 0-0.2 mg/dl Aspartate Amino Transf (AST/SGOT) 34 30 15-37 U/L Alanine Aminotransferase (ALT/SGPT) 35 32 12-78 U/L Alkaline Phosphatase 82 79 45-117 U/L Total Protein 5.8 5.5 6.4-8.2 gm/dl Albumin 2.8 2.7 3.4-5.0 gm/dl Prothrombin Time 20.4 9.0-12.0 SECONDS Prothromb Time International Ratio 2.0 0.9-1.1 Activated Partial Thromboplast Time 39.9 21.0-31.0 SECONDS Partial Thromboplastin Ratio 1.5 Lipase 169 73-393 U/L Assessment & Plan Pneumobilia/possible ischemia of large bowel Abdomen benign WBC normal H&H jame Would continue with conservative measures.
[2017-06-20] MEDS ORDERED: POTASSIUM CHLORIDE 10 MEQ TABCR PO STA (12:49)
[2017-06-20] MEDS: NORMOSOL R 1,000 ML IV SCH ×2 (12:49→20:24)
[2017-06-20] MEDS ORDERED: LISINOPRIL 20 MG TAB PO ONE (12:50)
[2017-06-20] MEDS ORDERED: MAGNESIUM SULFATE 1GM / D5W 1 GM in PREMIXED IN D5W 100 ML IV ONE (13:00)
--- NOTE | 2017-06-20 23:57 | Hospitalist Progress Note ---
Hospitalist Progress Note Date of Service Jun 20, 2017. Subjective Pt evaluation today including: conversation w/ patient, conversation w/ family , conversation w/ bus info consultant ([employer]) Voiding: mcghee catheter in place feeling very tired, no SOB. Is having intermittent "hard" chest pain in substernal area that lasts for 5 min, comes on at rest, goes away with rest, not associated with any other symptoms. ECGs and troponins have all been negative to date and this has been ongoing since admission. Had some more bloody BMs today. Still has lower abd pain that comes and goes. Constitutional: No fever Eyes: No problem reported ENT: No problem reported Respiratory: No problem reported All Other Systems: Reviewed and Negative Objective Vital Signs Tele with A-fib, rates 70s-80s Date Time Temp Pulse Resp B/P (MAP) Pulse Ox O2 Delivery O2 Flow Rate FiO2 06/20/17 11:15 96 Room Air 06/20/17 10:00 82 20 170/97 (121) 96 Room Air 06/20/17 08:01 36.8 87 27 166/94 (118) 96 Room Air 06/20/17 08:00 85 19 95 06/20/17 07:30 96 Room Air 06/20/17 07:01 84 14 163/85 (111) 97 06/20/17 07:00 83 18 95 06/20/17 06:01 87 19 173/100 (124) 96 Room Air 06/20/17 05:01 81 21 171/97 (121) 95 Room Air 06/20/17 04:19 96 Room Air 06/20/17 04:02 36.7 87 20 156/97 (116) 96 Room Air 06/20/17 03:01 92 20 168/104 (125) 95 Room Air 06/20/17 02:01 83 14 176/97 (123) 95 Room Air 06/20/17 01:10 91 20 159/102 (121) 96 Room Air 06/20/17 00:26 84 17 165/96 (119) 95 Room Air 06/20/17 00:17 96 Room Air 06/20/17 00:01 36.7 84 14 165/96 (119) 95 Room Air 06/19/17 23:01 83 17 172/98 (122) 94 Room Air 06/19/17 22:01 84 15 166/94 (118) 96 Room Air 06/19/17 21:01 94 19 179/107 (131) 97 Room Air 06/19/17 20:06 Room Air 06/19/17 20:01 36.5 81 17 174/94 (120) 96 Room Air 06/19/17 19:01 86 21 159/89 (112) 96 Room Air 06/19/17 18:01 85 18 165/97 (119) 97 Room Air 06/19/17 18:00 84 23 98 06/19/17 17:01 83 20 164/82 (109) 96 06/19/17 17:00 83 20 94 06/19/17 16:01 84 15 154/79 (104) 96 Room Air 06/19/17 16:00 83 21 94 06/19/17 15:12 Room Air 06/19/17 15:01 36.7 88 17 143/91 (108) 97 06/19/17 15:00 73 22 95 06/19/17 14:01 83 21 154/84 (107) 98 Room Air 06/19/17 14:00 82 23 98 06/19/17 13:01 76 19 144/77 (99) 97 06/19/17 13:00 79 21 96 Physical Exam General Appearance: WD/WN, no apparent distress (but is sitting in a chair and when I ask her questions, she whimpers before answering) Eyes: normal inspection, EOMI, sclerae normal ENT: hearing grossly normal, pharynx normal (mucus membranes moist) Neck: trachea midline Respiratory/Chest: lungs clear, normal breath sounds, no respiratory distress, no accessory muscle use Cardiovascular: no edema, no JVD, + systolic murmur, + irregularly irregular ( with normal rates) Abdomen: normal bowel sounds, soft, + tenderness (diffusely but more so in lower abdomen and suprapubic region, no guarding or rebound tenderness) Extremities: non-tender, normal inspection, no pedal edema, no calf tenderness Neurologic/Psychiatric: alert, oriented x 3, + depressed affect Skin: normal color, warm/dry, no rash Lymphatic: no adenopathy Laboratory Results Last 24 Hours Test 06/19/17 20:55 06/19/17 21:10 06/19/17 21:26 06/20/17 05:27 Stool Occult Blood POSITIVE Urine Color RED Urine Appearance TURBID Urine pH 6.0 Urine Specific [place] >= 1.030 Urine Protein 1+ Urine Glucose (UA) NEG Urine Ketones NEG Urine Occult Blood 3+ Urine Nitrite NEG Urine Bilirubin NEG Urine Urobilinogen NEG Urine Leukocyte Esterase NEG Urine RBC >30 /hpf Urine WBC 1-5 /hpf Urine Epithelial Cells 5-10 /lpf Urine Bacteria NEG White Blood Count 7.27 K/uL 8.11 K/uL Red Blood Count 5.50 M/uL 5.73 M/uL Hemoglobin 16.8 g/dL 17.1 g/dL Hematocrit 47.9 % 50.0 % Mean Corpuscular Volume 87.1 fL 87.3 fL Mean Corpuscular Hemoglobin 30.5 pg 29.8 pg Mean Corpuscular Hemoglobin Concent 35.1 g/dl 34.2 g/dl Platelet Count 133 K/uL 132 K/uL Mean Platelet Volume 9.7 fL 9.4 fL Neutrophils (%) (Auto) 57.5 % 62.3 % Lymphocytes (%) (Auto) 29.3 % 23.1 % Monocytes (%) (Auto) 12.4 % 13.1 % Eosinophils (%) (Auto) 0.3 % 0.2 % Basophils (%) (Auto) 0.4 % 1.1 % Neutrophils # (Auto) 4.18 K/uL 5.05 K/uL Lymphocytes # (Auto) 2.13 K/uL 1.87 K/uL Monocytes # (Auto) 0.90 K/uL 1.06 K/uL Eosinophils # (Auto) 0.02 K/uL 0.02 K/uL Basophils # (Auto) 0.03 K/uL 0.09 K/uL RDW Standard Deviation 45.7 fL 45.5 fL RDW Coefficient of Variation 14.3 % 14.2 % Immature Granulocyte % (Auto) 0.1 % 0.2 % Immature Granulocyte # (Auto) 0.01 K/uL 0.02 K/uL Sodium Level 140 mmol/L 139 mmol/L Potassium Level 3.4 mmol/L 3.5 mmol/L Chloride Level 114 mmol/L 112 mmol/L Carbon Dioxide Level 18 mmol/L 20 mmol/L Anion Gap 8.0 mmol/L 7.0 mmol/L Blood Urea Nitrogen 15 mg/dl 13 mg/dl Creatinine 0.96 mg/dl 0.82 mg/dl Est Creatinine Clear Calc Drug Dose 43.1 ml/min 50.5 ml/min Estimated GFR () 64.3 77.8 Estimated GFR (Non- 55.5 67.1 BUN/Creatinine Ratio 15.2 15.9 Random Glucose 87 mg/dl 82 mg/dl Lactic Acid Level 1.2 mmol/L Calcium Level 7.9 mg/dl 8.1 mg/dl Phosphorus Level 1.7 mg/dl 2.7 mg/dl Magnesium Level 2.1 mg/dl 1.9 mg/dl Total Bilirubin 0.9 mg/dl 0.8 mg/dl Direct Bilirubin 0.3 mg/dl 0.2 mg/dl Aspartate Amino Transf (AST/SGOT) 34 U/L 30 U/L Alanine Aminotransferase (ALT/SGPT) 35 U/L 32 U/L Alkaline Phosphatase 82 U/L 79 U/L Total Protein 5.8 gm/dl 5.5 gm/dl Albumin 2.8 gm/dl 2.7 gm/dl Prothrombin Time 20.4 SECONDS Prothromb Time International Ratio 2.0 Activated Partial Thromboplast Time 39.9 SECONDS Partial Thromboplastin Ratio 1.5 Lipase 169 U/L Assessment and Plan This patient is an 82yo female with a history of CKD stage III, chronic atrial fibrillation on Coumadin, CAD, HTN, dyslipidemia, who presented with nausea, vomiting and diarrhea times 3 days that had resolved, and then was with recurrence of symptoms prompting admission. The patient also reports developing substernal chest discomfort secondary to vomiting. She was found to have evidence of ischemic colitis with mesenteric and intrahepatic portal venous gas noted on CT scan. Acute mesenteric ischemia with ischemic colitis/hematochezia-presentation consistent with ischemic colitis-with recent possible viral GI illness - likely led to dehydration which may have precipitated the ischemia. She is somewhat improved, lactate negative, pain still present, still with some bloody bowel movements but hemoglobin increased to 17 today. -Appreciate critical care and general surgery management -Stable for transfer to the telemetry floor at this time out of the ICU -Continue conservative management including restricted diet-will remain on clear liquids -Continue IV fluids, pain control with IV morphine, and IV antibiotics in the form of Zosyn and vancomycin. -Continue serial labs/exams. -Replace electrolytes as needed Acute kidney injury in the setting of CKD stage III-secondary to severe dehydration and mesenteric ischemia-resolved, creatinine 0.82 today A. fib on chronic coumadin -had bradycardia on admission, now resolved with holding diltiazem and metoprolol -Holding Coumadin for hematochezia as above -Follow PT/INR as was still elevated at 2.0 today likely in the setting of antibiotic use -Continue to hold metoprolol and diltiazem and restart as blood pressure and heart rate can tolerate Gross hematuria - suspect due to mcghee trauma in the setting of Coumadin use- still with some sediment in the Mcghee today -Should clear with time. -Continue to observe. Hypotension - due to volume depletion - resolved, now hypertensive. Slowly reintroduce BP meds. -Add lisinopril back at a lower dose of 20 mg daily today -If BP tolerates, will add back metoprolol and diltiazem Hyponatremia-secondary to dehydration, sodium is 133 on admission resolved with IV fluids -Follow PRP CAD/HL/chest pain-noted by history, had atypical chest pain here which is likely secondary to previous vomiting. ECGs and troponins have all been negative -Restart isosorbide, metoprolol succinate ER 50 mg when able to as above -Restarted aspirin 81 daily -Continue statin -Restarted lisinopril today -Continue pantoprazole but convert from IV to p.o. for tomorrow DVT proph - INR still up, but coumadin being held, SCDs Disposition-will need PT/OT likely in the next 2 days Full code
[2017-06-21] VITALS (7 sets, daily range): BP systolic 144–161; BP diastolic 88–98; PULSE 77–96; TEMP 36.6–37.2; O2SAT 94–97
[2017-06-21] MEDS: MoRPHine SULFATE 2 MG/ML CARP IV PRN (02:02)
[2017-06-21] MEDS: HYOSCYAMINE SULFATE 0.125 MG SL TAB SL PRN (02:02)
[2017-06-21] MEDS: PIPERACILL/TAZOBAC IV 3.375 GM in NSS 100ML IV SCH ×3 (03:57→20:46)
[2017-06-21] MEDS: NORMOSOL R 1,000 ML IV SCH ×2 (03:57→13:24)
[2017-06-21 07:58] LABS: BASO % 0.3 %; BASO ABS # 0.03 K/uL (0-0.2); EOS % 0.5 %; EOS ABS # 0.05 K/uL (0-0.5); HEMATOCRIT 47.2 % (37-47); HEMOGLOBIN 16.6 g/dL (12.0-16.0); IG# 0.02 K/uL (0.00-0.02); LYMPH % 27.4 %; LYMPH ABS # 2.51 K/uL (1.2-3.4); MEAN CELL VOLUME 87.1 fL (80-100); MEAN CORPUSCULAR HEMOGLOBIN 30.6 pg (25-34); MEAN CORPUSCULAR HGB CONC 35.2 g/dl (32-36); MEAN PLATELET VOLUME 9.8 fL (7.4-10.4); MONO % 14.4 %; MONO ABS # 1.32 K/uL (0.11-0.59); NEUT % 57.2 %; NEUT ABS # 5.22 K/uL (1.4-6.5); PLATELET COUNT 125 K/uL (130-400); RED CELL DISTRIBUTION WIDTH CV 14.3 % (11.5-14.5); RED CELL DISTRIBUTION WIDTH SD 45.3 fL (36.4-46.3); WHITE BLOOD COUNT 9.15 K/uL (4.8-10.8)
[2017-06-21] MEDS: ASPIRIN 81 MG ECTAB PO SCH (08:01)
[2017-06-21] MEDS: PANTOprazole SOD 40 MG TAB PO SCH (08:01)
[2017-06-21] MEDS: LISINOPRIL 20 MG TAB PO SCH (08:02)
[2017-06-21] MEDS: ATORVASTATIN 40 MG TAB PO SCH (08:02)
[2017-06-21 08:05] LABS: INR 1.7 (0.9-1.1)
[2017-06-21 08:29] LABS: ALBUMIN 2.6 gm/dl (3.4-5.0); CREATININE 0.82 mg/dl (0.60-1.20); PHOSPHORUS 2.4 mg/dl (2.5-4.9); POTASSIUM 3.6 mmol/L (3.5-5.1); TOTAL PROTEIN 5.7 gm/dl (6.4-8.2)
[2017-06-21] MEDS ORDERED: VANCOMYCIN TROUGH ONE (09:30)
[2017-06-21] MEDS: VANCOMYCIN IV 1,250 MG in SODIUM CHLORIDE 0.9% 250ML 250 ML IV SCH (09:55)
--- NOTE | 2017-06-21 12:11 | Surgery Progress Note ---
Surgery Progress Note Date of Service Jun 21, 2017. Subjective + bowel movement (brown with no gross blood), No nausea, No vomiting Feels better today Less pain Appetite better Objective Vital Signs: Date Time Temp Pulse Resp B/P (MAP) Pulse Ox O2 Delivery O2 Flow Rate FiO2 06/21/17 12:04 36.6 96 18 147/90 (109) 96 Room Air 06/21/17 08:15 37.2 86 16 153/88 (109) 94 Room Air 06/21/17 08:15 Room Air 06/21/17 04:10 Room Air 06/21/17 03:53 36.9 94 18 160/98 (118) 97 Room Air 06/21/17 00:14 Room Air 06/20/17 23:51 37.3 83 18 131/80 (97) 94 Room Air 06/20/17 20:29 Room Air 06/20/17 19:01 36.7 90 20 145/84 (104) 94 Room Air 06/20/17 16:00 Room Air 06/20/17 15:13 36.8 94 16 158/102 (120) 95 Room Air 161/110 (127) 06/20/17 14:00 74 18 06/20/17 13:00 87 20 Abdomen: normal bowel sounds, non distended, soft, + tenderness (less so today) Laboratory Results: Results Past 24 Hours Test 06/21/17 07:32 06/21/17 07:48 06/21/17 09:30 06/21/17 10:30 Range/Units White Blood Count 9.15 4.8-10.8 K/uL Red Blood Count 5.42 4.2-5.4 M/uL Hemoglobin 16.6 12.0-16.0 g/dL Hematocrit 47.2 37-47 % Mean Corpuscular Volume 87.1 80-100 fL Mean Corpuscular Hemoglobin 30.6 25-34 pg Mean Corpuscular Hemoglobin Concent 35.2 32-36 g/dl Platelet Count 125 130-400 K/uL Mean Platelet Volume 9.8 7.4-10.4 fL Neutrophils (%) (Auto) 57.2 % Lymphocytes (%) (Auto) 27.4 % Monocytes (%) (Auto) 14.4 % Eosinophils (%) (Auto) 0.5 % Basophils (%) (Auto) 0.3 % Neutrophils # (Auto) 5.22 1.4-6.5 K/uL Lymphocytes # (Auto) 2.51 1.2-3.4 K/uL Monocytes # (Auto) 1.32 0.11-0.59 K/uL Eosinophils # (Auto) 0.05 0-0.5 K/uL Basophils # (Auto) 0.03 0-0.2 K/uL RDW Standard Deviation 45.3 36.4-46.3 fL RDW Coefficient of Variation 14.3 11.5-14.5 % Immature Granulocyte % (Auto) 0.2 % Immature Granulocyte # (Auto) 0.02 0.00-0.02 K/uL Prothrombin Time 17.4 9.0-12.0 SECONDS Prothromb Time International Ratio 1.7 0.9-1.1 Sodium Level 138 136-145 mmol/L Potassium Level 3.6 3.5-5.1 mmol/L Chloride Level 105 98-107 mmol/L Carbon Dioxide Level 22 21-32 mmol/L Anion Gap 11.0 3-11 mmol/L Blood Urea Nitrogen 8 7-18 mg/dl Creatinine 0.82 0.60-1.20 mg/dl Est Creatinine Clear Calc Drug Dose 50.9 ml/min Estimated GFR () 77.8 Estimated GFR (Non- 67.1 BUN/Creatinine Ratio 9.2 10-20 Random Glucose 84 70-99 mg/dl Calcium Level 8.0 8.5-10.1 mg/dl Phosphorus Level 2.4 2.5-4.9 mg/dl Magnesium Level 2.0 1.8-2.4 mg/dl Total Bilirubin 1.1 0.2-1 mg/dl Direct Bilirubin 0.3 0-0.2 mg/dl Aspartate Amino Transf (AST/SGOT) 24 15-37 U/L Alanine Aminotransferase (ALT/SGPT) 22 12-78 U/L Alkaline Phosphatase 75 45-117 U/L Total Protein 5.7 6.4-8.2 gm/dl Albumin 2.6 3.4-5.0 gm/dl Lipase 182 73-393 U/L Lactic Acid Level 1.1 0.4-2.0 mmol/L Vancomycin Level Trough 9.0 SEE COMMENT mcg/ml Stool Occult Blood POSITIVE NEGATIVE Assessment & Plan Pneumobilia/possible ischemia of large bowel Symptomatically improving Abdomen benign WBC an H&H remain normal Would continue with conservative measures Advance diet very slowly.
--- NOTE | 2017-06-21 14:07 | Pharmacy Progress Note ---
Pharmacy Antibiotic Prog Note Date of Service Jun 21, 2017. Subjective The patient is currently receiving vancomycin 1250 mg IV every 24 hours. The patient is currently on day # 4 of vancomycin and Zosyn IV therapy. Objective Height (Feet): 5 Height (Inches): 2.00 Weight (Kilograms): 74.500 Lab Results (24hrs): Test 06/21/17 07:32 06/21/17 07:48 06/21/17 09:30 06/21/17 10:30 White Blood Count 9.15 K/uL (4.8-10.8) Red Blood Count 5.42 M/uL (4.2-5.4) Hemoglobin 16.6 g/dL (12.0-16.0) Hematocrit 47.2 % (37-47) Mean Corpuscular Volume 87.1 fL (80-100) Mean Corpuscular Hemoglobin 30.6 pg (25-34) Mean Corpuscular Hemoglobin Concent 35.2 g/dl (32-36) Platelet Count 125 K/uL (130-400) Mean Platelet Volume 9.8 fL (7.4-10.4) Neutrophils (%) (Auto) 57.2 % Lymphocytes (%) (Auto) 27.4 % Monocytes (%) (Auto) 14.4 % Eosinophils (%) (Auto) 0.5 % Basophils (%) (Auto) 0.3 % Neutrophils # (Auto) 5.22 K/uL (1.4-6.5) Lymphocytes # (Auto) 2.51 K/uL (1.2-3.4) Monocytes # (Auto) 1.32 K/uL (0.11-0.59) Eosinophils # (Auto) 0.05 K/uL (0-0.5) Basophils # (Auto) 0.03 K/uL (0-0.2) RDW Standard Deviation 45.3 fL (36.4-46.3) RDW Coefficient of Variation 14.3 % (11.5-14.5) Immature Granulocyte % (Auto) 0.2 % Immature Granulocyte # (Auto) 0.02 K/uL (0.00-0.02) Prothrombin Time 17.4 SECONDS (9.0-12.0) Prothromb Time International Ratio 1.7 (0.9-1.1) Sodium Level 138 mmol/L (136-145) Potassium Level 3.6 mmol/L (3.5-5.1) Chloride Level 105 mmol/L (98-107) Carbon Dioxide Level 22 mmol/L (21-32) Anion Gap 11.0 mmol/L (3-11) Blood Urea Nitrogen 8 mg/dl (7-18) Creatinine 0.82 mg/dl (0.60-1.20) Est Creatinine Clear Calc Drug Dose 50.9 ml/min Estimated GFR () 77.8 Estimated GFR (Non- 67.1 BUN/Creatinine Ratio 9.2 (10-20) Random Glucose 84 mg/dl (70-99) Calcium Level 8.0 mg/dl (8.5-10.1) Phosphorus Level 2.4 mg/dl (2.5-4.9) Magnesium Level 2.0 mg/dl (1.8-2.4) Total Bilirubin 1.1 mg/dl (0.2-1) Direct Bilirubin 0.3 mg/dl (0-0.2) Aspartate Amino Transf (AST/SGOT) 24 U/L (15-37) Alanine Aminotransferase (ALT/SGPT) 22 U/L (12-78) Alkaline Phosphatase 75 U/L (45-117) Total Protein 5.7 gm/dl (6.4-8.2) Albumin 2.6 gm/dl (3.4-5.0) Lipase 182 U/L (73-393) Lactic Acid Level 1.1 mmol/L (0.4-2.0) Vancomycin Level Trough 9.0 mcg/ml (SEE COMMENT) Stool Occult Blood POSITIVE (NEGATIVE) Assessment & Plan Vancomycin trough today prior to 1000 dose = 9mcg/ml This drug level is Subtherapeutic (goal trough 15-20mcg/ml) Change to/or continue vancomycin 1250 mg IV every 18 hours. Peak and trough or random level has been ordered for: 06/23 prior to 1600 dose. Pharmacy will continue to follow and will adjust dose/frequency as necessary. Thank you
[2017-06-21] MEDS ORDERED: METOPROLOL SUCC 50MG EXT REL TAB PO ONE (17:38)
--- NOTE | 2017-06-21 18:06 | Hospitalist Progress Note ---
Hospitalist Progress Note Date of Service Jun 21, 2017. Subjective Pt evaluation today including: conversation w/ patient Voiding: mcghee catheter in place Abd pain improved, is only a 3/10, somewhat worse with having a BM. Has had 6 loose BMs today but all nonbloody. No N/V. Is tolerating clears diet without difficulty.Overall feels better. Is having right knee swelling and significant pain, decreased ROM she noticed more in the last day. Afebrile here. Feels like hands are getting swollen. Tele with A-fib, rates 80s-140s at times, BPs elevated now. All Other Systems: Reviewed and Negative Objective Vital Signs Date Time Temp Pulse Resp B/P (MAP) Pulse Ox O2 Delivery O2 Flow Rate FiO2 06/21/17 16:08 94 Room Air 06/21/17 15:20 36.8 83 20 160/88 (112) 94 Room Air 06/21/17 12:39 Room Air 06/21/17 12:04 36.6 96 18 147/90 (109) 96 Room Air 06/21/17 08:15 37.2 86 16 153/88 (109) 94 Room Air 06/21/17 08:15 Room Air 06/21/17 04:10 Room Air 06/21/17 03:53 36.9 94 18 160/98 (118) 97 Room Air 06/21/17 00:14 Room Air 06/20/17 23:51 37.3 83 18 131/80 (97) 94 Room Air 06/20/17 20:29 Room Air 06/20/17 19:01 36.7 90 20 145/84 (104) 94 Room Air Physical Exam General Appearance: WD/WN, no apparent distress Eyes: normal inspection, sclerae normal ENT: hearing grossly normal Neck: trachea midline Respiratory/Chest: lungs clear, normal breath sounds, no respiratory distress, no accessory muscle use Cardiovascular: + systolic murmur, + irregularly irregular (with normal rate) Abdomen: normal bowel sounds, soft, + tenderness (mild in suiprapubic and LLQ regions without guarding or rebound, improved from yesterday) Extremities: no pedal edema, no calf tenderness, + pertinent finding (Right knee with moderate-large effusion with exquisite +TTP over lateral and medial joint line, ROM decreased passively and actively to 0-90 degrees, unable to perform any other maneuvers due to severe pain, no erythema, no significant warmth) Neurologic/Psychiatric: alert, normal mood/affect, oriented x 3 Skin: normal color, warm/dry, no rash Laboratory Results Last 24 Hours Test 06/21/17 07:32 06/21/17 07:48 06/21/17 09:30 06/21/17 10:30 White Blood Count 9.15 K/uL Red Blood Count 5.42 M/uL Hemoglobin 16.6 g/dL Hematocrit 47.2 % Mean Corpuscular Volume 87.1 fL Mean Corpuscular Hemoglobin 30.6 pg Mean Corpuscular Hemoglobin Concent 35.2 g/dl Platelet Count 125 K/uL Mean Platelet Volume 9.8 fL Neutrophils (%) (Auto) 57.2 % Lymphocytes (%) (Auto) 27.4 % Monocytes (%) (Auto) 14.4 % Eosinophils (%) (Auto) 0.5 % Basophils (%) (Auto) 0.3 % Neutrophils # (Auto) 5.22 K/uL Lymphocytes # (Auto) 2.51 K/uL Monocytes # (Auto) 1.32 K/uL Eosinophils # (Auto) 0.05 K/uL Basophils # (Auto) 0.03 K/uL RDW Standard Deviation 45.3 fL RDW Coefficient of Variation 14.3 % Immature Granulocyte % (Auto) 0.2 % Immature Granulocyte # (Auto) 0.02 K/uL Prothrombin Time 17.4 SECONDS Prothromb Time International Ratio 1.7 Sodium Level 138 mmol/L Potassium Level 3.6 mmol/L Chloride Level 105 mmol/L Carbon Dioxide Level 22 mmol/L Anion Gap 11.0 mmol/L Blood Urea Nitrogen 8 mg/dl Creatinine 0.82 mg/dl Est Creatinine Clear Calc Drug Dose 50.9 ml/min Estimated GFR () 77.8 Estimated GFR (Non- 67.1 BUN/Creatinine Ratio 9.2 Random Glucose 84 mg/dl Calcium Level 8.0 mg/dl Phosphorus Level 2.4 mg/dl Magnesium Level 2.0 mg/dl Total Bilirubin 1.1 mg/dl Direct Bilirubin 0.3 mg/dl Aspartate Amino Transf (AST/SGOT) 24 U/L Alanine Aminotransferase (ALT/SGPT) 22 U/L Alkaline Phosphatase 75 U/L Total Protein 5.7 gm/dl Albumin 2.6 gm/dl Lipase 182 U/L Lactic Acid Level 1.1 mmol/L Vancomycin Level Trough 9.0 mcg/ml Stool Occult Blood POSITIVE Assessment and Plan This patient is an 82yo female with a history of CKD stage III, chronic atrial fibrillation on Coumadin, CAD, HTN, dyslipidemia, who presented with nausea, vomiting and diarrhea times 3 days that had resolved, and then was with recurrence of symptoms prompting admission. The patient also reports developing substernal chest discomfort secondary to vomiting. She was found to have evidence of ischemic colitis with mesenteric and intrahepatic portal venous gas noted on CT scan. Acute mesenteric ischemia with ischemic colitis/hematochezia-presentation consistent with ischemic colitis-with recent possible viral GI illness - likely led to dehydration which may have precipitated the ischemia. She is continuing to improve today, lactate remains negative, pain less, no further grossly bloody bowel movements but Hemoccult positive. Hgb stable at 16.6 Stool culture, C. diff ag both negative, +fecal leuks -no need to check daily Hemoccults-discontinued -Appreciate general surgery management -advance diet slowly-to full liquids this evening -dc IVFs -dc Mcghee -Continue IV antibiotics in the form of Zosyn and vancomycin. -Continue serial labs/exams. -Replace electrolytes as needed Acute kidney injury in the setting of CKD stage III-secondary to severe dehydration and mesenteric ischemia-resolved, creatinine 0.82 today A. fib on chronic coumadin -had bradycardia on admission, now resolved with holding diltiazem and metoprolol--> now with rates in to the 140s at times -continue holding Coumadin for hematochezia as above -Follow PT/INR -1.7 today -will wait at least 1 week to restart coumadin -restart Toprol with one dose now, then daily in the AM -continue to hold diltiazem and restart as blood pressure and heart rate can tolerate -remain on tele Gross hematuria - suspect due to mcghee trauma in the setting of Coumadin use- now completely resolved. Ur cx no growth -ok to dc Mcghee Hypotension - due to volume depletion - resolved, now hypertensive. Slowly reintroduce BP meds. -Added lisinopril back at a lower dose of 20 mg daily -add back metoprolol as above -may restart diltiazem tomorrow Hyponatremia-secondary to dehydration, sodium is 133 on admission resolved with IV fluids, now 138 -Follow PRP -dc IVFs CAD/HL/chest pain-noted by history, had atypical chest pain here which is likely secondary to previous vomiting. ECGs and troponins have all been negative. Now completely resolved -Restart isosorbide in AM, metoprolol succinate ER 50 mg as above -Restarted aspirin 81 daily -Continue statin -continue lisinopril -Continue pantoprazole Right knee pain/effusion--> I do not clinically suspect septic joint. Has known severe OA in the right knee.Could be inflammatory arthritis vs from OA -check xray knee -Consult ortho to see about possible aspiration -ice packs tid -tylenol for pain -avoid NSAIDs due to recent GI bleeding DVT proph -coumadin being held, SCDs Disposition-will need PT/OT evals to help determine disposition in the next 2-3 days most likely Full code
[2017-06-21] MEDS: ACETAMINOPHEN 500 MG TAB PO PRN (18:45)
--- NOTE | 2017-06-21 21:12 | DIAGNOSTIC IMAGING REPORT ---
R KNEE 3 VIEWS CLINICAL HISTORY: Right knee pain and swelling COMPARISON: None. DISCUSSION: There is chondrocalcinosis. There are no acute fractures. There is a suprapatellar joint effusion with calcific debris. There are osteoarthritic changes present. There is a possible loose body. IMPRESSION: 1. No acute fractures 2. Osteophytic changes 3. Chondrocalcinosis 4. Suprapatellar joint effusion with calcific debris Electronically signed by: Orville Adams M.D. 06/21/2017 9:11 PM Dictated Date/Time: 06/21/2017 9:10 PM
[2017-06-22] VITALS (7 sets, daily range): BP systolic 109–163; BP diastolic 74–101; PULSE 76–88; TEMP 36.4–37.3; O2SAT 94–97
[2017-06-22] MEDS: ACETAMINOPHEN 500 MG TAB PO PRN ×2 (03:02→18:08)
[2017-06-22] MEDS: VANCOMYCIN IV 1,250 MG in SODIUM CHLORIDE 0.9% 250ML 250 ML IV SCH ×2 (04:22→21:50)
[2017-06-22] MEDS: PIPERACILL/TAZOBAC IV 3.375 GM in NSS 100ML IV SCH ×3 (04:22→20:24)
[2017-06-22 06:06] LABS: BASO % 0.1 %; BASO ABS # 0.01 K/uL (0-0.2); EOS % 0.9 %; EOS ABS # 0.08 K/uL (0-0.5); HEMATOCRIT 46.2 % (37-47); HEMOGLOBIN 16.3 g/dL (12.0-16.0); IG# 0.03 K/uL (0.00-0.02); LYMPH ABS # 2.61 K/uL (1.2-3.4); MEAN CELL VOLUME 86.5 fL (80-100); MEAN CORPUSCULAR HEMOGLOBIN 30.5 pg (25-34); MEAN CORPUSCULAR HGB CONC 35.3 g/dl (32-36); MEAN PLATELET VOLUME 10.2 fL (7.4-10.4); MONO % 12.7 %; NEUT ABS # 4.86 K/uL (1.4-6.5); PLATELET COUNT 132 K/uL (130-400); RED CELL DISTRIBUTION WIDTH CV 14.1 % (11.5-14.5); RED CELL DISTRIBUTION WIDTH SD 44.8 fL (36.4-46.3); WHITE BLOOD COUNT 8.69 K/uL (4.8-10.8)
[2017-06-22 06:12] LABS: INR 1.5 (0.9-1.1)
[2017-06-22 06:39] LABS: ALBUMIN 2.4 gm/dl (3.4-5.0); CREATININE 0.76 mg/dl (0.60-1.20); POTASSIUM 3.1 mmol/L (3.5-5.1)
[2017-06-22 06:41] LABS: TOTAL PROTEIN 5.6 gm/dl (6.4-8.2)
[2017-06-22] MEDS: LISINOPRIL 20 MG TAB PO SCH (08:16)
[2017-06-22] MEDS: ASPIRIN 81 MG ECTAB PO SCH (08:16)
[2017-06-22] MEDS: METOPROLOL SUCC 50MG EXT REL TAB PO SCH (08:16)
[2017-06-22] MEDS: PANTOprazole SOD 40 MG TAB PO SCH (08:16)
[2017-06-22] MEDS: ISOSORBIDE MONONITRATE 60 MG TABCR PO SCH (08:16)
[2017-06-22] MEDS ORDERED: POTASSIUM CHLORIDE 10 MEQ TABCR PO ONE (08:30)
--- NOTE | 2017-06-22 08:33 | Surgery Progress Note ---
Surgery Progress Note Date of Service Jun 22, 2017. Subjective min pain- loose bms- no gross blood wants more to eat- had clear liquids this am Objective Vital Signs: Date Time Temp Pulse Resp B/P (MAP) Pulse Ox O2 Delivery O2 Flow Rate FiO2 06/22/17 07:34 36.6 81 20 163/101 (121) 97 Room Air 06/22/17 04:00 Room Air 06/22/17 03:50 37.3 77 17 137/87 (104) 94 Room Air 06/22/17 00:00 Room Air 06/21/17 23:39 36.9 17 144/94 (111) 97 Room Air 06/21/17 20:00 Room Air 06/21/17 19:21 37.2 77 20 161/92 (115) 96 Room Air 06/21/17 16:08 94 Room Air 06/21/17 15:20 36.8 83 20 160/88 (112) 94 Room Air 06/21/17 12:39 Room Air 06/21/17 12:04 36.6 96 18 147/90 (109) 96 Room Air General Appearance: no apparent distress Respiratory/Chest: no respiratory distress Abdomen: normal bowel sounds, + distended Laboratory Results: Results Past 24 Hours Test 06/21/17 09:30 06/21/17 10:30 06/22/17 05:52 Range/Units Vancomycin Level Trough 9.0 SEE COMMENT mcg/ml Stool Occult Blood POSITIVE NEGATIVE White Blood Count 8.69 4.8-10.8 K/uL Red Blood Count 5.34 4.2-5.4 M/uL Hemoglobin 16.3 12.0-16.0 g/dL Hematocrit 46.2 37-47 % Mean Corpuscular Volume 86.5 80-100 fL Mean Corpuscular Hemoglobin 30.5 25-34 pg Mean Corpuscular Hemoglobin Concent 35.3 32-36 g/dl Platelet Count 132 130-400 K/uL Mean Platelet Volume 10.2 7.4-10.4 fL Neutrophils (%) (Auto) 56.0 % Lymphocytes (%) (Auto) 30.0 % Monocytes (%) (Auto) 12.7 % Eosinophils (%) (Auto) 0.9 % Basophils (%) (Auto) 0.1 % Neutrophils # (Auto) 4.86 1.4-6.5 K/uL Lymphocytes # (Auto) 2.61 1.2-3.4 K/uL Monocytes # (Auto) 1.10 0.11-0.59 K/uL Eosinophils # (Auto) 0.08 0-0.5 K/uL Basophils # (Auto) 0.01 0-0.2 K/uL RDW Standard Deviation 44.8 36.4-46.3 fL RDW Coefficient of Variation 14.1 11.5-14.5 % Immature Granulocyte % (Auto) 0.3 % Immature Granulocyte # (Auto) 0.03 0.00-0.02 K/uL Prothrombin Time 15.3 9.0-12.0 SECONDS Prothromb Time International Ratio 1.5 0.9-1.1 Sodium Level 138 136-145 mmol/L Potassium Level 3.1 3.5-5.1 mmol/L Chloride Level 106 98-107 mmol/L Carbon Dioxide Level 24 21-32 mmol/L Anion Gap 8.0 3-11 mmol/L Blood Urea Nitrogen 7 7-18 mg/dl Creatinine 0.76 0.60-1.20 mg/dl Est Creatinine Clear Calc Drug Dose 54.9 ml/min Estimated GFR () 85.3 Estimated GFR (Non- 73.6 BUN/Creatinine Ratio 9.3 10-20 Random Glucose 96 70-99 mg/dl Calcium Level 8.0 8.5-10.1 mg/dl Magnesium Level 1.9 1.8-2.4 mg/dl Total Bilirubin 1.4 0.2-1 mg/dl Direct Bilirubin 0.3 0-0.2 mg/dl Aspartate Amino Transf (AST/SGOT) 14 15-37 U/L Alanine Aminotransferase (ALT/SGPT) 18 12-78 U/L Alkaline Phosphatase 67 45-117 U/L Total Protein 5.6 6.4-8.2 gm/dl Albumin 2.4 3.4-5.0 gm/dl Assessment & Plan 06/22/17- adv diet, consider GI, vascular eval at some point- probably CT angio after renal function improved. Unusual to have significant ischemia of bowel with normal wbc and lactate- could be more of an infectious component- no chgs from gen surg standpoint 06/19/17- Small amt of mesenteric and portal gas on CT, no pneumotosis wbc and lactate normal- could have had mild ischemic insult from low flow state/hypotension- would cont IV atbx and fluids. May have clear liquids from my standpoint. This could also be from Gastroenteritis. Dr Bradshaw covering over weekend. 06/19/17- Small amt of mesenteric and portal gas on CT, no pneumotosis wbc and lactate normal- could have had mild ischemic insult from low flow state/hypotension- would cont IV atbx and fluids. May have clear liquids from my standpoint. This could also be from Gastroenteritis. Dr Bradshaw covering over weekend.
[2017-06-22] MEDS ORDERED: ETHYL CHLORIDE AER SPR 100 ML CAN EXT ONE (13:45)
[2017-06-22] MEDS ORDERED: OPTIRAY 320 IV PRN (15:45)
--- NOTE | 2017-06-22 16:06 | Hospitalist Progress Note ---
Hospitalist Progress Note Date of Service Jun 22, 2017. Subjective Pt evaluation today including: conversation w/ patient, conversation w/ family Pt still with some lower abd pain, had 3 BMs today, no blood. No CP or SOB. Had right knee aspirated today by Ortho. Tele with A-fib, rates now well controlled. All Other Systems: Reviewed and Negative Objective Vital Signs Date Time Temp Pulse Resp B/P (MAP) Pulse Ox O2 Delivery O2 Flow Rate FiO2 06/22/17 15:04 37.0 83 16 147/91 (109) 95 Room Air 06/22/17 12:15 Room Air 06/22/17 11:30 36.4 88 18 109/74 (86) 94 Room Air 06/22/17 08:30 Room Air 06/22/17 07:34 36.6 81 20 163/101 (121) 97 Room Air 06/22/17 04:00 Room Air 06/22/17 03:50 37.3 77 17 137/87 (104) 94 Room Air 06/22/17 00:00 Room Air 06/21/17 23:39 36.9 17 144/94 (111) 97 Room Air 06/21/17 20:00 Room Air 06/21/17 19:21 37.2 77 20 161/92 (115) 96 Room Air 06/21/17 16:08 94 Room Air Physical Exam General Appearance: WD/WN, no apparent distress Eyes: normal inspection, sclerae normal ENT: hearing grossly normal Neck: trachea midline Respiratory/Chest: lungs clear, normal breath sounds, no respiratory distress, no accessory muscle use Cardiovascular: no murmur, + irregularly irregular (with normal rate) Abdomen: normal bowel sounds, soft, + tenderness (across lower abdomen without guarding or rebound) Extremities: no pedal edema, no calf tenderness, + pertinent finding (right knee in ISIAH wrap) Neurologic/Psychiatric: alert, normal mood/affect, oriented x 3 Skin: normal color, warm/dry, no rash Laboratory Results Last 24 Hours Test 06/22/17 05:52 06/22/17 14:30 White Blood Count 8.69 K/uL Red Blood Count 5.34 M/uL Hemoglobin 16.3 g/dL Hematocrit 46.2 % Mean Corpuscular Volume 86.5 fL Mean Corpuscular Hemoglobin 30.5 pg Mean Corpuscular Hemoglobin Concent 35.3 g/dl Platelet Count 132 K/uL Mean Platelet Volume 10.2 fL Neutrophils (%) (Auto) 56.0 % Lymphocytes (%) (Auto) 30.0 % Monocytes (%) (Auto) 12.7 % Eosinophils (%) (Auto) 0.9 % Basophils (%) (Auto) 0.1 % Neutrophils # (Auto) 4.86 K/uL Lymphocytes # (Auto) 2.61 K/uL Monocytes # (Auto) 1.10 K/uL Eosinophils # (Auto) 0.08 K/uL Basophils # (Auto) 0.01 K/uL RDW Standard Deviation 44.8 fL RDW Coefficient of Variation 14.1 % Immature Granulocyte % (Auto) 0.3 % Immature Granulocyte # (Auto) 0.03 K/uL Prothrombin Time 15.3 SECONDS Prothromb Time International Ratio 1.5 Sodium Level 138 mmol/L Potassium Level 3.1 mmol/L Chloride Level 106 mmol/L Carbon Dioxide Level 24 mmol/L Anion Gap 8.0 mmol/L Blood Urea Nitrogen 7 mg/dl Creatinine 0.76 mg/dl Est Creatinine Clear Calc Drug Dose 54.9 ml/min Estimated GFR () 85.3 Estimated GFR (Non- 73.6 BUN/Creatinine Ratio 9.3 Random Glucose 96 mg/dl Calcium Level 8.0 mg/dl Magnesium Level 1.9 mg/dl Total Bilirubin 1.4 mg/dl Direct Bilirubin 0.3 mg/dl Aspartate Amino Transf (AST/SGOT) 14 U/L Alanine Aminotransferase (ALT/SGPT) 18 U/L Alkaline Phosphatase 67 U/L Total Protein 5.6 gm/dl Albumin 2.4 gm/dl Synovial Fluid Source KNEE Synovial Fluid Color RED Synovial Fluid Appearance BLOODY Synovial Fluid WBC 79231 /uL Synovial Fluid RBC 49630 /uL Synovial Fluid Polynuclear WBCs % 95.2 % Synovial Fluid Mononuclear WBCs % 4.8 % Assessment and Plan This patient is an 82yo female with a history of CKD stage III, chronic atrial fibrillation on Coumadin, CAD, HTN, dyslipidemia, who presented with nausea, vomiting and diarrhea times 3 days that had resolved, and then was with recurrence of symptoms prompting admission. The patient also reports developing substernal chest discomfort secondary to vomiting. She was found to have evidence of ischemic colitis with mesenteric and intrahepatic portal venous gas noted on CT scan. Acute mesenteric ischemia with ischemic colitis/hematochezia-presentation consistent with ischemic colitis-with recent possible viral GI illness - likely led to dehydration which may have precipitated the ischemia. Lactate negative, pain stable but present, no further grossly bloody bowel movements but Hemoccult positive. Hgb stable at 16 Stool culture, C. diff ag both negative, +fecal leuks Surgery suggesting GI consult and repeat imaging abdomen and mesenteric vasculature, no surgery indicated at this time -check CTA abd/pel -consult GI for further evaluation and management -Appreciate general surgery management -continue full liquids -Continue IV Zosyn and vancomycin. -Continue serial labs/exams. -Replace electrolytes as needed Acute kidney injury in the setting of CKD stage III-secondary to severe dehydration and mesenteric ischemia-resolved, creatinine 0.76 today Hypokalemia-K 3.1 today -replace with po KCl 40 meq po x 1 -follow PRP A. fib on chronic coumadin -had bradycardia on admission, resolved with holding diltiazem and metoprolol--> then with rates in to the 140s at times Rates improved now with restarting metoprolol -continue holding Coumadin for hematochezia as above -Follow PT/INR 1.5 today -will wait at least 1-2 weeks to restart coumadin -continue Toprol -continue to hold diltiazem and restart as blood pressure and heart rate can tolerate -ok to tx to medical Gross hematuria - suspect due to mcghee trauma in the setting of Coumadin use- now completely resolved. Ur cx no growth -dc'd Mcg[place] Hypotension - due to volume depletion - resolved, then hypertensive. Slowly reintroduce BP meds. Bps improved today -Added lisinopril back at a lower dose of 20 mg daily -continue Toprol, isosorbide -hold off on restarting diltiazem Hyponatremia-secondary to dehydration, sodium is 133 on admission resolved with IV fluids, now 138 -Follow PRP -dcd IVFs CAD/HL/chest pain-noted by history, had atypical chest pain here which is likely secondary to previous vomiting. ECGs and troponins have all been negative. Now completely resolved -continue isosorbide, metoprolol succinate ER 50 mg as above -Restarted aspirin 81 daily -Continue statin -continue lisinopril -Continue pantoprazole Right knee pain/effusion--> I do not clinically suspect septic joint. Has known severe OA in the right knee.Could be inflammatory arthritis vs from OA Xray with OA, possible loose body, supraptellar effusion -Arthocentesis today by Ortho -synovial fluid bloody with RBC 64k,WBC 28k, gram stain with many polys, no orgs , WBC count -await joint fluid cultures, Lyme -Consult ortho appreciated -ice packs tid -tylenol for pain -avoid NSAIDs due to recent GI bleeding DVT proph -coumadin being held, SCDs Disposition-will need PT/OT evals to help determine disposition in the next 2-3 days most likely Full code
--- NOTE | 2017-06-22 17:06 | DIAGNOSTIC IMAGING REPORT ---
CT ANGIOGRAM OF THE ABDOMEN AND PELVIS CLINICAL HISTORY: Mesenteric ischemia. Hypotension. COMPARISON STUDY: Abdominal CT dated 06/18/2017. TECHNIQUE: Following the IV administration of 120 cc of Optiray 320, CT angiogram of the abdomen and pelvis was performed from the lung bases the proximal femora. Images are reviewed in the axial, sagittal, and coronal planes. 3-D MIPS images are created and assessed. IV contrast was administered without complication. A dose lowering technique was utilized adhering to the principles of ALARA. The examination is degraded by streak artifact from the patient's left arm which could not be elevated above the abdomen or pelvis, as well as by motion artifact. CT DOSE: 591.70 mGy.cm FINDINGS: Lower chest: The heart is normal in size and without pericardial effusion. Fat-containing Bochdalek hernias are present at both lung bases. No airspace consolidation or pleural effusion is identified. There is a tiny hiatal hernia. Liver: The contrast-enhanced liver is normal in size, contour, and attenuation. There is minimal central intrahepatic or ductal dilatation. The main portal veins appear patent. Gallbladder: Surgically absent. Spleen: Normal in size and attenuation noting heterogeneous arterial phase enhancement. Tiny calcified granulomas are observed. Pancreas: Atrophic and grossly unremarkable. Adrenal glands: Unremarkable. Kidneys: The contrast enhanced kidneys are atrophic and without hydronephrosis. The kidneys enhance symmetrically. Abdominal aorta and iliac arteries: There is advanced atherosclerotic calcification of the abdominal aorta and iliac arteries. The abdominal aorta and iliac arteries are widely patent. No dissection is identified. Major branches of the abdominal aorta: There is less than 50% narrowing at the origin the celiac trunk. The superior mesenteric artery is widely patent. There is mild to moderate stenosis at the origin of the inferior mesenteric artery. The inferior mesenteric artery is otherwise widely patent. Hepatic arterial anatomy is conventional. The splenic artery is patent. Single bilateral renal arteries are patent. Bowel: There is moderate sigmoid diverticulosis without CT evidence of acute diverticulitis. No bowel obstruction is identified. There is no mesenteric venous or portal venous gas identified. There is mild wall thickening with pericolonic infiltration seen involving the proximal transverse colon. This is best seen on axial image #217. No pneumatosis intestinalis is identified. The appendix is not identified. Peritoneum: There is no intraperitoneal free air or abdominal ascites. Lymphadenopathy: None. Pelvic viscera: Small foci of gas are noted in the bladder lumen. The bladder is otherwise normal as imaged. The uterus is surgically absent. No adnexal lesion is seen. Trace free fluid is present in the cul-de-sac. Skeletal structures: The skeletal structures are osteopenic. Moderate lumbosacral spondylosis is observed. No destructive bony lesions are seen. IMPRESSION: 1. Portal venous gas and mesenteric venous gas have resolved from 06/18/2017. No intraperitoneal free air is seen. 2. There is a short segment of wall thickening with surrounding inflammation involving the proximal transverse colon. This could be on an infectious, inflammatory, or ischemic basis. Clinical correlation will be required. 3. There is less than 50% stenosis at the origin the celiac trunk. Mild to moderate stenosis is suggested at the origin of the inferior mesenteric artery. The mesenteric vessels are otherwise widely patent. See above. 4. Trace free fluid in the cul-de-sac is nonspecific and likely reactive. 5. Small foci of gas are noted in the bladder lumen and may be related to recent instrumentation. Correlation with clinical findings and urinalysis will be required. 6. Additional findings as above. Electronically signed by: Junior Gonzalez M.D. 06/22/2017 5:04 PM Dictated Date/Time: 06/22/2017 4:53 PM
--- NOTE | 2017-06-22 17:50 | Orthopedic Consultation ---
Orthopedic Consultation Date of Consultation: Jun 22, 2017. Attending Physician: Shelley Holt MD Reason for Consultation: Right knee pain History of Present Illness Patient reports right knee pain and swelling for a duration of two days. Admitted secondary to +nausea/vomiting/fatigue. Denies trauma to left knee. Has a history of right knee pain and receives corticosteroid injections regularly. Her last injection was 01/2017. Has significant past history of L TKA in 01/[address] Cardona. Denies pain or swelling to her left knee. Currently denies fevers/chills, numbness or tingling to RLE. Pain worse with ROM and weight bearing, pain is severe and localized to the right knee. The patient denies tick bite or rash. Past Medical/Surgical History Medical Problems: (1) Acute kidney injury Status: Acute (2) Bradycardia Status: Acute (3) Coronary artery disease Status: Chronic (4) Dehydration Status: Acute (5) Dyslipidemia Status: Chronic (6) Essential hypertension Status: Chronic (7) Hypotension Status: Acute (8) Knee effusion, left Status: Acute (9) Left knee pain Status: Acute (10) Left knee pain Status: Acute (11) Nausea vomiting and diarrhea Status: Acute (12) Orthostasis Status: Acute (13) Precordial chest pain Status: Acute (14) Syncope Status: Acute (15) Weakness Status: Acute Family History Diabetes mellitus FH: cancer FH: coronary artery disease FATHER MOTHER FH: heart disease Hypertension Stroke MOTHER Social History Smoking Status: Never Smoker Smokeless Tobacco Use: No Alcohol Use: none Drug Use: none Marital Status: Housing Status: lives alone Occupation Status: retired Allergies Coded Allergies: Latex1 -Allergic Contact Dermititis (Verified Allergy, Unknown, ITCHINESS , 03/07/17) Home Medications Scheduled Aspirin (Aspirin Ec), 81 MG PO QAM Atorvastatin (Lipitor), 40 MG PO Q2D Diltiazem Hcl Extended Release (Tiazac 360 Mg), 360 MG PO QAM Isosorbide Mononitrate (Isosorbide Mononitrate ER), 60 MG PO QAM Lisinopril (Lisinopril), 40 MG PO QAM Metoprolol Succinate (Metoprolol Succinate ER), 50 MG PO QAM Potassium (Potassium), 1 DOSE PO UD Warfarin Sodium (Warfarin Sodium), 2.5 MG PO HS Scheduled PRN Nitroglycerin (Nitrostat), 0.4 MG UT UD PRN for Chest Pain Current Inpatient Medications Current Inpatient Medications Medications (Trade) Dose Ordered Sig/Sakina Route Start Time Stop Time Status Last Admin Dose Admin Hyoscyamine Sulfate (Levsin Tab) 0.125 mg Q4H PRN SL 06/18/17 20:15 07/18/17 20:14 06/21/17 02:02 0.125 MG Ondansetron HCl (Zofran Inj) 4 mg Q6H PRN IV 06/18/17 20:45 07/18/17 20:44 06/19/17 16:28 4 MG Aspirin (Ecotrin Tab) 81 mg QAM PO 06/19/17 09:00 07/19/17 08:59 06/22/17 08:16 81 MG Atorvastatin Calcium (Lipitor Tab) 40 mg Q2D PO 06/19/17 09:00 07/19/17 08:59 06/21/17 08:02 40 MG Miscellaneous Information (Consult) 1 ea UD PRN N/A 06/18/17 21:45 07/18/17 21:44 Miscellaneous Information (Consult) 1 ea UD PRN N/A 06/18/17 21:45 07/18/17 21:44 Piperacillin Sod/ Tazobactam Sod 3.375 gm/Sodium Chloride 115 ml @ 28.75 mls/ hr Q8H IV 06/19/17 04:00 06/29/17 03:59 06/22/17 12:07 28.75 MLS/HR Morphine Sulfate (MoRPHine SULFATE INJ) 1 mg Q4H PRN IV 06/19/17 22:15 07/03/17 22:14 06/21/17 02:02 1 MG Lisinopril (Zestril Tab) 20 mg QAM PO 06/21/17 09:00 07/21/17 08:59 06/22/17 08:16 20 MG Pantoprazole Sodium (Protonix Tab) 40 mg QAM PO 06/21/17 09:00 07/21/17 08:59 06/22/17 08:16 40 MG Vancomycin HCl 1250 mg/Sodium Chloride 275 ml @ 125 mls/hr Q18H IV 06/22/17 04:00 06/28/17 03:59 06/22/17 04:22 125 MLS/HR Metoprolol Succinate (Toprol Xl Tab) 50 mg QAM PO 06/22/17 09:00 07/22/17 08:59 06/22/17 08:16 50 MG Acetaminophen (Tylenol Tab) 1,000 mg Q8 PRN PO 06/21/17 18:00 07/21/17 17:59 06/22/17 03:02 1,000 MG Isosorbide Mononitrate (Imdur Ext Rel Tab) 60 mg QAM PO 06/22/17 09:00 07/22/17 08:59 06/22/17 08:16 60 MG Ioversol (Optiray 320) 125 ml UD PRN IV 06/22/17 15:45 06/26/17 15:44 Review of Systems A complete 10-point Review of Systems was discussed with the patient, with pertinent positives and negatives listed in the History of Present Illness. All remaining Review of Systems questions can be considered negative unless otherwise specified. Physical Exam Date Time Temp Pulse Resp B/P (MAP) Pulse Ox O2 Delivery O2 Flow Rate FiO2 06/22/17 16:24 37.0 83 16 95 06/22/17 15:08 Room Air 06/22/17 15:04 37.0 83 16 147/91 (109) 95 Room Air 06/22/17 12:15 Room Air 06/22/17 11:30 36.4 88 18 109/74 (86) 94 Room Air 06/22/17 08:30 Room Air 06/22/17 07:34 36.6 81 20 163/101 (121) 97 Room Air 06/22/17 04:00 Room Air 06/22/17 03:50 37.3 77 17 137/87 (104) 94 Room Air 06/22/17 00:00 Room Air 06/21/17 23:39 36.9 17 144/94 (111) 97 Room Air 06/21/17 20:00 Room Air 06/21/17 19:21 37.2 77 20 161/92 (115) 96 Room Air NAD, AOx3 RLE: NVSI +EHL/FHL/TA/GS SILT grossly, CR< 2 seconds, +2 DP pulse, moderate effusion, no edema, mild erythema anterior patella where ice pack was resting, skin cold to touch. ROM 5-95, with pain at extreme extension and flexion, tenderness to light touch anterior knee. Skin intact. LLE: NVSI +EHL/FHL/TA/GS SILT grossly, CR< 2 seconds, +2 DP pulse, midline anterior knee incision cdi, no erythema or effusion, ROM 0-110. Laboratory Results Last 24 Hours Test 06/22/17 05:52 06/22/17 14:30 White Blood Count 8.69 K/uL Red Blood Count 5.34 M/uL Hemoglobin 16.3 g/dL Hematocrit 46.2 % Mean Corpuscular Volume 86.5 fL Mean Corpuscular Hemoglobin 30.5 pg Mean Corpuscular Hemoglobin Concent 35.3 g/dl Platelet Count 132 K/uL Mean Platelet Volume 10.2 fL Neutrophils (%) (Auto) 56.0 % Lymphocytes (%) (Auto) 30.0 % Monocytes (%) (Auto) 12.7 % Eosinophils (%) (Auto) 0.9 % Basophils (%) (Auto) 0.1 % Neutrophils # (Auto) 4.86 K/uL Lymphocytes # (Auto) 2.61 K/uL Monocytes # (Auto) 1.10 K/uL Eosinophils # (Auto) 0.08 K/uL Basophils # (Auto) 0.01 K/uL RDW Standard Deviation 44.8 fL RDW Coefficient of Variation 14.1 % Immature Granulocyte % (Auto) 0.3 % Immature Granulocyte # (Auto) 0.03 K/uL Prothrombin Time 15.3 SECONDS Prothromb Time International Ratio 1.5 Sodium Level 138 mmol/L Potassium Level 3.1 mmol/L Chloride Level 106 mmol/L Carbon Dioxide Level 24 mmol/L Anion Gap 8.0 mmol/L Blood Urea Nitrogen 7 mg/dl Creatinine 0.76 mg/dl Est Creatinine Clear Calc Drug Dose 54.9 ml/min Estimated GFR () 85.3 Estimated GFR (Non- 73.6 BUN/Creatinine Ratio 9.3 Random Glucose 96 mg/dl Calcium Level 8.0 mg/dl Magnesium Level 1.9 mg/dl Total Bilirubin 1.4 mg/dl Direct Bilirubin 0.3 mg/dl Aspartate Amino Transf (AST/SGOT) 14 U/L Alanine Aminotransferase (ALT/SGPT) 18 U/L Alkaline Phosphatase 67 U/L Total Protein 5.6 gm/dl Albumin 2.4 gm/dl Synovial Fluid Source KNEE Synovial Fluid Color RED Synovial Fluid Appearance BLOODY Synovial Fluid WBC 30407 /uL Synovial Fluid RBC 17561 /uL Synovial Fluid Polynuclear WBCs % 95.2 % Synovial Fluid Mononuclear WBCs % 4.8 % Synovial Fluid Crystals Assessment & Plan Aseptic inflammation R knee, likely secondary to underlying OA, chondrocalcinosis. -R knee arthrocentesis performed -R knee synovial fluid labs sent, CC - [id number], GS - neg, CX - pending, Crystals - neg, Lyme - pending -WBAT RLE -PT/OT -Ice/Elevate -Compressive wrap -consider corticosteroid right knee pending cultures R KNEE 3 VIEWS CLINICAL HISTORY: Right knee pain and swelling COMPARISON: None. DISCUSSION: There is chondrocalcinosis. There are no acute fractures. There is a suprapatellar joint effusion with calcific debris. There are osteoarthritic changes present. There is a possible loose body. IMPRESSION: 1. No acute fractures 2. Osteophytic changes 3. Chondrocalcinosis 4. Suprapatellar joint effusion with calcific debris
--- NOTE | 2017-06-22 18:13 | Procedure Note ---
Procedure Note Procedure Date Jun 22, 2017. Procedure Description Procedure Name: Right knee arthrocentesis Procedure time out: side/site verified, patient ID confirmed, correct procedure Consent obtained: written Performed by: attending Indications: diagnostic, therapeutic Contraindications: none Description: The patient's right knee was prepped with a combination of Betadine and alcohol. Utilizing sterile techniques, 18 gauge needle and 60cc syringe, an anterolateral arthrocentesis was performed. 17 cc of cloudy yellow/red synovial fluid was collected. 4x4's and renuka wrap were applied to the knee. The patient tolerated the procedure well. Complications: none Patient tolerated procedure: well Post-procedure vital signs: reviewed and stable
--- NOTE | 2017-06-22 19:21 | GASTROINTESTINAL CONSULTATION ---
DATE OF CONSULTATION: 06/22/2017 REASON FOR CONSULTATION: Mesenteric ischemia. HISTORY OF PRESENT ILLNESS: The patient is an 82-year-old female admitted 4 days ago with a relatively acute onset of abdominal pain and diarrhea. She has also had some nausea and vomiting with some chills. She presented to the hospital, where she was found to be in chronic AFib, but at a rapid rate. She has been on Coumadin. Because of her GI symptoms, she underwent a CAT scan, which showed portal venous gas and gas into the intrahepatic vasculature as well as mesentery. Her lactic acid was normal. Her white count was normal. Her hemoglobin and hematocrit were slightly elevated, probably from dehydration. The patient was started on bowel rest and IV antibiotics including Zosyn and vancomycin. She did have a little bit of rectal bleeding. Today, she is off the floor getting a CT angiogram of her mesenteric vessels and is not available for examination currently. PAST MEDICAL HISTORY: Remarkable for coronary artery disease, AFib, hyperlipidemia, hypertension. She has had breast cancer with a mastectomy. She has had a hysterectomy, appendectomy, cholecystectomy. MEDICATIONS: Aspirin, atorvastatin, isosorbide, metoprolol, warfarin, and potassium. ALLERGIES: LATEX. FAMILY HISTORY: Noncontributory. SOCIAL HISTORY: The patient does not consume alcohol or smoke cigarettes. PHYSICAL EXAMINATION: Not performed as the patient was off the floor getting CAT scan at this time. IMPRESSION: The patient appears to have mesenteric ischemia despite the fact that she is on Coumadin for atrial fibrillation. She does have a risk for ischemia just given her age and risk for atherosclerosis, atrial fibrillation despite Coumadin could still cause vascular occlusion, especially if she gets dehydrated, which she appeared to be on admission. At this time, I would recommend continued bowel rest, IV fluids, and antibiotics. If there is any significant vascular lesions on her CT angiogram, I would recommend a consultation with Dr. Peterson. At this time, doing an endoscopic evaluation is contraindicated, but appears that she will probably recover given the fact that her white count is normal. She is afebrile. Her lactic acid is normal. When she recovers from mesenteric ischemia, it would probably a good idea to pursue an endoscopic evaluation in a couple of months. We will continue to follow the patient during her hospital stay.
[2017-06-23] MEDS: PIPERACILL/TAZOBAC IV 3.375 GM in NSS 100ML IV SCH ×2 (04:10→11:57)
[2017-06-23] MEDS: ACETAMINOPHEN 500 MG TAB PO PRN ×2 (04:11→19:51)
--- NOTE | 2017-06-23 07:10 | Surgery Progress Note ---
Surgery Progress Note Date of Service Jun 23, 2017. Subjective pt is hungry and wants to go home overall stable w/o acute chgs- loose bms have decreased Objective Vital Signs: Date Time Temp Pulse Resp B/P (MAP) Pulse Ox O2 Delivery O2 Flow Rate FiO2 06/23/17 00:00 Room Air 06/22/17 23:29 36.6 76 18 153/79 (103) 96 Room Air 06/22/17 18:30 36.9 76 20 153/88 (109) 94 Room Air 06/22/17 16:24 37.0 83 16 95 06/22/17 15:08 Room Air 06/22/17 15:04 37.0 83 16 147/91 (109) 95 Room Air 06/22/17 12:15 Room Air 06/22/17 11:30 36.4 88 18 109/74 (86) 94 Room Air 06/22/17 08:30 Room Air 06/22/17 07:34 36.6 81 20 163/101 (121) 97 Room Air General Appearance: no apparent distress Respiratory/Chest: no respiratory distress Abdomen: normal bowel sounds, soft Laboratory Results: Results Past 24 Hours Test 06/22/17 14:30 06/23/17 07:00 Range/Units Synovial Fluid Source KNEE Synovial Fluid Color RED Synovial Fluid Appearance BLOODY Synovial Fluid WBC 44437 0-200 /uL Synovial Fluid RBC 91018 /uL Synovial Fluid Polynuclear WBCs % 95.2 % Synovial Fluid Mononuclear WBCs % 4.8 % Synovial Fluid Crystals Microbiology Results 06/22/17 Fungal Smear - Final, Resulted 06/22/17 Fungal Culture, Resulted Pending 06/22/17 Gram Stain - Final, Resulted 06/22/17 Bacterial Culture, Resulted Pending Assessment & Plan 06/23/17- progressing- will adv diet to low fiber . No indication for surgery at this point. Cont to follow 06/22/17- adv diet, consider GI, vascular eval at some point- probably CT angio after renal function improved. Unusual to have significant ischemia of bowel with normal wbc and lactate- could be more of an infectious component- no chgs from gen surg standpoint 06/19/17- Small amt of mesenteric and portal gas on CT, no pneumotosis wbc and lactate normal- could have had mild ischemic insult from low flow state/hypotension- would cont IV atbx and fluids. May have clear liquids from my standpoint. This could also be from Gastroenteritis. Dr Bradshaw covering over weekend. 06/22/17- adv diet, consider GI, vascular eval at some point- probably CT angio after renal function improved. Unusual to have significant ischemia of bowel with normal wbc and lactate- could be more of an infectious component- no chgs from gen surg standpoint 06/19/17- Small amt of mesenteric and portal gas on CT, no pneumotosis wbc and lactate normal- could have had mild ischemic insult from low flow state/hypotension- would cont IV atbx and fluids. May have clear liquids from my standpoint. This could also be from Gastroenteritis. Dr Bradshaw covering over weekend.
[2017-06-23 07:40] VITALS: BP 162/91; PULSE 84; TEMP 36.7; O2SAT 94
[2017-06-23 07:50] LABS: BASO % 0.1 %; BASO ABS # 0.01 K/uL (0-0.2); EOS % 1.9 %; EOS ABS # 0.18 K/uL (0-0.5); HEMATOCRIT 41.5 % (37-47); HEMOGLOBIN 14.3 g/dL (12.0-16.0); IG# 0.04 K/uL (0.00-0.02); LYMPH % 20.6 %; LYMPH ABS # 1.96 K/uL (1.2-3.4); MEAN CELL VOLUME 86.5 fL (80-100); MEAN CORPUSCULAR HEMOGLOBIN 29.8 pg (25-34); MEAN CORPUSCULAR HGB CONC 34.5 g/dl (32-36); MEAN PLATELET VOLUME 10.2 fL (7.4-10.4); MONO % 11.4 %; MONO ABS # 1.09 K/uL (0.11-0.59); NEUT % 65.6 %; NEUT ABS # 6.24 K/uL (1.4-6.5); PLATELET COUNT 155 K/uL (130-400); RED CELL DISTRIBUTION WIDTH CV 14.2 % (11.5-14.5); RED CELL DISTRIBUTION WIDTH SD 44.8 fL (36.4-46.3); WHITE BLOOD COUNT 9.52 K/uL (4.8-10.8)
[2017-06-23 07:57] LABS: INR 1.3 (0.9-1.1)
[2017-06-23 08:16] LABS: ALBUMIN 2.3 gm/dl (3.4-5.0); CALCIUM 8.2 mg/dl (8.5-10.1); CREATININE 0.7 mg/dl (0.60-1.20); POTASSIUM 3.2 mmol/L (3.5-5.1)
[2017-06-23 08:19] LABS: TOTAL PROTEIN 5.4 gm/dl (6.4-8.2)
[2017-06-23] MEDS: PANTOprazole SOD 40 MG TAB PO SCH (08:52)
[2017-06-23] MEDS: ASPIRIN 81 MG ECTAB PO SCH (08:52)
[2017-06-23] MEDS: LISINOPRIL 20 MG TAB PO SCH (08:53)
[2017-06-23] MEDS: ISOSORBIDE MONONITRATE 60 MG TABCR PO SCH (08:53)
[2017-06-23] MEDS: METOPROLOL SUCC 50MG EXT REL TAB PO SCH (08:53)
[2017-06-23] MEDS: ATORVASTATIN 40 MG TAB PO SCH (08:53)
[2017-06-23] MEDS ORDERED: POTASSIUM CHLORIDE 10 MEQ TABCR PO ONE ×2 (09:00→12:00)
[2017-06-23] MEDS ORDERED: VANCOMYCIN TROUGH ONE (15:30)
[2017-06-23 15:51] VITALS: BP 144/91; PULSE 82; TEMP 36.7; O2SAT 94
[2017-06-23 16:00] VITALS: O2SAT 94
--- NOTE | 2017-06-23 17:43 | GASTROENTEROLOGY PROGRESS NOTE ---
DATE: 06/23/2017 This is a gastroenterology inpatient progress note. Chart reviewed. The patient was examined. The patient was seen by Dr. Han initially yesterday for a possibility of mesenteric ischemia and rectal bleeding. The patient also had diarrhea on admission along with abdominal pain and was hypotensive. She has atrial fibrillation and is on anticoagulation, although this has been held. The original CT on admission showed evidence of portal venous gas and fluid in the colon suggesting a diarrheal state without pneumoperitoneum. There was hepatic steatosis. The patient underwent a CT angiography yesterday and this revealed resolution of portal venous and mesenteric venous gas. There was a short segment of wall thickening in the proximal transverse colon of infectious, inflammatory, or ischemic basis. There is less than 50% stenosis at the origin of the celiac trunk with mild to moderate stenosis of the origin of the GARTH although the mesenteric vessels are otherwise widely patent. There is a small focus of gas noted in the urinary bladder. The patient feels much better today on presentation. She describes the pain as 9-10/10. Currently, she is perhaps 1/10 at most. She did increase her diet today and tolerated this well. She has had no further rectal bleeding, fevers or shaking chills, although diarrhea did persist. She is on vancomycin and Zosyn since admission. She does not have a white count. CURRENT MEDICATIONS: Include Lopressor, Imdur, lisinopril, Protonix, aspirin, Lipitor, and Levsin p.r.n. PHYSICAL EXAMINATION: VITAL SIGNS: Today afebrile, 36.7, 144/91, respirations 18, heart rate 82, and 94% on room air. GENERAL: Benign patient awake, alert and oriented x3. HEENT: Sclerae are anicteric, conjunctiva moist. HEART: Normal S1, S2. LUNGS: Clear to auscultation. ABDOMEN: Soft, nontender, nondistended with positive bowel sounds. EXTREMITIES: Without edema. RECTAL: Deferred. IMPRESSION AND PLAN: The patient with a noncritical narrowing at the celiac trunk and origin of the GARTH, but no significant mesenteric vascular insufficiency. There is a focal area in the proximal transverse colon with thickening that could be of either infectious or ischemic etiologies. Based on the patient's acute clinical presentation, I would suspect this is probably an ischemic event. 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 Her last colonoscopy was more than 10 years ago. I made the following recommendations. I believe it is reasonable to begin to advance the patient's diet and discussed this with Dr. Holt. It is reasonable to hold on Coumadin for a few more days to see if there is any return of rectal bleeding. The diarrhea may be related to an antibiotic-associated diarrhea (non C. diff related) and hopefully this will resolve when she increases her diet and stops antibiotics which will occur tonight. We can readdress the colonoscopy in several weeks as an outpatient. We will continue to follow with you. Overall, although her hemoglobin has drifted down, it is still satisfactory and is currently 14.3 with a normal white count 9.5. Her serum chemistry today, potassium is still slightly low at 3.2, total and direct bilirubin 1.1 and 0.3 but AST, ALT, and alkaline phosphatase all normal.
--- NOTE | 2017-06-23 17:47 | Hospitalist Progress Note ---
Hospitalist Progress Note Date of Service Jun 23, 2017. Subjective Pt evaluation today including: conversation w/ patient, conversation w/ clinical program consultant (Gastroenterology) Patient feeling much better. Still with multiple loose bowel movements today that are nonbloody. No further abdominal pain today. No chest pain or shortness of breath. She was advanced to low fiber diet this morning is tolerating that well. Feels her right knee is significantly improved as far as pain goes. Constitutional: No fever, No chills Neurologic: No weakness, No numbness/tingling All Other Systems: Reviewed and Negative Objective Vital Signs Date Time Temp Pulse Resp B/P (MAP) Pulse Ox O2 Delivery O2 Flow Rate FiO2 06/23/17 16:00 94 Room Air 06/23/17 15:51 36.7 82 18 144/91 (108) 94 Room Air 06/23/17 08:00 Room Air 06/23/17 07:40 36.7 84 18 162/91 (114) 94 Room Air 06/23/17 00:00 Room Air 06/22/17 23:29 36.6 76 18 153/79 (103) 96 Room Air 06/22/17 18:30 36.9 76 20 153/88 (109) 94 Room Air Physical Exam General Appearance: WD/WN, no apparent distress Eyes: normal inspection, sclerae normal ENT: hearing grossly normal Neck: trachea midline Respiratory/Chest: lungs clear, normal breath sounds, no respiratory distress, no accessory muscle use Cardiovascular: + irregularly irregular (With normal rate) Abdomen: normal bowel sounds, non tender, soft, no organomegaly Extremities: no pedal edema, no calf tenderness, + pertinent finding (Right knee with Juan wrap in place, but no palpable effusion through that and nontender ) Neurologic/Psychiatric: no motor/sensory deficits, alert, normal mood/affect, oriented x 3 Skin: normal color, warm/dry, no rash Laboratory Results Last 24 Hours Test 06/23/17 07:00 06/23/17 15:42 White Blood Count 9.52 K/uL Red Blood Count 4.80 M/uL Hemoglobin 14.3 g/dL Hematocrit 41.5 % Mean Corpuscular Volume 86.5 fL Mean Corpuscular Hemoglobin 29.8 pg Mean Corpuscular Hemoglobin Concent 34.5 g/dl Platelet Count 155 K/uL Mean Platelet Volume 10.2 fL Neutrophils (%) (Auto) 65.6 % Lymphocytes (%) (Auto) 20.6 % Monocytes (%) (Auto) 11.4 % Eosinophils (%) (Auto) 1.9 % Basophils (%) (Auto) 0.1 % Neutrophils # (Auto) 6.24 K/uL Lymphocytes # (Auto) 1.96 K/uL Monocytes # (Auto) 1.09 K/uL Eosinophils # (Auto) 0.18 K/uL Basophils # (Auto) 0.01 K/uL RDW Standard Deviation 44.8 fL RDW Coefficient of Variation 14.2 % Immature Granulocyte % (Auto) 0.4 % Immature Granulocyte # (Auto) 0.04 K/uL Prothrombin Time 13.4 SECONDS Prothromb Time International Ratio 1.3 Sodium Level 140 mmol/L Potassium Level 3.2 mmol/L Chloride Level 108 mmol/L Carbon Dioxide Level 22 mmol/L Anion Gap 10.0 mmol/L Blood Urea Nitrogen 6 mg/dl Creatinine 0.70 mg/dl Est Creatinine Clear Calc Drug Dose 59.6 ml/min Estimated GFR () 94.2 Estimated GFR (Non- 81.3 BUN/Creatinine Ratio 8.2 Random Glucose 84 mg/dl Calcium Level 8.2 mg/dl Magnesium Level 1.8 mg/dl Total Bilirubin 1.1 mg/dl Direct Bilirubin 0.3 mg/dl Aspartate Amino Transf (AST/SGOT) 17 U/L Alanine Aminotransferase (ALT/SGPT) 17 U/L Alkaline Phosphatase 67 U/L Total Protein 5.4 gm/dl Albumin 2.3 gm/dl Vancomycin Level Trough 11.8 mcg/ml Assessment and Plan This patient is an 82yo female with a history of CKD stage III, chronic atrial fibrillation on Coumadin, CAD, HTN, dyslipidemia, who presented with nausea, vomiting and diarrhea times 3 days that had resolved, and then was with recurrence of symptoms prompting admission. The patient also reports developing substernal chest discomfort secondary to vomiting. She was found to have evidence of ischemic colitis with mesenteric and intrahepatic portal venous gas noted on CT scan abdomen/pelvis on admission Acute mesenteric ischemia with ischemic colitis/hematochezia-presentation consistent with ischemic colitis-with recent possible viral GI illness - likely led to dehydration and hypotension which may have precipitated the ischemia. Lactate negative but more likely be negative with large bowel ischemia as per GI., Abdominal pain now completely resolved, no further grossly bloody bowel movements in several days. Still with diarrhea which may be related to antibiotic therapy. Hgb slight drop to 14.3 but likely equilibrating and was dehydrated and now has been fluid resuscitated Stool culture, C. diff ag both negative, +fecal leuks General surgery consultation appreciated-no surgical management at this time GI consultation appreciated CT angiogram abdomen/pelvis shows: Portal venous gas and mesenteric venous gas have resolved from 06/18/2017. No intraperitoneal free air is seen. Short segment of inflammation at the proximal transverse colon, less than 50% stenosis at origin of celiac trunk, mild to moderate stenosis at origin of inferior mesenteric artery -Advance diet to low fiber today and tolerating well so far -We will discontinue IV Zosyn and vancomycin to see if helps with diarrhea and no longer needed. -Replace electrolytes as needed -Can likely be discharged tomorrow and needs outpatient GI [id number] is presently not wanting any further evaluation with endoscopy in the future, but should still be seen by GI in the outpatient setting Acute kidney injury in the setting of CKD stage III-secondary to severe dehydration and mesenteric ischemia-resolved, creatinine 0.70 today Hypokalemia-persists again today K+ 3.2 -replaced with po KCl 40 meq po x 2 -follow PRP A. fib on chronic coumadin -had bradycardia on admission, resolved with holding diltiazem and metoprolol--> then with rates in to the 140s at times Rates improved now with restarting metoprolol -continue holding Coumadin for hematochezia as above -Follow PT/INR 1.3 today -will wait at least 1-2 weeks to restart coumadin -continue Toprol -May not need to restart diltiazem as heart rate is very well controlled on metoprolol alone Gross hematuria - suspect due to mcghee trauma in the setting of Coumadin use- now completely resolved. Ur cx no growth -dc'd Mcghee Hypotension - due to volume depletion - resolved, then hypertensive. Have been slowly reintroducing BP meds. Blood pressures still in the 140s-150s systolic at times here -Increase lisinopril back to home dose of 40 mg daily for tomorrow -continue Toprol, isosorbide -hold off on restarting diltiazem as above Hyponatremia-secondary to dehydration, sodium is 133 on admission resolved with IV fluids, now 140 -Follow PRP -dcd IVFs CAD/HL/chest pain-noted by history, had atypical chest pain here which is likely secondary to previous vomiting. ECGs and troponins have all been negative. Now completely resolved -continue isosorbide, metoprolol succinate ER 50 mg as above -Restarted aspirin 81 daily -Continue statin -continue lisinopril -Continue pantoprazole Right knee pain/effusion--> I do not clinically suspect septic joint. Has known severe OA in the right knee.Could be inflammatory arthritis vs from OA. Much improved after arthrocentesis and Juan wrap compression and ice packs Xray with OA, possible loose body, suprapatellar effusion -Arthocentesis on 06/22 by Ortho -synovial fluid bloody with RBC 64k,WBC 28k, gram stain with many polys, no orgs , WBC count, no growth in cultures so far, no crystals -await joint fluid cultures, Lyme PCR -Consult ortho appreciated -ice packs tid, Juan wrap for compression -tylenol for pain -avoid NSAIDs due to recent GI bleeding DVT proph -coumadin being held, SCDs Disposition- PT/OT evals to help determine disposition-still awaiting PT to evaluate her-will place consult again today Hopeful for discharge tomorrow Full code
[2017-06-23] MEDS ORDERED: MAGNESIUM SULFATE 1GM / D5W 1 GM in PREMIXED IN D5W 100 ML IV ONE (18:00)
[2017-06-23 23:03] VITALS: BP 157/104; PULSE 93; TEMP 36.9; O2SAT 96
[2017-06-23 23:45] VITALS: BP 142/90; PULSE 87
[2017-06-24 06:54] LABS: BASO % 0.3 %; BASO ABS # 0.02 K/uL (0-0.2); EOS % 2.6 %; HEMATOCRIT 42.3 % (37-47); HEMOGLOBIN 14.5 g/dL (12.0-16.0); IG# 0.02 K/uL (0.00-0.02); LYMPH % 24.1 %; LYMPH ABS # 1.87 K/uL (1.2-3.4); MEAN CELL VOLUME 87.8 fL (80-100); MEAN CORPUSCULAR HEMOGLOBIN 30.1 pg (25-34); MEAN CORPUSCULAR HGB CONC 34.3 g/dl (32-36); MONO % 12.8 %; MONO ABS # 0.99 K/uL (0.11-0.59); NEUT % 59.9 %; NEUT ABS # 4.65 K/uL (1.4-6.5); PLATELET COUNT 171 K/uL (130-400); RED CELL DISTRIBUTION WIDTH CV 14.1 % (11.5-14.5); RED CELL DISTRIBUTION WIDTH SD 45.7 fL (36.4-46.3); WHITE BLOOD COUNT 7.75 K/uL (4.8-10.8)
[2017-06-24 07:00] LABS: INR 1.2 (0.9-1.1)
[2017-06-24 07:20] VITALS: BP 164/98; PULSE 79; TEMP 36.6; O2SAT 98
[2017-06-24 07:27] LABS: CALCIUM 8.4 mg/dl (8.5-10.1); CREATININE 0.76 mg/dl (0.60-1.20); POTASSIUM 3.5 mmol/L (3.5-5.1)
[2017-06-24] MEDS ORDERED: POTASSIUM CHLORIDE 10 MEQ TABCR PO STA (08:40)
[2017-06-24] MEDS: LISINOPRIL 40 MG TAB PO SCH (08:48)
[2017-06-24] MEDS: ASPIRIN 81 MG ECTAB PO SCH (08:48)
[2017-06-24] MEDS: PANTOprazole SOD 40 MG TAB PO SCH (08:48)
[2017-06-24] MEDS: ACETAMINOPHEN 500 MG TAB PO PRN (08:49)
[2017-06-24] MEDS: ISOSORBIDE MONONITRATE 60 MG TABCR PO SCH (08:49)
[2017-06-24] MEDS: METOPROLOL SUCC 50MG EXT REL TAB PO SCH (08:49)
[2017-06-24] MEDS: ONDANSETRON INJ 2 MG/ML 2 ML VIAL IV PRN (11:11)
[2017-06-24 13:50] LABS: INFLUENZA B ANTIGEN Neg for Influ B (NEG)
[2017-06-24 15:19] VITALS: BP 145/83; PULSE 82; TEMP 36.6; O2SAT 94
[2017-06-24] MEDS ORDERED: GI COCKTAIL PO STA (15:44)
[2017-06-24] MEDS ORDERED: ALUMINUM/MAGNESIUM SUSP 18 ML, LIDOCAINE HCL 2% VISCOUS SOLN 6 ML, BARCODE IDENTIFIER 1 EA PO ONE ×2 (16:00)
[2017-06-24 16:15] VITALS: O2SAT 94
--- NOTE | 2017-06-24 17:11 | GASTROENTEROLOGY PROGRESS NOTE ---
DATE: 06/24/2017 This is a gastroenterology inpatient progress note. SUBJECTIVE: Chart reviewed. Patient examined today. Patient is feeling slightly more discomfort than yesterday with nausea throughout the day. She did try some meals, but does not have much of an appetite for them. She denies any hematemesis, coffee-ground emesis. She does have loose stools, although not frequent and reports a single bowel movement this morning that was watery. There is no blood reported. LABORATORY STUDIES: Laboratory studies today reveal white count 7.75, hemoglobin 14.3, platelets 171,000. BUN and creatinine are 7 and 0.76, potassium 3.5. LFTs yesterday were satisfactory. OBJECTIVE: VITAL SIGNS: Today blood pressure 145/83, respirations 18, heart rate is 82, temperature 36.6, 94% on room air. GENERAL: Patient is awake, alert and oriented x3, accompanied by her family. She is resting comfortably in bed. HEENT: Sclerae anicteric, conjunctivae moist. HEART: Normal S1, S2. LUNGS: Clear to auscultation. ABDOMEN: Soft, mildly tender in the epigastrium, but also diffusely with a slightly more than yesterday's exam. There are positive bowel sounds. There is no rebound or guarding. EXTREMITIES: Without edema. RECTAL: Deferred. ASSESSMENT AND PLAN: Source of the patient's nausea, unclear. She does not use NSAIDs at home (on anticoagulation for atrial fibrillation). We would continue with antiemetics as you are doing and slowly advance diet with clears as tolerated. If doing well, may be ready for discharge tomorrow. If, however, these symptoms persist, may need to consider additional labs including lipase. Repeat LFTs and possibly a biliary imaging, perhaps with MRCP. According to the patient's family, patient's son is coming sometime this evening or tomorrow and will rediscuss with the patient colonoscopy. The patient still declines colonoscopy to assess the area in the transverse colon, rectal bleeding and diarrhea. She may be agreeable to upper endoscopy, if upper GI symptoms persist. If diarrhea persists and increases in frequency, would consider repeating Clostridium difficile. All questions answered.
--- NOTE | 2017-06-24 22:28 | Hospitalist Progress Note ---
Hospitalist Progress Note Date of Service Jun 24, 2017. Subjective Pt evaluation today including: conversation w/ patient, conversation w/ end user consultant (GI, orthopedic surgery PA) Patient reports feeling very nauseated this morning and not able to eat. Remains with multiple loose stools that are nonbloody. She is also feeling very fatigued today and has a runny nose, thinks she picked up a cold now. Does not feel she is ready to go home. Also, her right knee is hurting a little bit more again today. Constitutional: No fever, No chills Respiratory: No cough, No shortness of breath Cardiovascular: No chest pain Abdomen: + pain, + nausea, No vomiting Musculoskeletal: + joint pain All Other Systems: Reviewed and Negative Objective Vital Signs Date Time Temp Pulse Resp B/P (MAP) Pulse Ox O2 Delivery O2 Flow Rate FiO2 06/24/17 16:15 94 Room Air 06/24/17 15:19 36.6 82 18 145/83 (103) 94 Room Air 06/24/17 08:00 Room Air 06/24/17 07:20 36.6 79 18 164/98 (120) 98 Room Air 06/24/17 00:22 Room Air 06/23/17 23:45 87 142/90 (107) 06/23/17 23:03 36.9 93 16 157/104 (121) 96 Room Air Physical Exam General Appearance: WD/WN, no apparent distress Eyes: normal inspection, sclerae normal ENT: hearing grossly normal, pharynx normal Neck: trachea midline Respiratory/Chest: lungs clear, normal breath sounds, no respiratory distress, no accessory muscle use Cardiovascular: + irregularly irregular (With normal rate) Abdomen: normal bowel sounds, soft, + tenderness (Across the lower abdomen without guarding or rebound tenderness) Extremities: no pedal edema, no calf tenderness, + pertinent finding (Right knee with small-moderate joint effusion that has slightly reaccumulated with positive lateral joint line tenderness, ROM 5-95, no erythema or warmth) Neurologic/Psychiatric: alert, normal mood/affect, oriented x 3 Skin: normal color, warm/dry, no rash Laboratory Results Last 24 Hours Test 06/24/17 06:12 06/24/17 12:20 White Blood Count 7.75 K/uL Red Blood Count 4.82 M/uL Hemoglobin 14.5 g/dL Hematocrit 42.3 % Mean Corpuscular Volume 87.8 fL Mean Corpuscular Hemoglobin 30.1 pg Mean Corpuscular Hemoglobin Concent 34.3 g/dl Platelet Count 171 K/uL Mean Platelet Volume 10.0 fL Neutrophils (%) (Auto) 59.9 % Lymphocytes (%) (Auto) 24.1 % Monocytes (%) (Auto) 12.8 % Eosinophils (%) (Auto) 2.6 % Basophils (%) (Auto) 0.3 % Neutrophils # (Auto) 4.65 K/uL Lymphocytes # (Auto) 1.87 K/uL Monocytes # (Auto) 0.99 K/uL Eosinophils # (Auto) 0.20 K/uL Basophils # (Auto) 0.02 K/uL RDW Standard Deviation 45.7 fL RDW Coefficient of Variation 14.1 % Immature Granulocyte % (Auto) 0.3 % Immature Granulocyte # (Auto) 0.02 K/uL Prothrombin Time 12.1 SECONDS Prothromb Time International Ratio 1.2 Sodium Level 139 mmol/L Potassium Level 3.5 mmol/L Chloride Level 109 mmol/L Carbon Dioxide Level 25 mmol/L Anion Gap 5.0 mmol/L Blood Urea Nitrogen 7 mg/dl Creatinine 0.76 mg/dl Est Creatinine Clear Calc Drug Dose 54.9 ml/min Estimated GFR () 85.3 Estimated GFR (Non- 73.6 BUN/Creatinine Ratio 9.8 Random Glucose 83 mg/dl Calcium Level 8.4 mg/dl Magnesium Level 2.0 mg/dl Influenza Type A Antigen Neg for Influ A Influenza Type B Antigen Neg for Influ B Assessment and Plan This patient is an 82yo female with a history of CKD stage III, chronic atrial fibrillation on Coumadin, CAD, HTN, dyslipidemia, who presented with nausea, vomiting and diarrhea times 3 days that had resolved, and then was with recurrence of symptoms prompting admission. The patient also reports developing substernal chest discomfort secondary to vomiting. She was found to have evidence of ischemic colitis with mesenteric and intrahepatic portal venous gas noted on CT scan abdomen/pelvis on admission Acute mesenteric ischemia with ischemic colitis/hematochezia-presentation consistent with ischemic colitis-with recent possible viral GI illness - likely led to dehydration and hypotension which may have precipitated the ischemia. Lactate negative but more likely be negative with large bowel ischemia as per GI., Abdominal pain now completely resolved, no further grossly bloody bowel movements in several days. Still with diarrhea which may be related to antibiotic therapy-antibiotics now stopped. Hgb slight drop to 14 but remains stable. Stool culture, C. diff ag both negative, +fecal leuks General surgery consultation appreciated-no surgical management at this time GI consultation appreciated CT angiogram abdomen/pelvis shows: Portal venous gas and mesenteric venous gas have resolved from 06/18/2017. No intraperitoneal free air is seen. Short segment of inflammation at the proximal transverse colon, less than 50% stenosis at origin of celiac trunk, mild to moderate stenosis at origin of inferior mesenteric artery -Advance diet to low fiber but now with nausea -IV Zosyn and vancomycin discontinued and may have been causing persistent diarrhea -Replace electrolytes as needed -Zofran, GI cocktail for nausea -If nausea persists, GI recommends repeating LFTs, lipase, possible MRCP -If diarrhea persists, consider repeating the C. difficile antigen -Can likely be discharged tomorrow and needs outpatient GI [id number] is presently not wanting any further evaluation with endoscopy in the future, but should still be seen by GI in the outpatient setting Acute kidney injury in the setting of CKD stage III-secondary to severe dehydration and mesenteric ischemia-resolved, creatinine 0.76 today Hypokalemia-improved after replacement -follow PRP A. fib on chronic coumadin -had bradycardia on admission, resolved with holding diltiazem and metoprolol--> then with rates in to the 140s at times Rates improved now with restarting metoprolol -continue holding Coumadin for hematochezia as above -Follow PT/INR 1.2 today -will wait at least 1 week from when GI bleeding resolved to restart coumadin- could likely restart in 2-3 more days -continue Toprol -May not need to restart diltiazem as heart rate is very well controlled on metoprolol alone Gross hematuria - suspect due to mcghee trauma in the setting of Coumadin use- now completely resolved. Ur cx no growth -dc'd Mcghee Hypotension - due to volume depletion - resolved, then hypertensive. Have been slowly reintroducing BP meds. Blood pressures still in the 140s-150s systolic at times here -Increased lisinopril back to home dose of 40 mg daily -continue Toprol, isosorbide -hold off on restarting diltiazem as above Hyponatremia-secondary to dehydration, sodium is 133 on admission resolved with IV fluids, now normal -Follow PRP CAD/HL/chest pain-noted by history, had atypical chest pain here which is likely secondary to previous vomiting. ECGs and troponins have all been negative. Now completely resolved -continue isosorbide, metoprolol succinate ER 50 mg as above -Restarted aspirin 81 daily -Continue statin -continue lisinopril -Continue pantoprazole Right knee pain/effusion--> I do not clinically suspect septic joint and cultures negative so far. Has known severe OA in the right knee. Did have a bloody tap. It was much improved after arthrocentesis and Juan wrap compression and ice packs Xray with OA, possible loose body, suprapatellar effusion. Now with some slight reaccumulation of the effusion on exam. Discussed with orthopedics PA today who discussed with the attending-would not want to re-tap her knee given risk of infection especially if she would need TKA in the future and given her present left TKA -Arthocentesis on 06/22 by Ortho -synovial fluid bloody with RBC 64k,WBC 28k, gram stain with many polys, no orgs , WBC count, no growth in cultures so far, no crystals -await joint fluid cultures, Lyme PCR -Consult ortho appreciated -ice packs tid, Juan wrap for compression -tylenol for pain -avoid NSAIDs due to recent GI bleeding -Needs outpatient orthopedics follow-up DVT proph -coumadin being held, SCDs Disposition- PT/OT mattie recommend home with home health Hopeful for discharge tomorrow if nausea and diarrhea improved Full code
[2017-06-24 23:08] VITALS: BP 159/95; PULSE 83; TEMP 36.9; O2SAT 96
[2017-06-25] MEDS: ACETAMINOPHEN 500 MG TAB PO PRN (01:37)
[2017-06-25 06:48] VITALS: BP 165/94; PULSE 65; TEMP 36.7; O2SAT 97
[2017-06-25] MEDS: ASPIRIN 81 MG ECTAB PO SCH (07:38)
[2017-06-25] MEDS: PANTOprazole SOD 40 MG TAB PO SCH (07:38)
[2017-06-25] MEDS: ISOSORBIDE MONONITRATE 60 MG TABCR PO SCH (07:39)
[2017-06-25] MEDS: LISINOPRIL 40 MG TAB PO SCH (07:39)
[2017-06-25] MEDS: METOPROLOL SUCC 50MG EXT REL TAB PO SCH (07:39)
[2017-06-25] MEDS: ATORVASTATIN 40 MG TAB PO SCH (07:39)
[2017-06-25 08:00] VITALS: O2SAT 97
[2017-06-25 08:36] LABS: CALCIUM 8.6 mg/dl (8.5-10.1); CREATININE 0.75 mg/dl (0.60-1.20)
[2017-06-25] MEDS ORDERED: DILT180C69 PO (14:38)
--- NOTE | 2017-06-25 14:52 | Discharge Instructions ---
Discharge Instructions Date of Service Jun 25, 2017. Admission Reason for Admission: Hypotension, Dehydration Discharge Discharge Diagnosis / Problem: Mesenteric ischemia with probable colitis Discharge Goals Goal(s): Learn about illness, Diagnostic testing, Therapeutic intervention Activity Recommendations Activity Limitations: resume your previous activity (as tolerated) . Instructions / Follow-Up Instructions / Follow-Up From Dr. Jeffers - It was felt that you likely had a viral "stomach bug" (gastroenteritis) which then led to dehydration. When you became dehydrated your blood pressure got low which will worsen blood flow through the arteries of the abdominal cavity. This is known as "ischemia". The ischemia was the cause of your presenting symptoms, blood in the stool, air seen in the mesentery on the CAT scan, etc. You improved with fluids, bowel rest, and time. The [facility] GI team is recommending a colonoscopy in the next 1-2 months. Please discuss this with Dr. Han at your follow-up appointment. We recommend a Low Fiber diet for 7-10 days. Avoid high fiber foods (excessive fruits/veggies, certain cereals, beans, etc). Follow a "bland" diet as well. We have stopped your coumadin during this stay. Please stay off the coumadin until you see your family doctor next week. A decision can be made at that visit about resuming coumadin. Ok to resume your aspirin. All of your heart/blood pressure pills are the same except your cardizem ( diltiazem). We have lowered the diltiazem to 180mg once a day. New prescription sent to your pharmacy. Please keep your follow-up appointments with your family doctor & [facility] as scheduled. Return to [facility] if - * you have recurrent abdominal pain * you have recurrent bloody stools * you have nausea and/or vomiting * you cannot eat/drink * chest pain or shortness of breath * any other concerns Current Hospital Diet Patient's current hospital diet: Low Fiber Diet Discharge Diet Recommended Diet: Low Fiber Diet Procedures Procedures Performed: CAT scan of abdomen showing air in the "mesentery". CAT scan #2 of abdomen showing resolution of the air previously seen. Small amount of resolving colitis as well. Right knee "tap" (arthrocentesis) - no evidence of infection, gout, or pseudogout. Pending Studies Studies pending at discharge: no Laboratory Results Hemoglobin A1c Test 05/01/17 10:40 Range/Units Estimated Average Glucose 123 mg/dl Hemoglobin A1c 5.9 H 4.5-5.6 % Lipid Panel Test 05/01/17 10:40 Range/Units Triglycerides Level 252 H 0-150 mg/dl Cholesterol Level 110 0-200 mg/dl HDL Cholesterol 35 mg/dl Cholesterol/HDL Ratio 3.1 LDL Cholesterol, Calculated 25 mg/dl Medical Emergencies . Who to Call and When: Medical Emergencies: If at any time you feel your situation is an emergency, please call 911 immediately. . Non-Emergent Contact Non-Emergency issues call your: Primary Care Provider, Drier Tender Call Non-Emergent contact if: temperature is above 100.5, your pain is not controlled, your pain is worsening, your pain is unusual for you, your pain is concerning you, you have any medication questions . . "Provider Documentation" section prepared by Emmanuel Jeffers. .
[2017-06-25 14:58] VITALS: BP 165/94; PULSE 65; TEMP 36.7; O2SAT 97
--- NOTE | 2017-07-01 23:44 | Discharge Summary ---
Discharge Summary Date of Service Jul 01, 2017. Discharge Summary Admission Date: Jun 18, 2017 at 20:12 Discharge Date: Jun 25, 2017 Discharge Disposition: Home with services Principal Diagnosis: acute mesenteric ischemia Problems/Secondary Diagnoses: 1. acute kidney injury 2. ischemic colitis 3. probable viral gastroenteritis preceding her mesenteric ischemic event 4. CAD 5. hyperlipidemia 6. HTN 7. atrial fibrillation 8. hyponatremia - resolved 9. CKD stage 3 10. hypotension - resolved 11. lactic acidosis - resolved 12. hypokalemia, hypomagnesemia - resolved Immunizations: Have You Had Influenza Vaccine: Unknown History of Tetanus Vaccine?: Unknown History of Pneumococcal: Unknown History of Hepatitis B Vaccine: Unknown Procedures: 1. CT abd/pelvis - IMPRESSION: 1. Mesenteric and intrahepatic portal venous gas. This is most suspicious for ischemic bowel, however, no pneumatosis or other evidence to suggest bowel pathology. Mesenteric gas is noted prominently in the right lower quadrant, which could suggest a cecal origin, though portal venous gas is also noted in the small bowel mesentery. Surgical consultation recommended. 2. Fluid in the colon suggests a diarrheal state. 3. No pneumoperitoneum. 4. Hepatic steatosis. 2. CT angiography - IMPRESSION: 1. Portal venous gas and mesenteric venous gas have resolved from 06/18/2017. No intraperitoneal free air is seen. 2. There is a short segment of wall thickening with surrounding inflammation involving the proximal transverse colon. This could be on an infectious, inflammatory, or ischemic basis. Clinical correlation will be required. 3. There is less than 50% stenosis at the origin the celiac trunk. Mild to moderate stenosis is suggested at the origin of the inferior mesenteric artery. The mesenteric vessels are otherwise widely patent. See above. 4. Trace free fluid in the cul-de-sac is nonspecific and likely reactive. 5. Small foci of gas are noted in the bladder lumen and may be related to recent instrumentation. Correlation with clinical findings and urinalysis will be required. 3. CT head - negative for acute processes. 4. right knee arthrocentesis. Consultations: critical care orthopedics gastroenterology general surgery PT, OT Medication Reconciliation Changed Medications: Diltiazem Hcl Extended Release (Diltiazem Hcl Er) 180 Mg Cap 180 MG PO DAILY, #30 TABS 2 Refills (Changed from: Diltiazem Hcl Extended Release (Tiazac 360 Mg) 360 Mg Cap 360 Mg PO QAM) Continued Medications: Aspirin (Aspirin Ec) 81 Mg Tab 81 MG PO QAM Atorvastatin (Lipitor) 40 Mg Tab 40 MG PO Q2D Isosorbide Mononitrate (Isosorbide Mononitrate ER) 60 Mg Tabcr 60 MG PO QAM Lisinopril (Lisinopril) 40 Mg Tab 40 MG PO QAM Metoprolol Succinate (Metoprolol Succinate ER) 50 Mg Tabcr 50 MG PO QAM Nitroglycerin (Nitrostat) 0.4 Mg Tab 0.4 MG UT UD PRN for Chest Pain PLACE ONE TABLET UNDER THE TONGUE EVERY 5 MINUTES FOR UP TO 3 DOSES OVER 15 MINUTES IF NEEDED FOR CHEST PAIN Potassium (Potassium) Unknown Strength Tab 1 DOSE PO UD Discontinued Medications: Warfarin Sodium (Warfarin Sodium) 2.5 Mg Tab 2.5 MG PO HS TAKE 2.5 MG EVERY DAY OR OTHERWISE DIRECTED TO TAKE BY ANTICOAGULATION CLINIC/MD Discharge Exam Physical Exam: General Appearance: no apparent distress ENT: pharynx normal Neck: no JVD Respiratory/Chest: lungs clear, no respiratory distress, no accessory muscle use Cardiovascular: no gallop, no murmur, normal peripheral pulses, + irregularly irregular Abdomen / GI: normal bowel sounds, non tender, soft, no organomegaly Extremities: no pedal edema Neurologic/Psychiatric: alert, oriented x 3 Hospital Course HISTORY OF PRESENT ILLNESS: Patient is an 82-year-old female with a significant past medical history of atrial fibrillation requiring metoprolol as well as Cardizem daily. She reports that she had been feeling well up until Thursday. She began to develop nausea, vomiting, and diarrhea. In addition, she described abdominal cramping which would wax and wane depending on need to have a bowel movement. She describes generalized weakness and fatigue. She was unable to tolerate p.o. food or fluids. She was unable to take her daily medications for the past 2 days. She did feel as though her symptoms have been somewhat improving on Thursday, however morning she had return of symptoms of nausea, vomiting, and diarrhea. At this point, she describes increasing lower abdominal discomfort described as a "cramping" pain which seems to resolve after bowel movement. She denies any blood in her vomit or stool. She does have a remote history of C. difficile infection, however she is uncertain if this feels similar. The patient had not taken her morning medications for the past few days secondary to inability to keep her medications down. This morning , however, she did report taking all of her medications as previously prescribed and she was able to keep all of them down. Throughout the day, she describes progressive generalized weakness and fatigue. She admittedly had a headache for the past several days which she describes as a total headache with diffuse discomfort. This is not the worst headache of her life. At time of ER presentation she underwent CT of the abd/pelvis demonstrating mesenteric and intrahepatic portal venous gas. HOSPITAL COURSE: It was presumed that the patient had been suffering from a gastroenteritis that led to significant dehydration, hypotension, and then the development of acute mesenteric ischemia. She was initially admitted to the ICU where she was placed on bowel rest, IV fluids, and broad-spectrum IV antibiotic therapy. Her coumadin was held. With these measures her hypotension resolved and her GI symptoms all improved. She did have some mild bloody bowel movements likely from the transverse ischemic colitis seen on the second CT abd/pelvis. Fortunately she never required any surgical intervention for her ischemic event. With fluids and time her hyponatremia and acute kidney injury both resolved. Her bloody bowel movements also resolved. She was ultimately restarted on a diet and this was advanced slowly as tolerated. She was seen in consult by PT/OT and felt to be fit to return home with home health services. A course of IV antibiotic therapy was completed while hospitalized; she did not receive oral antibiotics for home use. Of note - all stool studies, blood cultures, etc remained negative while hospitalized including c. diff toxin. It was recommended that she undergo an elective colonoscopy in about 6 weeks after discharge. She initially declined to do such, but at time of discharge is giving this more serious consideration. She has scheduled follow-up with [facility]. At discharge she was asked to hold her coumadin until she sees her PCP but was advised to remain on her aspirin. If she is doing well at time of hospital follow-up with normal bowel movements, no blood per rectum, etc she can likely resume coumadin at that time. Total Time Spent: Greater than 30 minutes This includes examination of the patient, discharge planning, medication reconciliation, and communication with other providers. Discharge Instructions Please refer to the electronic Patient Visit Report (Discharge Instructions) for additional information. Follow-Up 1. Rachael GALINDO on ThursdayJune 30 at 10:[address] Farhan Han on ThursdayJuly 13 at 12:40 pm. Additional Copies To Farhan Han M.D.; Rachael Menendez, [email or web address].
--- NOTE | 2017-07-03 08:07 | EDITING REQUIRED CODING QUERY ---
To promote full compliance with coding requirements relating to patient care, provider participation is requested in all cases of benefits director uncertainty. Please assist us with the question(s) below: Coding Question(s): The diagnosis below was documented in the H&P and early Progress Notes, then subsequently fell off all further documentation. Please indicate if it is still a possible diagnosis or ruled out. Physician's Response(s): POSSIBLE SEPSIS ( ) Diagnosed and POA ( ) Diagnosed and not POA ( x ) Ruled out ( ) Other (please specify)
== END 2017-06-25 15:27 | disposition home health service (06) | DRG 314 ==
LOC: C.EDB 16:52 → C.MSICU 20:12 → ENRESERV 20:17 → C.2T 06-20 14:16 → ENRESERV 06-22 16:15 → C.MS4W 06-22 18:03
PROVIDERS: ADMIT Hospitalist; ATTEND Internal Medicine
PROC: 0S9C3ZZ Drainage of Right Knee Joint, Percutaneous Approach (ICD-10-PCS; principal; 2017-06-22)
DX: I95.89 Other hypotension (principal); K55.039 Acute (reversible) ischemia of large intestine, extent unspecified; N17.9 Acute kidney failure, unspecified; E87.1 Hypo-osmolality and hyponatremia; S37.30XA Unspecified injury of urethra, initial encounter; E87.2 Acidosis; K52.1 Toxic gastroenteritis and colitis; T36.95XA Adverse effect of unspecified systemic antibiotic, initial encounter; R00.1 Bradycardia, unspecified; T46.1X5A Adverse effect of calcium-channel blockers, initial encounter; E86.1 Hypovolemia; E87.6 Hypokalemia; E83.42 Hypomagnesemia; R07.89 Other chest pain; M25.461 Effusion, right knee; M17.11 Unilateral primary osteoarthritis, right knee; M11.261 Other chondrocalcinosis, right knee; M23.41 Loose body in knee, right knee; N99.89 Other postprocedural complications and disorders of genitourinary system; R31.0 Gross hematuria; I13.10 Hypertensive heart and chronic kidney disease without heart failure, with stage 1 through stage 4 chronic kidney disease, or unspecified chronic kidney disease; N18.3 Chronic kidney disease, stage 3 (moderate); I48.2 Chronic atrial fibrillation; I25.10 Atherosclerotic heart disease of native coronary artery without angina pectoris; E78.5 Hyperlipidemia, unspecified; Z79.899 Other long term (current) drug therapy; Z79.01 Long term (current) use of anticoagulants; Z79.82 Long term (current) use of aspirin; Z86.19 Personal history of other infectious and parasitic diseases; Z96.652 Presence of left artificial knee joint; Z85.3 Personal history of malignant neoplasm of breast; Z91.040 Latex allergy status; Z83.3 Family history of diabetes mellitus; Z82.49 Family history of ischemic heart disease and other diseases of the circulatory system; Z82.3 Family history of stroke; Y84.6 Urinary catheterization as the cause of abnormal reaction of the patient, or of later complication, without mention of misadventure at the time of the procedure; Y92.239 Unspecified place in hospital as the place of occurrence of the external cause

== ENCOUNTER → 2017-07-07 | Outpatient (CLI) | payer OTHER ==
[~2017-07-07] MED LIST changes: -CLB200 PO; +DILT180C69 PO; -DILT360C22 PO; -ERGO500011 PO; -FOLITAB2 PO; +ISOS-10 PO; -ISOS60TA25 PO; -LCTX PO; -LISI40TA PO; -LPT/40 PO; +LPT40 PO; +LSN40 PO; +POTA99TA PO; -TRAM-10 PO; -WARF5TAB7 PO
[2017-07-07 17:00] LABS: BASO % 0.2 %; BASO ABS # 0.02 K/uL (0-0.2); EOS % 0.6 %; EOS ABS # 0.07 K/uL (0-0.5); HEMATOCRIT 48.4 % (37-47); HEMOGLOBIN 15.7 g/dL (12.0-16.0); IG# 0.09 K/uL (0.00-0.02); LYMPH % 23.3 %; LYMPH ABS # 2.53 K/uL (1.2-3.4); MEAN CELL VOLUME 91.5 fL (80-100); MEAN CORPUSCULAR HEMOGLOBIN 29.7 pg (25-34); MEAN CORPUSCULAR HGB CONC 32.4 g/dl (32-36); MEAN PLATELET VOLUME 10.2 fL (7.4-10.4); MONO % 10.5 %; MONO ABS # 1.14 K/uL (0.11-0.59); NEUT % 64.6 %; NEUT ABS # 6.99 K/uL (1.4-6.5); PLATELET COUNT 267 K/uL (130-400); RED CELL DISTRIBUTION WIDTH CV 15.4 % (11.5-14.5); RED CELL DISTRIBUTION WIDTH SD 51.5 fL (36.4-46.3); WHITE BLOOD COUNT 10.84 K/uL (4.8-10.8)
[2017-07-07 17:11] LABS: BLOOD UREA NITROGEN 18 mg/dl (7-18); CARBON DIOXIDE 24 mmol/L (21-32); CREATININE 0.95 mg/dl (0.60-1.20); GLUCOSE 96 mg/dl (70-99); POTASSIUM 3.7 mmol/L (3.5-5.1); SODIUM 140 mmol/L (136-145)
== END | disposition home or self-care (01) ==
LOC: C.LABBFT 11:54
PROVIDERS: ATTEND Nurse Practitioner
DX: K55.9 Vascular disorder of intestine, unspecified (principal)

== ENCOUNTER 2023-03-10 10:35 | Inpatient (IN) ==
[2023-03-10 11:47] LABS: Basophils # (auto) 0.02 K/uL (0.00-0.20); Basophils % (auto) 0.3 %; Eosinophils # (auto) 0.02 K/uL (0.00-0.50); Eosinophils % (auto) 0.3 %; Hematocrit (blood only) 44.5 % (37.0-47.0); Hemoglobin 15.3 g/dl (12.0-16.0); Immature Granulocytes # (auto) 0.05 K/uL (0.01-0.20); Immature Granulocytes % (auto) 0.7 %; Lymphocytes # (auto) 0.97 K/uL (1.20-3.40); Lymphocytes % (auto) 13.3 %; Mean Corpuscular Hemoglobin 39.4 pg (25.0-34.0); Mean Corpuscular Hgb Conc 34.4 g/dL (32.0-36.0); Mean Corpuscular Volume 114.7 fL (80.0-100.0); Mean Platelet Volume 9.6 fL (9.4-12.4); Monocytes # (auto) 0.81 K/uL (0.11-0.59); Monocytes % (auto) 11.1 %; Neutrophils # (auto) 5.41 K/uL (1.40-6.50); Neutrophils % (auto) 74.3 %; Platelet Count 131 K/uL (130-400); RDW Coefficient of Variation 13.6 % (11.5-14.5); RDW Standard Deviation 58.7 fL (36.4-46.3); Red Blood Count 3.88 M/uL (4.20-5.40); White Blood Count 7.28 K/ul (4.8-10.8)
[2023-03-10 11:50] LABS: Alanine Aminotransferase 17 U/L (7-52); Albumin Globulin Ratio 1.2 (0.9-2); Albumin Level 3.5 gm/dl (3.4-5.0); Alkaline Phosphatase 63 U/L (34-104); Anion Gap 8 (3-11); Aspartate Aminotransferase 25 U/L (13-39); BUN Creatinine Ratio 18.8 (10-20); Bilirubin,Total 1.2 mg/dl (0.2-1.0); Blood Urea Nitrogen 18 mg/dl (6-23); Calcium 8.9 mg/dl (8.6-10.3); Carbon Dioxide 26 mmol/L (21-32); Chloride 103 mmol/L (98-107); Est GFR (African American) 62.1 ml/min; Est GFR (Non-African American) 53.6 ml/min; Glucose 169 mg/dl (70-99(Fasting)); Sodium 137 mmol/L (136-145); Total Protein 6.5 gm/dl (6.0-8.3)
[2023-03-10 11:57] LABS: Troponin I High Sensitivity 13.8 pg/ml (0-14)
[2023-03-10 12:02] LABS: INR 1.6 (0.9-1.1); Partial Thromboplastin Ratio 1.3; Partial Thromboplastin Time 37 Seconds (21-31); Prothrombin Time 17.3 Seconds (9.0-12.0)
[2023-03-10 12:13] LABS: Creatine Kinase 387 U/L (26-192)
[2023-03-10 12:16] LABS: Macrocytosis Present; Polychromasia 1+
[2023-03-10 12:22] LABS: Appearance Urine Turbid (Clear); Bacteria Urine Automated 4+ (Negative); Bilirubin Urine Negative (Negative); Blood Urine 2+ (Negative); Color Urine Dark Yellow; Glucose Urine UA Negative (Negative); Ketones Urine Trace (Negative); Leukocyte Esterase Urine 3+ (Negative); Nitrite Urine Positive (Negative); Protein Urine 1+ (Negative); RBC Urine Automated >30 /hpf (0-4); Specific Gravity Urine 1.018 (1.000-1.030); Urobilinogen Urine Negative (Negative); WBC Urine Automated >30 /hpf (0-5); pH Urine 5.5 (4.5-7.5)
--- NOTE | 2023-03-10 12:27 | CT Scan Report ---
CT head/brain wo con CLINICAL HISTORY: 87 years-old Female with fall. Acute head trauma status post fall TECHNIQUE: Multiple axial CT images of the head were obtained without contrast. A dose lowering tech nique was utilized adhering to the principles of ALARA. CT DOSE: 547.75 mGy.cm COMPARISON: 06/18/2017 FINDINGS: No acute intracranial hemorrhage, midline shift, intra-axial mass, hydrocephalus, territorial ischemi a or abnormal extra-axial collection. Involutional changes with chronic microvascular ischemic diseas e. The calvarium is intact. Prior bilateral lens repair. The paranasal sinuses, mastoid air cells, and m iddle ear cavities are clear. IMPRESSION: No acute intracranial abnormality or calvarial fracture. ACT 112: Negative or not required by law. The above report was generated using voice recognition software. It may contain grammatical, syntax o r spelling errors. Electronically signed by: Franklyn Siddiqui M.D. 03/10/2023 12:25 PM
--- NOTE | 2023-03-10 12:55 | XRay Report ---
RIGHT KNEE 3 VIEWS CLINICAL HISTORY: Fall. Right knee pain. FINDINGS: AP, crosstable lateral, and sunrise views of the right knee are compared to study dated 06/21. The skeletal structures are osteopenic. No fracture is seen. There is advanced degenerative na rrowing at the patellofemoral articulation. Mild narrowing is seen in the medial and lateral compartm ents. There are marginal osteophytes and patellar enthesophytes. Chondrocalcinosis is observed in the medial and lateral compartments. Calcified joint bodies are suspected. No joint effusion is seen. Th ere is mild prepatellar soft tissue swelling. IMPRESSION: 1. No acute bony abnormality is defined. 2. Degenerative change and chondrocalcinosis as above. Electronically signed by: Junior Gonzalez M.D. 03/10/2023 12:54 PM
--- NOTE | 2023-03-10 13:01 | XRay Report ---
XR hand RT min 3V routine CLINICAL HISTORY: Fall. COMPARISON: None FINDINGS: Alignment of the right hand is anatomic. No acute fracture. Carpal bones are intact. Chond rocalcinosis within the proximal carpal row and TFCC is noted. Dorsal hand soft tissue swelling is pr esent. There is moderate osteoarthritis within several articulations of the right hand. IMPRESSION: 1. No fractures within the right hand. 2. Right hand soft tissue swelling. ACT 112: Negative or not required by law. Electronically signed by: Dougie Vaughn M.D. 03/10/2023 1:00 PM
--- NOTE | 2023-03-10 13:20 | XRay Report ---
XR knee LT 3V HISTORY: 87 years-old Female fall acute left knee pain status post fall COMPARISON: 03/07/2017 TECHNIQUE: 3 views of the left knee FINDINGS: Total joint arthroplasty with patellar resurfacing. Trace joint effusion. Calcifications noted within the region of Hoffa's fat pad. No acute fracture, dislocation or evidence of hardware complication. Severe joint space narrowing incidentally noted involving the lateral aspect of the right patellofemo ral joint. IMPRESSION: 1. No acute fracture or dislocation. 2. Unremarkable appearance of the total joint arthroplasty. ACT 112: Negative or not required by law. The above report was generated using voice recognition software. It may contain grammatical, syntax o r spelling errors. Electronically signed by: Franklyn Siddiqui M.D. 03/10/2023 1:19 PM
[2023-03-10] MEDS ORDERED: cefTRIAXone SODIUM 2,000 MG/50 ML BAG IV STA (13:33)
--- NOTE | 2023-03-10 13:40 | Emergency Department Note ---
Impression & Plan Acute UTI (urinary tract infection), Generalized weakness, Fall, Contusion of hand, right, CHI (closed head injury) ED Provider Note NAME: JASON BECK AGE: 87 SEX: Female INFORMANT: Patient and daughter ED PROVIDER(S): Tapan Licona MD CHIEF COMPLAINT: Fall PLAN: Disposition: Admitted Outpatient prescription management: none Referral: None MEDICAL DECISION MAKING: Patient presented after a fall. She has had increasing urinary symptoms over the last several days. She has gotten so weak that she cannot ambulate safely. Family is present and did help with the history. She underwent x-ray imaging of the right hand and both knees secondary to the trauma. No fracture noted. She had a head CT performed due to the fall on anticoagulation. Thankfully no bleed noted. Patient's CBC and chemistry panel are unremarkable however the patient's urinalysis is grossly abnormal. This is very concerning for infection. Urine culture sent. Blood cultures ordered. Discussed with ED pharmacist and IV Rocephin administered. Consultation was made with Dr. Jason Nguyen of the [facility] service. Patient was evaluated in the ER for further management. Care/management discussed with: Discussed with insurance sales manager Level of care consideration(s): After review of the information above and other included data, I feel the patient requires escalation of care to admission. Triage Nursing notes: reviewed and agree them. Vital Signs: reviewed and remarkable for no significant abnormalities Additional History obtained from: none Chronic Medical/Social Conditions affecting care: Anticoagulation, hypertension Prior/ Outside/ External records reviewed: none Differential Diagnosis: Contusion, fracture, concussion, ICH, infection, dehydration, metabolic abnormality, hypo/hyperglycemia, electrolyte disturbance, anemia, hypoxia, cardiac sources, intracerebral event, toxicologic, neurologic, as well as other pathologies. Diagnostics, independently interpreted by me: ECG: Twelve-lead ECG reveals atrial fibrillation at 96 bpm. Low voltage QRS. No ST elevation or depression. No PVCs PACs Cardiac Monitoring: None Medical decision rules: none Imaging studies: Head CT: A noncontrast CT scan of the head was performed and was negative for tumor, fracture, intracranial hemorrhage, or other acute pathology. x-ray imaging of the right hand revealed soft tissue swelling but no fracture. X-ray imaging of both knees Revealed no evidence of fracture or dislocation HPI: 87 year old Female arrives for evaluation of fall. This started 2 days ago and is described as accidental. Patient was feeling weak and lost her balance. She did hit her head. The patient also notes the following associated symptoms, urinary frequency, urgency, chills, fevers. The patient has taken no medication relieving factors. Current pain is rated as 4/10. Daughter notes the patient has become so weak that she cannot ambulate on her own. She has pain in her right hand as well as both knees from the fall. Pt denies LOC, headache, fevers, chills, diaphoresis, visual changes, neck pain, chest pain, breathing difficulties, nausea, vomiting, abdominal pain, back pain, melena, hematochezia, lymphadenopathy, rash, or other complaints. PAST MEDICAL HISTORY: See Below, A-fib, anticoagulated PAST SURGICAL HISTORY: See Below, SOCIAL HISTORY: See Below, retired HOME MEDICATIONS: See Below ALLERGIES: See Below VITALS: See Below PHYSICAL EXAMINATION: GENERAL: Awake, alert, well-appearing, in no distress HENT: Normocephalic, small occipital contusion. Oropharynx unremarkable. EYES: Normal conjunctiva. Sclera non-icteric. NECK: Inspection normal. Non-tender. Supple. No nuchal rigidity. FROM. No masses. RESPIRATORY: Clear to auscultation. No wheezes. No rales. Normal respiratory effort. CARDIAC: Normal rate. Normal rhythm. No murmurs. No rubs. Extremities warm and well perfused. Pulses equal. No JVD. GI: Soft, non-distended. No tenderness to palpation. No rebound or guarding. No masses. RECTAL: Deferred. MUSCULOSKELETAL: Mild bilateral knee contusions with good range of motion. No gross deformity. There is swelling and mild tenderness of the right hand. chest examination reveals no tenderness. The back is symmetrical on inspection without obvious abnormality. There is no CVA tenderness to palpation. No joint edema. LOWER EXTREMITIES: Calves are equal size bilaterally and non-tender. No edema. No discoloration. NEURO: Normal sensorium. No sensory or motor deficits noted. SKIN: No rash or jaundice noted. PROCEDURES: none CRITICAL CARE: none OBSERVATION NOTE: none Past Med/Surg History Medical History Atrial premature complex Left knee pain Left knee DJD Leg pain, left Hypertension Angina at rest (01/19/13) Surgical History History of cataract surgery S/P knee replacement S/P hysterectomy S/P mastectomy S/P cholecystectomy H/O mastectomy Family History Father Coronary heart disease Myocardial infarction Denies family history of Ovarian cancer Prostate cancer Breast cancer Colorectal cancer Social History Smoking Status: Never smoker Second Hand Exposure: No; Do You Dip or Chew Tobacco: No; Hx Alcohol Use: No Hx Substance Use: No Preferred Language: Wolof Visual Impairment: No Limitations Hearing Ability: Normal marital status: / Current Living Situation: Alone Current Living Situation Comment: daughter lives closeby and she is checked on 3-4X a day current occupational status: retired 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 Feels Safe at Home: Yes Childhood Exposure to Second-Hand Smoke: Yes Diet: regular Dental Care, Regularly: Yes Physical Activity Frequency: Does not Exercise Seatbelt Use: always Sunscreen Use: Yes Allergies Allergies Allergy/AdvReac Type Severity Reaction Status Date / Time latex Allergy Unknown ITCHINESS Verified 01/20/23 16:04 tramadol Allergy Unknown CAN'T Verified 01/20/23 16:04 REMEMBER Home Meds Home Medications Medication Instructions Recorded Confirmed cholecalciferol (vitamin D3) 50 50 mcg PO DAILY 06/09/19 03/10/23 mcg (2,000 unit) capsule aspirin 81 mg chewable tablet 81 mg PO DAILY 05/17/22 03/10/23 warfarin 2 mg tablet 2 mg PO QPM 05/17/22 03/10/23 hydroxyurea 500 mg capsule 500 mg PO DAILY 07/10/22 03/10/23 Previous Rx's Medication Instructions Recorded duloxetine 30 mg capsule,delayed 30 mg PO DAILY #90 caps 01/13/19 release nitroglycerin 0.4 mg sublingual 0.4 mg sublingual Q5M PRN chest 02/02/19 tablet pain #25 tabs atorvastatin 40 mg tablet 40 mg PO Q OTHER DAY #90 tabs 07/10/22 carvedilol 6.25 mg tablet 6.25 mg PO BID #60 tabs 10/02/22 lisinopril 40 mg tablet 40 mg PO DAILY #90 tabs 12/11/22 isosorbide mononitrate 60 mg 60 mg PO DAILY #90 tabs 01/20/23 tablet,extended release 24 hr Results & Data (ED) Vital Signs Vital Signs - 24 hr 03/10/23 10:36 03/10/23 11:00 03/10/23 11:44 Temperature 36.6 C Temperature Source Temporal Artery Scan Pulse Rate 102 H 86 Pulse Rate [Apical] Pulse Rhythm [Apical] Pulse Strength [Apical] Respiratory Rate 18 Respiratory Effort / Characteristics Respiratory Depth Respiratory Pattern Blood Pressure 136/80 Blood Pressure [Left Arm] Blood Pressure Mean 98 Blood Pressure Mean [Left Arm] Blood Pressure Position [Left Arm] Pulse Oximetry 93 93 Oxygen Delivery Method Room Air Sepsis Recent Fever Within 48 Hours No Sepsis New/Unexplained Change in Mental Status N/A Sepsis Action Taken by Nursing No Action Required 03/10/23 12:36 Temperature Temperature Source Pulse Rate Pulse Rate [Apical] 85 Pulse Rhythm [Apical] Regular Pulse Strength [Apical] Normal Respiratory Rate 16 Respiratory Effort / Characteristics Non-Labored Spontaneous Respiratory Depth Normal Respiratory Pattern Regular Blood Pressure Blood Pressure [Left Arm] 124/79 Blood Pressure Mean Blood Pressure Mean [Left Arm] 94 Blood Pressure Position [Left Arm] Semi-fowlers Pulse Oximetry 93 Oxygen Delivery Method Room Air Sepsis Recent Fever Within 48 Hours Sepsis New/Unexplained Change in Mental Status Sepsis Action Taken by Nursing Laboratory Data 03/10/23 11:10 03/10/23 11:10 Lab Results 03/10/23 03/10/23 Range/Units 11:10 12:07 WBC 7.28 (4.8-10.8) K/ul RBC 3.88 L (4.20-5.40) M/uL Hgb 15.3 (12.0-16.0) g/dl Hct 44.5 (37.0-47.0) % MCV 114.7 H (80.0-100.0) fL MCH 39.4 H (25.0-34.0) pg MCHC 34.4 (32.0-36.0) g/dL RDW Std Deviation 58.7 H (36.4-46.3) fL RDW Coeff of Rahul 13.6 (11.5-14.5) % Plt Count 131 (130-400) K/uL MPV 9.6 (9.4-12.4) fL Immature Gran % (Auto) 0.7 % Neut % (Auto) 74.3 % Lymph % (Auto) 13.3 % [place] % (Auto) 11.1 % Eos % (Auto) 0.3 % Baso % (Auto) 0.3 % Neut # (Auto) 5.41 (1.40-6.50) K/uL Lymph # (Auto) 0.97 L (1.20-3.40) K/uL [place] # (Auto) 0.81 H (0.11-0.59) K/uL Eos # (Auto) 0.02 (0.00-0.50) K/uL Baso # (Auto) 0.02 (0.00-0.20) K/uL Immature Gran # (Auto) 0.05 (0.01-0.20) K/uL Polychromasia 1+ Macrocytosis Present PT 17.3 H (9.0-12.0) Seconds INR 1.6 H (0.9-1.1) APTT 37 H (21-31) Seconds PTT Ratio 1.3 Sodium 137 (136-145) mmol/L Potassium 4.0 (3.5-5.1) mmol/L Chloride 103 (98-107) mmol/L Carbon Dioxide 26 (21-32) mmol/L Anion Gap 8 (3-11) BUN 18 (6-23) mg/dl Creatinine 0.96 (0.6-1.2) mg/dl Est Cr Clr Drug Dosing Not Reportable Est GFR ( Amer) 62.1 ml/min Est GFR (Non-Af Amer) 53.6 ml/min BUN/Creatinine Ratio 18.8 (10-20) Glucose 169 H (70-99(Fasting)) mg/dl Calcium 8.9 (8.6-10.3) mg/dl Total Bilirubin 1.2 H (0.2-1.0) mg/dl AST 25 (13-39) U/L ALT 17 (7-52) U/L Alkaline Phosphatase 63 (34-104) U/L Total Creatine Kinase 387 H (26-192) U/L Troponin I High Sens 13.8 (0-14) pg/ml Total Protein 6.5 (6.0-8.3) gm/dl Albumin 3.5 (3.4-5.0) gm/dl Globulin 3.0 (2.5-4.0) gm/dl Albumin/Globulin Ratio 1.2 (0.9-2) Urine Color Dark Yellow Urine Appearance Turbid A (Clear) Urine pH 5.5 (4.5-7.5) Ur Specific [place] 1.018 (1.000-1.030) Urine Protein 1+ H (Negative) Urine Glucose (UA) Negative (Negative) Urine Ketones Trace H (Negative) Urine Blood 2+ H (Negative) Urine Nitrite Positive A (Negative) Urine Bilirubin Negative (Negative) Urine Urobilinogen Negative (Negative) Ur Leukocyte Esterase 3+ H (Negative) Urine WBC (Auto) >30 H (0-5) /hpf Urine RBC (Auto) >30 H (0-4) /hpf U Hyaline Cast (Auto) 1-5 (0-5) /lpf U Epithel Cells (Auto) 10-20 H (0-5) /lpf Urine Bacteria (Auto) 4+ H (Negative) Administered Medications Discontinued Medications Ceftriaxone Sodium (Rocephin) 2,000 mg in 50 mls @ 100 mls/hr IV NOW STA Stop: 03/10/23 14:02 Last Admin: 03/10/23 13:50 Dose: 100 mls/hr Documented By: ONEL Imaging Data Radiologist's Impression: Hand X-Ray 03/10/23 12:03 XR hand RT min 3V routine CLINICAL HISTORY: Fall. COMPARISON: None FINDINGS: Alignment of the right hand is anatomic. No acute fracture. Carpal bones are intact. Chondrocalcinosis within the proximal carpal row and TFCC is noted. Dorsal hand soft tissue swelling is present. There is moderate osteoarthritis within several articulations of the right hand. IMPRESSION: 1. No fractures within the right hand. 2. Right hand soft tissue swelling. ACT 112: Negative or not required by law. Electronically signed by: Dougie Vaughn M.D. 03/10/2023 1:[address] 03/10/23 12:03 CT head/brain wo con CLINICAL HISTORY: 87 years-old Female with fall. Acute head trauma status post fall TECHNIQUE: Multiple axial CT images of the head were obtained without contrast. A dose lowering technique was utilized adhering to the principles of ALARA. CT DOSE: 547.75 mGy.cm COMPARISON: 06/18/2017 FINDINGS: No acute intracranial hemorrhage, midline shift, intra-axial mass, hydrocephalus, territorial ischemia or abnormal extra-axial collection. Involutional changes with chronic microvascular ischemic disease. The calvarium is intact. Prior bilateral lens repair. The paranasal sinuses, mastoid air cells, and middle ear cavities are clear. IMPRESSION: No acute intracranial abnormality or calvarial fracture. ACT 112: Negative or not required by law. The above report was generated using voice recognition software. It may contain grammatical, syntax or spelling errors. Electronically signed by: Franklyn Siddiqui M.D. 03/10/2023 12:25 PM Knee X-Ray 03/10/23 12:03 XR knee LT 3V HISTORY: 87 years-old Female fall acute left knee pain status post fall COMPARISON: 03/07/2017 TECHNIQUE: 3 views of the left knee FINDINGS: Total joint arthroplasty with patellar resurfacing. Trace joint effusion. Calcifications noted within the region of Hoffa's fat pad. No acute fracture, dislocation or evidence of hardware complication. Severe joint space narrowing incidentally noted involving the lateral aspect of the right patellofemoral joint. IMPRESSION: 1. No acute fracture or dislocation. 2. Unremarkable appearance of the total joint arthroplasty. ACT 112: Negative or not required by law. The above report was generated using voice recognition software. It may contain grammatical, syntax or spelling errors. Electronically signed by: Franklyn Siddiqui M.D. 03/10/2023 1:19 PM Knee X-Ray 03/10/23 12:03 RIGHT KNEE 3 VIEWS CLINICAL HISTORY: Fall. Right knee pain. FINDINGS: AP, crosstable lateral, and sunrise views of the right knee are compared to study dated 06/21/2017. The skeletal structures are osteopenic. No fracture is seen. There is advanced degenerative narrowing at the patellofemoral articulation. Mild narrowing is seen in the medial and lateral compartments. There are marginal osteophytes and patellar enthesophytes. Chondrocalcinosis is observed in the medial and lateral compartments. Calcified joint bodies are suspected. No joint effusion is seen. There is mild prepatellar soft tissue swelling. IMPRESSION: 1. No acute bony abnormality is defined. 2. Degenerative change and chondrocalcinosis as above. Electronically signed by: Junior Gonzalez M.D. 03/10/2023 12:54 PM Discharge Plan Visit Data Chief Complaint: Fall Stated Complaint: FALL 2 DAYS AGO, UNABLE TO WALK, REF BY DOC ED Provider: Tapan Licona Discharge Problem: Acute UTI (urinary tract infection), Generalized weakness, Fall, Contusion of hand, right, CHI (closed head injury) Forms Stand Alone Forms: [facility] Prescriptions Prescriptions: No Action duloxetine 30 mg capsule,delayed release(DR/EC) 30 mg PO DAILY Qty: 90 3RF carvedilol 6.25 mg tablet 6.25 mg PO BID Qty: 60 5RF Rx Instructions: must administer with a meal/food lisinopril 40 mg tablet 40 mg PO DAILY Qty: 90 3RF isosorbide mononitrate 60 mg tablet extended release 24 hr 60 mg PO DAILY Qty: 90 3RF hydroxyurea 500 mg capsule 500 mg PO DAILY atorvastatin 40 mg tablet 40 mg PO Q OTHER DAY Qty: 90 3RF nitroglycerin 0.4 mg tablet, sublingual 0.4 mg SL Q5M PRN (Reason: chest pain) Qty: 25 0RF cholecalciferol (vitamin D3) 50 mcg (2,000 unit) capsule 50 mcg PO DAILY aspirin 81 mg Tablet,Chewable 81 mg PO DAILY warfarin 2 mg tablet 2 mg PO QPM Protocol: Dose Management Condition: Thursday Dose/Route: 2 mg Instruction: 1 x 2 mg tablet Condition: Thursday Dose/Route: 2 mg Instruction: 1 x 2 mg tablet Condition: Thursday Dose/Route: 2 mg Instruction: 1 x 2 mg tablet Condition: Thursday Dose/Route: 2 mg Instruction: 1 x 2 mg tablet Condition: Dose/Route: 2 mg Instruction: 1 x 2 mg tablet Condition: Thursday Dose/Route: 2 mg Instruction: 1 x 2 mg tablet Condition: Thursday Dose/Route: 2 mg Instruction: 1 x 2 mg tablet Protocol Text: Adjustment Start Date: Thursday02/10/23 INR Value: 2.1 INR Date: 01/13/23 Recheck Date: 03/10/23 Referrals Referrals: Rachael Sosa CRNP [Primary Care Provider] -
--- NOTE | 2023-03-10 14:06 | History & Physical Report ---
Date of Service March 10, 2023 Assessment & Plan (1) Acute UTI (urinary tract infection): (2) CHI (closed head injury): (3) Contusion of hand, right: (4) Fall: (5) Generalized weakness: (6) Hypertension: (7) Coronary artery disease: (8) Atrial fibrillation: (9) assisted (current) use of anticoagulants: Plan Status post fall- Likely secondary to generalized weakness brought on by urinary tract infection Patient was active over the holidays with cooking, and likely had some physiologic stress added as well If persistent generalized weakness after treatment UTI, may need to consult PT/OT She does have generalized osteoarthritis as a contributing factor as well Urinary tract infection- Follow urine culture and sensitivity Ceftriaxone 2 g IV daily Looks adequately hydrated Atrial fibrillation/CAD/hypertension- Continue aspirin, carvedilol, isosorbide mononitrate and lisinopril Warfarin mildly subtherapeutic at 1.6, however, did take her dose this morning, and will hold on any further anticoagulation today due to swelling and ecchymosis of right hand Hyperlipidemia- Continue atorvastatin History of Present Illness Chief Complaint: The patient presents to the emergency department after a fall at home, where she reports she had been cooking some food in the kitchen, and then became unexplainably weak, fell, and daughter reports that she dragged herself across the floor, and ultimately was able to open the door let her daughter in. Primary Care Provider: MATEO Turk The patient is an 87-year-old female with a past medical history including atrial fibrillation, long-term use of warfarin, hypertension, polyarthritis, benign polycythemia, CKD, CAD, history of ischemic colitis and hyperlipidemia. She presents to the emergency department after a fall at home, as noted above. She does report hitting the back of her head, and CT head in the emergency department was negative. Patient also had x-rays of bilateral knees which were negative, and right hand primarily showed swelling of soft tissues without fracture. Urinalysis showed significant UTI, and patient is being mated to the hospital for treatment. Allergies Allergy/AdvReac Type Severity Reaction Status Date / Time latex Allergy Unknown ITCHINESS Verified 01/20/23 16:04 tramadol Allergy Unknown CAN'T Verified 01/20/23 16:04 REMEMBER Home Medications Medication Instructions Recorded Confirmed Type duloxetine 30 mg capsule,delayed 30 mg PO DAILY #90 caps 10/31/19 12/26/23 Rx release nitroglycerin 0.4 mg sublingual 0.4 mg sublingual Q5M PRN chest 02/02/19 03/10/23 Rx tablet pain #25 tabs cholecalciferol (vitamin D3) 50 50 mcg PO DAILY 06/09/19 03/10/23 History mcg (2,000 unit) capsule aspirin 81 mg chewable tablet 81 mg PO DAILY 05/17/22 03/10/23 History warfarin 2 mg tablet 2 mg PO QPM 05/17/22 03/10/23 History atorvastatin 40 mg tablet 40 mg PO Q OTHER DAY #90 tabs 07/10/22 03/10/23 Rx hydroxyurea 500 mg capsule 500 mg PO DAILY 07/10/22 03/10/23 History carvedilol 6.25 mg tablet 6.25 mg PO BID #60 tabs 10/02/22 03/10/23 Rx lisinopril 40 mg tablet 40 mg PO DAILY #90 tabs 12/11/22 03/10/23 Rx isosorbide mononitrate 60 mg 60 mg PO DAILY #90 tabs 01/20/23 03/10/23 Rx tablet,extended release 24 hr Past Med/Surg History Medical History Atrial premature complex Left knee pain Left knee DJD Leg pain, left Hypertension Angina at rest (01/19/13) Surgical History History of cataract surgery S/P knee replacement S/P hysterectomy S/P mastectomy S/P cholecystectomy H/O mastectomy Family History Father Coronary heart disease Myocardial infarction Denies family history of Ovarian cancer Prostate cancer Breast cancer Colorectal cancer Social History Smoking Status: Never smoker Second Hand Exposure: No; Do You Dip or Chew Tobacco: No; Hx Alcohol Use: No Hx Substance Use: No Preferred Language: Spanish Visual Impairment: No Limitations Hearing Ability: Normal marital status: / Current Living Situation: Alone Current Living Situation Comment: daughter lives closeby and she is checked on 3-4X a day current occupational status: retired 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 Feels Safe at Home: Yes Childhood Exposure to Second-Hand Smoke: Yes Diet: regular Dental Care, Regularly: Yes Physical Activity Frequency: Does not Exercise Seatbelt Use: always Sunscreen Use: Yes Review of Systems Review of Systems: The patient denies chest pain, palpitations, shortness of breath, dyspnea on exertion, cough, lower extremity swelling, sore throat, fevers, chills, sweats, weight change, fatigue, nausea, vomiting, diarrhea , constipation, abdominal pain, pelvic pain, blood in urine or stool, dysuria, urinary frequency or urgency, loss of consciou sness, rash, focal weakness, numbness or tingling in arms or legs, back or neck pain, or night sweats. The review of systems is otherwise negative other than for that already noted above, and at least 10 systems have been reviewed. Physical Exam Physical Exam: The patient is awake, alert and oriented 3, well developed and well nourished, normocephalic and atraumatic, lying in bed and in no acute distress. HEENT--PERRL, EOMI, mucous membranes and oropharynx normal. Neck--supple. No JVD. No bruits. Thyroid normal, trachea midline, no adenopathy. Heart--normal S1 and S2. No murmurs, rubs or gallops. Lungs--clear bilaterally, no respiratory distress, no accessory muscle use. Abdomen--normal bowel sounds and soft. Nontender. Nondistended Extremities--no cyanosis or clubbing. No edema. Dermatologic--ecchymosis and edema of right dorsum of hand. Neurologic--cranial nerves II through XII grossly intact. Rheumatologic--range of motion limited by arthritis, but otherwise normal Psychiatric--normal affect. Results & Data Results & Data Vital Signs (Past 12 Hours) Vital Signs Temp Pulse Pulse Resp BP BP Pulse Ox 03/10/23 12:36 85 16 124/79 93 03/10/23 11:44 86 03/10/23 11:00 93 03/10/23 10:36 36.6 C 102 H 18 136/80 93 O2 Del Method 03/10/23 12:36 Room Air 03/10/23 11:44 03/10/23 11:00 Room Air 03/10/23 10:36 Laboratory Results Laboratory Results WBC 7.28 K/ul (4.8-10.8) 03/10/23 11:10 RBC 3.88 M/uL (4.20-5.40) L 03/10/23 11:10 Hgb 15.3 g/dl (12.0-16.0) 03/10/23 11:10 Hct 44.5 % (37.0-47.0) 03/10/23 11:10 MCV 114.7 fL (80.0-100.0) H 03/10/23 11:10 MCH 39.4 pg (25.0-34.0) H 03/10/23 11:10 MCHC 34.4 g/dL (32.0-36.0) 03/10/23 11:10 RDW Std Deviation 58.7 fL (36.4-46.3) H 03/10/23 11:10 RDW Coeff of Rahul 13.6 % (11.5-14.5) 03/10/23 11:10 Plt Count 131 K/uL (130-400) 03/10/23 11:10 MPV 9.6 fL (9.4-12.4) 03/10/23 11:10 Immature Gran % (Auto) 0.7 % 03/10/23 11:10 Neut % (Auto) 74.3 % 03/10/23 11:10 Lymph % (Auto) 13.3 % 03/10/23 11:10 Bryan % (Auto) 11.1 % 03/10/23 11:10 Eos % (Auto) 0.3 % 03/10/23 11:10 Baso % (Auto) 0.3 % 03/10/23 11:10 Neut # (Auto) 5.41 K/uL (1.40-6.50) 03/10/23 11:10 Lymph # (Auto) 0.97 K/uL (1.20-3.40) L 03/10/23 11:10 Bryan # (Auto) 0.81 K/uL (0.11-0.59) H 03/10/23 11:10 Eos # (Auto) 0.02 K/uL (0.00-0.50) 03/10/23 11:10 Baso # (Auto) 0.02 K/uL (0.00-0.20) 03/10/23 11:10 Immature Gran # (Auto) 0.05 K/uL (0.01-0.20) 03/10/23 11:10 Polychromasia 1+ 03/10/23 11:10 Macrocytosis Present 03/10/23 11:10 PT 17.3 Seconds (9.0-12.0) H 03/10/23 11:10 INR 1.6 (0.9-1.1) H 03/10/23 11:10 APTT 37 Seconds (21-31) H 03/10/23 11:10 PTT Ratio 1.3 03/10/23 11:10 Sodium 137 mmol/L (136-145) 03/10/23 11:10 Potassium 4.0 mmol/L (3.5-5.1) 03/10/23 11:10 Chloride 103 mmol/L (98-107) 03/10/23 11:10 Carbon Dioxide 26 mmol/L (21-32) 03/10/23 11:10 Anion Gap 8 (3-11) 03/10/23 11:10 BUN 18 mg/dl (6-23) 03/10/23 11:10 Creatinine 0.96 mg/dl (0.6-1.2) 03/10/23 11:10 Est Cr Clr Drug Dosing Not Reportable 03/10/23 11:10 Est GFR ( Amer) 62.1 ml/min 03/10/23 11:10 Est GFR (Non-Af Amer) 53.6 ml/min 03/10/23 11:10 BUN/Creatinine Ratio 18.8 (10-20) 03/10/23 11:10 Glucose 169 mg/dl (70-99(Fasting)) H 03/10/23 11:10 Calcium 8.9 mg/dl (8.6-10.3) 03/10/23 11:10 Total Bilirubin 1.2 mg/dl (0.2-1.0) H 03/10/23 11:10 AST 25 U/L (13-39) 03/10/23 11:10 ALT 17 U/L (7-52) 03/10/23 11:10 Alkaline Phosphatase 63 U/L (34-104) 03/10/23 11:10 Total Creatine Kinase 387 U/L (26-192) H 03/10/23 11:10 Troponin I High Sens 13.8 pg/ml (0-14) 03/10/23 11:10 Total Protein 6.5 gm/dl (6.0-8.3) 03/10/23 11:10 Albumin 3.5 gm/dl (3.4-5.0) 03/10/23 11:10 Globulin 3.0 gm/dl (2.5-4.0) 03/10/23 11:10 Albumin/Globulin Ratio 1.2 (0.9-2) 03/10/23 11:10 Urine Color Dark Yellow 03/10/23 12:07 Urine Appearance Turbid (Clear) A 03/10/23 12:07 Urine pH 5.5 (4.5-7.5) 03/10/23 12:07 Ur Specific F[place]sworth 1.018 (1.000-1.030) 03/10/23 12:07 Urine Protein 1+ (Negative) H 03/10/23 12:07 Urine Glucose (UA) Negative (Negative) 03/10/23 12:07 Urine Ketones Trace (Negative) H 03/10/23 12:07 Urine Blood 2+ (Negative) H 03/10/23 12:07 Urine Nitrite Positive (Negative) A 03/10/23 12:07 Urine Bilirubin Negative (Negative) 03/10/23 12:07 Urine Urobilinogen Negative (Negative) 03/10/23 12:07 Ur Leukocyte Esterase 3+ (Negative) H 03/10/23 12:07 Urine WBC (Auto) >30 /hpf (0-5) H 03/10/23 12:07 Urine RBC (Auto) >30 /hpf (0-4) H 03/10/23 12:07 U Hyaline Cast (Auto) 1-5 /lpf (0-5) 03/10/23 12:07 U Epithel Cells (Auto) 10-20 /lpf (0-5) H 03/10/23 12:07 Urine Bacteria (Auto) 4+ (Negative) H 03/10/23 12:07 Impressions Hand X-Ray 03/10/23 12:03 XR hand RT min 3V routine CLINICAL HISTORY: Fall. COMPARISON: None FINDINGS: Alignment of the right hand is anatomic. No acute fracture. Carpal bones are intact. Chondrocalcinosis within the proximal carpal row and TFCC is noted. Dorsal hand soft tissue swelling is present. There is moderate osteoarthritis within several articulations of the right hand. IMPRESSION: 1. No fractures within the right hand. 2. Right hand soft tissue swelling. ACT 112: Negative or not required by law. Electronically signed by: Dougie Vaughn M.D. 03/10/2023 1:[address] 03/10/23 12:03 CT head/brain wo con CLINICAL HISTORY: 87 years-old Female with fall. Acute head trauma status post fall TECHNIQUE: Multiple axial CT images of the head were obtained without contrast. A dose lowering technique was utilized adhering to the principles of ALARA. CT DOSE: 547.75 mGy.cm COMPARISON: 06/18/2017 FINDINGS: No acute intracranial hemorrhage, midline shift, intra-axial mass, hydrocephalus, territorial ischemia or abnormal extra-axial collection. Involutional changes with chronic microvascular ischemic disease. The calvarium is intact. Prior bilateral lens repair. The paranasal sinuses, mastoid air cells, and middle ear cavities are clear. IMPRESSION: No acute intracranial abnormality or calvarial fracture. ACT 112: Negative or not required by law. The above report was generated using voice recognition software. It may contain grammatical, syntax or spelling errors. Electronically signed by: Franklyn Siddiqui M.D. 03/10/2023 12:25 PM Knee X-Ray 03/10/23 12:03 XR knee LT 3V HISTORY: 87 years-old Female fall acute left knee pain status post fall COMPARISON: 03/07/2017 TECHNIQUE: 3 views of the left knee FINDINGS: Total joint arthroplasty with patellar resurfacing. Trace joint effusion. Calcifications noted within the region of Hoffa's fat pad. No acute fracture, dislocation or evidence of hardware complication. Severe joint space narrowing incidentally noted involving the lateral aspect of the right patellofemoral joint. IMPRESSION: 1. No acute fracture or dislocation. 2. Unremarkable appearance of the total joint arthroplasty. ACT 112: Negative or not required by law. The above report was generated using voice recognition software. It may contain grammatical, syntax or spelling errors. Electronically signed by: Franklyn Siddiqui M.D. 03/10/2023 1:19 PM Code Status & VTE Plan Code Status Full code VTE Prophylaxis Plan VTE Prophylaxis will be ordered: Yes PG Care Time/CCT Total # of Minutes Spent Total Time Spent with Patient: Total time spent is greater than 50% in coordination of care (as documented) at patient's floor/unit and/or counseling patient: Coding Level of Care Code 47033 INT INP/OBS CARE 3/75MIN Diagnoses Acute UTI (urinary tract infection) N39.0 CHI (closed head injury) S09.90XA Contusion of hand, right S60.221A Fall [id number] Generalized weakness R53.1 Hypertension I10 Coronary artery disease I25.10 Permanent atrial fibrillation I48.21 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
[2023-03-10] MEDS ORDERED: ONDANSETRON INJ 2 MG/ML 2 ML VIAL IV PRN (16:10)
[2023-03-10] MEDS ORDERED: NITROGLYCERIN SL 0.4 MG/TAB TAB SL PRN (16:10)
[2023-03-10] MEDS: ATORVASTATIN 40 MG TAB PO SCH (17:51)
[2023-03-10] MEDS: ACETAMINOPHEN 325 MG TAB PO PRN (17:51)
[2023-03-10] MEDS: WARFARIN SOD 2 MG TAB PO SCH (21:03)
[2023-03-10] MEDS: carvediloL 6.25 MG TAB PO SCH (21:03)
[2023-03-11 05:00] LABS: A calco-baum cmplx NotReported Not Detected (NotDetected); Bact fragilis Not Reported Not Detected (NotDetected); Blood Culture Id Panel See PCR Comment (NotDetected); C auris Not Reported Not Detected (NotDetected); CTX-M Resistant Gene Not Detected (NotDetected); Calbicans Not Reported Not Detected (NotDetected); Candida glabrata Not Reported Not Detected (NotDetected); Candida krusei Not Reported Not Detected (NotDetected); Cneoformans/gatti Not Reported Not Detected (NotDetected); Cparapsilosis Not Reported Not Detected (NotDetected); E cloacae compx Not Reported Not Detected (NotDetected); Efaecalis Not Reported Not Detected (NotDetected); Efaecium Not Reported Not Detected (NotDetected); Enterobacterales DETECTED (NotDetected); Enterobacterales Not Reported DETECTED (NotDetected); Escherichia coli Not Reported DETECTED (NotDetected); H influenzae Not Reported Not Detected (NotDetected); IMP Resistant Gene Not Detected (NotDetected); K aerogenes Not Reported Not Detected (NotDetected); KPC Resistant Gene Not Detected (NotDetected); Koxytoca Not Reported Not Detected (NotDetected); Kpneumoniae grp Not Reported Not Detected (NotDetected); Lmonocyt Not Reported Not Detected (NotDetected); N meningitidis Not Reported Not Detected (NotDetected); NDM Resistant Gene Not Detected (NotDetected); OXA 48 Like Resistant Gene Not Detected (NotDetected); P aeruginosa Not Reported Not Detected (NotDetected); Proteus spp Not Reported Not Detected (NotDetected); Salmonella spp Not Reported Not Detected (NotDetected); Smarcescens Not Reported Not Detected (NotDetected); Staph lugdunensis Not Reported Not Detected (NotDetected); Staph spp. Not Reported Not Detected (NotDetected); Staphaureus Not Reported Not Detected (NotDetected); Staphepi Not Reported Not Detected (NotDetected); Stenmaltophilia Not Reported Not Detected (NotDetected); Strep agal(GrpB) Not Reported Not Detected (NotDetected); Strep pneum Not Reported Not Detected (NotDetected); Strep pyog (GrpA) Not Reported Not Detected (NotDetected); Strep spp Not Reported Not Detected (NotDetected); VIM Resistant Gene Not Detected (NotDetected); mcr-1 Colistin Resistant Gene Not Detected (NotDetected)
[2023-03-11 07:00] LABS: Basophils # (auto) 0.03 K/uL (0.00-0.20); Basophils % (auto) 0.5 %; Eosinophils # (auto) 0.03 K/uL (0.00-0.50); Eosinophils % (auto) 0.5 %; Hemoglobin 13.9 g/dl (12.0-16.0); Immature Granulocytes # (auto) 0.06 K/uL (0.01-0.20); Lymphocytes # (auto) 1.15 K/uL (1.20-3.40); Lymphocytes % (auto) 18.3 %; Mean Corpuscular Hemoglobin 39.7 pg (25.0-34.0); Mean Corpuscular Hgb Conc 35.6 g/dL (32.0-36.0); Mean Corpuscular Volume 111.4 fL (80.0-100.0); Mean Platelet Volume 9.4 fL (9.4-12.4); Monocytes # (auto) 1.07 K/uL (0.11-0.59); Neutrophils # (auto) 3.94 K/uL (1.40-6.50); Neutrophils % (auto) 62.7 %; Platelet Count 121 K/uL (130-400); RDW Coefficient of Variation 13.2 % (11.5-14.5); RDW Standard Deviation 54.7 fL (36.4-46.3); White Blood Count 6.28 K/ul (4.8-10.8)
[2023-03-11 07:18] LABS: Albumin Level 3.1 gm/dl (3.4-5.0); BUN Creatinine Ratio 22.4 (10-20); Calcium 8.6 mg/dl (8.6-10.3); Creatinine Clr Calc Pharmacy 49.7 ml/min; Est GFR (African American) 82.3 ml/min; Magnesium 1.8 mg/dl (1.7-2.4); Phosphorus 2.8 mg/dl (2.5-4.9); Potassium 3.7 mmol/L (3.5-5.1)
[2023-03-11 07:24] LABS: INR 1.6 (0.9-1.1); Partial Thromboplastin Ratio 1.3; Partial Thromboplastin Time 38 Seconds (21-31); Prothrombin Time 17.2 Seconds (9.0-12.0)
--- NOTE | 2023-03-11 07:59 | Hospitalist Progress Note ---
Date of Service March 11, 2023 Assessment & Plan (1) Acute UTI (urinary tract infection): Plan: With increased weakness due to UTI UA infected appearing on admission UCx pending, preliminarily with high counts of GNB Continued on Rocephin Patient is not septic on assessment Follow UCx for sensitivity - 03/11 BC 2/4+ with GNB likely of urinary source. PCR+ for E coli without CTX-M gene present. Other ESBL not excluded by PCR. Pt is not septic/toxic appearing. If clinically worsening --> zosyn, OK to continue rocephin at this time (>90% sensitivity with out antibiogram in the setting of PCR negative for resistance). Follow for speciation/sensitivities (2) CHI (closed head injury): Plan: On warfarin CThead without acute findings, no neck tenderness (3) Contusion of hand, right: Plan: No fracture on x-ray, warfarin temporarily held for swelling/ecchymosis Resume warfarin for A-fib prophylaxis 03/11, no evidence of expanding bleed (4) Fall: Plan: With weakness due to acute UTI (5) Generalized weakness: Plan: As noted, PT/OT if not ambulating independently following antibiotic treatment and fluids (6) Hypertension: Plan: Mildly hypertensive 03/11, isosorbide/lisinopril/carvedilol continued Patient has had significant orthostatic symptoms in the past, diltiazem was held as an outpatient to help with this but has had difficult to control hypertension from this. Was switched from diltiazem/metoprolol to carvedilol and appears to be doing well with this since (7) Coronary artery disease: Plan: Follows with [facility] cardiology No recent anginal pain or exertional dyspnea Normal stress test 06/2022 (8) Atrial fibrillation: Plan: Mini EKG rate controlled A-fib Continue rate control INR therpeutic goal 2-3. Warfarin continued. 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 She reports that she has not had fever/chills/sweats overnight. Does endorse polyuria and specifically nocturia which has been worse in the last week than her normal baseline although notes she is usually up at least 3 AM to use the restroom has been going around every 2 hours overnight recently. Denies abdominal pain. No diarrhea/constipation. No headache. No vision change. Right hand has diffuse bruising, and is slightly painful to her with strong paper steamer today but although overall feels improved compared to yesterday and does not have pain while her right hand is at rest Physical Exam Physical Exam: General: A&Ox3. NAD. Cooperative. HEENT: Atraumatic, normocephalic. Pulm: CTAB A&P. -wheezes, -rales, -rhonchi. Symmetrical chest rise. No increased work of breathing. No respiratory distress. Cardiac: RRR, -mrg. Radial pulses intact and symmetrical. Abdominal: Nontender, nondistended, soft. BS present. Extremities: Right dorsal hand with diffuse contusion, no firm hematoma is present. Results & Data Results & Data Vital Signs (Past 12 Hours) Vital Signs Temp Pulse Pulse Resp BP Pulse Ox O2 Del Method 03/11/23 07:21 82 03/11/23 04:00 36.8 C 82 18 147/95 H 96 Room Air 03/11/23 00:03 36.6 C 80 16 103/68 03/10/23 21:04 75 122/82 PG Care Time/CCT Total # of Minutes Spent Total Time Spent with Patient: Total time spent is greater than 50% in coordination of care (as documented) at patient's floor/unit and/or counseling patient: Coding Level of Care Code 93401 SUB INP/OBS CARE 3/50MIN Diagnoses Acute UTI (urinary tract infection) N39.0 CHI (closed head injury) S09.90XA Contusion of hand, right S60.221A Fall [id number].XXXA Generalized weakness R53.1 Hypertension I10 Coronary artery disease I25.10 Permanent atrial fibrillation I48.21 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
[2023-03-11] MEDS: ASPIRIN 81 MG ECTAB PO SCH (08:49)
[2023-03-11] MEDS: CHOLECALCIFEROL 1,000 UNITS 25 MCG TAB PO SCH (08:50)
[2023-03-11] MEDS: ISOSORBIDE MONO EXTENDED REL 60 MG TABCR PO SCH (08:50)
[2023-03-11] MEDS: carvediloL 6.25 MG TAB PO SCH ×2 (08:50→21:32)
[2023-03-11] MEDS: DULoxetine HCL 30 MG CAP PO SCH (08:50)
[2023-03-11] MEDS: lisinopril 40 MG TAB PO SCH (08:50)
--- NOTE | 2023-03-11 08:50 | Electrocardiogram Report ---
Test Reason : Blood Pressure : / mmHG Vent. Rate : 096 BPM Atrial Rate : 000 BPM P-R Int : 000 ms QRS Dur : 072 ms QT Int : 340 ms P-R-T Axes : 000 003 025 degrees QTc Int : 429 ms Atrial fibrillation Low voltage QRS Abnormal ECG When compared with ECG of 17-MAY-2022 13:35, Vent. rate has increased BY 39 BPM Confirmed by Tucker Del Angel ([id number]) on 03/11/2023 8:50:28 AM Referred By: REFERRED SELF Confirmed By:Jhon Del Angel
[2023-03-11] MEDS: HYDROXYUREA 500 MG CAP PO SCH (08:51)
[2023-03-11] MEDS: cefTRIAXone SODIUM 2,000 MG in DEXTROSE 5 % MINI-B 50 ML IV SCH (12:42)
[2023-03-11] MEDS: WARFARIN SOD 2 MG TAB PO SCH (21:33)
[2023-03-11] MEDS: ACETAMINOPHEN 325 MG TAB PO PRN (21:34)
[2023-03-12 07:53] LABS: Basophils # (auto) 0.03 K/uL (0.00-0.20); Basophils % (auto) 0.5 %; Eosinophils # (auto) 0.04 K/uL (0.00-0.50); Eosinophils % (auto) 0.7 %; Hematocrit (blood only) 41.9 % (37.0-47.0); Hemoglobin 14.3 g/dl (12.0-16.0); Immature Granulocytes # (auto) 0.06 K/uL (0.01-0.20); Lymphocytes # (auto) 1.46 K/uL (1.20-3.40); Lymphocytes % (auto) 25.2 %; Mean Corpuscular Hgb Conc 34.1 g/dL (32.0-36.0); Mean Corpuscular Volume 114.2 fL (80.0-100.0); Mean Platelet Volume 9.4 fL (9.4-12.4); Monocytes % (auto) 15.5 %; Neutrophils # (auto) 3.31 K/uL (1.40-6.50); Neutrophils % (auto) 57.1 %; Platelet Count 151 K/uL (130-400); RDW Coefficient of Variation 13.2 % (11.5-14.5); RDW Standard Deviation 56.4 fL (36.4-46.3); Red Blood Count 3.67 M/uL (4.20-5.40)
[2023-03-12 08:07] LABS: Albumin Level 3.1 gm/dl (3.4-5.0); BUN Creatinine Ratio 26.8 (10-20); Calcium 8.5 mg/dl (8.6-10.3); Est GFR (African American) 89.4 ml/min; Est GFR (Non-African American) 77.1 ml/min; Magnesium 1.8 mg/dl (1.7-2.4); Potassium 3.7 mmol/L (3.5-5.1)
[2023-03-12 08:24] LABS: INR 1.9 (0.9-1.1); Partial Thromboplastin Ratio 1.4; Partial Thromboplastin Time 40 Seconds (21-31); Prothrombin Time 20.2 Seconds (9.0-12.0)
[2023-03-12] MEDS: DULoxetine HCL 30 MG CAP PO SCH (08:48)
[2023-03-12] MEDS: carvediloL 6.25 MG TAB PO SCH ×2 (08:48→21:10)
[2023-03-12] MEDS: HYDROXYUREA 500 MG CAP PO SCH (08:48)
[2023-03-12] MEDS: ATORVASTATIN 40 MG TAB PO SCH (08:48)
[2023-03-12] MEDS: CHOLECALCIFEROL 1,000 UNITS 25 MCG TAB PO SCH (08:48)
[2023-03-12] MEDS: ISOSORBIDE MONO EXTENDED REL 60 MG TABCR PO SCH (08:48)
[2023-03-12] MEDS: lisinopril 40 MG TAB PO SCH (08:48)
[2023-03-12] MEDS: ASPIRIN 81 MG ECTAB PO SCH (08:49)
[2023-03-12] MEDS: cefTRIAXone SODIUM 2,000 MG in DEXTROSE 5 % MINI-B 50 ML IV SCH (12:42)
[2023-03-12] MEDS ORDERED: ceFAZolin 2000MG 2,000 MG/15 ML SYR IV SCH (15:30)
--- NOTE | 2023-03-12 20:54 | Hospitalist Progress Note ---
Date of Service March 12, 2023 Assessment & Plan (1) Acute UTI (urinary tract infection): Plan: With increased weakness due to UTI UA infected appearing on admission UCx pending, preliminarily with high counts of GNB on Rocephin, will transition to cefazolin. Patient is not septic on assessment Follow UCx for sensitivity - 03/11 BC 2/4+ with GNB likely of urinary source. PCR+ for E coli without CTX-M gene present. Other ESBL not excluded by PCR. Pt is not septic/toxic appearing. If clinically worsening --> zosyn, OK to continue rocephin at this time (>90% sensitivity with out antibiogram in the setting of PCR negative for resistance). Follow for speciation/sensitivities (2) CHI (closed head injury): Plan: On warfarin CThead without acute findings, no neck tenderness (3) Contusion of hand, right: Plan: No fracture on x-ray, warfarin temporarily held for swelling/ecchymosis Resume warfarin for A-fib prophylaxis 03/11, no evidence of expanding bleed (4) Fall: Plan: With weakness due to acute UTI (5) Generalized weakness: Plan: As noted, PT/OT if not ambulating independently following antibiotic treatment and fluids (6) Hypertension: Plan: Mildly hypertensive 03/11, isosorbide/lisinopril/carvedilol continued Patient has had significant orthostatic symptoms in the past, diltiazem was held as an outpatient to help with this but has had difficult to control hypertension from this. Was switched from diltiazem/metoprolol to carvedilol and appears to be doing well with this since (7) Coronary artery disease: Plan: Follows with [facility] cardiology No recent anginal pain or exertional dyspnea Normal stress test 06/2022 (8) Atrial fibrillation: Plan: Mini EKG rate controlled A-fib Continue rate control INR therpeutic goal 2-3. Warfarin continued. 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 Review of Systems Review of Systems: All systems reviewed & are unremarkable except as noted in HPI & below Physical Exam Physical Exam: General: A&Ox3. NAD. Cooperative. HEENT: Atraumatic, normocephalic. Pulm: CTAB A&P. -wheezes, -rales, -rhonchi. Symmetrical chest rise. No increased work of breathing. No respiratory distress. Cardiac: RRR, -mrg. Radial pulses intact and symmetrical. Abdominal: Nontender, nondistended, soft. BS present. Extremities: Right dorsal hand with diffuse contusion, no firm hematoma is present. Results & Data Results & Data Vital Signs (Past 12 Hours) Vital Signs Temp Pulse Pulse Resp BP Pulse Ox O2 Del Method 03/12/23 20:16 36.4 C L 76 18 145/83 H 95 Room Air 03/12/23 16:57 77 03/12/23 10:53 36.5 C 69 143/84 H 94 Room Air PG Care Time/CCT Total # of Minutes Spent Total Time Spent with Patient: Total time spent is greater than 50% in coordination of care (as documented) at patient's floor/unit and/or counseling patient: Coding Level of Care Code 30097 SUB INP/OBS CARE 2/35MIN Diagnoses Acute UTI (urinary tract infection) N39.0 CHI (closed head injury) S09.90XA Contusion of hand, right S60.221A Fall [id number].XXXA Generalized weakness R53.1 Hypertension I10 Coronary artery disease I25.10 Permanent atrial fibrillation I48.21 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
[2023-03-12] MEDS: WARFARIN SOD 2 MG TAB PO SCH (21:10)
[2023-03-13 08:01] LABS: Basophils # (auto) 0.03 K/uL (0.00-0.20); Basophils % (auto) 0.5 %; Eosinophils # (auto) 0.05 K/uL (0.00-0.50); Eosinophils % (auto) 0.9 %; Hematocrit (blood only) 39.7 % (37.0-47.0); Hemoglobin 14.3 g/dl (12.0-16.0); Immature Granulocytes # (auto) 0.08 K/uL (0.01-0.20); Immature Granulocytes % (auto) 1.4 %; Lymphocytes # (auto) 1.72 K/uL (1.20-3.40); Lymphocytes % (auto) 29.9 %; Mean Corpuscular Hemoglobin 39.9 pg (25.0-34.0); Mean Corpuscular Volume 110.9 fL (80.0-100.0); Mean Platelet Volume 9.4 fL (9.4-12.4); Monocytes # (auto) 0.69 K/uL (0.11-0.59); Neutrophils # (auto) 3.18 K/uL (1.40-6.50); Neutrophils % (auto) 55.3 %; Platelet Count 183 K/uL (130-400); RDW Coefficient of Variation 13.1 % (11.5-14.5); RDW Standard Deviation 53.6 fL (36.4-46.3); Red Blood Count 3.58 M/uL (4.20-5.40); White Blood Count 5.75 K/ul (4.8-10.8)
[2023-03-13 08:21] LABS: Albumin Level 3.2 gm/dl (3.4-5.0); BUN Creatinine Ratio 26.7 (10-20); C Reactive Protein 4.47 mg/dl (0-0.5); Calcium 8.6 mg/dl (8.6-10.3); Creatinine Clr Calc Pharmacy 50.1 ml/min; Est GFR (African American) 83.7 ml/min; Est GFR (Non-African American) 72.2 ml/min; Magnesium 1.8 mg/dl (1.7-2.4); Phosphorus 2.9 mg/dl (2.5-4.9); Potassium 3.8 mmol/L (3.5-5.1)
[2023-03-13 08:31] LABS: Partial Thromboplastin Ratio 1.3; Partial Thromboplastin Time 37 Seconds (21-31); Prothrombin Time 20.8 Seconds (9.0-12.0)
[2023-03-13] MEDS: carvediloL 6.25 MG TAB PO SCH (09:05)
[2023-03-13] MEDS: CHOLECALCIFEROL 1,000 UNITS 25 MCG TAB PO SCH (09:06)
[2023-03-13] MEDS: ISOSORBIDE MONO EXTENDED REL 60 MG TABCR PO SCH (09:06)
[2023-03-13] MEDS: lisinopril 40 MG TAB PO SCH (09:06)
[2023-03-13] MEDS: DULoxetine HCL 30 MG CAP PO SCH (09:06)
[2023-03-13] MEDS: HYDROXYUREA 500 MG CAP PO SCH (09:06)
[2023-03-13] MEDS: ASPIRIN 81 MG ECTAB PO SCH (09:06)
[2023-03-13] MEDS ORDERED: ceFAZolin 2000MG 2,000 MG/15 ML SYR IV SCH (13:00)
--- NOTE | 2023-03-13 14:45 | Discharge Summary ---
Date of Service March 13, 2023 Admission HPI Per Admitting Provider The patient is an 87-year-old female with a past medical history including atrial fibrillation, long-term use of warfarin, hypertension, polyarthritis, benign polycythemia, CKD, CAD, history of ischemic colitis and hyperlipidemia. She presents to the emergency department after a fall at home, as noted above. She does report hitting the back of her head, and CT head in the emergency department was negative. Patient also had x-rays of bilateral knees which were negative, and right hand primarily showed swelling of soft tissues without fracture. Urinalysis showed significant UTI, and patient is being mated to the hospital for treatment. Principal Diagnosis acute UTI Discharge Exam General: A&Ox3. NAD. Cooperative. HEENT: Atraumatic, normocephalic. Pulm: CTAB A&P. -wheezes, -rales, -rhonchi. Symmetrical chest rise. No increased work of breathing. No respiratory distress. Cardiac: RRR, -mrg. Radial pulses intact and symmetrical. Abdominal: Nontender, nondistended, soft. BS present. Extremities: Right dorsal hand with diffuse contusion, no firm hematoma is present. Discharge Data Allergies Allergy/AdvReac Type Severity Reaction Status Date / Time latex Allergy Unknown ITCHINESS Verified 01/20/23 16:04 tramadol Allergy Unknown CAN'T Verified 01/20/23 16:04 REMEMBER Consultations 03/10/23 13:40 ED Decision to Admit Stat Ordered Studies 03/10/23 12:03 CT head/brain wo con Stat Hospital Course (1) Acute UTI (urinary tract infection): With increased weakness due to UTI UA infected appearing on admission UCx pending, preliminarily with high counts of GNB on Rocephin, will transition to cefazolin. Patient is not septic on assessment Follow UCx for sensitivity - 03/11 BC 2/4+ with GNB likely of urinary source. PCR+ for E coli without CTX-M gene present. pansensitive will complete course with FQ.. (2) CHI (closed head injury): On warfarin CThead without acute findings, no neck tenderness (3) Contusion of hand, right: No fracture on x-ray, warfarin temporarily held for swelling/ecchymosis Resume warfarin for A-fib prophylaxis 03/11, no evidence of expanding bleed (4) Fall: With weakness due to acute UTI (5) Generalized weakness: As noted, PT/OT if not ambulating independently following antibiotic treatment and fluids (6) Hypertension: Mildly hypertensive 03/11, isosorbide/lisinopril/carvedilol continued Patient has had significant orthostatic symptoms in the past, diltiazem was held as an outpatient to help with this but has had difficult to control hyp ertension from this. Was switched from diltiazem/metoprolol to carvedilol and appears to be doing well with this since (7) Coronary artery disease: Follows with [facility] cardiology No recent anginal pain or exertional dyspnea Normal stress test 06/2022 (8) Atrial fibrillation: Mini EKG rate controlled A-fib Continue rate control INR therpeutic goal 2-3. Warfarin continued. Mini EKG rate controlled A-fib Continue rate control INR therpeutic goal 2-3. Warfarin continued. (9) meterman (current) use of anticoagulants: As noted Total Time Total Time Spent Total Time Spent (In Minutes): 32 Discharge Plan Discharge Items Patient Disposition: Home - Self-Care Reason For Visit: S/P FALL, UTI Discharge Diagnosis: UTI Activity: Resume your previous activity Non-emergency contact: Primary Care Provider Call non-emergency contact if: you have any medication questions Follow-up/Referrals: Rachael Sosa CRNP [Primary Care Provider] - 03/23/23 11:00 am Diet: Heart Healthy Addtl Attending Provider Instructions: You have been hospitalized for a urinary tract infection. During your stay at [facility], we have made an effort to correct the problem that brought you to the hospital while keeping you as comfortable as possible. Medications were used to bring your condition under control and your discharge instructions will include directions for any medications you should take after leaving the hospital. Please make sure you see your Primary Care Provider as part of your follow up plan. Please continue with antibiotics for 5 more days. Please followup with PCP in 1-2 weeks. Please check INR next week. Pending Studies at Discharge: No Stand-Alone Forms: My [facility], Smoking Cessation Medications and DC Order Prescriptions: New levofloxacin 750 mg tablet 750 mg PO PM 5 Days Qty: 5 0RF Rx Instructions: Take first dose tonight Continued duloxetine 30 mg capsule,delayed release(DR/EC) 30 mg PO DAILY Qty: 90 3RF carvedilol 6.25 mg tablet 6.25 mg PO BID Qty: 60 5RF Rx Instructions: must administer with a meal/food lisinopril 40 mg tablet 40 mg PO DAILY Qty: 90 3RF isosorbide mononitrate 60 mg tablet extended release 24 hr 60 mg PO DAILY Qty: 90 3RF hydroxyurea 500 mg capsule 500 mg PO DAILY atorvastatin 40 mg tablet 40 mg PO Q OTHER DAY Qty: 90 3RF nitroglycerin 0.4 mg tablet, sublingual 0.4 mg SL Q5M PRN (Reason: chest pain) Qty: 25 0RF cholecalciferol (vitamin D3) 50 mcg (2,000 unit) capsule 50 mcg PO DAILY aspirin 81 mg Tablet,Chewable 81 mg PO DAILY warfarin 2 mg tablet 2 mg PO QPM Protocol: Dose Management Condition: Thursday Dose/Route: 2 mg Instruction: 1 x 2 mg tablet Condition: Thursday Dose/Route: 2 mg Instruction: 1 x 2 mg tablet Condition: Thursday Dose/Route: 2 mg Instruction: 1 x 2 mg tablet Condition: Thursday Dose/Route: 2 mg Instruction: 1 x 2 mg tablet Condition: Dose/Route: 2 mg Instruction: 1 x 2 mg tablet Condition: Thursday Dose/Route: 2 mg Instruction: 1 x 2 mg tablet Condition: Thursday Dose/Route: 2 mg Instruction: 1 x 2 mg tablet Protocol Text: Adjustment Start Date: Thursday02/10/23 INR Value: 2.1 INR Date: 01/13/23 Recheck Date: 03/10/23 Discharge Orders: Discharge Order (Routine); Ordered 03/13/23 Ordered By: Brett Zhu/Other Patient Handouts: Levofloxacin Oral Tablet Admission Data Admit Date/Time: 03/10/23 13:57 Attending Provider: Brett Herbert Admit Provider: Jason Nguyen Primary Care Provider: Rachael Sosa Other Providers: Jason Nguyen Other Interventions: Discharge Summary Assessment (RN) Last Done: 03/13/23 16:24 Coding Level of Care Code 26200 INP/OBS DISCH >30 MIN Diagnoses Acute UTI (urinary tract infection) N39.0 CHI (closed head injury) S09.90XA Contusion of hand, right S60.221A Fall W19.XXXA Generalized weakness R53.1 Hypertension I10 Coronary artery disease I25.10 Permanent atrial fibrillation I48.21 Atrial fibrillation type: permanent halfway (current) use of anticoagulants Z79.01
== END 2023-03-13 16:42 | disposition home or self-care (01) | DRG 690 ==
LOC: ED 10:35 → EDINP 13:57 → SUATTDRO 13:57 → 2N 16:11

== ENCOUNTER 2023-04-27 10:46 | Inpatient (IN) ==
--- NOTE | 2023-04-27 11:18 | Emergency Department Note ---
History of Present Illness General Chief complaint: Illness Stated complaint: SYNCOPE Time Seen by Provider: 04/27/23 11:06 Source: patient and family (Daughter at bedside) History of Present Illness Provider complaint: Weakness Onset (ago): day(s) 2 87-year-old female with history of atrial fibrillation on Coumadin presents emergency department for weakness. Daughter reports that over the last 2 days she has been increasingly weak. Daughter reports she has flulike symptoms over the last 2 days cough congestion and wheezing. She reports polyuria. No dysuria. Patient daughter reports she acted the same way last time she had a UTI. No falls or traumas. No fevers. No nausea or vomiting. No chest pain or difficulty breathing. Daughter reports that they were at the doctor's office earlier today and the patient just started staring out into space like she was unconscious. Daughter reports no falls or traumas at the doctor's office. Patient reports fatigue right now. Home Medications Medication Instructions Recorded Confirmed Type duloxetine 30 mg capsule,delayed 30 mg PO DAILY #90 caps 01/13/19 04/27/23 Rx release nitroglycerin 0.4 mg sublingual 0.4 mg sublingual Q5M PRN chest 02/02/19 04/27/23 Rx tablet pain #25 tabs cholecalciferol (vitamin D3) 50 50 mcg PO DAILY 06/09/19 04/27/23 History mcg (2,000 unit) capsule aspirin 81 mg chewable tablet 81 mg PO DAILY 05/17/22 04/27/23 History warfarin 2 mg tablet 2 mg PO QPM 05/17/22 04/27/23 History atorvastatin 40 mg tablet 40 mg PO Q OTHER DAY #90 tabs 07/10/22 04/27/23 Rx hydroxyurea 500 mg capsule 500 mg PO DAILY 07/10/22 04/27/23 History carvedilol 6.25 mg tablet 6.25 mg PO BID #60 tabs 10/02/22 04/27/23 Rx lisinopril 40 mg tablet 40 mg PO DAILY #90 tabs 12/11/22 04/27/23 Rx isosorbide mononitrate 60 mg 60 mg PO DAILY #90 tabs 01/20/23 04/27/23 Rx tablet,extended release 24 hr Allergies Allergy/AdvReac Type Severity Reaction Status Date / Time latex Allergy Unknown ITCHINESS Verified 04/27/23 13:13 tramadol Allergy Unknown CAN'T Verified 04/27/23 13:13 REMEMBER Past Med/Surg History Medical History Atrial premature complex Left knee pain Left knee DJD Leg pain, left Hypertension Angina at rest (01/19/13) Surgical History History of cataract surgery bilat S/P knee replacement left S/P hysterectomy S/P mastectomy S/P cholecystectomy H/O mastectomy Family History Father Coronary heart disease Myocardial infarction Denies family history of Ovarian cancer Prostate cancer Breast cancer Colorectal cancer Social History Smoking Status: Never smoker Second Hand Exposure: No; Do You Dip or Chew Tobacco: No; Hx Alcohol Use: No Hx Substance Use: No Preferred Language: [place] Communication Ability: Effective Visual Impairment: No Limitations Hearing Ability: Normal marital status: / Current Living Situation: Alone Current Living Situation Comment: daughter lives closeby and she is checked on 3-4X a day current occupational status: retired 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 Feels Safe at Home: Yes Childhood Exposure to Second-Hand Smoke: Yes Diet: regular Dental Care, Regularly: Yes Physical Activity Frequency: Does not Exercise Seatbelt Use: always Sunscreen Use: Yes Assistive Devices: Cane Physical Exam Vital Signs Vital Signs - 24 hr 04/27/23 11:18 04/27/23 11:18 04/27/23 11:18 Temperature 36.9 C 36.9 C Temperature Source Oral Oral Pulse Rate 89 89 Pulse Rate [Right Finger] 89 Pulse Rhythm Regular Regular Pulse Rhythm [Right Finger] Regular Pulse Strength Normal Pulse Strength [Right Finger] Normal Respiratory Rate 18 18 18 Respiratory Effort / Characteristics Non-Labored Spontaneous Non-Labored Spontaneous Respiratory Depth Normal Normal Respiratory Pattern Regular Regular Blood Pressure 118/80 Blood Pressure [Right Arm] 118/80 Blood Pressure Mean 92 Blood Pressure Mean [Right Arm] 92 Blood Pressure Position Semi-fowlers Blood Pressure Position [Right Arm] Semi-fowlers Pulse Oximetry 94 94 94 Oxygen Delivery Method Room Air Room Air Room Air Sepsis Recent Fever Within 48 Hours No Sepsis New/Unexplained Change in Mental Status N/A Sepsis Action Taken by Nursing No Action Required 04/27/23 13:32 Temperature 36.9 C Temperature Source Oral Pulse Rate Pulse Rate [Right Finger] 89 Pulse Rhythm Pulse Rhythm [Right Finger] Regular Pulse Strength Pulse Strength [Right Finger] Normal Respiratory Rate 18 Respiratory Effort / Characteristics Non-Labored Spontaneous Respiratory Depth Normal Respiratory Pattern Regular Blood Pressure Blood Pressure [Right Arm] 134/79 Blood Pressure Mean Blood Pressure Mean [Right Arm] 97 Blood Pressure Position Blood Pressure Position [Right Arm] Semi-fowlers Pulse Oximetry 94 Oxygen Delivery Method Room Air Sepsis Recent Fever Within 48 Hours Sepsis New/Unexplained Change in Mental Status Sepsis Action Taken by Nursing Physical Exam GENERAL: oriented to person, place, and time. appears well-developed and well- nourished. HENT: Exam performed. - Head: Normocephalic and atraumatic. EYES: Conjunctivae and EOM are normal. Right eye exhibits no discharge. Left eye exhibits no discharge. No scleral icterus. NECK: Normal range of motion. Neck supple. No JVD present. CV: Normal rate, regular rhythm, normal heart sounds and intact distal pulses. There is no peripheral edema. Palpable radial pulses bue. PULM/CHEST: Effort normal and breath sounds normal. No respiratory distress. No stridor. no wheezes. no rales. ABD: The abdomen is soft. There is no tenderness. NEURO: Motor and sensation grossly intact. SKIN: Skin is warm and dry. He is not diaphoretic. PSYCH: normal mood and affect. Behavior is normal. Judgment and thought content normal. Course Course 1106: The patient was evaluated in room A11. A complete history and physical exam was performed Cardiac monitoring: An order was placed for continuous cardiac monitoring. The monitor shows a rate of 90 with atrial fibrilation rhythm interpreted by hi 1330: Vital signs stable. Patient is lactic acid 3.7. White blood cell count 11.11. INR therapeutic. Procalcitonin 0.06. Patient is positive for COVID. Urine dip is concerning for UTI. Rocephin ordered for the patient. Patient's blood pressure stable, judicious fluids will be given her mild cardiomegaly on chest x-ray and as patient has no recent echo and her advanced age with history of heart disease. 1400: Urinalysis is concerning for infection. Discussed case with Dr. Ya Rivera hospitalist will admit the patient to his service. Administered Medications Magnesium Sulfate/Dextrose (Magnesium Sulfate / D5w) 1 gm in 100 mls @ 50 mls/hr IV Q2H STEFAN Stop: 04/27/23 18:59 Last Admin: 04/27/23 17:29 Dose: 50 mls/hr Documented By: Infusion: 04/27/23 17:29 Dose: Infused Documented By: Admin: 04/27/23 15:33 Dose: 50 mls/hr Documented By: JUDE Discontinued Medications Sodium Chloride (Nss) 500 mls @ 999 mls/hr IV .Q31M STEFAN Stop: 04/27/23 11:45 Last Infusion: 04/27/23 12:44 Dose: Infused Documented By: Admin: 04/27/23 12:11 Dose: 999 mls/hr Documented By: LOUIS Ceftriaxone Sodium (Rocephin) 1,000 mg in 50 mls @ 100 mls/hr IV NOW STA Stop: 04/27/23 14:01 Last Infusion: 04/27/23 15:33 Dose: Infused Documented By: Admin: 04/27/23 14:42 Dose: 100 mls/hr Documented By: LOUIS Sodium Chloride (Nss) 1,000 mls @ 999 mls/hr IV .Q1H1M ONE Stop: 04/27/23 15:26 Last Infusion: 04/27/23 17:07 Dose: Infused Documented By: Admin: 04/27/23 14:42 Dose: 999 mls/hr Documented By: LOUIS Remdesivir 200 mg/ Sodium (Chloride) 250 mls @ 125 mls/hr IV ONE STA; Protocol Stop: 04/27/23 17:25 Last Admin: 04/27/23 16:08 Dose: 125 mls/hr Documented By: JUDE Medical Decision Making Laboratory Data Attestation: I reviewed the patient's lab results. 04/27/23 11:13 04/27/23 11:13 Lab Results 04/27/23 04/27/23 04/27/23 Range/Units 11:13 11:28 11:41 WBC 11.11 H (4.8-10.8) K/ul RBC 4.18 L (4.20-5.40) M/uL Hgb 16.6 H (12.0-16.0) g/dl Hct 48.1 H (37.0-47.0) % MCV 115.1 H (80.0-100.0) fL MCH 39.7 H (25.0-34.0) pg MCHC 34.5 (32.0-36.0) g/dL RDW Std Deviation 54.6 H (36.4-46.3) fL RDW Coeff of Rahul 12.8 (11.5-14.5) % Plt Count 142 (130-400) K/uL MPV 9.8 (9.4-12.4) fL Immature Gran % (Auto) 2.4 % Neut % (Auto) 76.8 % Lymph % (Auto) 10.4 % [place] % (Auto) 9.9 % Eos % (Auto) 0.2 % Baso % (Auto) 0.3 % Neut # (Auto) 8.53 H (1.40-6.50) K/uL Lymph # (Auto) 1.16 L (1.20-3.40) K/uL [place] # (Auto) 1.10 H (0.11-0.59) K/uL Eos # (Auto) 0.02 (0.00-0.50) K/uL Baso # (Auto) 0.03 (0.00-0.20) K/uL Immature Gran # (Auto) 0.27 H (0.01-0.20) K/uL Polychromasia 1+ Macrocytosis Present PT Cancelled INR Cancelled APTT Cancelled PTT Ratio Cancelled VBG pH 7.46 H (7.36-7.41) VBG pCO2 34 L (38-50) mmHg VBG pO2 52 mmHg VBG HCO3 24 mmol/L VBG O2 Saturation 85.0 % VBG Base Excess 1.0 mEq/L Sodium 136 (136-145) mmol/L Potassium 4.5 (3.5-5.1) mmol/L Chloride 103 (98-107) mmol/L Carbon Dioxide 26 (21-32) mmol/L Anion Gap 7 (3-11) BUN 20 (6-23) mg/dl Creatinine 0.92 (0.6-1.2) mg/dl Est Cr Clr Drug Dosing 43.4 ml/min Est GFR ( Amer) 65.3 ml/min Est GFR (Non-Af Amer) 56.4 ml/min BUN/Creatinine Ratio 21.7 H (10-20) Glucose 230 H (70-99(Fasting)) mg/dl POC Glucose 183 H (70-99) mg/dl Lactate 3.7 H* (0.4-2.0) mmol/L Calcium 9.0 (8.6-10.3) mg/dl Magnesium 1.7 (1.7-2.4) mg/dl Total Bilirubin 1.1 H (0.2-1.0) mg/dl Direct Bilirubin 0.2 (0-0.2) mg/dl AST 31 (13-39) U/L ALT 31 (7-52) U/L Alkaline Phosphatase 79 (34-104) U/L Troponin I High Sens 8.2 (0-14) pg/ml Total Protein 6.5 (6.0-8.3) gm/dl Albumin 3.8 (3.4-5.0) gm/dl Procalcitonin Cancelled Urine Color Urine Appearance (Clear) Urine pH (4.5-7.5) Ur Specific [place] (1.000-1.030) Urine Protein (Negative) Urine Glucose (UA) (Negative) Urine Ketones (Negative) Urine Blood (Negative) Urine Nitrite (Negative) Urine Bilirubin (Negative) Urine Urobilinogen (Negative) Ur Leukocyte Esterase (Negative) Urine WBC (Auto) (0-5) /hpf Urine RBC (Auto) (0-4) /hpf U Hyaline Cast (Auto) (0-5) /lpf U Epithel Cells (Auto) (0-5) /lpf Urine Bacteria (Auto) (Negative) SARS-CoV-2 (PCR) (Negative) Influenza Type A (PCR) (Neg) Influenza Type B (PCR) (Neg) RSV (RT-PCR) (Neg) 04/27/23 04/27/23 04/27/23 Range/Units 11:52 12:15 13:26 WBC (4.8-10.8) K/ul RBC (4.20-5.40) M/uL Hgb (12.0-16.0) g/dl Hct (37.0-47.0) % MCV (80.0-100.0) fL MCH (25.0-34.0) pg MCHC (32.0-36.0) g/dL RDW Std Deviation (36.4-46.3) fL RDW Coeff of Rahul (11.5-14.5) % Plt Count (130-400) K/uL MPV (9.4-12.4) fL Immature Gran % (Auto) % Neut % (Auto) % Lymph % (Auto) % [place] % (Auto) % Eos % (Auto) % Baso % (Auto) % Neut # (Auto) (1.40-6.50) K/uL Lymph # (Auto) (1.20-3.40) K/uL [place] # (Auto) (0.11-0.59) K/uL Eos # (Auto) (0.00-0.50) K/uL Baso # (Auto) (0.00-0.20) K/uL Immature Gran # (Auto) (0.01-0.20) K/uL Polychromasia Macrocytosis PT 21.4 H INR 2.0 H APTT 35 H PTT Ratio 1.2 VBG pH (7.36-7.41) VBG pCO2 (38-50) mmHg VBG pO2 mmHg VBG HCO3 mmol/L VBG O2 Saturation % VBG Base Excess mEq/L Sodium (136-145) mmol/L Potassium (3.5-5.1) mmol/L Chloride (98-107) mmol/L Carbon Dioxide (21-32) mmol/L Anion Gap (3-11) BUN (6-23) mg/dl Creatinine (0.6-1.2) mg/dl Est Cr Clr Drug Dosing ml/min Est GFR ( Amer) ml/min Est GFR (Non-Af Amer) ml/min BUN/Creatinine Ratio (10-20) Glucose (70-99(Fasting)) mg/dl POC Glucose (70-99) mg/dl Lactate (0.4-2.0) mmol/L Calcium (8.6-10.3) mg/dl Magnesium (1.7-2.4) mg/dl Total Bilirubin (0.2-1.0) mg/dl Direct Bilirubin (0-0.2) mg/dl AST (13-39) U/L ALT (7-52) U/L Alkaline Phosphatase (34-104) U/L Troponin I High Sens (0-14) pg/ml Total Protein (6.0-8.3) gm/dl Albumin (3.4-5.0) gm/dl Procalcitonin 0.06 Urine Color Noble Urine Appearance Cloudy A (Clear) Urine pH 6.0 (4.5-7.5) Ur Specific [place] 1.016 (1.000-1.030) Urine Protein Negative (Negative) Urine Glucose (UA) Negative (Negative) Urine Ketones Trace H (Negative) Urine Blood Negative (Negative) Urine Nitrite Positive A (Negative) Urine Bilirubin Negative (Negative) Urine Urobilinogen Negative (Negative) Ur Leukocyte Esterase 1+ H (Negative) Urine WBC (Auto) 5-10 H (0-5) /hpf Urine RBC (Auto) 0-4 (0-4) /hpf U Hyaline Cast (Auto) 1-5 (0-5) /lpf U Epithel Cells (Auto) >30 H (0-5) /lpf Urine Bacteria (Auto) 4+ H (Negative) SARS-CoV-2 (PCR) POSITIVE A* (Negative) Influenza Type A (PCR) Negative (Neg) Influenza Type B (PCR) Negative (Neg) RSV (RT-PCR) Negative (Neg) 04/27/23 Range/Units 14:08 WBC (4.8-10.8) K/ul RBC (4.20-5.40) M/uL Hgb (12.0-16.0) g/dl Hct (37.0-47.0) % MCV (80.0-100.0) fL MCH (25.0-34.0) pg MCHC (32.0-36.0) g/dL RDW Std Deviation (36.4-46.3) fL RDW Coeff of Rahul (11.5-14.5) % Plt Count (130-400) K/uL MPV (9.4-12.4) fL Immature Gran % (Auto) % Neut % (Auto) % Lymph % (Auto) % [place] % (Auto) % Eos % (Auto) % Baso % (Auto) % Neut # (Auto) (1.40-6.50) K/uL Lymph # (Auto) (1.20-3.40) K/uL [place] # (Auto) (0.11-0.59) K/uL Eos # (Auto) (0.00-0.50) K/uL Baso # (Auto) (0.00-0.20) K/uL Immature Gran # (Auto) (0.01-0.20) K/uL Polychromasia Macrocytosis PT INR APTT PTT Ratio VBG pH (7.36-7.41) VBG pCO2 (38-50) mmHg VBG pO2 mmHg VBG HCO3 mmol/L VBG O2 Saturation % VBG Base Excess mEq/L Sodium (136-145) mmol/L Potassium (3.5-5.1) mmol/L Chloride (98-107) mmol/L Carbon Dioxide (21-32) mmol/L Anion Gap (3-11) BUN (6-23) mg/dl Creatinine (0.6-1.2) mg/dl Est Cr Clr Drug Dosing ml/min Est GFR ( Amer) ml/min Est GFR (Non-Af Amer) ml/min BUN/Creatinine Ratio (10-20) Glucose (70-99(Fasting)) mg/dl POC Glucose (70-99) mg/dl Lactate 3.5 H* (0.4-2.0) mmol/L Calcium (8.6-10.3) mg/dl Magnesium (1.7-2.4) mg/dl Total Bilirubin (0.2-1.0) mg/dl Direct Bilirubin (0-0.2) mg/dl AST (13-39) U/L ALT (7-52) U/L Alkaline Phosphatase (34-104) U/L Troponin I High Sens 8.0 (0-14) pg/ml Total Protein (6.0-8.3) gm/dl Albumin (3.4-5.0) gm/dl Procalcitonin Urine Color Urine Appearance (Clear) Urine pH (4.5-7.5) Ur Specific [place] (1.000-1.030) Urine Protein (Negative) Urine Glucose (UA) (Negative) Urine Ketones (Negative) Urine Blood (Negative) Urine Nitrite (Negative) Urine Bilirubin (Negative) Urine Urobilinogen (Negative) Ur Leukocyte Esterase (Negative) Urine WBC (Auto) (0-5) /hpf Urine RBC (Auto) (0-4) /hpf U Hyaline Cast (Auto) (0-5) /lpf U Epithel Cells (Auto) (0-5) /lpf Urine Bacteria (Auto) (Negative) SARS-CoV-2 (PCR) (Negative) Influenza Type A (PCR) (Neg) Influenza Type B (PCR) (Neg) RSV (RT-PCR) (Neg) Imaging Data Attestation: I personally reviewed and interpreted this imaging study as follows: My Impression: Chest x-ray: Mild cardiomegaly. Radiologist's Impression: Chest X-Ray 04/27/23 11:13 XR chest 1V portable CLINICAL HISTORY: Sepsis TECHNIQUE: Single frontal radiograph of the chest was obtained. Comparison: Comparison is made to chest radiograph 05/17/2022 FINDINGS: No lines and tubes are seen. Calcified aortic knob is seen. The lungs are clear. No evidence of pleural effusion or pneumothorax. IMPRESSION: No acute chest disease. ACT 112: Negative or not required by law. Electronically signed by: Sung Garcia M.D. 04/27/2023 11:[address] 04/27/23 11:13 CT head/brain wo con CLINICAL HISTORY: ams Technique: Contiguous axial CT images of the head were acquired from the base of the skull to the vertex without intravenous contrast administration. Images were viewed in brain, subdural and bone windows. Automated dose lowering techniques and/or adjustment according to patient size were utilized for this exam. Comparison: None available at the time of this dictation. Findings: Areas of decreased attenuation are present in the periventricular and subcortical white matter bilaterally consistent with small vessel ischemic disease. Generalized cerebral atrophy with commensurate enlargement of the ventricles, sulci, and cisterns is also present. There is no acute intracranial hemorrhage or evidence of acute territorial infarction. No shift of the midline structures, mass effect, or extra-axial abnormalities are shown. Atherosclerotic calcifications are present in the intracranial segments of the internal carotid arteries. Bilateral maxillary sinus disease is seen. The orbits appear normal. There are no acute fractures of the calvaria or scalp swelling. Impression: No acute intracranial hemorrhage, no evidence of acute territorial infarction or other acute intracranial disease process. ACT 112: Negative or not required by law. Electronically signed by: Sung Garcia M.D. 04/27/2023 12:59 PM ECG Data Attestation: I personally reviewed and interpreted this ECG as follows: Rate (beats per minute): 83 Rhythm: + atrial fibrillation ECG Intervals/blocks: + Normal QT-c ECG ST segments: + Normal ST segments Additional Comments: QRS 66 MDM Narrative 1106: The patient was evaluated in room A11. A complete history and physical exam was performed Cardiac monitoring: An order was placed for continuous cardiac monitoring. The monitor shows a rate of 90 with atrial fibrilation rhythm interpreted by me 1330: Vital signs stable. Patient is lactic acid 3.7. White blood cell count 11.11. INR therapeutic. Procalcitonin 0.06. Patient is positive for COVID. Urine dip is concerning for UTI. Rocephin ordered for the patient. Patient's blood pressure stable, judicious fluids will be given her mild cardiomegaly on chest x-ray and as patient has no recent echo and her advanced age with history of heart disease. 1400: Urinalysis is concerning for infection. Discussed case with Dr. [facility] hospitalist will admit the patient to his service. Impression & Plan COVID-19, Acute UTI, Sepsis Discharge Plan Visit Data Chief Complaint: Illness Stated Complaint: SYNCOPE ED Provider: Ghassan Jiang Discharge Problem: COVID-19, Acute UTI, Sepsis Patient Disposition: Admitted As Inpatient Discharge Instructions Interventions: ED Discharge Assessment Last Done: 04/27/23 17:24 Discharge Problem: Sepsis Qualifiers: Sepsis type: sepsis due to unspecified organism Sepsis acute organ dysfunction status: without acute organ dysfunction Qualified Code(s): A41.9 - Sepsis, unspecified organism
--- NOTE | 2023-04-27 11:44 | XRay Report ---
XR chest 1V portable CLINICAL HISTORY: Sepsis TECHNIQUE: Single frontal radiograph of the chest was obtained. Comparison: Comparison is made to chest radiograph 05/17/2022 FINDINGS: No lines and tubes are seen. Calcified aortic knob is seen. The lungs are clear. No evidence of pleur al effusion or pneumothorax. IMPRESSION: No acute chest disease. ACT 112: Negative or not required by law. Electronically signed by: Sung Garcia M.D. 04/27/2023 11:43 AM
[2023-04-27 11:45] LABS: Basophils # (auto) 0.03 K/uL (0.00-0.20); Basophils % (auto) 0.3 %; Eosinophils # (auto) 0.02 K/uL (0.00-0.50); Eosinophils % (auto) 0.2 %; Hematocrit (blood only) 48.1 % (37.0-47.0); Hemoglobin 16.6 g/dl (12.0-16.0); Immature Granulocytes # (auto) 0.27 K/uL (0.01-0.20); Immature Granulocytes % (auto) 2.4 %; Lymphocytes # (auto) 1.16 K/uL (1.20-3.40); Lymphocytes % (auto) 10.4 %; Mean Corpuscular Hemoglobin 39.7 pg (25.0-34.0); Mean Corpuscular Hgb Conc 34.5 g/dL (32.0-36.0); Mean Corpuscular Volume 115.1 fL (80.0-100.0); Mean Platelet Volume 9.8 fL (9.4-12.4); Monocytes % (auto) 9.9 %; Neutrophils # (auto) 8.53 K/uL (1.40-6.50); Neutrophils % (auto) 76.8 %; Platelet Count 142 K/uL (130-400); RDW Coefficient of Variation 12.8 % (11.5-14.5); RDW Standard Deviation 54.6 fL (36.4-46.3); Red Blood Count 4.18 M/uL (4.20-5.40); White Blood Count 11.11 K/ul (4.8-10.8)
[2023-04-27 11:57] LABS: HCO3 VBG 24 mmol/L; PCO2 VBG 34 mmHg (38-50); PO2 VBG 52 mmHg; pH VBG 7.46 (7.36-7.41)
[2023-04-27 12:03] LABS: Albumin Level 3.8 gm/dl (3.4-5.0); BUN Creatinine Ratio 21.7 (10-20); Bilirubin Direct 0.2 mg/dl (0-0.2); Bilirubin,Total 1.1 mg/dl (0.2-1.0); Creatinine Clr Calc Pharmacy 43.4 ml/min; Est GFR (African American) 65.3 ml/min; Est GFR (Non-African American) 56.4 ml/min; Magnesium 1.7 mg/dl (1.7-2.4); Potassium 4.5 mmol/L (3.5-5.1); Total Protein 6.5 gm/dl (6.0-8.3); Troponin I High Sensitivity 8.2 pg/ml (0-14)
[2023-04-27] MEDS: SODIUM CHLORIDE 0.9% 500 ML IV SCH (12:11)
[2023-04-27 12:14] LABS: Macrocytosis Present; Polychromasia 1+
[2023-04-27 12:57] LABS: Influenza A virus by PCR Negative (Neg); Influenza B virus by PCR Negative (Neg); RSV by PCR Negative (Neg); SARS CoV2 RNA(COVID-19) Ceph POSITIVE (Negative)
--- NOTE | 2023-04-27 13:01 | CT Scan Report ---
CT head/brain wo con CLINICAL HISTORY: ams Technique: Contiguous axial CT images of the head were acquired from the base of the skull to the [place] without intravenous contrast administration. Images were [facility] brain[facility] Automated dose lowering techniques and/or adjustment according to patient size were utilized for this exam. Comparison: None available at the time of this dictation. Findings: Areas of decreased attenuation are present in the periventricular and subcortical white matter bilate rally consistent with small vessel ischemic disease. Generalized cerebral atrophy with commensurate e nlargement of the ventricles, sulci, and cisterns is also present. There is no acute intracranial hem orrhage or evidence of acute territorial infarction. No shift of the midline structures, mass effect, or extra-axial abnormalities are shown. Atherosclerotic calcifications are present in the intracran ial segments of the internal carotid arteries. Bilateral maxillary sinus disease is seen. The orbits appear normal. There are no acute fractures of the calvaria or scalp swelling. Impression: No acute intracranial hemorrhage, no evidence of acute territorial infarction or other acute intracra nial disease process. ACT 112: Negative or not required by law. Electronically signed by: Sung Garcia M.D. 04/27/2023 12:59 PM
[2023-04-27 13:08] LABS: Partial Thromboplastin Ratio 1.2; Partial Thromboplastin Time 35 Seconds (21-31); Prothrombin Time 21.4 Seconds (9.0-12.0)
[2023-04-27 13:52] LABS: Appearance Urine Cloudy (Clear); Bacteria Urine Automated 4+ (Negative); Bilirubin Urine Negative (Negative); Blood Urine Negative (Negative); Color Urine Orange; Epithelial Cell Urine Auto >30 /lpf (0-5); Glucose Urine UA Negative (Negative); Ketones Urine Trace (Negative); Leukocyte Esterase Urine 1+ (Negative); Nitrite Urine Positive (Negative); Protein Urine Negative (Negative); RBC Urine Automated 0-4 /hpf (0-4); Specific Gravity Urine 1.016 (1.000-1.030); Urobilinogen Urine Negative (Negative)
--- NOTE | 2023-04-27 14:27 | History & Physical Report ---
Date of Service April 27, 2023 Assessment & Plan (1) COVID: Plan: Coughing, left-sided chest pain, and congestion started on 04/25 COVID+ on arrival Mild leukocytosis at 11.11 with neutrophil predominance; afebrile; not hypoxic on RA Procalcitonin WNL Troponin WNL at 8.2, repeat pending Lactate elevated at 3.7-->3.5 on arrival VB.46/34/52/24 CXR NAF Remdesivir 200 mg IV on day 1, followed by 100 mg once daily on day 2 and 3 (due to high risk of progression to severe illness); LFTs WNL Will defer dexamethasone at this time Albuterol inhaler as needed for SOB and wheezing; try to avoid DuoNeb Supplemental oxygen as needed to maintain SpO2 >94% PT/OT consulted for generalized weakness; patient uses walker at baseline A.m. CBC, BMP, PT/INR, mag, LFTs (2) Pre-syncope: Plan: Patient visited PCP on 04/27, and while sitting she became pale, clammy, and spaced out for 30 seconds; her oxygen level was reportedly low at this time Head CT revealed NAF Patient is A&O x 3 on arrival Continuous telemetry monitoring (3) Acute UTI (urinary tract infection): Plan: UA positive on arrival Previous [facility] admission in February 2023 for UTI Patient endorses increased urinary frequency, which occurred with previous admission Urine culture ordered, pending Urine culture on 03/10/2023 with pansensitive E. coli Rocephin 1000 mg IV q24h (4) Atrial fibrillation: Plan: EKG revealed atrial fibrillation at 83 bpm; QTc 420 INR 2.0 on arrival Continue Coumadin, carvedilol Daily PT/INR; INR therapeutic goal 2-3 Continuous telemetry monitoring (5) Polycythemia: Plan: Hgb 16.6 on arrival Patient is unsure if she is ever been diagnosed with PCV, but notes that she has trialed phlebotomy Prior PCP notes report (benign polycythemia) Continue hydroxyurea (6) Hypertension: Plan: Continue isosorbide mononitrate, lisinopril, carvedilol (7) Chronic kidney disease: Plan: Avoid nephrotoxic agents (8) Hyperlipidemia: Plan: Continue atorvastatin Plan Disposition: Admit to [facility] telemetry DNR/DNI AHA diet VTE PPx: On warfarin (monitor daily INR) History of Present Illness Chief Complaint: COVID, UTI Primary Care Provider: MATEO Turk Sharda is a pleasant 87-year-old female with PMH of atrial fibrillation (on Coumadin), CAD, allergic rhinitis, HTN, and tremor. Patient presented via EMS from her PCP office for dizziness, muscle aches, and episode of unresponsiveness on 04/27. Patient reports that coughing and congestion started on Tuesday 04/25. She then went to her PCP on 04/27 with her daughter, and became pale and clammy while sitting in the chair; there was episode of unresponsiveness; no LOC; no seizure-like activity, per daughter; her oxygen levels were reported to be low at that time. She does not use supplemental oxygen at home. She does not Dors intermittent left-sided chest pain, which she normally gets when she develops A-fib; she denies left arm/left jaw pain or pressure. Patient also endorses increased urinary frequency, which happened when she had a UTI back in February. Patient uses a cane to ambulate at home; she had a fall back on 03/08, which was later deemed to be due to a UTI. The patient is in a halfway apartment, no steps. She reports that she took all of her regular medications this morning; no recent change in medications; patient manages her own meds at home. Patient is not up-to-date on COVID vaccinations/boosters, but reports that she had a flu shot this past year. Patient denies smoking/tobacco use. Vital stable at time of admission; SpO2 94% on RA. ED course: Rocephin 1000 mg IV NSS 500 mL IV ROS: Patient endorses body aches, dry cough, runny nose, congestion, L-sided CP, nausea, and increased urinary frequency (which often happens when she gets UTIs). Patient denies fever, chills, night-sweats, chest palpitations, pain/pressure in L arm or L jaw hemoptysis, pleuritic CP, SOB at rest, abominal pain, vomiting, diarrhea, burning with urination, dysuria, blood in urine/stool, or numbness/ tingling in arms or legs. Allergies Allergy/AdvReac Type Severity Reaction Status Date / Time latex Allergy Unknown ITCHINESS Verified 04/27/23 13:13 tramadol Allergy Unknown CAN'T Verified 04/27/23 13:13 REMEMBER Home Medications Medication Instructions Recorded Confirmed Type duloxetine 30 mg capsule,delayed 30 mg PO DAILY #90 caps 01/13/19 04/27/23 Rx release nitroglycerin 0.4 mg sublingual 0.4 mg sublingual Q5M PRN chest 02/02/19 04/27/23 Rx tablet pain #25 tabs cholecalciferol (vitamin D3) 50 50 mcg PO DAILY 06/09/19 04/27/23 History mcg (2,000 unit) capsule aspirin 81 mg chewable tablet 81 mg PO DAILY 05/17/22 04/27/23 History warfarin 2 mg tablet 2 mg PO QPM 05/17/22 04/27/23 History atorvastatin 40 mg tablet 40 mg PO Q OTHER DAY #90 tabs 07/10/22 04/27/23 Rx hydroxyurea 500 mg capsule 500 mg PO DAILY 07/10/22 04/27/23 History carvedilol 6.25 mg tablet 6.25 mg PO BID #60 tabs 10/02/22 04/27/23 Rx lisinopril 40 mg tablet 40 mg PO DAILY #90 tabs 12/11/22 04/27/23 Rx isosorbide mononitrate 60 mg 60 mg PO DAILY #90 tabs 01/20/23 04/27/23 Rx tablet,extended release 24 hr Past Med/Surg History Medical History Atrial premature complex Left knee pain Left knee DJD Leg pain, left Hypertension Angina at rest (01/19/13) Surgical History History of cataract surgery bilat S/P knee replacement left S/P hysterectomy S/P mastectomy S/P cholecystectomy H/O mastectomy Family History Father Coronary heart disease Myocardial infarction Denies family history of Ovarian cancer Prostate cancer Breast cancer Colorectal cancer Social History Smoking Status: Never smoker Second Hand Exposure: No; Do You Dip or Chew Tobacco: No; Hx Alcohol Use: No Hx Substance Use: No Preferred Language: Thai Communication Ability: Effective Visual Impairment: No Limitations Hearing Ability: Normal Telecommunications Repairer Required: No Beliefs That Will Affect Care: None marital status: / Current Living Situation: Alone Current Living Situation Comment: daughter lives closeby and she is checked on 3-4X a day current occupational status: retired 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 Feels Safe at Home: Yes Safety Concerns: Feels Safe At This Time Childhood Exposure to Second-Hand Smoke: Yes Diet: regular Dental Care, Regularly: Yes Physical Activity Frequency: Does not Exercise Seatbelt Use: always Sunscreen Use: Yes Assistive Devices: Cane Review of Systems Review of Systems: See HPI above Physical Exam Physical Exam: General: Mild respiratory distress; lethargic; non-toxic appearing; well-nourish ed; cooperative HEENT: normocephalic, atraumatic; no scleral icterus; PERRLA w/ EOMs intact; moist mucus membrane; vision and hearing grossly intact Neck: supple; no lymphadenopathy; trachea midline Skin: warm, dry without signs of tenting; no cyanosis; no rashes, bruising, lesions, or erythema noted CV: chest wall NTP; RRR; S1/S2 normal; no murmurs/rubs/gallops; pulses intact and symmetric at radial, DP, and PT Lungs: Dry cough, that is exacerbated with deep inhalations; mild respiratory distress; symmetrical chest wall expansion; diminished breath sounds and wheezing across all lung sales bilaterally ABD: Soft, NTP; BS present; no rebound/guarding; no ascites; no distention; negative CVA tenderness MSK: no tics or fasciculations; LEs brown, and TTP; no edema noted in the LEs b/l, nonerythematous Neuro: A&Ox3; normal mood and affect; fluent speech; no focal deficits; sensation grossly intact in the LEs b/l Results & Data Results & Data Vital Signs (Past 12 Hours) Vital Signs Temp Pulse Pulse Resp BP BP Pulse Ox 04/27/23 13:32 36.9 C 89 18 134/79 94 04/27/23 11:18 36.9 C 89 18 118/80 94 04/27/23 11:18 89 18 94 04/27/23 11:18 36.9 C 89 18 118/80 94 O2 Del Method 04/27/23 13:32 Room Air 04/27/23 11:18 Room Air 04/27/23 11:18 Room Air 04/27/23 11:18 Room Air Laboratory Results Abnormal lab results 04/27/23 04/27/23 04/27/23 Range/Units 11:13 11:28 11:41 WBC 11.11 H (4.8-10.8) K/ul RBC 4.18 L (4.20-5.40) M/uL Hgb 16.6 H (12.0-16.0) g/dl Hct 48.1 H (37.0-47.0) % MCV 115.1 H (80.0-100.0) fL MCH 39.7 H (25.0-34.0) pg RDW Std Deviation 54.6 H (36.4-46.3) fL Neut # (Auto) 8.53 H (1.40-6.50) K/uL Lymph # (Auto) 1.16 L (1.20-3.40) K/uL [place] # (Auto) 1.10 H (0.11-0.59) K/uL Immature Gran # (Auto) 0.27 H (0.01-0.20) K/uL PT (9.0-12.0) Seconds INR (0.9-1.1) APTT (21-31) Seconds VBG pH 7.46 H (7.36-7.41) VBG pCO2 34 L (38-50) mmHg BUN/Creatinine Ratio 21.7 H (10-20) Glucose 230 H (70-99(Fasting)) mg/dl POC Glucose 183 H (70-99) mg/dl Lactate 3.7 H* (0.4-2.0) mmol/L Total Bilirubin 1.1 H (0.2-1.0) mg/dl Urine Appearance (Clear) Urine Ketones (Negative) Urine Nitrite (Negative) Ur Leukocyte Esterase (Negative) Urine WBC (Auto) (0-5) /hpf U Epithel Cells (Auto) (0-5) /lpf Urine Bacteria (Auto) (Negative) SARS-CoV-2 (PCR) (Negative) 04/27/23 04/27/23 04/27/23 Range/Units 11:52 12:15 13:26 WBC (4.8-10.8) K/ul RBC (4.20-5.40) M/uL Hgb (12.0-16.0) g/dl Hct (37.0-47.0) % MCV (80.0-100.0) fL MCH (25.0-34.0) pg RDW Std Deviation (36.4-46.3) fL Neut # (Auto) (1.40-6.50) K/uL Lymph # (Auto) (1.20-3.40) K/uL [place] # (Auto) (0.11-0.59) K/uL Immature Gran # (Auto) (0.01-0.20) K/uL PT 21.4 H (9.0-12.0) Seconds INR 2.0 H (0.9-1.1) APTT 35 H (21-31) Seconds VBG pH (7.36-7.41) VBG pCO2 (38-50) mmHg BUN/Creatinine Ratio (10-20) Glucose (70-99(Fasting)) mg/dl POC Glucose (70-99) mg/dl Lactate (0.4-2.0) mmol/L Total Bilirubin (0.2-1.0) mg/dl Urine Appearance Cloudy A (Clear) Urine Ketones Trace H (Negative) Urine Nitrite Positive A (Negative) Ur Leukocyte Esterase 1+ H (Negative) Urine WBC (Auto) 5-10 H (0-5) /hpf U Epithel Cells (Auto) >30 H (0-5) /lpf Urine Bacteria (Auto) 4+ H (Negative) SARS-CoV-2 (PCR) POSITIVE A* (Negative) 04/27/23 Range/Units 14:08 WBC (4.8-10.8) K/ul RBC (4.20-5.40) M/uL Hgb (12.0-16.0) g/dl Hct (37.0-47.0) % MCV (80.0-100.0) fL MCH (25.0-34.0) pg RDW Std Deviation (36.4-46.3) fL Neut # (Auto) (1.40-6.50) K/uL Lymph # (Auto) (1.20-3.40) K/uL [place] # (Auto) (0.11-0.59) K/uL Immature Gran # (Auto) (0.01-0.20) K/uL PT (9.0-12.0) Seconds INR (0.9-1.1) APTT (21-31) Seconds VBG pH (7.36-7.41) VBG pCO2 (38-50) mmHg BUN/Creatinine Ratio (10-20) Glucose (70-99(Fasting)) mg/dl POC Glucose (70-99) mg/dl Lactate 3.5 H* (0.4-2.0) mmol/L Total Bilirubin (0.2-1.0) mg/dl Urine Appearance (Clear) Urine Ketones (Negative) Urine Nitrite (Negative) Ur Leukocyte Esterase (Negative) Urine WBC (Auto) (0-5) /hpf U Epithel Cells (Auto) (0-5) /lpf Urine Bacteria (Auto) (Negative) SARS-CoV-2 (PCR) (Negative) Diagnostic Findings Chest X-Ray 04/27/23 11:13 XR chest 1V portable CLINICAL HISTORY: Sepsis TECHNIQUE: Single frontal radiograph of the chest was obtained. Comparison: Comparison is made to chest radiograph 05/17/2022 FINDINGS: No lines and tubes are seen. Calcified aortic knob is seen. The lungs are clear. No evidence of pleural effusion or pneumothorax. IMPRESSION: No acute chest disease. ACT 112: Negative or not required by law. Electronically signed by: Sung Garcia M.D. 04/27/2023 11:[address] 04/27/23 11:13 CT head/brain wo con CLINICAL HISTORY: ams Technique: Contiguous axial CT images of the head were acquired from the base of the skull to the vertex without intravenous contrast administration. Images were viewed in brain, subdural and bone windows. Automated dose lowering techniques and/or adjustment according to patient size were utilized for this exam. Comparison: None available at the time of this dictation. Findings: Areas of decreased attenuation are present in the periventricular and subcortical white matter bilaterally consistent with small vessel ischemic disease. Generalized cerebral atrophy with commensurate enlargement of the ventricles, sulci, and cisterns is also present. There is no acute intracranial hemorrhage or evidence of acute territorial infarction. No shift of the midline structures, mass effect, or extra-axial abnormalities are shown. Atherosclerotic calcifications are present in the intracranial segments of the internal carotid arteries. Bilateral maxillary sinus disease is seen. The orbits appear normal. There are no acute fractures of the calvaria or scalp swelling. Impression: No acute intracranial hemorrhage, no evidence of acute territorial infarction or other acute intracranial disease process. ACT 112: Negative or not required by law. Electronically signed by: Sung Garcia M.D. 04/27/2023 12:59 PM Code Status & VTE Plan Code Status DNR/DNI VTE Prophylaxis Plan VTE Prophylaxis will be ordered: Yes PG Care Time/CCT Total # of Minutes Spent Total Time Spent with Patient: Total time spent is greater than 50% in coordination of care (as documented) at patient's floor/unit and/or counseling patient: C[place] [address] INT INP/OBS CARE 3/75MIN Patient Type Established Medical Decision Making High Complexity Diagnoses COVID U07.1 Pre-syncope R55 Acute UTI (urinary tract infection) N39.0 Permanent atrial fibrillation I48.21 Atrial fibrillation type: permanent Polycythemia D75.1 Hypertension I10 Chronic kidney disease N18.9 Hyperlipidemia E78.5 (4) Atrial fibrillation Atrial fibrillation type: permanent Qualified Code(s): I48.21 - Permanent atrial fibrillation
[2023-04-27] MEDS: SODIUM CHLORIDE 0.9% 1,000 ML IV ONE (14:42)
[2023-04-27] MEDS: cefTRIAXone SODIUM 1,000 MG/50 ML BAG IV STA (14:42)
[2023-04-27] MEDS: MAGNESIUM SULFATE / D5W 1 GM/100 ML BAG IV SCH (15:33)
[2023-04-27] MEDS: REMDESIVIR 200 MG in SODIUM CHLORIDE 0.9% 210 ML IV STA (16:08)
[2023-04-27] MEDS ORDERED: ONDANSETRON INJ 2 MG/ML 2 ML VIAL IV PRN (17:23)
[2023-04-27] MEDS ORDERED: ACETAMINOPHEN 325 MG TAB PO PRN (17:23)
[2023-04-27] MEDS ORDERED: NITROGLYCERIN SL 0.4 MG/TAB TAB SL PRN (17:23)
[2023-04-27] MEDS ORDERED: ALBUTEROL HFA 8 GM INHALER INH PRN (17:23)
[2023-04-27] MEDS: ATORVASTATIN 40 MG TAB PO SCH (21:05)
[2023-04-27] MEDS: WARFARIN SOD 2 MG TAB PO SCH (21:05)
[2023-04-27] MEDS: guaiFENesin 600 MG TABCR PO SCH (21:06)
[2023-04-27] MEDS: carvediloL 6.25 MG TAB PO SCH (21:06)
[2023-04-27] MEDS: ENOXAPARIN INJ 40 MG/0.4 ML SYR SQ SCH (21:08)
[2023-04-27] MEDS: ACETAMINOPHEN 325 MG TAB PO STA (23:02)
[2023-04-28 05:06] LABS: Basophils # (auto) 0.02 K/uL (0.00-0.20); Basophils % (auto) 0.2 %; Eosinophils # (auto) 0.02 K/uL (0.00-0.50); Eosinophils % (auto) 0.2 %; Hematocrit (blood only) 43.9 % (37.0-47.0); Hemoglobin 15.3 g/dl (12.0-16.0); Immature Granulocytes # (auto) 0.13 K/uL (0.01-0.20); Immature Granulocytes % (auto) 1.6 %; Lymphocytes # (auto) 1.65 K/uL (1.20-3.40); Mean Corpuscular Hemoglobin 39.6 pg (25.0-34.0); Mean Corpuscular Hgb Conc 34.9 g/dL (32.0-36.0); Mean Corpuscular Volume 113.7 fL (80.0-100.0); Mean Platelet Volume 9.7 fL (9.4-12.4); Monocytes # (auto) 1.26 K/uL (0.11-0.59); Monocytes % (auto) 15.3 %; Neutrophils # (auto) 5.15 K/uL (1.40-6.50); Neutrophils % (auto) 62.7 %; Platelet Count 112 K/uL (130-400); RDW Coefficient of Variation 12.6 % (11.5-14.5); RDW Standard Deviation 53.2 fL (36.4-46.3); Red Blood Count 3.86 M/uL (4.20-5.40); White Blood Count 8.23 K/ul (4.8-10.8)
[2023-04-28 05:23] LABS: Albumin Level 3.3 gm/dl (3.4-5.0); BUN Creatinine Ratio 24.4 (10-20); Bilirubin Direct 0.3 mg/dl (0-0.2); Calcium 8.3 mg/dl (8.6-10.3); Creatinine Clr Calc Pharmacy 51.2 ml/min; Est GFR (African American) 79.8 ml/min; Est GFR (Non-African American) 68.8 ml/min; Magnesium 2.1 mg/dl (1.7-2.4); Potassium 3.9 mmol/L (3.5-5.1); Total Protein 5.5 gm/dl (6.0-8.3)
[2023-04-28 05:43] LABS: INR 1.9 (0.9-1.1); Prothrombin Time 19.9 Seconds (9.0-12.0)
--- NOTE | 2023-04-28 06:12 | Electrocardiogram Report ---
Test Reason : Blood Pressure : / mmHG Vent. Rate : 083 BPM Atrial Rate : 000 BPM P-R Int : 000 ms QRS Dur : 066 ms QT Int : 358 ms P-R-T Axes : 000 004 039 degrees QTc Int : 420 ms Atrial fibrillation Low voltage QRS Abnormal ECG When compared with ECG of 10-MAR-2023 11:12, No significant change was found Confirmed by Roderick Mallory ([id number]) on 04/28/2023 6:11:35 AM Referred By: REFERRED SELF Confirmed By:Roderick Mallory
[2023-04-28] MEDS: lisinopril 40 MG TAB PO SCH (09:50)
[2023-04-28] MEDS: DULoxetine HCL 30 MG CAP PO SCH (09:51)
[2023-04-28] MEDS: ISOSORBIDE MONO EXTENDED REL 60 MG TABCR PO SCH (09:51)
[2023-04-28] MEDS: ASPIRIN 81 MG CHEW PO SCH (09:52)
[2023-04-28] MEDS: HYDROXYUREA 500 MG CAP PO SCH (09:54)
--- NOTE | 2023-04-28 13:29 | Hospitalist Progress Note ---
Date of Service April 28, 2023 Assessment & Plan (1) COVID: Plan: day #2 of Remdesivir Thus far dexamethasone has been deferred -- no hypoxia, cxr w/o pneumonia, etc however, she does have focal lung findings on left today - thus, will obtain repeat cxr to ensure no developing pneumonia add combivent for cough cont flutter valve cont mucinex BID add tessalon 100mg TID low threshold to add dexamethasone if any clinical worsening, development of O2 requirement, etc cont airborne isolation (2) Pre-syncope: Plan: Patient visited PCP on 04/27, and while sitting she became pale, clammy, and was altered for ~30 seconds. ?Loss of consciousness? She was hypoxic during this event. Sounds like she had a vagal event. Head CT was negative. Will obtain echo - r/o valvular disease, etc that could have caused this event. Trops noted to be negative. VTE unlikely - INR was 2 on presentation yesterday. PT, OT evals. Follow on telemetry carefully. Await echo. (3) Acute UTI (urinary tract infection): Plan: growing GNR on urine cx cont rocephin await final culture (4) Atrial fibrillation: Plan: Continue Coumadin, carvedilol Daily PT/INR; INR therapeutic goal 2-3 INR today 1.9 -- will not change coumadin dosing due to concurrent abx (5) Polycythemia: Plan: Continue hydroxyurea H/h acceptable today (6) Hypertension: Plan: Continue isosorbide mononitrate, lisinopril, carvedilol (7) Chronic kidney disease: Plan: baseline CrCl 40s/50s c/w stage 3a disease BMP am (8) Hyperlipidemia: Plan: Continue atorvastatin Follow ast/alt while on Remdesivir (9) Chest wall pain: Plan: tender to palpation on exam today and, with taking deep breaths, she also has pain musculoskeletal etiology likely pulmonary etiology also possible (bronchitis) lidoderm patches bronchodilators trops noted to be negative doubt VTE - INR 2 upon presentation; defer on CTA chest Plan DVT proph - coumadin PT, OT evals Admission and Anticipated Discharge Date Admission Date: April 27, 2023 Subjective patient resting in bed during the visit her daughter was present she had not moved yet to a room on the floor; was still in ER this is the first time she has had COVID- has not had confirmed disease in the past main complaints - fatigue, nasal congestion, cough, chest tightness on left minimal pleuritic type pain with taking a deep breath (on left) denies any dyspnea or CASE today denies substernal chest pain no fevers eating fair first sx's were on 04/25 Review of Systems Review of Systems: gen - no chills; fatigue/weakness present GI - no N/V/abd pain or diarrhea - voiding w/o LUTS Physical Exam Physical Exam: gen - sounds congested, coughing, looks ill but nontoxic mouth - MMM neck - no JVD heart - irregularly irregular, s1 s2 lungs - focal wheezes left lung, relatively clear right lung, no rales, no increased work of breathing abd - soft NT ND BS+ ext - pulses 2+ b/l, no edema chest - tender to palpation along border of left ribs with sternum Results & Data Results & Data Vital Signs (Past 12 Hours) Vital Signs Pulse Pulse Pulse Resp BP Pulse Ox O2 Del Method 04/28/23 09:59 Room Air 04/28/23 07:47 73 04/28/23 06:00 68 20 137/70 96 Room Air 04/28/23 02:00 68 19 131/83 94 Room Air Laboratory Results Laboratory Results - last 24 hr 04/28/23 04:37 WBC 8.23 RBC 3.86 L Hgb 15.3 Hct 43.9 MCV 113.7 H MCH 39.6 H MCHC 34.9 RDW Std Deviation 53.2 H RDW Coeff of Rahul 12.6 Plt Count 112 L MPV 9.7 Immature Gran % (Auto) 1.6 Neut % (Auto) 62.7 Lymph % (Auto) 20.0 [place] % (Auto) 15.3 Eos % (Auto) 0.2 Baso % (Auto) 0.2 Neut # (Auto) 5.15 Lymph # (Auto) 1.65 [place] # (Auto) 1.26 H Eos # (Auto) 0.02 Baso # (Auto) 0.02 Immature Gran # (Auto) 0.13 PT 19.9 H INR 1.9 H Sodium 139 Potassium 3.9 Chloride 109 H Carbon Dioxide 22 Anion Gap 8 BUN 19 Creatinine 0.78 Est Cr Clr Drug Dosing 51.2 Est GFR ( Amer) 79.8 Est GFR (Non-Af Amer) 68.8 BUN/Creatinine Ratio 24.4 H Glucose 136 H Calcium 8.3 L Magnesium 2.1 Total Bilirubin 1.0 Direct Bilirubin 0.3 H AST 19 ALT 22 Alkaline Phosphatase 63 Total Protein 5.5 L Albumin 3.3 L PG Care Time/CCT Total # of Minutes Spent Total Time Spent with Patient: Total time spent is greater than 50% in coordination of care (as documented) at patient's floor/unit and/or counseling patient: Coding Level of Care Code 42915 SUB INP/OBS CARE 3/50MIN Diagnoses COVID U07.1 Pre-syncope R55 Acute UTI (urinary tract infection) N39.0 Permanent atrial fibrillation I48.21 Atrial fibrillation type: permanent Polycythemia D75.1 Hypertension I10 Chronic kidney disease N18.9 Hyperlipidemia E78.5 Chest wall pain R07.89 (4) Atrial fibrillation Atrial fibrillation type: permanent Qualified Code(s): I48.21 - Permanent atrial fibrillation
[2023-04-28] MEDS: BENZONATATE 100 MG CAPSULE PO SCH (13:37)
[2023-04-28] MEDS: LIDOCAINE 5% 1 PATCH TD SCH (13:38)
[2023-04-28] MEDS: REMDESIVIR 100 MG in SODIUM CHLORIDE 0.9% 230 ML IV SCH (13:38)
[2023-04-28] MEDS: cefTRIAXone SODIUM 1,000 MG in DEXTROSE 5 % MINI-B 50 ML IV SCH (14:53)
[2023-04-28] MEDS: ALBUTEROL HFA 8 GM INHALER INH SCH (14:59)
[2023-04-28] MEDS: IPRATROPIUM BROMIDE HFA INHALER INH SCH (14:59)
--- NOTE | 2023-04-28 15:52 | XRay Report ---
XR chest 1V portable CLINICAL HISTORY: focal L sided wheezes with pleuritic pain; COVID+ TECHNIQUE: Single frontal radiograph of the chest was obtained. Comparison: Comparison is made to chest 04/27/2023 FINDINGS: No lines and tubes are seen. The cardiomediastinal silhouette is normal. The lungs are clear. No evid ence of pleural effusion or pneumothorax. IMPRESSION: No acute abnormalities and in particular no radiographic evidence of pneumonia. ACT 112: Negative or not required by law. Electronically signed by: Sung Garcia M.D. 04/28/2023 3:51 PM
[2023-04-28] MEDS ORDERED: IPRATROPIUM BROMIDE/ALBUTEROL respimat INH INH SCH (17:00)
--- NOTE | 2023-04-28 17:58 | XCELERA ---
[id number] \\[id number]
[2023-04-29 07:00] LABS: Hypersegmented Neutrophils 1+
[2023-04-29 08:06] LABS: Estimated Average Glucose 117 mg/dl; Hemoglobin A1C 5.7 % (4.5-5.6)
[2023-04-29 08:09] LABS: INR 1.8 (0.9-1.1); Prothrombin Time 19.1 Seconds (9.0-12.0)
[2023-04-29 08:16] LABS: Basophils # (auto) 0.01 K/uL (0.00-0.20); Basophils % (auto) 0.1 %; Eosinophils # (auto) 0.02 K/uL (0.00-0.50); Eosinophils % (auto) 0.2 %; Hematocrit (blood only) 44.8 % (37.0-47.0); Hemoglobin 15.4 g/dl (12.0-16.0); Immature Granulocytes # (auto) 0.17 K/uL (0.01-0.20); Immature Granulocytes % (auto) 1.9 %; Lymphocytes % (auto) 21.8 %; Mean Corpuscular Hemoglobin 39.3 pg (25.0-34.0); Mean Corpuscular Hgb Conc 34.4 g/dL (32.0-36.0); Mean Corpuscular Volume 114.3 fL (80.0-100.0); Mean Platelet Volume 9.5 fL (9.4-12.4); Monocytes # (auto) 1.01 K/uL (0.11-0.59); Neutrophils # (auto) 5.95 K/uL (1.40-6.50); Platelet Count 107 K/uL (130-400); RDW Coefficient of Variation 12.1 % (11.5-14.5); RDW Standard Deviation 51.5 fL (36.4-46.3); Red Blood Count 3.92 M/uL (4.20-5.40); White Blood Count 9.16 K/ul (4.8-10.8)
[2023-04-29 08:48] LABS: Calcium 8.7 mg/dl (8.6-10.3); Potassium 3.8 mmol/L (3.5-5.1)
[2023-04-29 08:53] LABS: BUN Creatinine Ratio 30.1 (10-20); Est GFR (African American) 86.4 ml/min; Est GFR (Non-African American) 74.6 ml/min
[2023-04-29] MEDS: cephALEXin 500 MG CAP PO SCH (10:41)
[2023-04-29] MEDS ORDERED: WARFARIN SOD 1 MG TAB PO ONE (16:00)
[2023-04-29] MEDS: WARFARIN SOD 1 MG TAB PO ONE (20:48)
--- NOTE | 2023-04-29 21:18 | Hospitalist Progress Note ---
Date of Service April 29, 2023 Assessment & Plan (1) COVID: Plan: day #3 of Remdesivir overall clinically stable & improved cxr x 2 without pneumonia, o2 sats stable, and lung exam wnl today - cont to defer on steroids will cont combivent for cough cont flutter valve cont mucinex BID cont tessalon 100mg TID cont airborne isolation (2) Pre-syncope: Plan: Patient visited PCP on 04/27, and while sitting she became pale, clammy, and was altered for ~30 seconds. ?Loss of consciousness? She was hypoxic during this event. Sounds like she had a vagal event. Head CT was negative. Echo hyperdynamic LV function but no significant valvular dysfunction tele with rate -controlled a.fib Trops noted to be negative. VTE unlikely - INR was 2 on presentation to the ER. PT, OT evals passed. No dizziness or presyncope reported while here. (3) Acute UTI (urinary tract infection): Plan: 2nd e.coli stop rocephin change to PO keflex 500 BID x 5 days (4) Atrial fibrillation: Plan: Continue Coumadin, carvedilol Daily PT/INR; INR therapeutic goal 2-3 INR today 1.8 -- will give additional 1mg of coumadin today on top of usual 2mg dose INR am (5) Polycythemia: Plan: Continue hydroxyurea H/h acceptable (6) Hypertension: Plan: Continue isosorbide mononitrate, lisinopril, carvedilol (7) Chronic kidney disease: Plan: baseline CrCl 40s/50s c/w stage 3a disease BMP remains stable (8) Hyperlipidemia: Plan: Continue atorvastatin Follow ast/alt while on Remdesivir = both remain normal to date (9) Chest wall pain: Plan: no c/o this today (10) Thrombocytopenia: Plan: likely due to COVID infection itself serial CBC if COVID related should resolve in the next 5-7 days Plan DVT proph - coumadin PT, OT - passed daughter updated suspect home tomorrow Admission and Anticipated Discharge Date Admission Date: April 27, 2023 Subjective no issues overnight she states "I feel much better" cough/congestion/wheezing all improved no sputum denies dyspnea only complaints are that of poor sleep and poor appetite along with urinary frequency (latter is chronic) some fatigue daughter at bedside again today tele overnight stable (rate controlled a.fib) Review of Systems Review of Systems: gen - no fevers or chills cv - no orthopnea GI - no N/V; +BM yesterday Physical Exam Physical Exam: gen - looks much better today; no cough heard at all during the visit mouth - MMM neck - no JVD heart - irregularly irregular, s1 s2, no murmur lungs - CTA B/l; no wheeze, no rales today abd - soft NT ND BS+ ext - pulses 2+ b/l, no edema Results & Data Results & Data Vital Signs (Past 12 Hours) Vital Signs Temp Pulse Pulse Resp BP Pulse Ox O2 Del Method 04/29/23 20:42 36.5 C 80 18 153/95 H 95 Room Air 04/29/23 18:46 71 18 96 Room Air 04/29/23 17:34 160/90 H 04/29/23 16:41 70 04/29/23 14:19 74 16 96 Room Air 04/29/23 10:42 36.5 C 66 16 125/80 96 Room Air 04/29/23 10:38 75 16 96 Room Air Laboratory Results Laboratory Results - last 24 hr 04/27/23 04/29/23 11:13 07:24 WBC 9.16 RBC 3.92 L Hgb 15.4 Hct 44.8 MCV 114.3 H MCH 39.3 H MCHC 34.4 RDW Std Deviation 51.5 H RDW Coeff of Rahul 12.1 Plt Count 107 L MPV 9.5 Immature Gran % (Auto) 1.9 Neut % (Auto) 65.0 Lymph % (Auto) 21.8 [place] % (Auto) 11.0 Eos % (Auto) 0.2 Baso % (Auto) 0.1 Neut # (Auto) 5.95 Lymph # (Auto) 2.00 [place] # (Auto) 1.01 H Eos # (Auto) 0.02 Baso # (Auto) 0.01 Immature Gran # (Auto) 0.17 Hypersegmented Neuts 1+ PT 19.1 H INR 1.8 H Sodium 139 Potassium 3.8 Chloride 107 Carbon Dioxide 24 Anion Gap 8 BUN 22 Creatinine 0.73 Est Cr Clr Drug Dosing 53.0 Est GFR ( Amer) 86.4 Est GFR (Non-Af Amer) 74.6 BUN/Creatinine Ratio 30.1 H Glucose 130 H Estimat Average Glucose 117 Hemoglobin A1c 5.7 H Calcium 8.7 AST 17 ALT 21 PG Care Time/CCT Total # of Minutes Spent Total Time Spent with Patient: Total time spent is greater than 50% in coordination of care (as documented) at patient's floor/unit and/or counseling patient: Coding Level of Care Code 73269 SUB INP/OBS CARE 2/35MIN Diagnoses COVID U07.1 Pre-syncope R55 Acute UTI (urinary tract infection) N39.0 Permanent atrial fibrillation I48.21 Atrial fibrillation type: permanent Polycythemia D75.1 Hypertension I10 Chronic kidney disease N18.9 Hyperlipidemia E78.5 Chest wall pain R07.89 Thrombocytopenia D69.6 (4) Atrial fibrillation Atrial fibrillation type: permanent Qualified Code(s): I48.21 - Permanent atrial fibrillation
[2023-04-30 07:58] LABS: Basophils # (auto) 0.01 K/uL (0.00-0.20); Basophils % (auto) 0.1 %; Eosinophils # (auto) 0.03 K/uL (0.00-0.50); Eosinophils % (auto) 0.4 %; Hematocrit (blood only) 44.5 % (37.0-47.0); Hemoglobin 15.2 g/dl (12.0-16.0); Immature Granulocytes # (auto) 0.07 K/uL (0.01-0.20); Immature Granulocytes % (auto) 0.9 %; Lymphocytes # (auto) 2.27 K/uL (1.20-3.40); Lymphocytes % (auto) 29.1 %; Mean Corpuscular Hemoglobin 38.7 pg (25.0-34.0); Mean Corpuscular Hgb Conc 34.2 g/dL (32.0-36.0); Mean Corpuscular Volume 113.2 fL (80.0-100.0); Mean Platelet Volume 9.4 fL (9.4-12.4); Monocytes # (auto) 0.72 K/uL (0.11-0.59); Monocytes % (auto) 9.2 %; Neutrophils # (auto) 4.71 K/uL (1.40-6.50); Neutrophils % (auto) 60.3 %; Platelet Count 113 K/uL (130-400); RDW Coefficient of Variation 12.1 % (11.5-14.5); RDW Standard Deviation 50.9 fL (36.4-46.3); Red Blood Count 3.93 M/uL (4.20-5.40); White Blood Count 7.81 K/ul (4.8-10.8)
[2023-04-30 08:15] LABS: BUN Creatinine Ratio 29.2 (10-20); Calcium 8.6 mg/dl (8.6-10.3); Creatinine Clr Calc Pharmacy 53.7 ml/min; Est GFR (African American) 87.9 ml/min; Est GFR (Non-African American) 75.8 ml/min; Potassium 3.8 mmol/L (3.5-5.1)
[2023-04-30 08:30] LABS: Prothrombin Time 20.9 Seconds (9.0-12.0)
[2023-04-30] MEDS: REMDESIVIR 100 MG in SODIUM CHLORIDE 0.9% 230 ML IV SCH (12:00)
--- NOTE | 2023-04-30 12:21 | Discharge Summary ---
Date of Service April 30, 2023 Admission HPI Per Admitting Provider Sharda is a pleasant 87-year-old female with PMH of atrial fibrillation (on Coumadin), CAD, allergic rhinitis, HTN, and tremor. Patient presented via EMS from her PCP office for dizziness, muscle aches, and episode of unresponsiveness on 04/27. Patient reports that coughing and congestion started on Tuesday 04/25. She then went to her PCP on 04/27 with her daughter, and became pale and clammy while sitting in the chair; there was episode of unresponsiveness; no LOC; no seizure-like activity, per daughter; her oxygen levels were reported to be low at that time. She does not use supplemental oxygen at home. She does not Dors intermittent left-sided chest pain, which she normally gets when she develops A-fib; she denies left arm/left jaw pain or pressure. Patient also endorses increased urinary frequency, which happened when she had a UTI back in February. Patient uses a cane to ambulate at home; she had a fall back on 03/08, which was later deemed to be due to a UTI. The patient is in a fdc apartment, no steps. She reports that she took all of her regular medications this morning; no recent change in medications; patient manages her own meds at home. Patient is not up-to-date on COVID vaccinations/boosters, but reports that she had a flu shot this past year. Patient denies smoking/tobacco use. Vital stable at time of admission; SpO2 94% on RA. ED course: Rocephin 1000 mg IV NSS 500 mL IV ROS: Patient endorses body aches, dry cough, runny nose, congestion, L-sided CP, nausea, and increased urinary frequency (which often happens when she gets UTIs). Patient denies fever, chills, night-sweats, chest palpitations, pain/pressure in L arm or L jaw hemoptysis, pleuritic CP, SOB at rest, abominal pain, vomiting, diarrhea, burning with urination, dysuria, blood in urine/stool, or numbness/tingling in arms or legs. Discharge Exam gen - looks much better today; no cough heard at all during the visit mouth - MMM neck - no JVD heart - irregularly irregular, s1 s2, no murmur lungs - CTA B/l; no wheeze, no rales today abd - soft NT ND BS+ ext - pulses 2+ b/l, no edema Discharge Data Allergies Allergy/AdvReac Type Severity Reaction Status Date / Time latex Allergy Unknown ITCHINESS Verified 04/27/23 13:13 tramadol Allergy Unknown CAN'T Verified 04/27/23 13:13 REMEMBER Consultations 04/27/23 13:55 ED Decision to Admit Stat Ordered Studies 04/27/23 11:13 CT head/brain wo con Stat Hospital Course (1) COVID: day #3 of Remdesivir overall clinically stable & improved cxr x 2 without pneumonia, o2 sats stable, and lung exam wnl today - cont to defer on steroids will cont combivent for cough cont flutter valve cont mucinex BID cont tessalon 100mg TID cont airborne isolation (2) Pre-syncope: Patient visited PCP on 04/27, and while sitting she became pale, clammy, and was altered for ~30 seconds. ?Loss of consciousness? She was hypoxic during this event. Sounds like she had a vagal event. Head CT was negative. Echo hyperdynamic LV function but no significant valvular dysfunction tele with rate -controlled a.fib Trops noted to be negative. VTE unlikely - INR was 2 on presentation to the ER. PT, OT evals passed. No dizziness or presyncope reported while here. (3) Acute UTI (urinary tract infection): 2nd e.coli stop rocephin change to PO keflex 500 BID x 5 days (4) Atrial fibrillation: Continue Coumadin, carvedilol Daily PT/INR; INR therapeutic goal 2-3 INR today 1.8 -- will give additional 1mg of coumadin today on top of usual 2mg dose INR am (5) Polycythemia: Continue hydroxyurea H/h acceptable (6) Hypertension: Continue isosorbide mononitrate, lisinopril, carvedilol (7) Chronic kidney disease: baseline CrCl 40s/50s c/w stage 3a disease BMP remains stable (8) Hyperlipidemia: Continue atorvastatin Follow ast/alt while on Remdesivir = both remain normal to date (9) Chest wall pain: no c/o this today (10) Thrombocytopenia: likely due to COVID infection itself serial CBC if COVID related should resolve in the next 5-7 days Plan DVT proph - coumadin PT, OT - passed daughter updated suspect home tomorrow Home Health Attestation I certify that this patient is under my care and that I, or a physicians emergency room physician assistant working with me, had a face to-face encounter that meets the home health [id number] encounter requirements with this patient. The encounter with the patient was in whole, or in part, for the following medical condition, which is the primary reason for home health care (list medical condition): I certify that, based on my findings, the following services are medically necessary home health services: My clinical findings support the need for the above services because: Further, I certify that my clinical findings support that this patient is homebound (i.e. absences from home require considerable and taxing effort and are for medical reasons or [employer] services or infrequently or of short duration when for other reasons) because: Certification for Home Health Services: Based on the above findings, I certify that this patient is confined to the home and needs intermittent shelter care, physical therapy and/or speech therapy or continues to need occupational therapy. The patient is under my care, and I have initiated the establishment of the plan of care. This patient will be followed by a physician who will periodically review the plan of care. Discharge Plan Discharge Items Patient Disposition: Home - Home Health Services Reason For Visit: COVID, UTI Discharge Diagnosis: 1. COVID-19 infection - improved 2. Urinary tract infection - improved 3. Episode of near-fainting/confusion at outpatient doctor's office - has not recurred; likely related to #1 and #2 4. Mildly low platelets - likely due to #1 5. Atrial fibrillation on chronic coumadin Activity: As commented below Activity Comment: gradually increase activities over the next 7-10 days as olerated Non-emergency contact: Primary Care Provider Call non-emergency contact if: you have any medication questions, your symptoms worsen and you have a fever Follow-up/Referrals: Rachael Sosa CRNP [Primary Care Provider] - 05/07/23 2:00 pm (1 week ) Diet: Heart Healthy Addtl Attending Provider Instructions: Mrs Godfrey, You were treated for COVID-19 infection as well as a urinary tract infection (UTI). Your received IV Remdesivir anti-viral treatment for the COVID along with cough medicines. Antibiotics were used for the UTI. Your blood cultures remained negative while here (we did not find bacteria in your bloodstream). You made nice improvement with all of your COVID symptoms while here. Chest x-ray x 2 did not show any pneumonia. Due to the brief episode of "spacing out"/confusion at the outpatient doctor's office we kept you on the heart monitor. This showed well-controlled atrial fibrillation. We did not see any other abnormal rhythms. Your blood work for the heart was normal - thus, there was no evidence of heart attack. Your echocardiogram heart ultrasound showed normal heart function and relatively normal valve function. The echocardiogram was similar to your 2022 echo. During the stay your platelet count was mildly low, likely due to the COVID infection itself. I would recommend a repeat CBC (blood counts) in about 1 week to make sure the platelets have normalized. There is nothing to do in the meantime as the issue is only mild. Please plan to stay at home and rest until Thursday morning, 05/04. This is your "isolation" period. If by the AM of 05/04 you are feeling well, most symptoms have resolved or are continuing to resolve, and you have had no fever over the weekend -- you can discontinue isolation and resume normal activities. You likely have another 1-2 weeks of recovery ahead. You may be more tired than normal. You may have a mild cough. These symptoms are typical during the recovery period. Be sure to focus on good hydration, nutrition, and getting good rest. Of note - your INR level was 2 on day of discharge. Resume your typical coumadin schedule. Recommendations - 1. cephalexin 500mg twice daily x 7 more doses, first dose TONIGHT 04/30/23 - this is for your urinary tract infection 2. albuterol via spacer device (see handout) - 2 puffs every 4 hours as needed for cough/wheeze/shortness of breath 3. benzonatate 100mg every 8 hours as needed for cough; this is a cough suppressant 4. see your family doctor in about 1 week 5. repeat CBC in 1 week to recheck your platelet count -- your family doctor can check this for you Return to [facility] if - * you develop fevers over 100 degrees * you have worsening shortness of breath * you develop chest pains * you have vomiting or severe diarrhea * any other concerns It was our pleasure to care for you! Pending Studies at Discharge: No Stand-Alone Forms: My [facility], Smoking Cessation Medications and DC Order Prescriptions: New benzonatate 100 mg Capsule 100 mg PO TID PRN (Reason: cough) Qty: 20 0RF cephalexin 500 mg Capsule 500 mg PO BID Qty: 7 0RF Rx Instructions: first dose PM of 04/30/23. albuterol sulfate [Ventolin HFA] 90 mcg/actuation Hfa Aerosol Inhaler 2 puff inhalation Q4H PRN (Reason: cough/wheeze/shortness of breath) Qty: 1 0RF Rx Instructions: use with spacer device Continued duloxetine 30 mg capsule,delayed release(DR/EC) 30 mg PO DAILY Qty: 90 3RF carvedilol 6.25 mg tablet 6.25 mg PO BID Qty: 60 5RF Rx Instructions: must administer with a meal/food lisinopril 40 mg tablet 40 mg PO DAILY Qty: 90 3RF warfarin 2 mg tablet 2 mg PO QPM Qty: 120 3RF Protocol: Dose Management Condition: Thursday Dose/Route: 2 mg Instruction: 1 x 2 mg tablet Condition: Thursday Dose/Route: 2 mg Instruction: 1 x 2 mg tablet Condition: Thursday Dose/Route: 2 mg Instruction: 1 x 2 mg tablet Condition: Thursday Dose/Route: 2 mg Instruction: 1 x 2 mg tablet Condition: Dose/Route: 2 mg Instruction: 1 x 2 mg tablet Condition: Thursday Dose/Route: 2 mg Instruction: 1 x 2 mg tablet Condition: Thursday Dose/Route: 2 mg Instruction: 1 x 2 mg tablet Protocol Text: Adjustment Start Date: 04/23/23 INR Value: 2.2 INR Date: 04/23/23 Recheck Date: 05/21/23 isosorbide mononitrate 60 mg tablet extended release 24 hr 60 mg PO DAILY Qty: 90 3RF hydroxyurea 500 mg capsule 500 mg PO DAILY atorvastatin 40 mg tablet 40 mg PO Q OTHER DAY Qty: 90 3RF nitroglycerin 0.4 mg tablet, sublingual 0.4 mg SL Q5M PRN (Reason: chest pain) Qty: 25 0RF cholecalciferol (vitamin D3) 50 mcg (2,000 unit) capsule 50 mcg PO DAILY aspirin 81 mg Tablet,Chewable 81 mg PO DAILY Discharge Orders: Discharge Order (Routine); Ordered 04/30/23 Ordered By: Emmanuel Zhu/Other Patient Handouts: Using an Inhaler with a Spacer Admission Data Admit Date/Time: 04/27/23 14:58 Attending Provider: Emmanuel Jeffers Admit Provider: Emmanuel Pandya Primary Care Provider: Rachael Sosa Other Providers: Emmanuel Pandya; [facility], [facility]; [facility],Oxygen Coding Diagnoses COVID U07.1 Pre-syncope R55 Acute UTI (urinary tract infection) N39.0 Permanent atrial fibrillation I48.21 Atrial fibrillation type: permanent Polycythemia D75.1 Hypertension I10 Chronic kidney disease N18.9 Hyperlipidemia E78.5 Chest wall pain R07.89 Thrombocytopenia D69.6
[2023-05-01] MEDS ORDERED: REMDESIVIR 100 MG in SODIUM CHLORIDE 0.9% 230 ML IV SCH (10:00)
== END 2023-04-30 14:23 | disposition home health service (06) | DRG 178 ==
LOC: ED 10:46 → EDINP 14:58 → SUATTDRO 14:58 → 2N 04-28 17:24